=== PATIENT | male | born 1975 | race Hispanic/Latino ===

== ENCOUNTER 2022-04-04 22:06 | Emergency (ER) | payer OTHER ==
[~2022-04-04] VITALS: Ht 177.8 cm; Wt 126.1 kg
[2022-04-04 22:09] VITALS: BP 164/93
[2022-04-05] MEDS ORDERED: DICYCLOMINE HCL 10 MG/5 ML ML PO ONE
[2022-04-05] MEDS ORDERED: LIDOCAINE HCL 2% VISCOUS 15 ML UDCUP PO ONE
[2022-04-05] MEDS ORDERED: MAG/ALUM/SIMETH 30 ML UDCUP PO ONE
[2022-04-05] MEDS ORDERED: AZIT250T9 PO (01:19)
[2022-04-05] MEDS ORDERED: METH4TAB3 PO (01:19)
== END 2022-04-05 01:38 | disposition home or self-care (01) ==
LOC: EDH 22:06
DX: J06.9 Acute upper respiratory infection, unspecified (principal); Z20.822 Contact with and (suspected) exposure to COVID-19; E11.9 Type 2 diabetes mellitus without complications; I10 Essential (primary) hypertension
CPT/HCPCS: 71045; 87635; 87804 ×2; 99284; C9803

== ENCOUNTER 2024-11-23 14:48 | Inpatient (IN) | payer OTHER ==
[~2024-11-23] VITALS: Ht 175.3 cm; Wt 108.6 kg
[~2024-11-23 14:48] MED LIST: AZIT250T9 PO; METH4TAB3 PO
[2024-11-23 15:21] LABS: BASOPHILS # (AUTO) 0.07 K/uL (0.00-0.20); BASOPHILS % (AUTO) 0.5 % (0.0-5.0); EOSINOPHILS # (AUTO) 0.35 K/uL (0.00-0.70); EOSINOPHILS % (AUTO) 2.6 % (0.0-8.0); IMMATURE GRANULOCYTE ABSOLUTE 0.06 K/uL (0-1); LYMPHOCYTES # (AUTO) 2.4 K/uL (1.0-4.8); LYMPHOCYTES % (AUTO) 18.3 % (21.0-51.0); MEAN CORPUSCULAR HEMOGLOBIN 25.7 pg (27.0-33.0); MEAN CORPUSCULAR HGB CONC 32.7 g/dL (32.0-36.0); MEAN CORPUSCULAR VOLUME 78.4 fL (79-99); MONOCYTES % (AUTO) 7.6 % (3.0-13.0); NEUTROPHILS # (AUTO) 9.3 K/uL (1.8-7.7); NEUTROPHILS % (AUTO) 70.5 % (40.0-77.0); PLATELET COUNT (AUTO) 282 K/uL (130-400); RED BLOOD CELL COUNT(AUTO) 4.21 MIL/uL (4.50-6.20); RED CELL DISTRIBUTION WIDTH 13.6 % (11.0-15.5); WHITE BLOOD COUNT (AUTO) 13.2 K/uL (4.8-10.8)
[2024-11-23 15:26] LABS: CREATININE 3.3 mg/dL (0.5-1.3); POTASSIUM 4.6 mmol/L (3.5-5.1)
[2024-11-23 15:37] LABS: B-TYPE NATRIURETIC PEPTIDE 920 pg/mL (0-100)
--- NOTE | 2024-11-23 16:57 | HMCIMG ---
INDICATION: CHEST PAIN TECHNIQUE: CHEST 1VW COMPARISON: 04/05/2022 FINDINGS/IMPRESSION: Mild bilateral airspace consolidation suggesting vascular congestion/edema versus pneumonia. Cardiac silhouette is within normal limits. Mild degenerative changes of the spine. The visualized upper abdomen appears unremarkable.
[2024-11-23 17:18] LABS: APPEARANCE,URINE CLEAR (CLEAR); BILIRUBIN,URINE NEGATIVE (NEGATIVE); COLOR,URINE LIGHT-YELLOW (YELLOW); GLUCOSE, URINE (UA) >=1000 mg/dL (NEGATIVE); KETONES,URINE NEGATIVE (NEGATIVE); LEUKOCYTE ESTERASE ,URINE NEGATIVE Leu/uL (NEGATIVE); NITRATE,URINE NEGATIVE (NEGATIVE); OCCULT BLOOD,URINE MODERATE (NEGATIVE); PROTEIN,URINE 300 mg/dL (NEGATIVE); UROBILINOGEN,URINE 0.2 mg/dL (0.2-1.0)
[2024-11-23 17:19] LABS: ADD UA MICROSCOPIC YES
[2024-11-23 17:23] LABS: BACTERIA,URINE RARE /HPF (None Seen); SQUAMOUS EPITHELIAL CELL,UR RARE /HPF (0-2)
[2024-11-23] MEDS ORDERED: NITROGLYCERIN 0.4 MG SL TAB SL PRN (17:30)
--- NOTE | 2024-11-23 17:34 | ERN ---
ED Note History of Present Illness Stated Complaint: SOB,CHEST PAINS Chief Complaint: Chest Pain Time Seen by MD: 14:58 Time Seen by Midlevel: 15:00 Dictation: 49-year-old male history of hypertension, diabetes, cholesterol coming in complaining of cough congestion for one week and shortness a breath. Patient states about week and a half ago he was up in [place] admitted in the ICU for fluid in the lungs/pneumonia, was told that he needed to have open heart surgery because his arteries were clogged and was discharged to follow up with his PCP. Patient states they went to the PCP yesterday did not give him an appointment until four weeks from now. Allergies: Coded Allergies: No Known Allergies (Unverified Allergy, Unknown, 04/04/22) Home Meds Active Scripts Methylprednisolone (Medrol) 4 Mg Tab.ds.pk, 4 MG PO BID for 5 Days, #10 BOTTLE Prov:TOÑO EAST MD 04/05/22 Azithromycin (Azithromycin) 250 Mg Tablet, 250 MG PO BID for 4 Days, #8 TAB Prov:TOÑO EAST MD 04/05/22 Past Medical History Past Medical History: Diabetes-Type II, High Cholesterol, Heart Disease, Hypertension Surgical History: None Review of System Dictation Constitutional: Negative for fever,chills, and weight loss Eyes: Negative for injury, pain,redness, and discharge ENT: Negative for injury,pain or swelling Cardiovascular: Positive for chest pain, no palpitations, and no edema Respiratory: Positive for shortness of breath, cough, and no wheezing, Abdomen/GI: Negative for abdominal pain, nausea, vomiting, diarrhea, and constipation Back: Negative for injury and pain : Negative for injury, bleeding and discharge MS/Extremity: Negative for injury and deformity Skin: Negative for rash, and discoloration Neuro: Negative for headache, weakness, numbness, tingling, and seizure Psych: Negative for suicide ideation, homicidal ideation, and hallucinations Review of Systems: was completed Initial Vital Sign VS Vital Signs Date Time Temp Pulse Resp B/P (MAP) Pulse Ox O2 Delivery O2 Flow Rate FiO2 11/23/24 14:57 97.9 96 18 122/92 98 Room Air 0 11/23/24 18:40 21 Physical Exam Dictation General: awake, alert, NAD Head/Face: Normocephalic, atraumatic Eyes: PERRL, EOMI, vision at baseline ENT: oral cavity clear, TMs clear, no signs of infection Neck: Trachea midline, supple, no nuchal rigidity Cardiovascular: RRR, normal S1/S2, No MRGs, no JVD Respiratory: Diminished lower lung naylor, no respiratory distress, No rales or wheezes Abdomen: Soft, non-tender, non-distended, normal bowel sounds, no guarding or rebound. Skin: Warm, dry, normal turgor, no rash MS/Extremity: Pulses equal, no cyanosis, neurovascular intact, FROM plus one pitting edema to bilateral lower extremities Neuro: COAx4, GCS 15, strength 5/5, CN 2-12 intact, normal cerebellar exam, normal gait, Psych: Normal behavior, mood, and affect normal Results (Laboratory/Radiology) Laboratory/Radiology Laboratory Tests Test 11/23/24 15:03 11/23/24 15:37 11/23/24 16:58 11/23/24 18:30 White Blood Count 13.2 K/uL (4.8-10.8) H Red Blood Count 4.21 MIL/uL (4.50-6.20) L Hemoglobin 10.8 g/dL (14.0-18.0) L Hematocrit 33.0 % (42-54) L Mean Corpuscular Volume 78.4 fL (79-99) L Mean Corpuscular Hemoglobin 25.7 pg (27.0-33.0) L Mean Corpuscular Hemoglobin Concent 32.7 g/dL (32.0-36.0) Red Cell Distribution Width 13.6 % (11.0-15.5) Platelet Count 282 K/uL (130-400) Mean Platelet Volume 11.9 fL (7.5-10.5) H Immature Granulocyte % (Auto) 0.5 % (0-1) Neutrophils (%) (Auto) 70.5 % (40.0-77.0) Lymphocytes (%) (Auto) 18.3 % (21.0-51.0) L Monocytes (%) (Auto) 7.6 % (3.0-13.0) Eosinophils (%) (Auto) 2.6 % (0.0-8.0) Basophils (%) (Auto) 0.5 % (0.0-5.0) Neutrophils # (Auto) 9.3 K/uL (1.8-7.7) H Lymphocytes # (Auto) 2.4 K/uL (1.0-4.8) Monocytes # (Auto) 1.0 K/uL (0.1-1.0) Eosinophils # (Auto) 0.35 K/uL (0.00-0.70) Basophils # (Auto) 0.07 K/uL (0.00-0.20) Absolute Immature Granulocyte (auto 0.06 K/uL (0-1) Nucleated Red Blood Cells 0.0 % (0.0-0.19) Sodium Level 131 mmol/L (136-145) L Potassium Level 4.6 mmol/L (3.5-5.1) Chloride Level 97 mmol/L (101-111) L Carbon Dioxide Level 29 mmol/L (21-32) Blood Urea Nitrogen 53 mg/dL (7-18) H Creatinine 3.3 mg/dL (0.5-1.3) H Glomerular Filtration Rate Calc 22 mL/min (>90) Random Glucose 370 mg/dL (70-105) H Total Calcium 8.8 mg/dL (8.5-10.1) Total Creatine Kinase 164 U/L (21-232) Troponin I High Sensitivity 79 ng/L (4-75) *H B-Type Natriuretic Peptide 920 pg/mL (0-100) H Troponin I < 0.05 ng/mL (0.00-0.05) Urine Color LIGHT-YELLOW (YELLOW) Urine Appearance CLEAR (CLEAR) Urine pH 6.0 (5.0-8.0) Urine Specific [place] 1.012 (1.001-1.031) Urine Protein 300 mg/dL (NEGATIVE) H Urine Glucose (UA) >=1000 mg/dL (NEGATIVE) H Urine Ketones NEGATIVE mg/dL (NEGATIVE) Urine Occult Blood MODERATE (NEGATIVE) H Urine Nitrate NEGATIVE (NEGATIVE) Urine Bilirubin NEGATIVE mg/dL (NEGATIVE) Urine Urobilinogen 0.2 mg/dL (0.2-1.0) Urine Leukocyte Esterase NEGATIVE [place]/uL Urine RBC 6-10 /HPF (0-1) H Urine WBC 2-5 /HPF (0-1) H Urine Squamous Epithelial Cells RARE /HPF (0-2) Urine Bacteria RARE /HPF (None Seen) Whole Blood Glucose 322 MG/DL (70-110) H Labs Reviewed?: Yes EKG Comment: EKGs shows sinus rhythm, probable left atrial enlargement, nonspecific T abnormalities, lateral leads, at a rate of 93. No STEMI interpreted by ER MD X-RAY Comment: [facility] [address] [place] [address] IMAGING REPORT Signed PATIENT: CHRISTINE MCPHERSON JR MR#: [id number] : 1975 SEX: M AGE: 49 LOCATION: [facility] ORDER 150 STATUS: REG ER REPORT#: [id number] SERVICE 150 REASON: CHEST PAIN ORDERING PHYSICIAN: RENZO WALKER MD PROCEDURE: CXR1VW - CHEST 1VW INDICATION: CHEST PAIN TECHNIQUE: CHEST 1VW COMPARISON: 04/05/2022 FINDINGS/IMPRESSION: Mild bilateral airspace consolidation suggesting vascular congestion/edema versus pneumonia. Cardiac silhouette is within normal limits. Mild degenerative changes of the spine. The visualized upper abdomen appears unremarkable. DICTATED BY: DONG CHINO MD DATE: 11/23/241653 ELECTRONICALLY SIGNED BY: DONG CHINO MD DATE: 11/23/241656 ED Course ED Course Orders Procedure Category Date Status Time Vital Signs Per CPOE 11/23/24 Transmitted Routine 15:03 B-Type Natriuretic LAB 11/23/24 Complete Peptide 15:03 Chest 1vw RAD 11/23/24 Resulted 15:03 12 Lead Ekg Tracing- EKG 11/23/24 Logged Technical 15:03 Oxygen By Nc/Pulse Ox CPOE 11/23/24 Transmitted 15:03 Maintain Iv CPOE 11/23/24 Transmitted 15:03 Iv Insertion CPOE 11/23/24 Transmitted 15:03 Cardiac Monitoring CPOE 11/23/24 Transmitted 15:03 Pulse Oximetry With CPOE 11/23/24 Transmitted Vs And Prn 15:03 Cbc With Differential LAB 11/23/24 Complete 15:03 Activity: Br W/Brp CPOE 11/23/24 Transmitted With Assist 15:03 Creatine Kinase, Total LAB 11/23/24 Complete 15:03 Urinalysis Profile LAB 11/23/24 Complete 15:03 Troponin Poc Order LAB 11/23/24 Complete Only 15:03 Bedside Troponin-I LAB.ER 11/23/24 In Process (Poc) 15:03 Basic Metabolic Panel LAB 11/23/24 Complete 15:03 Troponin I High LAB 11/23/24 Complete Sensitivity 15:27 Aspirin 81mg Chew Tab PHA 11/23/24 Complete (Aspirin 81mg Chew 17:30 Nitroglycerin 0.4mg PHA 11/23/24 In Process Sl Tab (Nitrostat) 17:30 Furosemide 40mg Vial PHA 11/23/24 Complete (Lasix 40mg Vial) 17:30 Ceftriaxone 1g Vial PHA 11/23/24 Complete (Rocephine 1g Inj) 17:32 Insulin Regular, PHA 11/23/24 Complete Human 3ml (Humulin R 17:32 Admit Orders ADM 11/23/24 Transmitted 18:50 Cbc Without LAB 11/24/24 Verified Differential 04:00 Comprehensive LAB 11/24/24 Verified Metabolic Panel 04:00 Magnesium LAB 11/24/24 Verified 04:00 Hemoglobin A1c LAB 11/24/24 Verified 04:00 Lipid Panel LAB 11/24/24 Verified 04:00 Current Medications Medications (Trade) Dose Ordered Sig/Bibi Route PRN Reason Start Time Stop Time Status Last Admin Dose Admin Aspirin (Aspirin 81mg Chew Tab) 324 mg ONCE STAT PO 11/23/24 17:30 11/23/24 17:58 DC 11/23/24 18:34 Ceftriaxone Sodium (ROCEphine 1G INJ) 1 gm ONCE STAT IVPB 11/23/24 17:32 11/23/24 17:58 DC 11/23/24 18:34 Furosemide (LASix 40MG VIAL) 40 mg ONCE STAT IV 11/23/24 17:30 11/23/24 17:58 DC 11/23/24 18:34 Insulin Human Regular (humuLIN R 100 UNIT/ML 3ML) 8 unit ONCE STAT SQ 11/23/24 17:32 11/23/24 17:59 DC 11/23/24 18:36 Nitroglycerin (Nitrostat) 0.4 mg AD PRN SL CHEST PAIN 11/23/24 17:30 12/23/24 17:29 Vital Signs Date Time Temp Pulse Resp B/P (MAP) Pulse Ox O2 Delivery O2 Flow Rate FiO2 11/23/24 18:40 98.8 88 20 120/77 99 Room Air* 0 21 11/23/24 14:57 97.9 96 18 122/92 98 Room Air 0 HEART Score Response (Comments) Value History: Moderate suspicion (+1) 1 EKG: Normal 0 Risk Factors: 1-2 risk factors (+1) 1 Initial Troponin: 1-3x Normal Limit (+1) 1 HEART Score Risk: Low Risk for MACE (1-3) Total 3 Medical Decision Making MDM MDM: 49-year-old male history of hypertension, diabetes, cholesterol coming in complaining of cough congestion for one week and shortness a breath. Patient states about week and a half ago he was up in [place] admitted in the ICU for fluid in the lungs/pneumonia, was told that he needed to have open heart surgery because his arteries were clogged and was discharged to follow up with his PCP. Patient states they went to the PCP yesterday did not give him an appointment until four weeks from now.CBC shows leukocytosis of 13, microcytic anemia, no thrombocytopenia. Chemistry read mild hyponatremia at 1:31 a.m., elevated BUN and creatinine, patient states they told him kidney function was also abnormal in [place], hyperglycemia of 370, troponin mildly elevated at 79, and BNP is 920. Chest x-ray shows mild bilateral airspace consolidation suggestive vascular congestion, edema versus pneumonia. Aspirin, nitro, Rocephin, and Lasix initiated in the emergency room. Pending call back from walking Dr. Barajas for admission for pneumonia, fluid overload, hyponatremia and hyperglycemia. Spoke to tucker Bowie to admit Differential diagnosis: ACS, pneumonia, fluid overload Rationale: Tests considered and ordered secondary to shared decision making include: labs, ECG and radiology Previous outside records reviewed: Old ER visits. Risk of complication and/or morbidity or mortality of patient management: None Medications-Per medication reconciliation Need for hospitalization: Patient does meet criteria for hospitalization. Need for emergency major/minor surgery: No There are no social concerns with this patient. Prescription drug management Prescriptions will include symptomatic care Patient's prior external medical records from other ER visits were reviewed by me as indicated. Prior testing and results from previous visits were reviewed. Prior tests were taken into account with medical decision making and resource utilization, independent historian/historians were used to obtain complete medical history. I independently interpreted the test that were performed, results were reviewed by me and considered findings on radiology if ordered. Medical management and examination interpretation discussions were had by me with other qualified healthcare professionals as indicated for the patient's care. DX & DISP Disposition: Inpatient Decision to Admit Date: Nov 23, 2024 Decision to Admit Time: 19:11 Departure Impression: Primary Impression: Pneumonia Additional Impressions: Fluid overload, CKD (chronic kidney disease), Hyponatremia, Hyperglycemia Condition: Stable Referrals: GOKUL SOLITARIO MD (PCP) I have reviewed the case, and I agree with, Diagnosis and Plan VIRI PINEDA NP Nov 23, 2024 17:34
[2024-11-23] MEDS: cefTRIAXone 1G VIAL IVPB STA (18:34)
[2024-11-23] MEDS: ASPIRIN 81MG CHEW TAB PO STA (18:34)
[2024-11-23] MEDS: furoSEMIDE 40MG VIAL IV STA (18:34)
[2024-11-23] MEDS: INSULIN humuLIN R 100 UNIT/ML 3ML SQ STA (18:36)
[2024-11-23] MEDS ORDERED: acetaMINOPHEN 325 MG TAB PO PRN (19:30)
[2024-11-23] MEDS ORDERED: ondanSETRON 4MG INJ IVP PRN (19:30)
[2024-11-23] MEDS: INSULIN humuLIN R 100 UNIT/ML 3ML SQ SCH (19:38)
[2024-11-23] MEDS: HEParin 5,000 UNIT VIAL SQ SCH (19:40)
--- NOTE | 2024-11-23 21:17 | NUR ---
PATIENT TO BRING HOME MEDICATIONS FOR RECONCILE TOMORROW.
--- NOTE | 2024-11-23 21:41 | EKG ---
[facility] Test Date: 2024-11-23 Test Time: 14:56:42 Pat Name: CHRISTINE MCPHERSON Department: [facility] Patient ID: [id number] Room: 220 Gender: M Patient Educator: [id number] : 1975 Requested By: RENZO WALKER Order Number: [id number] Reading MD: Virginia Esposito Measurements Intervals [place] Rate: 93 P: 101 AL: 154 QRS: 23 QRSD: 100 T: -80 QT: 361 QTc: 450 Interpretive Statements Sinus rhythm Probable left atrial enlargement Nonspecific T abnormalities, lateral leads No previous ECG available for comparison Electronically Signed On 11-25-2024 16:03:09 ASSISTANT MAINTENANCE MANAGER by Virginia Esposito Please click the below link to view image of tracing.
[2024-11-24 07:20] LABS: HEMATOCRIT 33.2 % (42-54); MEAN CORPUSCULAR HEMOGLOBIN 25.1 pg (27.0-33.0); MEAN CORPUSCULAR HGB CONC 31.9 g/dL (32.0-36.0); MEAN CORPUSCULAR VOLUME 78.5 fL (79-99); RED BLOOD CELL COUNT(AUTO) 4.23 MIL/uL (4.50-6.20); RED CELL DISTRIBUTION WIDTH 13.7 % (11.0-15.5); WHITE BLOOD COUNT (AUTO) 11.3 K/uL (4.8-10.8)
[2024-11-24 07:48] LABS: HEMOGLOBIN A1C 7.6 % (4.0-6.0)
[2024-11-24 07:59] LABS: ALBUMIN 2.6 g/dL (3.5-5.0); BILIRUBIN,TOTAL 0.2 mg/dL (0.2-1.0); CREATININE 2.8 mg/dL (0.5-1.3); POTASSIUM 4.6 mmol/L (3.5-5.1); TOTAL PROTEIN, SERUM 5.9 g/dL (6.0-8.3)
[2024-11-24] MEDS: furoSEMIDE 40MG VIAL IV SCH (08:23)
[2024-11-24] MEDS ORDERED: TIRZ5PEN SQ (12:43)
[2024-11-24] MEDS ORDERED: ASPI-1197 PO (12:45)
[2024-11-24] MEDS ORDERED: ATOR40TA71 PO (12:46)
[2024-11-24] MEDS ORDERED: CARV25TA PO (12:48)
[2024-11-24] MEDS ORDERED: EMPA25TA PO (12:48)
[2024-11-24] MEDS ORDERED: AMLO-258 PO (12:48)
[2024-11-24] MEDS ORDERED: FURO20TA4 PO (12:48)
[2024-11-24] MEDS ORDERED: GLYB5TAB8 PO (12:50)
--- NOTE | 2024-11-24 14:21 | NUR ---
DR BARRY CONSULT COMPLETED. TELEPHONE ORDERS GIVEN.
--- NOTE | 2024-11-24 15:27 | NUR ---
INITIAL/DCP HOME Pt remains admitted in ED. Information gathered via phone from EC spouse Ml Cueva [phone]. PCP Dr Farris. Preferred pharmacy: [facility]. DME: none Pt admitted w CHF. He lives at home w his and adult children. Pt is independent w ambulation and ADLs. He is able to drive where needed. Discharge goal is to return home. Addendum: 11/24/24 at 1530 by BOBBI TAYLOR Amended: Links added.
--- NOTE | 2024-11-24 17:19 | CONS ---
[facility] CARDIOLOGY CONSULTATION REPORT Date Patient Seen: 11/24/2024 Requesting Physician: Dr. Barajas Attending Supervisor [employer]: Dr. Jose M Esposito Reason for Consultation: Chest pain History of Present Illness: This is a 49 y/o male with a past medical history of HTN, HLP, DM2, CKD stage III, multivessel CAD identified on [facility]/coronary angiogram done 10/2024 in [facility], and obesity who presents with chest pain of 1 month in duration. The symptoms began spontaneously and over the ensuing timeframe have been constant, and occur multiple times, on a daily basis. The symptoms develop with physical activity and the pain is described as dull in quality, 8/10 in intensity, and are nonradiating. The symptoms last less than 30 seconds, are not exacerbated by anything, and resolve without treatment. He denies any associated symptoms including headache, dizziness, syncope, palpitations, shortness of breath, PND, orthopnea, abdominal pain, nausea, vomiting, weight gain, lower extremity swelling, diaphoresis, fever, or chills. The patient's progression of symptoms prompted him to seek a higher level of care. Of note, is that the patient was recently hospitalized in [place] with pneumonia and underwent a [facility]/coronary angiogram which identified multiple vessel CAD, so CABG was recommended. The patient opted to come back down to the [place] for surgical intervention. Cardiology was consulted for treatment recommendations. Past Medical History: Listed above Past Surgical History: Listed above Family History: Noncontributory Habits: [Never] smoker. [Denies] alcohol consumption. [Denies] illicit drug use Review of Systems: CONST: [No fever, fatigue, or weight changes.] EYES: [No recent vision problems.] ENT: [No congestion, ear pain, or sore throat.] C/V: [As per the HPI.] RESP: [No cough, congestion, wheezing or shortness of breath.] GI: [No abdominal pain, nausea, vomiting, constipation, or diarrhea.] : [No incontinence or dysuria.] SKIN: [No rash.] NEURO: [No headache, focal numbness or weakness, dizziness, or seizures.] PSYCH: [No depression, anxiety, or suicidal ideation.] Physical Examination: GENERAL: [No acute distress.] HEAD: [Normal with no signs of head trauma.] EYES: [PERRLA, EOMI, conjunctiva and sclera normal.] ENT: [Hearing grossly intact, normal oropharynx.] NECK: [Supple without JVD. There is no tenderness, lymphadenopathy, or masses. No thyromegaly. Normal carotid upstrokes without bruits.] LUNGS: [SCM. Bilateral air entry. Diminished breath sounds noted to the bilateral lower lung naylor.] HEART: [Regular rate. Normal S1 and S2. No obvious murmurs, gallop, or rubs.] VASC: [Peripheral pulses +2 bilaterally.] ABD: [Bowel sounds normal, soft, nontender, no masses, no organomegaly. No audible bruits.] EXT: [No clubbing, cyanosis or edema.] SKIN: [No rashes or lesions noted.] NEURO: [Awake, alert, and oriented x3. No focal sensory or strength deficits noted.] Vital Signs (last 8hr) Date Time Temp Pulse Resp B/P (MAP) Pulse Ox O2 Delivery O2 Flow Rate FiO2 11/24/24 16:41 98.1 80 18 130/72 99 Room Air* 0 21 11/24/24 12:56 97.9 84 20 132/75 99 Room Air* 0 21 11/24/24 09:37 98.2 92 18 138/66 96 Room Air* 0 21 Laboratory: Hematology Labs: Test 11/24/24 07:02 11/23/24 15:03 Range/Units White Blood Count 11.3 H 4.8-10.8 K/uL Red Blood Count 4.23 L 4.50-6.20 MIL/uL Hemoglobin 10.6 L 14.0-18.0 g/dL Hematocrit 33.2 L 42-54 % Mean Corpuscular Volume 78.5 L 79-99 fL Mean Corpuscular Hemoglobin 25.1 L 27.0-33.0 pg Mean Corpuscular Hemoglobin Concent 31.9 L 32.0-36.0 g/dL Red Cell Distribution Width 13.7 11.0-15.5 % Platelet Count 268 130-400 K/uL Mean Platelet Volume 12.0 H 7.5-10.5 fL Nucleated Red Blood Cells 0.0 0.0-0.19 % Immature Granulocyte % (Auto) 0.5 0-1 % Neutrophils (%) (Auto) 70.5 40.0-77.0 % Lymphocytes (%) (Auto) 18.3 L 21.0-51.0 % Monocytes (%) (Auto) 7.6 3.0-13.0 % Eosinophils (%) (Auto) 2.6 0.0-8.0 % Basophils (%) (Auto) 0.5 0.0-5.0 % Neutrophils # (Auto) 9.3 H 1.8-7.7 K/uL Lymphocytes # (Auto) 2.4 1.0-4.8 K/uL Monocytes # (Auto) 1.0 0.1-1.0 K/uL Eosinophils # (Auto) 0.35 0.00-0.70 K/uL Basophils # (Auto) 0.07 0.00-0.20 K/uL Absolute Immature Granulocyte (auto 0.06 0-1 K/uL Chemistry Labs: Test 11/24/24 12:02 11/24/24 08:19 11/24/24 07:02 11/23/24 15:37 Range/Units Whole Blood Glucose 251 H 70-110 MG/DL Bedside Glucose Comment Notified Nurse Sodium Level 139 136-145 mmol/L Potassium Level 4.6 3.5-5.1 mmol/L Chloride Level 103 101-111 mmol/L Carbon Dioxide Level 30 21-32 mmol/L Blood Urea Nitrogen 56 H 7-18 mg/dL Creatinine 2.8 H 0.5-1.3 mg/dL Glomerular Filtration Rate Calc 27 >90 mL/min Random Glucose 241 H 70-105 mg/dL Hemoglobin A1c 7.6 H 4.0-6.0 % Estimated Average Glucose (eAG) 171 H 70-126 mg/dL Total Calcium 8.7 8.5-10.1 mg/dL Magnesium Level 2.00 1.80-2.40 mg/dL Total Bilirubin 0.2 0.2-1.0 mg/dL Aspartate Amino Transf (AST/SGOT) 13 10-37 U/L Alanine Aminotransferase (ALT/SGPT) 42 12-78 U/L Alkaline Phosphatase 92 50-136 U/L Troponin I High Sensitivity 71 4-75 ng/L Total Protein 5.9 L 6.0-8.3 g/dL Albumin 2.6 L 3.5-5.0 g/dL Triglycerides Level 199 30-200 mg/dL Cholesterol Level 171 <200 mg/dL LDL Cholesterol 109 H 0-99 mg/dL HDL Cholesterol 37 29-71 mg/dL Troponin I < 0.05 0.00-0.05 ng/mL Test 11/23/24 15:03 Range/Units Total Creatine Kinase 164 21-232 U/L B-Type Natriuretic Peptide 920 H 0-100 pg/mL Assessment: -Chest pain -Acute on chronic congestive heart failure -Acute on chronic renal insufficiency with baseline CKD stage III -Multivessel CAD identified on [facility]/coronary angiogram done 10/2024 in [place], recommended CABG -HTN -HLP -DM2 -Obesity Plan: 1. Chest pain -Cardiac enzymes-HS troponin I: 79>71 -The patient was recently hospitalized in [place] (discharged 11/20/2024) in which he underwent an [facility]/coronary angiogram which identified multivessel CAD. It was recommended that he undergo CABG, but the patient opted to come back to [place] for surgical revascularization. -We will request records from [facility] to obtain the patient's coronary diagram. -In addition, we will obtain a 2D echocardiogram and carotid Doppler for preoperative evaluation. -In the meantime, we will start the patient on isosorbide mononitrate ER 30 mg daily and restart aspirin 81 mg daily, carvedilol 6.25 mg BID, and atorvastatin 40 mg QHS. 2. Acute on chronic congestive heart failure -BNP: 920 -Continue furosemide 40 mg IV BID in order to target a 2L fluid loss per day or BNP level less than half of what it was upon admission -Continue carvedilol 6.25 mg BID. -He is not a candidate for ACEI/ARB/ARNI therapy or aldosterone antagonist therapy due to his renal dysfunction. -A 2D echocardiogram has been ordered to assess the patient's systolic/diastolic function. -Please record strict I/O's, daily weights, and restrict fluids to less than 2.0L/day Thank you for this interesting consult and allowing us to participate in the care of your patient. This case was discussed with my Supervising Physician, Dr. Jose M Esposito, and the above mentioned plan was formulated and agreed upon. -Consult Note written by Mitzi Reid, MSN, HORTICULTURALIST, AGACNP-BC MITZI REID NP Nov 24, 2024 17:19 JOSE M ESPOSITO DO Nov 25, 2024 15:39
--- NOTE | 2024-11-24 20:32 | NUR ---
ULTRASOUND AT BEDSIDE.
--- NOTE | 2024-11-24 20:40 | NUR ---
NURSE BUSY FOR REPORT AT THIS TIME.
--- NOTE | 2024-11-24 22:10 | CONS ---
NEPHROLOGY CONSULTATION REASON FOR CONSULTATION: Renal failure. The patient has brought in with chest pain. HISTORY OF PRESENT ILLNESS: Underlying diabetes, hypertension, hyperlipidemia and the patient came with chest pain, still has cough and congestion, found to have elevated BUN and creatinine. The patient has leukocytosis also. The patient has anemia. No other associated finding. No other aggravating or relieving factors. PAST MEDICAL HISTORY: Significant for diabetes, hypertension, hyperlipidemia, heart disease, multiple others. PAST SURGICAL HISTORY: No surgeries reported. SOCIAL HISTORY: No smoking, alcohol or drug abuse reported to me. FAMILY HISTORY: Unremarkable. ALLERGIES: No allergies. REVIEW OF SYSTEMS: CONSTITUTIONAL: Has been weak. No fever, chills or rigors. HEENT: With no headache, oral ulcers, sore throat or difficulty swallowing. No new vision complaint. RESPIRATORY: Has cough and expectoration, shortness of breath. CARDIOVASCULAR: The patient has chest pain. No orthopnea or PND. GASTROINTESTINAL: Negative for nausea, vomiting, diarrhea. GENITOURINARY: Negative for dysuria or hematuria. DERMATOLOGICAL: No rashes, pruritus or skin lesion. ENDOCRINE: No polyuria, polydipsia or polyphagia. PSYCHIATRIC: Negative for anxiety, depression or hallucinations. NEUROLOGIC: No seizure or syncope. All the other systems unchanged. PHYSICAL EXAMINATION: GENERAL: Pale, no other distress. VITAL SIGNS: Temperature 97.9, pulse 96, respiratory rate 18, blood pressure is 122/92, oxygen saturation 98%. HEENT: Head is atraumatic, normocephalic. Pupils are round and reactive. Sclerae are anicteric. Conjunctivae not pale. Oral mucosa is not dry. NECK: Without masses or bruits. Thyroid is palpable. Neck has no bruits. CHEST: Shows diminished at both bases, prolonged expiration, percussion note being resonant in all areas. CARDIAC: Regular rhythm, no rub, no S3, S4. No parasternal heave. ABDOMEN: With no guarding or tenderness. Bowel sounds are normoactive. No free fluid. No rebound, rigidity or tenderness. EXTREMITIES: With no edema. No cyanosis or clubbing. BACK: No tenderness or back deformities. LYMPHATIC: With no lymph node swelling in neck or axillary area. NEUROLOGIC: Awake, alert, nonfocal. No cranial nerve palsies. No motor or sensory deficit. LABORATORY DATA: Labs have been reviewed and old records reviewed. Imaging studies are personally reviewed. Labs have shown low hemoglobin of 10.6, hematocrit is 33, white cell count elevated to 11,000. BUN of 58, creatinine 2.8. Old records reviewed. Low albumin of 2.6 only. Urine has shown some proteinuria and imaging studies are personally reviewed. Chest x-ray has shown increased marking. Renal ultrasound pending. Old records have been reviewed. PROBLEMS: * Include renal failure, could be chronic or acute on chronic. * Has proteinuria, may have underlying diabetic nephropathy. * The patient came with cough, congestion, possible pneumonia. EKG is showing nonspecific ST-T abnormality. * The patient has anemia. * Underlying diabetic nephropathy. * Hypertension. * The patient has underlying pneumonia, possible. The patient is critically ill. PLAN: * The patient should get urine protein to creatinine. * Urinalysis done with proteinuria detected. * Lab, x-rays were personally reviewed and interpreted. * Renal ultrasound. * One Nephro-Ashish daily. * Iron studies and ferritin. * Gentle diuresis with close monitoring of weight and electrolytes. * IV Dilaudid can be used for pain 0.5 q. 6. * The patient may need workup for pneumonia and treatment as needed. * DVT and GI prophylaxis. * Nonsteroidal drug and contrast should be avoided. * Adjustment of doses of medicine. * Nephrotoxic antibiotic should be avoided. * I have discussed with other team physicians. * Previous and external records reviewed. * We will continue to follow closely. Condition is critical, guarded. Follow up labs, CBC, CMP should be done and we will be monitoring the overall status. Thank you for this patient, condition is critical. TID: [id number] RECEIPT: [id number]
[2024-11-25] VITALS (11 sets, daily range): BP systolic 136–166; BP diastolic 78–94; PULSE 71–100; RESP 16–18; TEMP 97.9–99; O2SAT 96–97
[2024-11-25 00:53] LABS: APPEARANCE,URINE CLEAR (CLEAR); BILIRUBIN,URINE NEGATIVE (NEGATIVE); COLOR,URINE COLORLESS (YELLOW); GLUCOSE, URINE (UA) 70 mg/dL (NEGATIVE); KETONES,URINE NEGATIVE (NEGATIVE); LEUKOCYTE ESTERASE ,URINE NEGATIVE Leu/uL (NEGATIVE); NITRATE,URINE NEGATIVE (NEGATIVE); OCCULT BLOOD,URINE MODERATE (NEGATIVE); PH,URINE 6.5 (5.0-8.0); PROTEIN,URINE 300 mg/dL (NEGATIVE); UROBILINOGEN,URINE 0.2 mg/dL (0.2-1.0)
[2024-11-25 00:54] LABS: ADD UA MICROSCOPIC YES
[2024-11-25 00:58] LABS: SQUAMOUS EPITHELIAL CELL,UR RARE /HPF (0-2)
[2024-11-25 01:27] LABS: AMPHET/METH SCREEN,URINE NEGATIVE (NEGATIVE); BARBITURATE SCREEN, URINE NEGATIVE (NEGATIVE); BENZODIAZEPINES SCREEN,URINE NEGATIVE (NEGATIVE); CANNABINOID SCREEN,URINE NEGATIVE (NEGATIVE); COCAINE SCREEN,URINE NEGATIVE (NEGATIVE); OPIATE SCREEN,URINE NEGATIVE (NEGATIVE); PHENCYCLIDINE SCREEN,URINE NEGATIVE (NEGATIVE)
[2024-11-25 01:28] LABS: CREATININE,URINE RANDOM 99.93 mg/dL (30-135); PROTEIN,URINE RANDOM 196.4 mg/dL (0-11.9)
[2024-11-25 03:25] LABS: BASOPHILS # (AUTO) 0.05 K/uL (0.00-0.20); BASOPHILS % (AUTO) 0.4 % (0.0-5.0); EOSINOPHILS % (AUTO) 2.9 % (0.0-8.0); HEMATOCRIT 34.5 % (42-54); IMMATURE GRANULOCYTE ABSOLUTE 0.07 K/uL (0-1); LYMPHOCYTES # (AUTO) 2.5 K/uL (1.0-4.8); LYMPHOCYTES % (AUTO) 17.9 % (21.0-51.0); MEAN CORPUSCULAR HEMOGLOBIN 25.5 pg (27.0-33.0); MEAN CORPUSCULAR HGB CONC 32.5 g/dL (32.0-36.0); MEAN CORPUSCULAR VOLUME 78.6 fL (79-99); MONOCYTES % (AUTO) 7.2 % (3.0-13.0); NEUTROPHILS # (AUTO) 9.9 K/uL (1.8-7.7); NEUTROPHILS % (AUTO) 71.1 % (40.0-77.0); PLATELET COUNT (AUTO) 293 K/uL (130-400); RED BLOOD CELL COUNT(AUTO) 4.39 MIL/uL (4.50-6.20); RED CELL DISTRIBUTION WIDTH 13.6 % (11.0-15.5)
--- NOTE | 2024-11-25 03:31 | HP ---
DATE OF SERVICE: 11/23/2024 HISTORY AND PHYSICAL PRESENTING COMPLAINT: Shortness of breath, cough and leg swelling. HISTORY OF PRESENT ILLNESS: A 49-year-old male with diabetes mellitus, morbid obesity, hypertension, chronic renal disease, presented to the hospital with history of cough, shortness of breath. The patient also complained of bilateral leg swelling. Cough is dry and nonproductive. No pleuritic pain or hemoptysis. The patient claims he was recently admitted to the hospital in [place] with chest pain and shortness of breath. The patient underwent cardiac catheterization, which revealed critical multivessel coronary artery disease. The patient was advised to go back home and be seen for CABG. The patient in the ER was found with troponin of 79. BNP was elevated at 920. BUN was 53 with creatinine of 3.3. The patient was seen by Cardiology and Nephrology before. Denies dysuria or urinary frequency. Chest x-ray shows pulmonary congestion. PAST MEDICAL HISTORY: * Diabetes mellitus. * Hypertension. * Coronary artery disease. * Dyslipidemia. * Pneumonia. * Morbid obesity. * Coronary artery disease. PAST SURGICAL HISTORY: Recent cardiac catheterization. ALLERGIES: No known drug allergies. MEDICATIONS: Reviewed. SOCIAL HISTORY: . No alcohol, tobacco or illicit drug use. FAMILY HISTORY: Positive for diabetes mellitus. REVIEW OF SYSTEMS: CONSTITUTIONAL: No fever or chills. No weight loss or night sweats. EYES: No eye pain, no photophobia or diplopia. HENT: No sore throat, no rhinorrhea or earache. NECK: No neck pain or neck swelling. RESPIRATORY: Positive for cough. No hemoptysis or pleuritic pain. CARDIOVASCULAR: Positive for shortness of breath, PND, but no orthopnea. No chest pain. GASTROINTESTINAL: Denied nausea, vomiting or abdominal pain. GENITOURINARY: No dysuria, urgency or urinary frequency. CENTRAL NERVOUS SYSTEM: No headache, dyspnea, or slurred speech. PSYCHIATRY: No depression. No suicidal ideation. PHYSICAL EXAMINATION: GENERAL: Young male, awake, not in distress. VITAL SIGNS: Temperature 97.9, pulse 93, respiratory rate 18, BP 122/92. EYES: No icterus. Pupils equal and reactive. HENT: No oral thrush seen. Moist oral mucosa. NECK: Supple, no JVD or thyromegaly. LUNGS: Good air entry. Crackles bilaterally. CARDIOVASCULAR: S1, S2 regular. No murmur heard. ABDOMEN: Obese, soft, nontender. Bowel sound is present. CENTRAL NERVOUS SYSTEM: Awake, alert, oriented x 3. No focal deficits. SKIN: No rashes, no itchiness. LYMPHATIC: No peripheral lymphadenopathy. BACK: No deformity, no pressure ulcer. EXTREMITIES: Pitting edema of lower extremities. LABORATORY DATA: BNP 920. Troponin 79. Sodium 131, potassium 4.6, BUN 53, creatinine 3.3. WBC 13.3, hemoglobin 10.8, platelet 92. RADIOLOGY: Chest x-ray showed vascular congestion. ASSESSMENT: A 49-year-old male presenting with shortness of breath and cough for 1 week duration. Current problem include: * Heart failure. * Hypoxic respiratory failure. * Diabetes mellitus. * [id number] renal failure. * Recently diagnosed coronary artery disease. * Obesity. * Diabetes mellitus. * Hypertension. PLAN: * Admit the patient to medical floor with telemetry. * Troponin will be trended. * The patient will be started on Lasix. * Cardiology evaluation. * Nephrology evaluation. * Obtain 2D echocardiogram. * Monitor electrolytes. * Lispro sliding scale. * Tylenol as needed for pain. * Avoid nephrotoxic medications. TID: [id number] RECEIPT: [id number] [facility]
[2024-11-25 03:40] LABS: CREATININE 2.9 mg/dL (0.5-1.3); POTASSIUM 4.2 mmol/L (3.5-5.1)
[2024-11-25 03:55] LABS: ALBUMIN 2.6 g/dL (3.5-5.0); BILIRUBIN,TOTAL 0.3 mg/dL (0.2-1.0); MAGNESIUM 1.9 mg/dL (1.80-2.40); PHOSPHORUS 4.7 mg/dL (2.5-4.9); THYROID STIMULATING HORMONE 6.04 uIU/mL (0.36-3.74); TOTAL PROTEIN, SERUM 6.8 g/dL (6.0-8.3); URIC ACID 8.1 mg/dL (2.6-7.2)
[2024-11-25] MEDS: ISOSORBIDE MONO 30MG SR TAB PO SCH (08:37)
[2024-11-25] MEDS: Vitamin B Complex/Vit C/Folic Acid PO SCH (08:37)
[2024-11-25] MEDS: ASPIRIN 81MG CHEW TAB PO SCH (08:37)
--- NOTE | 2024-11-25 10:53 | HMCIMG ---
US RENAL SONOGRAM REASON: RENAL FAILURE COMPARISON: None TECHNIQUE: Renal and bladder sonogram was performed. FINDINGS: Right kidney is 10.5 x 5.2 x 5.3 cm, left 10.4 x 5.3 x 4.3 cm. There is no mass, stone or hydronephrosis. Cortical thickness appears preserved. Urinary bladder was not well distended and not well visualized. IMPRESSION: 1. Normal-appearing kidneys. 2. Urinary bladder not well visualized.
--- NOTE | 2024-11-25 11:30 | HMCIMG ---
US CAROTID DUPLEX REASON: CAD, needing CABG TECHNIQUE: Exam was performed using spectral analysis and color flow imaging. FINDINGS: Color flow Doppler ultrasound shows normal-appearing bifurcations. There is no anatomic evidence of significant focal narrowing. Flow velocities and velocity ratios appear normal throughout. There is antegrade flow in both vertebral arteries. Exam is somewhat limited by body habitus. RIGHT CAROTID: CCA: 110 cm/sec ICA: 151 cm/sec Ratio: ICA/CCA: 1.4 ECA: 134 cm/sec Vertebral artery: 73 cm/sec LEFT CAROTID: CCA: 200 cm/sec ICA: 73 cm/sec Ratio: ICA/CCA: 0.4 ECA: 105 cm/sec Vertebral artery: 85 cm/sec IMPRESSION: 1. No evidence of significant focal stenosis in either internal carotid artery. 2. There are some elevated flow velocities in the left common carotid artery but no corresponding anatomic evidence of stenosis.
[2024-11-25] MEDS ORDERED: carVEDIlol 6.25 MG TABLET PO SCH (12:00)
[2024-11-25] MEDS: carVEDIlol 6.25 MG TABLET PO SCH (12:14)
[2024-11-25] MEDS: guaiFENesin SUGAR-FREE 100 MG/5 ML UDCUP PO PRN (12:16)
--- NOTE | 2024-11-25 13:08 | PN ---
NEPHROLOGY PROGRESS NOTE Date/Time Patient Seen: Nov 25, 2024 Reason for Consultation: 13:07 SUBJECTIVE: This 49-year-old male with diabetes mellitus, morbid obesity, hypertension, chronic renal disease, presented to the hospital with history of cough, shortness of breath. The patient also complained of bilateral leg swelling. Cough is dry and nonproductive. No pleuritic pain or hemoptysis. The patient claims he was recently admitted to the hospital in [place] with chest pain and shortness of breath. The patient underwent cardiac catheterization, which revealed critical multivessel coronary artery disease. He was noted to have elevated BUN/creatinine We has been consulted for renal failure. Renal function remains elevated Electrolytes are stable Renal ultrasound was noted He continues IV diuretics He was seen medical floor acute distress Family at bedside REVIEW OF SYSTEMS: GENERAL: Negative for any nausea, vomiting, fevers, chills, or weight loss. NEUROLOGIC: Negative for any blurry vision, blind spots, double vision, facial asymmetry, dysphagia, dysarthria, hemiparesis, hemisensory deficits, vertigo, ataxia. HEENT: Negative for any head trauma, neck trauma, neck stiffness, photophobia, phonophobia, sinusitis, rhinitis. CARDIAC: Negative for any chest pain, dyspnea on exertion, paroxysmal nocturnal dyspnea, peripheral edema. PULMONARY: Negative for any shortness of breath, wheezing, COPD, or TB exposure. GASTROINTESTINAL: Negative for any abdominal pain, nausea, vomiting, bright red blood per rectum, melena. GENITOURINARY: Negative for any dysuria, hematuria, incontinence. INTEGUMENTARY: Negative for any rashes, cuts, insect bites. RHEUMATOLOGIC: Negative for any joint pains, photosensitive rashes, history of vasculitis or kidney problems. HEMATOLOGIC: Negative for any abnormal bruising, frequent infections or bleeding. Vital Signs (last 8hr) Date Time Temp Pulse Resp B/P (MAP) Pulse Ox O2 Delivery O2 Flow Rate FiO2 11/25/24 12:23 98.6 90 18 137/80 94 Room Air 11/25/24 12:14 139/86 11/25/24 08:34 98.4 92 18 139/80 99 Room Air 11/25/24 07:15 97 Nasal Cannula* 2 28 PHYSICAL EXAM: GENERAL: Alert and oriented x 3. No acute distress. Well-nourished. EYES: EOMI. Anicteric. HENT: Moist mucous membranes. No scleral icterus. No cervical lymphadenopathy. LUNGS: Clear to auscultation bilaterally. No accessory muscle use. CARDIOVASCULAR: Regular rate and rhythm. No murmur. No JVD. ABDOMEN: Soft, non-tender and non-distended. No palpable masses. EXTREMITIES: No edema. Non-tender.?SKIN: No rashes or lesions. Warm. NEUROLOGIC: No focal neurological deficits. CN II-XII grossly intact, but not individually tested. PSYCHIATRIC: Cooperative. Appropriate mood and affect. Current Medications Medications (Trade) Dose Ordered Sig/Bibi Route PRN Reason Start Time Stop Time Status Last Admin Dose Admin Acetaminophen (TYLenol 325MG TAB) 650 mg Q4H PRN PO TEMPERATURE GREATER THAN 101.5 11/23/24 19:30 12/23/24 19:29 Aspirin (Aspirin 81mg Chew Tab) 81 mg DAILY PO 11/25/24 09:00 12/25/24 08:59 11/25/24 08:37 81 MG Aspirin (Aspirin 81mg Chew Tab) 324 mg ONCE STAT PO 11/23/24 17:30 11/23/24 17:58 DC 11/23/24 18:34 324 MG Atorvastatin Calcium (LIPItor 40MG) 40 mg HS PO 11/25/24 21:00 12/25/24 20:59 Carvedilol (Coreg 6.25MG) 6.25 mg BID PO 11/25/24 09:30 12/25/24 09:29 11/25/24 12:14 6.25 MG Carvedilol (Coreg 6.25MG) 6.25 mg BIDLUNCHDINNER PO 11/25/24 12:00 11/25/24 09:10 DC Ceftriaxone Sodium (ROCEphine 1G INJ) 1 gm ONCE STAT IVPB 11/23/24 17:32 11/23/24 17:58 DC 11/23/24 18:34 1 GM Furosemide (LASix 40MG VIAL) 40 mg DAILY IV 11/24/24 09:00 12/24/24 08:59 11/25/24 08:37 40 MG Furosemide (LASix 40MG VIAL) 40 mg ONCE STAT IV 11/23/24 17:30 11/23/24 17:58 DC 11/23/24 18:34 40 MG Guaifenesin (RobiTUSSin SUGAR-FREE 100 MG/ 5 ML UDCUP) 200 mg Q4H PRN PO COUGH 11/25/24 12:30 12/25/24 12:29 11/25/24 12:16 200 MG Heparin Sodium (Porcine) (HEParin 5,000 UNIT VIAL) 5,000 unit Q12H SQ 11/23/24 19:30 12/23/24 19:29 11/25/24 08:37 5,000 UNIT Hydralazine HCl ([id number] TAB) 25 mg BID PO 11/25/24 21:00 12/25/24 20:59 Insulin Human Regular (humuLIN R 100 UNIT/ML 3ML) 8 unit ONCE STAT SQ 11/23/24 17:32 11/23/24 17:59 DC 11/23/24 18:36 8 UNIT Insulin Human Regular (humuLIN R 100 UNIT/ML 3ML) INSULIN SLIDING SCAL... ACHS SQ 11/23/24 21:00 12/23/24 20:59 11/25/24 12:04 14 UNIT Isosorbide Mononitrate (Imdur 30mg Sr) 30 mg DAILY PO 11/25/24 09:00 12/25/24 08:59 11/25/24 08:37 30 MG Nitroglycerin (Nitrostat) 0.4 mg AD PRN SL CHEST PAIN 11/23/24 17:30 12/23/24 17:29 Ondansetron HCl (zoFRAN 4MG INJ) 4 mg Q6H PRN IVP NAUSEA/VOMITING 11/23/24 19:30 12/23/24 19:29 Vitamin B Complex/ Vit C/Folic Acid (Nephrovite Tablet) 1 cap DAILY PO 11/25/24 09:00 12/25/24 08:59 11/25/24 08:37 1 CAP LABORATORY: [ ] Hematology Labs: Test 11/25/24 03:18 Range/Units White Blood Count 14.0 H 4.8-10.8 K/uL Red Blood Count 4.39 L 4.50-6.20 MIL/uL Hemoglobin 11.2 L 14.0-18.0 g/dL Hematocrit 34.5 L 42-54 % Mean Corpuscular Volume 78.6 L 79-99 fL Mean Corpuscular Hemoglobin 25.5 L 27.0-33.0 pg Mean Corpuscular Hemoglobin Concent 32.5 32.0-36.0 g/dL Red Cell Distribution Width 13.6 11.0-15.5 % Platelet Count 293 130-400 K/uL Mean Platelet Volume 11.2 H 7.5-10.5 fL Immature Granulocyte % (Auto) 0.5 0-1 % Neutrophils (%) (Auto) 71.1 40.0-77.0 % Lymphocytes (%) (Auto) 17.9 L 21.0-51.0 % Monocytes (%) (Auto) 7.2 3.0-13.0 % Eosinophils (%) (Auto) 2.9 0.0-8.0 % Basophils (%) (Auto) 0.4 0.0-5.0 % Neutrophils # (Auto) 9.9 H 1.8-7.7 K/uL Lymphocytes # (Auto) 2.5 1.0-4.8 K/uL Monocytes # (Auto) 1.0 0.1-1.0 K/uL Eosinophils # (Auto) 0.40 0.00-0.70 K/uL Basophils # (Auto) 0.05 0.00-0.20 K/uL Absolute Immature Granulocyte (auto 0.07 0-1 K/uL Nucleated Red Blood Cells 0.0 0.0-0.19 % Chemistry Labs: Test 11/25/24 11:24 11/25/24 03:18 11/24/24 08:19 11/24/24 07:02 Range/Units Whole Blood Glucose 303 #H 70-110 MG/DL Sodium Level 139 136-145 mmol/L Potassium Level 4.2 3.5-5.1 mmol/L Chloride Level 102 101-111 mmol/L Carbon Dioxide Level 31 21-32 mmol/L Blood Urea Nitrogen 55 H 7-18 mg/dL Creatinine 2.9 H 0.5-1.3 mg/dL Glomerular Filtration Rate Calc 26 >90 mL/min Random Glucose 152 H 70-105 mg/dL Uric Acid 8.1 H 2.6-7.2 mg/dL Total Calcium 9.0 8.5-10.1 mg/dL Phosphorus Level 4.7 2.5-4.9 mg/dL Magnesium Level 1.90 1.80-2.40 mg/dL Iron Level 41 L 65-175 mcg/dL Total Iron Binding Capacity 215 L 250-450 mcg/dL Percent Iron Saturation 19.0 L 30-44 % Ferritin 338 30-400 ng/mL Total Bilirubin 0.3 # 0.2-1.0 mg/dL Aspartate Amino Transf (AST/SGOT) 14 10-37 U/L Alanine Aminotransferase (ALT/SGPT) 36 12-78 U/L Alkaline Phosphatase 88 50-136 U/L B-Type Natriuretic Peptide 720 H 0-100 pg/mL Total Protein 6.8 6.0-8.3 g/dL Albumin 2.6 L 3.5-5.0 g/dL Thyroid Stimulating Hormone (TSH) 6.04 H 0.36-3.74 uIU/mL Bedside Glucose Comment Notified Nurse Hemoglobin A1c 7.6 H 4.0-6.0 % Estimated Average Glucose (eAG) 171 H 70-126 mg/dL Troponin I High Sensitivity 71 4-75 ng/L Triglycerides Level 199 30-200 mg/dL Cholesterol Level 171 <200 mg/dL LDL Cholesterol 109 H 0-99 mg/dL HDL Cholesterol 37 29-71 mg/dL Test 11/23/24 15:37 11/23/24 15:03 Range/Units Troponin I < 0.05 0.00-0.05 ng/mL Total Creatine Kinase 164 21-232 U/L DIAGNOSTICS / RADIOLOGY: REASON: CAD, needing CABG ORDERING PHYSICIAN: MITZI JENKINS NP PROCEDURE: CAROTID - US CAROTID DUPLEX US CAROTID DUPLEX REASON: CAD, needing CABG TECHNIQUE: Exam was performed using spectral analysis and color flow imaging. FINDINGS: Color flow Doppler ultrasound shows normal-appearing bifurcations. There is no anatomic evidence of significant focal narrowing. Flow velocities and velocity ratios appear normal throughout. There is antegrade flow in both vertebral arteries. Exam is somewhat limited by body habitus. RIGHT CAROTID: CCA: 110 cm/sec ICA: 151 cm/sec Ratio: ICA/CCA: 1.4 ECA: 134 cm/sec Vertebral artery: 73 cm/sec LEFT CAROTID: CCA: 200 cm/sec ICA: 73 cm/sec Ratio: ICA/CCA: 0.4 ECA: 105 cm/sec Vertebral artery: 85 cm/sec IMPRESSION: 1. No evidence of significant focal stenosis in either internal carotid artery. 2. There are some elevated flow velocities in the left common carotid artery but no corresponding anatomic evidence of stenosis. DICTATED BY: LEA GUTIERREZ MD DATE: 11/25/24 1126 REASON: RENAL FAILURE ORDERING PHYSICIAN: CAILIN BARRY MD PROCEDURE: RENAL - US RENAL SONOGRAM US RENAL SONOGRAM REASON: RENAL FAILURE COMPARISON: None TECHNIQUE: Renal and bladder sonogram was performed. FINDINGS: Right kidney is 10.5 x 5.2 x 5.3 cm, left 10.4 x 5.3 x 4.3 cm. There is no mass, stone or hydronephrosis. Cortical thickness appears preserved. Urinary bladder was not well distended and not well visualized. IMPRESSION: 1. Normal-appearing kidneys. 2. Urinary bladder not well visualized. DICTATED BY: LEA GUTIERREZ MD DATE: 11/25/24 1050 REASON: CHEST PAIN ORDERING PHYSICIAN: RENZO WALKER MD PROCEDURE: CXR1VW - CHEST 1VW INDICATION: CHEST PAIN TECHNIQUE: CHEST 1VW COMPARISON: 04/05/2022 FINDINGS/IMPRESSION: Mild bilateral airspace consolidation suggesting vascular congestion/edema versus pneumonia. Cardiac silhouette is within normal limits. Mild degenerative changes of the spine. The visualized upper abdomen appears unremarkable. DICTATED BY: DONG CHINO MD DATE: 11/23/24 1656 ASSESSMENT: Acute on chronic renal failure. Heart failure Hypoxic respiratory failure Diabetes mellitus Recently diagnosed coronary artery disease. Obesity Diabetes mellitus Hypertension PLAN: Labs, diagnostic, radiologic exams reviewed and interpreted by myself and supervising physician. We have reviewed external records in detail Obtain a dietary consult for renal diabetic diet. Continue with IV diuretics Fluid restriction is recommended Fluid lenin close monitoring of renal function and electrolytes Order CBC, CMP, and electrolytes in am Renal diabetic diet Monitor blood pressure adjust medication doses as needed Avoid hypotensive episodes May use Dilaudid 0.5 mg IV every 6 hours as needed for severe pain Monitor blood sugars Strict intake, output, and daily weight should be monitored Please renally adjust medications Avoid nephrotoxic and nonsteroidal drugs Avoid contrast if possible Will continue to monitor renal function, anemia, electrolytes Treatment plan discussed with patient Questions were answered We have discussed with the other team physicians in detail about the care plan We will continue to monitor the patient closely ATTESTATION BY PHYSICIAN I have seen and examined the patient. I reviewed the documentation, medical d ecision making, and treatment plan as noted by the mid-level provider above. I agree with the findings and plan of care. CAILIN BARRY MD, [facility] Nov 25, 2024 13:07
--- NOTE | 2024-11-25 14:00 | PN ---
[facility] CARDIOLOGY PROGRESS NOTE Date Patient Seen: Nov 25, 2024 Time of Visit: 13:55 Problem List: [-Chest pain -Acute on chronic congestive heart failure -Acute on chronic renal insufficiency with baseline CKD stage III -Multivessel CAD identified on [facility]/coronary angiogram done 10/2024 in [place], recommended CABG -HTN -HLP -DM2 -Obesity ] Interval History: [ No acute events overnight. Currently the patient denies any further chest pain, palpitations, dyspnea or any other anginal equivalents. Preliminary review of his 2D echocardiogram revealed EF 30-35%. We are pending his medical records in review of his coronary angiogram films] Physical Examination: GENERAL: [No acute distress.] HEAD: [Normal with no signs of head trauma.] EYES: [PERRLA, EOMI, conjunctiva and sclera normal.] ENT: [Hearing grossly intact, normal oropharynx.] NECK: [Supple without JVD. There is no tenderness, lymphadenopathy, or masses. No thyromegaly. Normal carotid upstrokes without bruits.] LUNGS: [SCM. Bilateral air entry. Diminished breath sounds noted to the bilateral lower lung naylor.] HEART: [Regular rate. Normal S1 and S2. No obvious murmurs, gallop, or rubs.] VASC: [Peripheral pulses +2 bilaterally.] ABD: [Bowel sounds normal, soft, nontender, no masses, no organomegaly. No audible bruits.] EXT: [No clubbing, cyanosis or edema.] SKIN: [No rashes or lesions noted.] NEURO: [Awake, alert, and oriented x3. No focal sensory or strength deficits noted.] Laboratory: [ ] Hematology Labs: Test 11/25/24 03:18 Range/Units White Blood Count 14.0 H 4.8-10.8 K/uL Red Blood Count 4.39 L 4.50-6.20 MIL/uL Hemoglobin 11.2 L 14.0-18.0 g/dL Hematocrit 34.5 L 42-54 % Mean Corpuscular Volume 78.6 L 79-99 fL Mean Corpuscular Hemoglobin 25.5 L 27.0-33.0 pg Mean Corpuscular Hemoglobin Concent 32.5 32.0-36.0 g/dL Red Cell Distribution Width 13.6 11.0-15.5 % Platelet Count 293 130-400 K/uL Mean Platelet Volume 11.2 H 7.5-10.5 fL Immature Granulocyte % (Auto) 0.5 0-1 % Neutrophils (%) (Auto) 71.1 40.0-77.0 % Lymphocytes (%) (Auto) 17.9 L 21.0-51.0 % Monocytes (%) (Auto) 7.2 3.0-13.0 % Eosinophils (%) (Auto) 2.9 0.0-8.0 % Basophils (%) (Auto) 0.4 0.0-5.0 % Neutrophils # (Auto) 9.9 H 1.8-7.7 K/uL Lymphocytes # (Auto) 2.5 1.0-4.8 K/uL Monocytes # (Auto) 1.0 0.1-1.0 K/uL Eosinophils # (Auto) 0.40 0.00-0.70 K/uL Basophils # (Auto) 0.05 0.00-0.20 K/uL Absolute Immature Granulocyte (auto 0.07 0-1 K/uL Nucleated Red Blood Cells 0.0 0.0-0.19 % Chemistry Labs: Test 11/25/24 11:24 11/25/24 03:18 11/24/24 08:19 11/24/24 07:02 Range/Units Whole Blood Glucose 303 #H 70-110 MG/DL Sodium Level 139 136-145 mmol/L Potassium Level 4.2 3.5-5.1 mmol/L Chloride Level 102 101-111 mmol/L Carbon Dioxide Level 31 21-32 mmol/L Blood Urea Nitrogen 55 H 7-18 mg/dL Creatinine 2.9 H 0.5-1.3 mg/dL Glomerular Filtration Rate Calc 26 >90 mL/min Random Glucose 152 H 70-105 mg/dL Uric Acid 8.1 H 2.6-7.2 mg/dL Total Calcium 9.0 8.5-10.1 mg/dL Phosphorus Level 4.7 2.5-4.9 mg/dL Magnesium Level 1.90 1.80-2.40 mg/dL Iron Level 41 L 65-175 mcg/dL Total Iron Binding Capacity 215 L 250-450 mcg/dL Percent Iron Saturation 19.0 L 30-44 % Ferritin 338 30-400 ng/mL Total Bilirubin 0.3 # 0.2-1.0 mg/dL Aspartate Amino Transf (AST/SGOT) 14 10-37 U/L Alanine Aminotransferase (ALT/SGPT) 36 12-78 U/L Alkaline Phosphatase 88 50-136 U/L B-Type Natriuretic Peptide 720 H 0-100 pg/mL Total Protein 6.8 6.0-8.3 g/dL Albumin 2.6 L 3.5-5.0 g/dL Thyroid Stimulating Hormone (TSH) 6.04 H 0.36-3.74 uIU/mL Bedside Glucose Comment Notified Nurse Hemoglobin A1c 7.6 H 4.0-6.0 % Estimated Average Glucose (eAG) 171 H 70-126 mg/dL Troponin I High Sensitivity 71 4-75 ng/L Triglycerides Level 199 30-200 mg/dL Cholesterol Level 171 <200 mg/dL LDL Cholesterol 109 H 0-99 mg/dL HDL Cholesterol 37 29-71 mg/dL Test 11/23/24 15:37 11/23/24 15:03 Range/Units Troponin I < 0.05 0.00-0.05 ng/mL Total Creatine Kinase 164 21-232 U/L Diagnostics / Radiology: [Copy/Paste Echos/Imaging Report here] Impression and Plan: -Chest pain -Acute on chronic congestive heart failure -Acute on chronic renal insufficiency with baseline CKD stage III -Multivessel CAD identified on [facility]/coronary angiogram done 10/2024 in [place], recommended CABG -HTN -HLP -DM2 -Obesity Plan: 1. Chest pain -Cardiac enzymes-HS troponin I: 79>71 -The patient was recently hospitalized in [place] (discharged 11/20/2024) in which he underwent an C/coronary angiogram which identified multivessel CAD. It was recommended that he undergo CABG, but the patient opted to come back to [place] for surgical revascularization. -We will request records from [facility] to obtain the patient's coronary diagram, once we obtain the records and review of the films we will consider consulting CV surgery for CABG evaluation. -In the meantime, we will start the patient on isosorbide mononitrate ER 30 mg daily and restart aspirin 81 mg daily, carvedilol 6.25 mg BID, and atorvastatin 40 mg QHS. 2. Acute on chronic congestive heart failure -BNP: 920 -Preliminary review of his echocardiogram showed a EF 30-35% -Continue furosemide 40 mg IV BID in order to target a 2L fluid loss per day or BNP level less than half of what it was upon admission -GDMT : Continue carvedilol 6.25 mg BID. -start hydralazine 25 mg every 12 hours in addition to Imdur 30mg Qd, -He is not a candidate for ACEI/ARB/ARNI therapy or aldosterone antagonist therapy due to his renal dysfunction. -Please record strict I/O's, daily weights, and restrict fluids to less than 2.0L/day Formal recs pending coronary angiogram records and optimization of GDMT Mata Amaral MD ATTESTATION BY PHYSICIAN I have seen and examined the patient, reviewed the above documentation, participated in medical decision making, made necessary modifications, and agree with the treatment plan as documented by my mid-level provider above. MD NIKO Robertson JAMES R MD Nov 25, 2024 14:00
[2024-11-25] MEDS ORDERED: PHARMACY COMMUNICATION MISC SCH (16:00)
--- NOTE | 2024-11-25 16:32 | PN ---
INFECTIOUS DISEASE PROGRESS NOTE Date of Service: Nov 25, 2024 SUBJECTIVE: This is a 49-year-old male patient who was seen and examined at bedside in room 220. Patient is awake, alert and oriented x3. patient observe slightly dyspneic. Continues on oxygen via nasal cannula. WBC remains slightly elevated at 14.0 but no fever, temperature is 98.4. Patient had a carotid Doppler done which showed no evidence of stenosis. Family members visiting at bedside. Questions were answered. Continues on diuretics. Cardiology and Nephrology has evaluated patient and following. Per report patient was recently diagnosed with coronary artery disease and pending medical records from facility. We will continue to follow patient's care. PHYSICAL EXAM EYES: Anicteric. Pupils equal and reactive. HENT: No oral thrush seen, moist Oral mucosa. NECK: Supple, no JVD or thyromegaly. RESPIRATORY: Good air entry. No rales, no rhonchi. Lung sounds diminished. Oxygen as needed via nasal cannula. CARDIOVASCULAR: S1, S2 regular. No murmur heard. ABDOMEN: Non tender, bowel sounds present. Obese but soft. CENTRAL NERVOUS SYSTEM: Awake, alert, oriented x 3. SKIN: No rashes, no swelling. LYMPHATICS: No peripheral lymphadenopathy. MUSCULOSKELETAL: No joint swelling, erythema or tenderness. EXTREMITIES: No cyanosis or clubbing. BACK: No deformity, no pressure ulcer. GENITOURINARY: No dysuria or hematuria. Vital Sign (Last 12 Hours) 11/25/24 11/25/24 11/25/24 11/25/24 07:15 08:34 12:14 12:23 Temp 98.4 98.6 Pulse 92 90 Resp 18 18 B/P (MAP) 139/80 139/86 137/80 Pulse Ox 97 99 94 O2 Delivery Nasal Cannula* Room Air Room Air O2 Flow Rate 2 FiO2 28 11/25/24 16:14 Temp 97.9 Pulse 92 Resp 18 B/P (MAP) 136/79 Pulse Ox 99 O2 Delivery Room Air Intake & Output (last 24hrs) 11/24/24 11/24/24 11/25/24 15:00 23:00 07:00 Intake Total 360 ml Output Total 950 ml 400 ml 300 ml Balance -590 ml -400 ml -300 ml LABS: Laboratory: Test 11/25/24 15:39 11/25/24 03:18 11/25/24 00:35 11/24/24 08:19 Range/Units Whole Blood Glucose 223 H 70-110 MG/DL White Blood Count 14.0 H 4.8-10.8 K/uL Red Blood Count 4.39 L 4.50-6.20 MIL/uL Hemoglobin 11.2 L 14.0-18.0 g/dL Hematocrit 34.5 L 42-54 % Mean Corpuscular Volume 78.6 L 79-99 fL Mean Corpuscular Hemoglobin 25.5 L 27.0-33.0 pg Mean Corpuscular Hemoglobin Concent 32.5 32.0-36.0 g/dL Red Cell Distribution Width 13.6 11.0-15.5 % Platelet Count 293 130-400 K/uL Mean Platelet Volume 11.2 H 7.5-10.5 fL Immature Granulocyte % (Auto) 0.5 0-1 % Neutrophils (%) (Auto) 71.1 40.0-77.0 % Lymphocytes (%) (Auto) 17.9 L 21.0-51.0 % Monocytes (%) (Auto) 7.2 3.0-13.0 % Eosinophils (%) (Auto) 2.9 0.0-8.0 % Basophils (%) (Auto) 0.4 0.0-5.0 % Neutrophils # (Auto) 9.9 H 1.8-7.7 K/uL Lymphocytes # (Auto) 2.5 1.0-4.8 K/uL Monocytes # (Auto) 1.0 0.1-1.0 K/uL Eosinophils # (Auto) 0.40 0.00-0.70 K/uL Basophils # (Auto) 0.05 0.00-0.20 K/uL Absolute Immature Granulocyte (auto 0.07 0-1 K/uL Nucleated Red Blood Cells 0.0 0.0-0.19 % Sodium Level 139 136-145 mmol/L Potassium Level 4.2 3.5-5.1 mmol/L Chloride Level 102 101-111 mmol/L Carbon Dioxide Level 31 21-32 mmol/L Blood Urea Nitrogen 55 H 7-18 mg/dL Creatinine 2.9 H 0.5-1.3 mg/dL Glomerular Filtration Rate Calc 26 >90 mL/min Random Glucose 152 H 70-105 mg/dL Uric Acid 8.1 H 2.6-7.2 mg/dL Total Calcium 9.0 8.5-10.1 mg/dL Phosphorus Level 4.7 2.5-4.9 mg/dL Magnesium Level 1.90 1.80-2.40 mg/dL Iron Level 41 L 65-175 mcg/dL Total Iron Binding Capacity 215 L 250-450 mcg/dL Percent Iron Saturation 19.0 L 30-44 % Ferritin 338 30-400 ng/mL Total Bilirubin 0.3 # 0.2-1.0 mg/dL Aspartate Amino Transf (AST/SGOT) 14 10-37 U/L Alanine Aminotransferase (ALT/SGPT) 36 12-78 U/L Alkaline Phosphatase 88 50-136 U/L B-Type Natriuretic Peptide 720 H 0-100 pg/mL Total Protein 6.8 6.0-8.3 g/dL Albumin 2.6 L 3.5-5.0 g/dL Thyroid Stimulating Hormone (TSH) 6.04 H 0.36-3.74 uIU/mL Urine Color COLORLESS YELLOW Urine Appearance CLEAR CLEAR Urine pH 6.5 5.0-8.0 Urine Specific Charlo 1.013 1.001-1.031 Urine Protein 300 H NEGATIVE mg/dL Urine Glucose (UA) 70 H NEGATIVE mg/dL Urine Ketones NEGATIVE NEGATIVE mg/dL Urine Occult Blood MODERATE H NEGATIVE Urine Nitrate NEGATIVE NEGATIVE Urine Bilirubin NEGATIVE NEGATIVE mg/dL Urine Urobilinogen 0.2 0.2-1.0 mg/dL Urine Leukocyte Esterase NEGATIVE NEGATIVE Tracy/uL Urine RBC 2-5 H 0-1 /HPF Urine WBC 2-5 H 0-1 /HPF Urine Squamous Epithelial Cells RARE 0-2 /HPF Urine Bacteria None None Seen /HPF Urine Osmolality 434 50-1200 mOsm/kg Urine Random Creatinine 99.93 30-135 mg/dL Urine Random Total Protein 196.4 H 0-11.9 mg/dL Urine Random Sodium 56 40-220 mmol/l Urine Random Potassium 18 L 25-125 mmol/L Urine Random Chloride 37 L 110-250 mmol/L Urine Opiates Screen NEGATIVE NEGATIVE Urine Barbiturates Screen NEGATIVE NEGATIVE Urine Phencyclidine Screen NEGATIVE NEGATIVE Urine Amphetamines Screen NEGATIVE NEGATIVE Urine Benzodiazepines Screen NEGATIVE NEGATIVE Urine Cocaine Screen NEGATIVE NEGATIVE Urine Marijuana (THC) Screen NEGATIVE NEGATIVE Bedside Glucose Comment Notified Nurse Test 11/24/24 07:02 Range/Units Hemoglobin A1c 7.6 H 4.0-6.0 % Estimated Average Glucose (eAG) 171 H 70-126 mg/dL Troponin I High Sensitivity 71 4-75 ng/L Triglycerides Level 199 30-200 mg/dL Cholesterol Level 171 <200 mg/dL LDL Cholesterol 109 H 0-99 mg/dL HDL Cholesterol 37 29-71 mg/dL DIAGNOSTICS / RADIOLOGY: ATIENT: CHRISTINE MCPHERSON JR MR#: [id number] : 1975 SEX: M AGE: 49 LOCATION: [facility] ORDER 1504 STATUS: REG ER REPORT#: [id number] SERVICE 1503 REASON: CHEST PAIN ORDERING PHYSICIAN: RENZO WALKER MD PROCEDURE: CXR1VW - CHEST 1VW INDICATION: CHEST PAIN TECHNIQUE: CHEST 1VW COMPARISON: 04/05/2022 FINDINGS/IMPRESSION: Mild bilateral airspace consolidation suggesting vascular congestion/edema versus pneumonia. Cardiac silhouette is within normal limits. Mild degenerative changes of the spine. The visualized upper abdomen appears unremarkable. ASSESSMENT: Hypoxic respiratory failure. Congestive heart failure. Acute on chronic renal failure. Leukocytosis. Coronary artery disease. Diabetes mellitus. Obesity. PLAN: Nephrology has been consulted and following patient. Cardiology has been consulted. Continue diuretics. Continue oxygen support as needed. Glucometer checks a.c./hs and cover with insulin per sliding scale protocol. Avoid nephrotoxic medications. We will monitor electrolytes. Patient is pending a 2D echo. This case was reviewed and discussed with my supervising physician and the above assessment and plan was formulated and agreed upon. ATTESTATION BY PHYSICIAN I have seen and examined the patient. I reviewed the documentation, medical decision making, and treatment plan as noted by the mid-level provider above. I agree with the findings and plan of care. MARIE JOSHI MD, [facility] Nov 25, 2024 16:32
--- NOTE | 2024-11-25 19:47 | PN ---
FOLLOWUP NOTE DATE OF SERVICE: 11/24/2024 SUBJECTIVE: The patient is seen and examined at bedside today. Shortness of breath is better. Still has some cough. No hemoptysis or pleuritic pain. No headache. No neck pain, no neck swelling. No slurred speech or limb weakness. Family was updated at the bedside. PHYSICAL EXAMINATION: VITAL SIGNS: Temperature 98.2. EYES: No icterus. Pupils equal and reactive. HENT: No oral thrush seen. Moist oral mucosa. NECK: Supple, no JVD or thyromegaly. LUNGS: Good air entry. No rales, no rhonchi. CARDIOVASCULAR: S1, S2. No murmur heard. ABDOMEN: Full, soft. Bowel sound is present. CENTRAL NERVOUS SYSTEM: Awake, alert, oriented x 3. No focal deficits. SKIN: No rashes, no itchiness. LYMPHATIC: No peripheral lymphadenopathy. BACK: No deformity, no pressure ulcer. EXTREMITIES: Pitting edema of lower extremities, no cellulitis. LABORATORY DATA: Sodium 139, potassium is 4.3, BUN is 56, creatinine 2.8. ASSESSMENT: A 49-year-old male presenting with shortness of breath and cough Current problems: * Congestive heart failure. * Viral influenza infection. * Hypoxic respiratory failure. * Diabetes mellitus. * Chronic renal disease. * Anemia. * Recently diagnosed multivessel coronary artery disease. PLAN: * Continue diuretics. * Continue antihypertensive. * Continue oxygen. * Continue antidiabetic. * Continue nutritional support. * Monitor electrolytes. The patient will be followed closely. TID: [id number] RECEIPT: [id number] [facility]
[2024-11-25] MEDS: atorVAStatin 40 MG TABLET PO SCH (20:26)
[2024-11-25] MEDS: hydrALAZine 25MG TABLET PO SCH (20:26)
[2024-11-25] MEDS: HEParin 5,000 UNIT VIAL SQ SCH (20:59)
--- NOTE | 2024-11-25 21:15 | HMCSR ---
APPROVED REPORT EXAM: Two-dimensional and M-mode echocardiogram with Doppler and color Doppler. INDICATION ICD: Coronary artery disease 2D Dimensions RVDd4.6 cmLVEF(%)36.3 (>50%)LVED Vol(simp.)159.0 mL IVSd1.3 (0.7-1.1cm)FS(%)18 %LVES Vol(simp.)72.2 mL LVDd5.7 (3.8-5.6cm)LA (2D)4.8 (1.6-4.0cm)LVEF(%, simp.)55 % PWd1.3 (0.7-1.1cm)Ao Root(2D)3.2 (2.0-3.7cm)LA ESV INDEX (4CH)25.10 mL/m2 IVSs1.7 cmLVOT diam2.1 (1.8-2.4cm)LA ESV INDEX (2CH)27.80 mL/m2 LVDs4.7 (2.5-4.0cm)LA ESV INDEX (BP)27.10 mL/m2 PWs1.3 cm Deformation Strain Apical 414.0 % Apical 213.0 % Apical 314.0 % Global Duxupu32.0 % M-Mode Dimensions EPSS1.6 cm LA (MM)4.8 (1.6-4.0cm) Ao Root(MM)3.7 (2.0-3.7cm) Aortic Valve AoV VTI0.3 mAo Mean GR5.0 mmHgLVOT VTI0.14 m KOLTON (VMAX)2.0 cm2AVA (VTI) 2.0 cm2 Mitral Valve MV E Adrv429.9 cm/sDECEL Qlfs894 ms MR Max PG84 mmHgP 1/2 T61 ms MVA (PHT)3.6 cm2 TDI E/E' Xocugl22.9E/E' Izcvqyd84.7 Medial E' Peak V5.10 cm/sLateral E' Peak V9.60 cm/s Pulmonary Valve PV VTI0.19 mPV Mean GR3 mmHg Tricuspid Valve TR Vmax3.4 m/sRAP (EST) 8 asReCMNP20.5 mmHg TR Peak GR45.5 mmHg Left Ventricle Left ventricular cavity is normal for BSA, 2.5 cm/m2. Mild concentric left ventricular hypertrophy. L VEF is 50-55%. E-a fusion. Right Ventricle The right ventricle is moderately dilated. The right ventricular systolic function is normal. Atria The left atrium size is normal. The right atrium is mildly dilated. Aortic Valve The aortic valve is trileaflet normal in structure and function. No aortic regurgitation is present. There is no aortic valvular stenosis. Mitral Valve Mitral valve leaflets open well. There is trace of mitral valve regurgitation noted. There is no mitr al valve stenosis. Tricuspid Valve The tricuspid valve leaflets appear normal. There is trace tricuspid valve regurgitation noted. Pulmonic Valve The pulmonary valve is normal in structure and function. There is no pulmonic valvular regurgitation. Great Vessels The aortic root is normal in size. IVC is not well visualized. Pericardium No pericardial effusion. Other Information Quality : Adequate Conclusion Left ventricular cavity is normal for BSA, 2.5 cm/m2. Mild concentric left ventricular hypertrophy. LVEF is 50-55%. The right ventricle is moderately dilated. The right ventricular systolic function is normal. The left atrium size is normal. The right atrium is mildly dilated. No valvular pathology.
[2024-11-26] VITALS (8 sets, daily range): BP systolic 132–146; BP diastolic 71–90; PULSE 87–93; RESP 17–19; TEMP 98–98.8; O2SAT 96–99
[2024-11-26 04:28] LABS: HEMATOCRIT 32.7 % (42-54); MEAN CORPUSCULAR HEMOGLOBIN 25.7 pg (27.0-33.0); MEAN CORPUSCULAR HGB CONC 31.8 g/dL (32.0-36.0); MEAN CORPUSCULAR VOLUME 80.7 fL (79-99); RED BLOOD CELL COUNT(AUTO) 4.05 MIL/uL (4.50-6.20); RED CELL DISTRIBUTION WIDTH 13.7 % (11.0-15.5); WHITE BLOOD COUNT (AUTO) 14.4 K/uL (4.8-10.8)
[2024-11-26 04:43] LABS: CREATININE 2.5 mg/dL (0.5-1.3); MAGNESIUM 1.6 mg/dL (1.80-2.40); POTASSIUM 4.5 mmol/L (3.5-5.1)
--- NOTE | 2024-11-26 07:03 | NUR ---
reported mg level of 1.[address] alberto. ordered magnesium 4gm iv x1.
--- NOTE | 2024-11-26 07:59 | PN ---
-Chest pain -Acute on chronic congestive heart failure -Acute on chronic renal insufficiency with baseline CKD stage III, now Stage IV EGFR 29 -Multivessel CAD identified on [facility]/coronary angiogram done 10/2024 in [place], recommended CABG -HTN -HLP -DM2 -Obesity Patient continues to experience occasional retrosternal chest pressure and he has a cough that is producing scant amounts of yellow phlegm; this cough is increasing, not improving. Physical exam shows an obese gentleman with no JVD with no rales, coughing throughout the interview. Expiratory rhonchi and wheezes are noted. S1 and S2 are normal and rhythm is regular, no murmur and no edema. Catheterization was done at [facility] in [facility] and angiograms have been requested yesterday. Impression and plan: Patient has angina and has some form of bronchitis, which may interfere with plans for intubation and general anesthesia. We will consult Pulmonary Service to help prepare him for the necessary operation while we await angiograms from the previous hospital. Vitals/Labs Vital Signs Date Time Temp Pulse Resp B/P (MAP) Pulse Ox O2 Delivery O2 Flow Rate FiO2 11/26/24 04:30 98.2 92 18 143/90 98 Nasal Cannula 2.0 11/25/24 19:40 28 Laboratory Tests 11/26/24 04:21 Medications Current Medications Aspirin 324 mg ONCE STAT PO Last administered on 11/23/24at 18:34; Start 11/23/24 at 17:30; Stop 11/23/24 at 17:58; Status DC Nitroglycerin 0.4 mg AD PRN SL; Start 11/23/24 at 17:30; Stop 12/23/24 at 17:29 Furosemide 40 mg ONCE STAT IV Last administered on 11/23/24at 18:34; Start 11/23/24 at 17:30; Stop 11/23/24 at 17:58; Status DC Ceftriaxone Sodium 1 gm ONCE STAT IVPB Last administered on 11/23/24at 18:34; Start 11/23/24 at 17:32; Stop 11/23/24 at 17:58; Status DC Insulin Human Regular 8 unit ONCE STAT SQ Last administered on 11/23/24at 18:36; Start 11/23/24 at 17:32; Stop 11/23/24 at 17:59; Status DC Furosemide 40 mg DAILY IV Last administered on 11/25/24at 08:37; Start 11/24/24 at 09:00; Stop 12/24/24 at 08:59 Heparin Sodium (Porcine) 5,000 unit Q12H SQ Last administered on 11/25/24at 08:37; Start 11/23/24 at 19:30; Stop 11/25/24 at 15:39; Status DC Acetaminophen 650 mg Q4H PRN PO; Start 11/23/24 at 19:30; Stop 12/23/24 at 19:29 Ondansetron HCl 4 mg Q6H PRN IVP; Start 11/23/24 at 19:30; Stop 12/23/24 at 19:29 Insulin Human Regular INSULIN SLIDING SCAL... ACHS SQ Last administered on 11/25/24at 21:02; Start 11/23/24 at 21:00; Stop 12/23/24 at 20:59 Vitamin B Complex/ Vit C/Folic Acid 1 cap DAILY PO Last administered on 11/25/24at 08:37; Start 11/25/24 at 09:00; Stop 12/25/24 at 08:59 Aspirin 81 mg DAILY PO Last administered on 11/25/24at 08:37; Start 11/25/24 at 09:00; Stop 12/25/24 at 08:59 Atorvastatin Calcium 40 mg HS PO Last administered on 11/25/24at 20:26; Start 11/25/24 at 21:00; Stop 12/25/24 at 20:59 Isosorbide Mononitrate 30 mg DAILY PO Last administered on 11/25/24at 08:37; Start 11/25/24 at 09:00; Stop 12/25/24 at 08:59 Carvedilol 6.25 mg BIDLUNCHDINNER PO; Start 11/25/24 at 12:00; Stop 11/25/24 at 09:10; Status DC Carvedilol 6.25 mg BID PO Last administered on 11/25/24at 20:26; Start 11/25/24 at 09:30; Stop 12/25/24 at 09:29 Hydralazine HCl 25 mg BID PO Last administered on 11/25/24at 20:26; Start 11/25/24 at 21:00; Stop 12/25/24 at 20:59 Guaifenesin 200 mg Q4H PRN PO Last administered on 11/26/24at 01:11; Start 11/25/24 at 12:30; Stop 12/25/24 at 12:29 Pharmacy Profile Note 1 each ONCE MISC; Start 11/25/24 at 16:00; Stop 11/25/24 at 15:39; Status DC Heparin Sodium (Porcine) 5,000 unit BID SQ Last administered on 11/25/24at 20:59; Start 11/25/24 at 21:00; Stop 12/23/24 at 19:29 Magnesium Sulfate 50 ml @ 0 mls/hr PROTOCOL PRN IV; Start 11/26/24 at 07:30; Stop 12/26/24 at 07:29 WALI TORO MD Nov 26, 2024 07:59
[2024-11-26] MEDS: ISOSORBIDE MONO 30MG SR TAB PO SCH (08:37)
[2024-11-26] MEDS: MAGNESIUM 2GM PREMIX 50ML 50 ML IV PRN (08:41)
--- NOTE | 2024-11-26 08:45 | NUR ---
Spoke with medical record from [facility], stated she is working on faxing the records as we speak.
--- NOTE | 2024-11-26 13:29 | PN ---
NEPHROLOGY PROGRESS NOTE Date/Time Patient Seen: Nov 26, 2024 Reason for Consultation: 13:27 SUBJECTIVE: This 49-year-old male with diabetes mellitus, morbid obesity, hypertension, chronic renal disease, presented to the hospital with history of cough, shortness of breath. The patient also complained of bilateral leg swelling. Cough is dry and nonproductive. No pleuritic pain or hemoptysis. The patient claims he was recently admitted to the hospital in [place] with chest pain and shortness of breath. The patient underwent cardiac catheterization, which revealed critical multivessel coronary artery disease. He was noted to have elevated BUN/creatinine We has been consulted for renal failure. Renal function remains elevated Electrolytes are stable Renal ultrasound was noted He continues on Lasix 40 mg IV daily He is complaining of cough He was seen in the medical floor, in no acute distress No family at the bedside. REVIEW OF SYSTEMS: GENERAL: Negative for any nausea, vomiting, fevers, chills, or weight loss. NEUROLOGIC: Negative for any blurry vision, blind spots, double vision, facial asymmetry, dysphagia, dysarthria, hemiparesis, hemisensory deficits, vertigo, ataxia. HEENT: Negative for any head trauma, neck trauma, neck stiffness, photophobia, phonophobia, sinusitis, rhinitis. CARDIAC: Negative for any chest pain, dyspnea on exertion, paroxysmal nocturnal dyspnea, peripheral edema. PULMONARY: Negative for any shortness of breath, wheezing, COPD, or TB exposure. GASTROINTESTINAL: Negative for any abdominal pain, nausea, vomiting, bright red blood per rectum, melena. GENITOURINARY: Negative for any dysuria, hematuria, incontinence. INTEGUMENTARY: Negative for any rashes, cuts, insect bites. RHEUMATOLOGIC: Negative for any joint pains, photosensitive rashes, history of vasculitis or kidney problems. HEMATOLOGIC: Negative for any abnormal bruising, frequent infections or bleeding. Vital Signs (last 8hr) Date Time Temp Pulse Resp B/P (MAP) Pulse Ox O2 Delivery O2 Flow Rate FiO2 11/25/24 12:23 98.6 90 18 137/80 94 Room Air 11/25/24 12:14 139/86 11/25/24 08:34 98.4 92 18 139/80 99 Room Air 11/25/24 07:15 97 Nasal Cannula* 2 28 PHYSICAL EXAM: GENERAL: Alert and oriented x 3. No acute distress. Well-nourished. EYES: EOMI. Anicteric. HENT: Moist mucous membranes. No scleral icterus. No cervical lymphadenopathy. LUNGS: Clear to auscultation bilaterally. No accessory muscle use. CARDIOVASCULAR: Regular rate and rhythm. No murmur. No JVD. ABDOMEN: Soft, non-tender and non-distended. No palpable masses. EXTREMITIES: No edema. Non-tender.?SKIN: No rashes or lesions. Warm. NEUROLOGIC: No focal neurological deficits. CN II-XII grossly intact, but not individually tested. PSYCHIATRIC: Cooperative. Appropriate mood and affect. Current Medications Medications (Trade) Dose Ordered Sig/Bibi Route PRN Reason Start Time Stop Time Status Last Admin Dose Admin Acetaminophen (TYLenol 325MG TAB) 650 mg Q4H PRN PO TEMPERATURE GREATER THAN 101.5 11/23/24 19:30 12/23/24 19:29 Aspirin (Aspirin 81mg Chew Tab) 81 mg DAILY PO 11/25/24 09:00 12/25/24 08:59 11/25/24 08:37 81 MG Aspirin (Aspirin 81mg Chew Tab) 324 mg ONCE STAT PO 11/23/24 17:30 11/23/24 17:58 DC 11/23/24 18:34 324 MG Atorvastatin Calcium (LIPItor 40MG) 40 mg HS PO 11/25/24 21:00 12/25/24 20:59 Carvedilol (Coreg 6.25MG) 6.25 mg BID PO 11/25/24 09:30 12/25/24 09:29 11/25/24 12:14 6.25 MG Carvedilol (Coreg 6.25MG) 6.25 mg BIDLUNCHDINNER PO 11/25/24 12:00 11/25/24 09:10 DC Ceftriaxone Sodium (ROCEphine 1G INJ) 1 gm ONCE STAT IVPB 11/23/24 17:32 11/23/24 17:58 DC 11/23/24 18:34 1 GM Furosemide (LASix 40MG VIAL) 40 mg DAILY IV 11/24/24 09:00 12/24/24 08:59 11/25/24 08:37 40 MG Furosemide (LASix 40MG VIAL) 40 mg ONCE STAT IV 11/23/24 17:30 11/23/24 17:58 DC 11/23/24 18:34 40 MG Guaifenesin (RobiTUSSin SUGAR-FREE 100 MG/ 5 ML UDCUP) 200 mg Q4H PRN PO COUGH 11/25/24 12:30 12/25/24 12:29 11/25/24 12:16 200 MG Heparin Sodium (Porcine) (HEParin 5,000 UNIT VIAL) 5,000 unit Q12H SQ 11/23/24 19:30 12/23/24 19:29 11/25/24 08:37 5,000 UNIT Hydralazine HCl ([id number] TAB) 25 mg BID PO 11/25/24 21:00 12/25/24 20:59 Insulin Human Regular (humuLIN R 100 UNIT/ML 3ML) 8 unit ONCE STAT SQ 11/23/24 17:32 11/23/24 17:59 DC 11/23/24 18:36 8 UNIT Insulin Human Regular (humuLIN R 100 UNIT/ML 3ML) INSULIN SLIDING SCAL... ACHS SQ 11/23/24 21:00 12/23/24 20:59 11/25/24 12:04 14 UNIT Isosorbide Mononitrate (Imdur 30mg Sr) 30 mg DAILY PO 11/25/24 09:00 12/25/24 08:59 11/25/24 08:37 30 MG Nitroglycerin (Nitrostat) 0.4 mg AD PRN SL CHEST PAIN 11/23/24 17:30 12/23/24 17:29 Ondansetron HCl (zoFRAN 4MG INJ) 4 mg Q6H PRN IVP NAUSEA/VOMITING 11/23/24 19:30 12/23/24 19:29 Vitamin B Complex/ Vit C/Folic Acid (Nephrovite Tablet) 1 cap DAILY PO 11/25/24 09:00 12/25/24 08:59 11/25/24 08:37 1 [facility] LABORATORY: [ ] Hematology Labs: Test 11/26/24 04:21 11/25/24 03:18 Range/Units White Blood Count 14.4 H 4.8-10.8 K/uL Red Blood Count 4.05 L 4.50-6.20 MIL/uL Hemoglobin 10.4 L 14.0-18.0 g/dL Hematocrit 32.7 L 42-54 % Mean Corpuscular Volume 80.7 79-99 fL Mean Corpuscular Hemoglobin 25.7 L 27.0-33.0 pg Mean Corpuscular Hemoglobin Concent 31.8 L 32.0-36.0 g/dL Red Cell Distribution Width 13.7 11.0-15.5 % Platelet Count 268 130-400 K/uL Mean Platelet Volume 10.9 H 7.5-10.5 fL Nucleated Red Blood Cells 0.0 0.0-0.19 % Immature Granulocyte % (Auto) 0.5 0-1 % Neutrophils (%) (Auto) 71.1 40.0-77.0 % Lymphocytes (%) (Auto) 17.9 L 21.0-51.0 % Monocytes (%) (Auto) 7.2 3.0-13.0 % Eosinophils (%) (Auto) 2.9 0.0-8.0 % Basophils (%) (Auto) 0.4 0.0-5.0 % Neutrophils # (Auto) 9.9 H 1.8-7.7 K/uL Lymphocytes # (Auto) 2.5 1.0-4.8 K/uL Monocytes # (Auto) 1.0 0.1-1.0 K/uL Eosinophils # (Auto) 0.40 0.00-0.70 K/uL Basophils # (Auto) 0.05 0.00-0.20 K/uL Absolute Immature Granulocyte (auto 0.07 0-1 K/uL Chemistry Labs: Test 11/26/24 11:18 11/26/24 04:21 11/25/24 03:18 Range/Units Whole Blood Glucose 271 #H 70-110 MG/DL Sodium Level 139 136-145 mmol/L Potassium Level 4.5 3.5-5.1 mmol/L Chloride Level 104 101-111 mmol/L Carbon Dioxide Level 29 21-32 mmol/L Blood Urea Nitrogen 53 H 7-18 mg/dL Creatinine 2.5 H 0.5-1.3 mg/dL Glomerular Filtration Rate Calc 31 >90 mL/min Random Glucose 174 H 70-105 mg/dL Total Calcium 9.0 8.5-10.1 mg/dL Magnesium Level 1.60 L 1.80-2.40 mg/dL B-Type Natriuretic Peptide 730 H 0-100 pg/mL Procalcitonin < 0.05 L 0.05-0.5 ng/mL Uric Acid 8.1 H 2.6-7.2 mg/dL Phosphorus Level 4.7 2.5-4.9 mg/dL Iron Level 41 L 65-175 mcg/dL Total Iron Binding Capacity 215 L 250-450 mcg/dL Percent Iron Saturation 19.0 L 30-44 % Ferritin 338 30-400 ng/mL Total Bilirubin 0.3 # 0.2-1.0 mg/dL Aspartate Amino Transf (AST/SGOT) 14 10-37 U/L Alanine Aminotransferase (ALT/SGPT) 36 12-78 U/L Alkaline Phosphatase 88 50-136 U/L Total Protein 6.8 6.0-8.3 g/dL Albumin 2.6 L 3.5-5.0 g/dL Thyroid Stimulating Hormone (TSH) 6.04 H 0.36-3.74 uIU/mL DIAGNOSTICS / RADIOLOGY: REASON: CAD ORDERING PHYSICIAN: MITZI JENKINS NP PROCEDURE: ECHO [facility] - ECHO 2-D COMPLETE APPROVED REPORT EXAM: Two-dimensional and M-mode echocardiogram with Doppler and color Doppler. INDICATION ICD: Coronary artery disease 2D Dimensions RVDd 4.6 cm LVEF(%) 36.3 (>50%) LVED Vol(simp.) 159.0 mL IVSd 1.3 (0.7-1.1cm) FS(%) 18 % LVES Vol(simp.) 72.2 mL LVDd 5.7 (3.8-5.6cm) LA (2D) 4.8 (1.6-4.0cm) LVEF(%, simp.) 55 % PWd 1.3 (0.7-1.1cm) Ao Root(2D) 3.2 (2.0-3.7cm) LA ESV INDEX (4CH) 25.10 mL/m2 IVSs 1.7 cm LVOT diam 2.1 (1.8-2.4cm) LA ESV INDEX (2CH) 27.80 mL/m2 LVDs 4.7 (2.5-4.0cm) LA ESV INDEX (BP) 27.10 mL/m2 PWs 1.3 cm Deformation Strain Apical 4 14.0 % Apical 2 13.0 % Apical 3 14.0 % Global Strain 14.0 % M-Mode Dimensions EPSS 1.6 cm LA (MM) 4.8 (1.6-4.0cm) Ao Root(MM) 3.7 (2.0-3.7cm) Aortic Valve AoV VTI 0.3 m Ao Mean GR 5.0 mmHg LVOT VTI 0.14 m KOLTON (VMAX) 2.0 cm2 KOLTON (VTI) 2.0 cm2 Mitral Valve MV E Vmax 131.9 cm/s DECEL Time 148 ms MR Max PG 84 mmHg P 1/2 T 61 ms MVA (PHT) 3.6 cm2 TDI E/E' Medial 25.9 E/E' Lateral 13.7 Medial E' Peak V 5.10 cm/s Lateral E' Peak V 9.60 cm/s Pulmonary Valve PV VTI 0.19 m PV Mean GR 3 mmHg Tricuspid Valve TR Vmax 3.4 m/s RAP (EST) 8 mmHg RVSP 53.5 mmHg TR Peak GR 45.5 mmHg Left Ventricle Left ventricular cavity is normal for BSA, 2.5 cm/m2. Mild concentric left ventricular hypertrophy. LVEF is 50-55%. E-a fusion. Right Ventricle The right ventricle is moderately dilated. The right ventricular systolic function is normal. Atria The left atrium size is normal. The right atrium is mildly dilated. Aortic Valve The aortic valve is trileaflet normal in structure and function. No aortic regurgitation is present. There is no aortic valvular stenosis. Mitral Valve Mitral valve leaflets open well. There is trace of mitral valve regurgitation no cassidy. There is no mitral valve stenosis. Tricuspid Valve The tricuspid valve leaflets appear normal. There is trace tricuspid valve regurgitation noted. Pulmonic Valve The pulmonary valve is normal in structure and function. There is no pulmonic valvular regurgitation. Great Vessels The aortic root is normal in size. IVC is not well visualized. Pericardium No pericardial effusion. Other Information Quality : Adequate Conclusion Left ventricular cavity is normal for BSA, 2.5 cm/m2. Mild concentric left ventricular hypertrophy. LVEF is 50-55%. The right ventricle is moderately dilated. The right ventricular systolic function is normal. The left atrium size is normal. The right atrium is mildly dilated. No valvular pathology. DICTATED BY: GABRIELLE POPE MD DATE: 11/25/24 1026 REASON: CAD, needing CABG ORDERING PHYSICIAN: MITZI JENKINS NP PROCEDURE: CAROTID - US CAROTID DUPLEX US CAROTID DUPLEX REASON: CAD, needing CABG TECHNIQUE: Exam was performed using spectral analysis and color flow imaging. FINDINGS: Color flow Doppler ultrasound shows normal-appearing bifurcations. There is no anatomic evidence of significant focal narrowing. Flow velocities and velocity ratios appear normal throughout. There is antegrade flow in both vertebral arteries. Exam is somewhat limited by body habitus. RIGHT CAROTID: CCA: 110 cm/sec ICA: 151 cm/sec Ratio: ICA/CCA: 1.4 ECA: 134 cm/sec Vertebral artery: 73 cm/sec LEFT CAROTID: CCA: 200 cm/sec ICA: 73 cm/sec Ratio: ICA/CCA: 0.4 ECA: 105 cm/sec Vertebral artery: 85 cm/sec IMPRESSION: 1. No evidence of significant focal stenosis in either internal carotid artery. 2. There are some elevated flow velocities in the left common carotid artery but no corresponding anatomic evidence of stenosis. DICTATED BY: LEA GUTIERREZ MD DATE: 11/25/24 1126 REASON: RENAL FAILURE ORDERING PHYSICIAN: CAILIN BARRY MD PROCEDURE: RENAL - US RENAL SONOGRAM US RENAL SONOGRAM REASON: RENAL FAILURE COMPARISON: None TECHNIQUE: Renal and bladder sonogram was performed. FINDINGS: Right kidney is 10.5 x 5.2 x 5.3 cm, left 10.4 x 5.3 x 4.3 cm. There is no mass, stone or hydronephrosis. Cortical thickness appears preserved. Urinary bladder was not well distended and not well visualized. IMPRESSION: 1. Normal-appearing kidneys. 2. Urinary bladder not well visualized. DICTATED BY: LEA GUTIERREZ MD DATE: 11/25/24 1050 REASON: CHEST PAIN ORDERING PHYSICIAN: RENZO WALKER MD PROCEDURE: CXR1VW - CHEST 1VW INDICATION: CHEST PAIN TECHNIQUE: CHEST 1VW COMPARISON: 04/05/2022 FINDINGS/IMPRESSION: Mild bilateral airspace consolidation suggesting vascular congestion/edema versus pneumonia. Cardiac silhouette is within normal limits. Mild degenerative changes of the spine. The visualized upper abdomen appears unremarkable. DICTATED BY: DONG CHINO MD DATE: 11/23/24 165 ASSESSMENT: Acute on chronic renal failure. Heart failure Hypoxic respiratory failure Diabetes mellitus Recently diagnosed coronary artery disease. Obesity Diabetes mellitus Hypertension PLAN: Labs, diagnostic, radiologic exams reviewed and interpreted by myself and supervising physician. We have reviewed external records in detail Obtain a dietary consult for renal diabetic diet. Recommend adjusting Lasix dose to symptoms control Fluid restriction is recommended Fluid lenin close monitoring of renal function and electrolytes Order CBC, CMP, and electrolytes in am Renal diabetic diet Monitor blood pressure adjust medication doses as needed Avoid hypotensive episodes May use Dilaudid 0.5 mg IV every 6 hours as needed for severe pain Monitor blood sugars Strict intake, output, and daily weight should be monitored Please renally adjust medications Avoid nephrotoxic and nonsteroidal drugs Avoid contrast if possible Will continue to monitor renal function, anemia, electrolytes Treatment plan discussed with patient Questions were answered We have discussed with the other team physicians in detail about the care plan We will continue to monitor the patient closely ATTESTATION BY PHYSICIAN I have seen and examined the patient. I reviewed the documentation, medical decision making, and treatment plan as noted by the mid-level provider above. I agree with the findings and plan of care. CAILIN BARRY MD, [facility] Nov 26, 2024 13:29
[2024-11-26 14:08] LABS: BASOPHILS # (AUTO) 0.06 K/uL (0.00-0.20); BASOPHILS % (AUTO) 0.5 % (0.0-5.0); EOSINOPHILS # (AUTO) 0.27 K/uL (0.00-0.70); EOSINOPHILS % (AUTO) 2.2 % (0.0-8.0); HEMATOCRIT 34.1 % (42-54); IMMATURE GRANULOCYTE ABSOLUTE 0.06 K/uL (0-1); LYMPHOCYTES # (AUTO) 2.2 K/uL (1.0-4.8); LYMPHOCYTES % (AUTO) 17.6 % (21.0-51.0); MEAN CORPUSCULAR HEMOGLOBIN 25.7 pg (27.0-33.0); MEAN CORPUSCULAR HGB CONC 31.4 g/dL (32.0-36.0); MEAN CORPUSCULAR VOLUME 81.8 fL (79-99); MONOCYTES # (AUTO) 0.8 K/uL (0.1-1.0); MONOCYTES % (AUTO) 6.7 % (3.0-13.0); NEUTROPHILS % (AUTO) 72.5 % (40.0-77.0); PLATELET COUNT (AUTO) 288 K/uL (130-400); RED BLOOD CELL COUNT(AUTO) 4.17 MIL/uL (4.50-6.20); RED CELL DISTRIBUTION WIDTH 13.8 % (11.0-15.5); WHITE BLOOD COUNT (AUTO) 12.3 K/uL (4.8-10.8)
[2024-11-26 14:22] LABS: CREATININE 2.9 mg/dL (0.5-1.3); MAGNESIUM 1.9 mg/dL (1.80-2.40); POTASSIUM 4.9 mmol/L (3.5-5.1)
--- NOTE | 2024-11-26 15:17 | CONS ---
[facility] CONSULTATION NOTE Date Patient Seen: Nov 26, 2024 Time of Visit: 1142 Supervising Physician: Dr. Ireland Reason for Consultation: Bronchitis/preop Inpatient Consults: YAMILET PROBLEM LIST: -Chest pain -Acute on chronic heart failure preserved ejection fraction exacerbation EF 50- 55% per echocardiogram 11/25/2024 -Acute on chronic renal insufficiency with baseline CKD stage III, now Stage IV EGFR 29 -Multivessel CAD identified on [facility]/coronary angiogram done 10/2024 in [place], recommended CABG -HTN -HLP -DM2 -Obesity HPI: A 49-year-old male with diabetes mellitus, morbid obesity, hypertension, chronic renal disease, presented to the hospital with history of cough, shortness of breath. The patient also complained of bilateral leg swelling. Co ugh is dry and nonproductive. No pleuritic pain or hemoptysis. The patient claims he was recently admitted to the hospital in [place] with chest pain and shortness of breath. The patient underwent cardiac catheterization, which revealed critical multivessel coronary artery disease. The patient was advised to go back home and be seen for CABG. The patient in the ER was found with troponin of 79. BNP was elevated at 920. BUN was 53 with creatinine of 3.3. The patient was seen by Cardiology and Nephrology before. Denies dysuria or urinary frequency. Chest x-ray shows pulmonary congestion Patient was seen and examined by bedside with family by bedside. Patient currently on2 L nasal cannula appears to be tolerating well. Patient states does not use home oxygen. Patient denies any chest pain or shortness of breadth at this time. Patient also denies any nausea vomiting or abdominal pain. Pulmonology were consulted for bronchitis/preop. At time of visit patient states coughing has subsided with cough medications that was given. Thank you for allowing us to participate in care of this patient we will continue to monitor while patient is in the hospital recommendations listed below PAST MEDICAL HX: see above PAST SURGICAL HX: noncontributory SOCIAL HISTORY: No tobacco, ETOH, or illicit drug use Coded Allergies: No Known Allergies (Unverified Allergy, Unknown, 04/04/22) REVIEW OF SYSTEMS: 12 point ROS reviewed with patient. Pertinent positives mentioned above. Otherwise negative. PHYSICAL EXAM: GENERAL: alert, weak, awake oriented x 3 HEENT: EOMI, Sclera non icteric, moist mucosa NECK: Supple, no JVD, trachea midline LUNGS: Clear breath sounds bilaterally. No wheezes HEART: Regular rate and rhythm. Normal S1 and S2, without murmurs ABD: Abdomen soft, nontender. Bowel sounds present EXT: No clubbing cyanosis or edema NEURO: Alert and oriented to person, follows commands Vital Signs (last 8hr) Date Time Temp Pulse Resp B/P (MAP) Pulse Ox O2 Delivery O2 Flow Rate FiO2 11/26/24 12:11 98.1 87 18 133/81 97 Room Air 11/26/24 08:38 143/89 11/26/24 08:30 98.1 92 18 143/89 99 Room Air 11/26/24 07:53 99 Nasal Cannula* 2 28 LABS: Hematology Labs: Test 11/26/24 13:11 Range/Units White Blood Count 12.3 H 4.8-10.8 K/uL Red Blood Count 4.17 L 4.50-6.20 MIL/uL Hemoglobin 10.7 L 14.0-18.0 g/dL Hematocrit 34.1 L 42-54 % Mean Corpuscular Volume 81.8 79-99 fL Mean Corpuscular Hemoglobin 25.7 L 27.0-33.0 pg Mean Corpuscular Hemoglobin Concent 31.4 L 32.0-36.0 g/dL Red Cell Distribution Width 13.8 11.0-15.5 % Platelet Count 288 130-400 K/uL Mean Platelet Volume 11.7 H 7.5-10.5 fL Immature Granulocyte % (Auto) 0.5 0-1 % Neutrophils (%) (Auto) 72.5 40.0-77.0 % Lymphocytes (%) (Auto) 17.6 L 21.0-51.0 % Monocytes (%) (Auto) 6.7 3.0-13.0 % Eosinophils (%) (Auto) 2.2 0.0-8.0 % Basophils (%) (Auto) 0.5 0.0-5.0 % Neutrophils # (Auto) 9.0 H 1.8-7.7 K/uL Lymphocytes # (Auto) 2.2 1.0-4.8 K/uL Monocytes # (Auto) 0.8 0.1-1.0 K/uL Eosinophils # (Auto) 0.27 0.00-0.70 K/uL Basophils # (Auto) 0.06 0.00-0.20 K/uL Absolute Immature Granulocyte (auto 0.06 0-1 K/uL Nucleated Red Blood Cells 0.0 0.0-0.19 % Chemistry Labs: Test 11/26/24 13:11 11/26/24 11:18 11/26/24 04:21 11/25/24 03:18 Range/Units Sodium Level 135 L 136-145 mmol/L Potassium Level 4.9 3.5-5.1 mmol/L Chloride Level 100 L 101-111 mmol/L Carbon Dioxide Level 31 21-32 mmol/L Blood Urea Nitrogen 52 H 7-18 mg/dL Creatinine 2.9 H 0.5-1.3 mg/dL Glomerular Filtration Rate Calc 26 >90 mL/min Random Glucose 169 H 70-105 mg/dL Total Calcium 9.3 8.5-10.1 mg/dL Phosphorus Level 5.0 H 2.5-4.9 mg/dL Magnesium Level 1.90 1.80-2.40 mg/dL Whole Blood Glucose 271 #H 70-110 MG/DL B-Type Natriuretic Peptide 730 H 0-100 pg/mL Procalcitonin < 0.05 L 0.05-0.5 ng/mL Uric Acid 8.1 H 2.6-7.2 mg/dL Iron Level 41 L 65-175 mcg/dL Total Iron Binding Capacity 215 L 250-450 mcg/dL Percent Iron Saturation 19.0 L 30-44 % Ferritin 338 30-400 ng/mL Total Bilirubin 0.3 # 0.2-1.0 mg/dL Aspartate Amino Transf (AST/SGOT) 14 10-37 U/L Alanine Aminotransferase (ALT/SGPT) 36 12-78 U/L Alkaline Phosphatase 88 50-136 U/L Total Protein 6.8 6.0-8.3 g/dL Albumin 2.6 L 3.5-5.0 g/dL Thyroid Stimulating Hormone (TSH) 6.04 H 0.36-3.74 uIU/mL DIAGNOSTICS / RADIOLOGY RESULTS: na PLAN Profile was negative, therefore no recommendations for antibiotics Obtain COVID and flu swab Continue to actively titrate FiO2 as tolerated We will require 6 minute walk prior to discharge for home oxygen evaluation Continue with diuresing Continue to follow recommendations from Cardiology Continue to monitor respiratory status and maintain adequate oxygenation Keep O2 sats greater or equal to 90% Rest of the care per primary team NEURO: Minimize central acting medications as possible. Maintain fall precautions, adequate lighting during the day PULMONARY: Supplemental 02 as needed. Maintain aspiration precautions at all times CARDIOVASCULAR: Follow hemodynamics. Vital signs per facility protocol GI & NUTRITION: Continue with nutritional support. Continue stool softeners and laxatives as needed. KIDNEYS & ELECTROLYTES: Strict monitoring of intake, output and overall fluid balance. Avoid nephrotoxic medications to the extent possible. Medications to be dosed according to renal function. Monitor electrolytes and replace as needed ENDOCRINE: Maintain blood glucose between 100-180 at all times. Hypoglycemia protocol in place INFECTIOUS DISEASE: Trend temperature, WBC and procalcitonin level Follow cultures, deescalate antibiotics as soon as possible. Panculture if new onset fever ONCOLOGY/HEMATOLOGY/COAGULATION: Monitor for s/s of bleeding Monitor hemoglobin, coagulation studies as needed SKIN: Pressure ulcer prevention per facility protocol Specialty mattress ORTHO/REHAB: Continue PT/OT Prophylaxis: Continue GI and DVT prophylaxis Code Status: Full Resuscitation Disposition: TBD Other: Case discussed with supervising physician plan of care agreed upon AVA GRIFFITH Nov 26, 2024 15:17
--- NOTE | 2024-11-26 15:19 | NUR ---
Spoke with Radiology Department of [facility], an Imaging CD will be shipped via [employer] in AM.
--- NOTE | 2024-11-26 17:53 | PN ---
INFECTIOUS DISEASE PROGRESS NOTE Date of Service: Nov 26, 2024 SUBJECTIVE: This is a 49-year-old male patient who was seen and examined at bedside in room 220. Patient is awake, alert and oriented x3. patient is afebrile, temperature 98.1. Continues on oxygen via nasal cannula at 2 L per minutes. WBC trended down to 12.3. Nursing to obtain CD/disc images from the facility where he was recently hospitalized for cardiovascular surgeon to review. Family members visiting at bedside. Continues on diuretics. We will continue to follow patient's care. PHYSICAL EXAM EYES: Anicteric. Pupils equal and reactive. HENT: No oral thrush seen, moist Oral mucosa. NECK: Supple, no JVD or thyromegaly. RESPIRATORY: Good air entry. No rales, no rhonchi. Lung sounds diminished. Cough. Oxygen as needed via nasal cannula. CARDIOVASCULAR: S1, S2 regular. No murmur heard. ABDOMEN: Non tender, bowel sounds present. Obese but soft. CENTRAL NERVOUS SYSTEM: Awake, alert, oriented x 3. SKIN: No rashes, no swelling. LYMPHATICS: No peripheral lymphadenopathy. MUSCULOSKELETAL: No joint swelling, erythema or tenderness. EXTREMITIES: No cyanosis or clubbing. BACK: No deformity, no pressure ulcer. GENITOURINARY: No dysuria or hematuria. Vital Sign (Last 12 Hours) 11/26/24 11/26/24 11/26/24 11/26/24 07:53 08:30 08:38 12:11 Temp 98.1 98.1 Pulse 92 87 Resp 18 18 B/P (MAP) 143/89 143/89 133/81 Pulse Ox 99 99 97 O2 Delivery Nasal Cannula* Room Air Room Air O2 Flow Rate 2 FiO2 28 11/26/24 16:06 Temp 98.1 Pulse 87 Resp 18 B/P (MAP) 132/81 Pulse Ox 94 O2 Delivery Nasal Cannula O2 Flow Rate 2.0 Intake & Output (last 24hrs) 11/25/24 11/25/24 11/26/24 15:00 23:00 07:00 Intake Total 240 ml 240 ml Output Total 1500 ml 600 ml Balance -1260 ml 240 ml -600 ml LABS: Laboratory: Test 11/26/24 15:31 11/26/24 13:11 11/26/24 04:21 11/25/24 03:18 Range/Units Whole Blood Glucose 121 #H 70-110 MG/DL White Blood Count 12.3 H 4.8-10.8 K/uL Red Blood Count 4.17 L 4.50-6.20 MIL/uL Hemoglobin 10.7 L 14.0-18.0 g/dL Hematocrit 34.1 L 42-54 % Mean Corpuscular Volume 81.8 79-99 fL Mean Corpuscular Hemoglobin 25.7 L 27.0-33.0 pg Mean Corpuscular Hemoglobin Concent 31.4 L 32.0-36.0 g/dL Red Cell Distribution Width 13.8 11.0-15.5 % Platelet Count 288 130-400 K/uL Mean Platelet Volume 11.7 H 7.5-10.5 fL Immature Granulocyte % (Auto) 0.5 0-1 % Neutrophils (%) (Auto) 72.5 40.0-77.0 % Lymphocytes (%) (Auto) 17.6 L 21.0-51.0 % Monocytes (%) (Auto) 6.7 3.0-13.0 % Eosinophils (%) (Auto) 2.2 0.0-8.0 % Basophils (%) (Auto) 0.5 0.0-5.0 % Neutrophils # (Auto) 9.0 H 1.8-7.7 K/uL Lymphocytes # (Auto) 2.2 1.0-4.8 K/uL Monocytes # (Auto) 0.8 0.1-1.0 K/uL Eosinophils # (Auto) 0.27 0.00-0.70 K/uL Basophils # (Auto) 0.06 0.00-0.20 K/uL Absolute Immature Granulocyte (auto 0.06 0-1 K/uL Nucleated Red Blood Cells 0.0 0.0-0.19 % Sodium Level 135 L 136-145 mmol/L Potassium Level 4.9 3.5-5.1 mmol/L Chloride Level 100 L 101-111 mmol/L Carbon Dioxide Level 31 21-32 mmol/L Blood Urea Nitrogen 52 H 7-18 mg/dL Creatinine 2.9 H 0.5-1.3 mg/dL Glomerular Filtration Rate Calc 26 >90 mL/min Random Glucose 169 H 70-105 mg/dL Total Calcium 9.3 8.5-10.1 mg/dL Phosphorus Level 5.0 H 2.5-4.9 mg/dL Magnesium Level 1.90 1.80-2.40 mg/dL B-Type Natriuretic Peptide 730 H 0-100 pg/mL Procalcitonin < 0.05 L 0.05-0.5 ng/mL Uric Acid 8.1 H 2.6-7.2 mg/dL Iron Level 41 L 65-175 mcg/dL Total Iron Binding Capacity 215 L 250-450 mcg/dL Percent Iron Saturation 19.0 L 30-44 % Ferritin 338 30-400 ng/mL Total Bilirubin 0.3 # 0.2-1.0 mg/dL Aspartate Amino Transf (AST/SGOT) 14 10-37 U/L Alanine Aminotransferase (ALT/SGPT) 36 12-78 U/L Alkaline Phosphatase 88 50-136 U/L Total Protein 6.8 6.0-8.3 g/dL Albumin 2.6 L 3.5-5.0 g/dL Thyroid Stimulating Hormone (TSH) 6.04 H 0.36-3.74 uIU/mL Test 11/25/24 00:35 Range/Units Urine Color COLORLESS YELLOW Urine Appearance CLEAR CLEAR Urine pH 6.5 5.0-8.0 Urine Specific Beeler 1.013 1.001-1.031 Urine Protein 300 H NEGATIVE mg/dL Urine Glucose (UA) 70 H NEGATIVE mg/dL Urine Ketones NEGATIVE NEGATIVE mg/dL Urine Occult Blood MODERATE H NEGATIVE Urine Nitrate NEGATIVE NEGATIVE Urine Bilirubin NEGATIVE NEGATIVE mg/dL Urine Urobilinogen 0.2 0.2-1.0 mg/dL Urine Leukocyte Esterase NEGATIVE NEGATIVE Tracy/uL Urine RBC 2-5 H 0-1 /HPF Urine WBC 2-5 H 0-1 /HPF Urine Squamous Epithelial Cells RARE 0-2 /HPF Urine Bacteria None None Seen /HPF Urine Osmolality 434 50-1200 mOsm/kg Urine Random Creatinine 99.93 30-135 mg/dL Urine Random Total Protein 196.4 H 0-11.9 mg/dL Urine Random Sodium 56 40-220 mmol/l Urine Random Potassium 18 L 25-125 mmol/L Urine Random Chloride 37 L 110-250 mmol/L Urine Opiates Screen NEGATIVE NEGATIVE Urine Barbiturates Screen NEGATIVE NEGATIVE Urine Phencyclidine Screen NEGATIVE NEGATIVE Urine Amphetamines Screen NEGATIVE NEGATIVE Urine Benzodiazepines Screen NEGATIVE NEGATIVE Urine Cocaine Screen NEGATIVE NEGATIVE Urine Marijuana (THC) Screen NEGATIVE NEGATIVE ASSESSMENT: Hypoxic respiratory failure. Congestive heart failure. Acute on chronic renal failure. Leukocytosis. Coronary artery disease. Diabetes mellitus. Obesity. PLAN: Nephrology has been consulted and following patient. Cardiothoracic surgeon has evaluated patient on following. Continue diuretics. Continue oxygen support as needed. Glucometer checks a.c./hs and cover with insulin per sliding scale protocol. Avoid nephrotoxic medications. Nursing to obtain CD/Disc from recent hospitalization. This case was reviewed and discussed with my supervising physician and the above assessment and plan was formulated and agreed upon. ATTESTATION BY PHYSICIAN I have seen and examined the patient. I reviewed the documentation, medical decision making, and treatment plan as noted by the mid-level provider above. I agree with the findings and plan of care. MARIE JOSHI MD, MIRTA L [facility] Nov 26, 2024 17:53
[2024-11-26] MEDS: SODIUM CHLORIDE 3% FOR INHALATION 4 ML/AMP VIAL.NEB IH ONE (18:51)
[2024-11-26 20:06] LABS: COVID19 (SARS ANTIGEN RAPID) PRESUMPTIVE NEGATIVE (NEGATIVE)
[2024-11-26 20:07] LABS: INFLUENZA TYPE A Negative For Type A (NEGATIVE)
[2024-11-26 20:24] LABS: INFLUENZA TYPE B Positive For Type B (NEGATIVE)
[2024-11-27] VITALS (8 sets, daily range): BP systolic 109–135; BP diastolic 68–81; PULSE 82–97; RESP 17–20; TEMP 98–98.7; O2SAT 96–97
[2024-11-27 04:03] LABS: BASOPHILS # (AUTO) 0.05 K/uL (0.00-0.20); BASOPHILS % (AUTO) 0.4 % (0.0-5.0); EOSINOPHILS # (AUTO) 0.33 K/uL (0.00-0.70); EOSINOPHILS % (AUTO) 2.7 % (0.0-8.0); HEMATOCRIT 30.8 % (42-54); IMMATURE GRANULOCYTE ABSOLUTE 0.07 K/uL (0-1); LYMPHOCYTES # (AUTO) 2.5 K/uL (1.0-4.8); LYMPHOCYTES % (AUTO) 20.1 % (21.0-51.0); MEAN CORPUSCULAR HEMOGLOBIN 25.4 pg (27.0-33.0); MEAN CORPUSCULAR HGB CONC 32.1 g/dL (32.0-36.0); MEAN CORPUSCULAR VOLUME 79.2 fL (79-99); MONOCYTES # (AUTO) 0.9 K/uL (0.1-1.0); MONOCYTES % (AUTO) 7.3 % (3.0-13.0); NEUTROPHILS # (AUTO) 8.6 K/uL (1.8-7.7); NEUTROPHILS % (AUTO) 68.9 % (40.0-77.0); PLATELET COUNT (AUTO) 307 K/uL (130-400); RED BLOOD CELL COUNT(AUTO) 3.89 MIL/uL (4.50-6.20); RED CELL DISTRIBUTION WIDTH 13.7 % (11.0-15.5); WHITE BLOOD COUNT (AUTO) 12.4 K/uL (4.8-10.8)
[2024-11-27 04:12] LABS: CREATININE 2.5 mg/dL (0.5-1.3); MAGNESIUM 2.2 mg/dL (1.80-2.40); POTASSIUM 4.5 mmol/L (3.5-5.1)
--- NOTE | 2024-11-27 08:13 | PN ---
-Chest pain -Acute on chronic congestive heart failure -Acute on chronic renal insufficiency with baseline CKD stage III, now Stage IV EGFR 29 -Multivessel CAD identified on [facility]/coronary angiogram done 10/2024 in [place], recommended CABG -HTN -HLP -DM2 -Obesity Dramatic improvement in pulmonary status, denies shortness of breath or cough and feels well. Angiograms requested from previous hospital, Dr. Armijo has seen the patient and we may have plan for an operation if possible. Physical exam shows no JVD, no edema, no rales, no rhonchi, nonlabored respiration, no cough. S1 and S2 are normal, no murmur. Rhythm is regular. Impression: Significant renal insufficiency persists but heart failure has cleared and cough is resolved. Cardiac and pulmonary status appear to be appropriate for thoracotomy and coronary bypass, but I will get a repeat chest x-ray and BNP today. Vitals/Labs Vital Signs Date Time Temp Pulse Resp B/P (MAP) Pulse Ox O2 Delivery O2 Flow Rate FiO2 11/27/24 07:00 98.8 92 20 126/68 97 Nasal Cannula 2.0 11/26/24 20:00 21 Laboratory Tests 11/26/24 13:11 11/27/24 03:24 Medications Current Medications Aspirin 324 mg ONCE STAT PO Last administered on 11/23/24at 18:34; Start 11/23/24 at 17:30; Stop 11/23/24 at 17:58; Status DC Nitroglycerin 0.4 mg AD PRN SL; Start 11/23/24 at 17:30; Stop 12/23/24 at 17:29 Furosemide 40 mg ONCE STAT IV Last administered on 11/23/24at 18:34; Start 11/23/24 at 17:30; Stop 11/23/24 at 17:58; Status DC Ceftriaxone Sodium 1 gm ONCE STAT IVPB Last administered on 11/23/24at 18:34; Start 11/23/24 at 17:32; Stop 11/23/24 at 17:58; Status DC Insulin Human Regular 8 unit ONCE STAT SQ Last administered on 11/23/24at 18:36; Start 11/23/24 at 17:32; Stop 11/23/24 at 17:59; Status DC Furosemide 40 mg DAILY IV Last administered on 11/26/24at 08:37; Start 11/24/24 at 09:00; Stop 12/24/24 at 08:59 Heparin Sodium (Porcine) 5,000 unit Q12H SQ Last administered on 11/25/24at 08:37; Start 11/23/24 at 19:30; Stop 11/25/24 at 15:39; Status DC Acetaminophen 650 mg Q4H PRN PO; Start 11/23/24 at 19:30; Stop 12/23/24 at 19:29 Ondansetron HCl 4 mg Q6H PRN IVP; Start 11/23/24 at 19:30; Stop 12/23/24 at 19:29 Insulin Human Regular INSULIN SLIDING SCAL... ACHS SQ Last administered on 11/26/24at 20:15; Start 11/23/24 at 21:00; Stop 12/23/24 at 20:59 Vitamin B Complex/ Vit C/Folic Acid 1 cap DAILY PO Last administered on 11/26/24at 08:38; Start 11/25/24 at 09:00; Stop 12/25/24 at 08:59 Aspirin 81 mg DAILY PO Last administered on 11/26/24at 08:38; Start 11/25/24 at 09:00; Stop 12/25/24 at 08:59 Atorvastatin Calcium 40 mg HS PO Last administered on 11/26/24at 20:16; Start 11/25/24 at 21:00; Stop 12/25/24 at 20:59 Isosorbide Mononitrate 30 mg DAILY PO Last administered on 11/25/24at 08:37; Start 11/25/24 at 09:00; Stop 11/26/24 at 08:03; Status DC Carvedilol 6.25 mg BIDLUNCHDINNER PO; Start 11/25/24 at 12:00; Stop 11/25/24 at 09:10; Status DC Carvedilol 6.25 mg BID PO Last administered on 11/26/24at 20:17; Start 11/25/24 at 09:30; Stop 12/25/24 at 09:29 Hydralazine HCl 25 mg BID PO Last administered on 11/25/24at 20:26; Start 11/25/24 at 21:00; Stop 11/26/24 at 08:03; Status DC Guaifenesin 200 mg Q4H PRN PO Last administered on 11/27/24at 06:33; Start 11/25/24 at 12:30; Stop 12/25/24 at 12:29 Pharmacy Profile Note 1 each ONCE MISC; Start 11/25/24 at 16:00; Stop 11/25/24 at 15:39; Status DC Heparin Sodium (Porcine) 5,000 unit BID SQ Last administered on 11/26/24at 20:15; Start 11/25/24 at 21:00; Stop 12/23/24 at 19:29 Magnesium Sulfate 50 ml @ 0 mls/hr PROTOCOL PRN IV Last administered on 11/26/24at 14:36; Start 11/26/24 at 07:30; Stop 12/26/24 at 07:29 Isosorbide Mononitrate 30 mg BID PO Last administered on 11/26/24at 20:16; Start 11/26/24 at 09:00; Stop 12/25/24 at 08:59 Sodium Chloride 4 ml STK-MED ONCE IH; Start 11/26/24 at 18:51; Stop 11/26/24 at 18:51; Status DC Oseltamivir Phosphate 75 mg DAILY PO; Start 11/27/24 at 09:00; Stop 12/02/24 at 08:59 WALI TORO MD Nov 27, 2024 08:13
[2024-11-27] MEDS: OSELTAMIVIR PHOSPHATE 75 MG CAP PO SCH (09:53)
--- NOTE | 2024-11-27 11:10 | HMCIMG ---
CHEST 1VW REASON: chf COMPARISON: 11/23/2024 FINDINGS: There are diffuse bilateral infiltrates which appear increased somewhat since prior exam. Heart size is normal. There is no vascular congestion or pleural effusion. The Steinmann and bony thorax appear unremarkable. IMPRESSION: 1. Increasing perihilar infiltrates.
--- NOTE | 2024-11-27 14:53 | PN ---
[facility] PROGRESS NOTE Date Patient Seen: Nov 27, 2024 Time of Visit: 1128 Supervising Physician: Dr. Ireland Inpatient Consults: YAMILET PROBLEM LIST: -influenza B positive -Chest pain -Acute on chronic heart failure preserved ejection fraction exacerbation EF 50- 55% per echocardiogram 11/25/2024 -Acute on chronic renal insufficiency with baseline CKD stage III, now Stage IV EGFR 29 -Multivessel CAD identified on [facility]/coronary angiogram done 10/2024 in [place], recommended CABG -HTN -HLP -DM2 -Obesity INTERVAL HISTORY: 11/27 patient was seen and examined at bedside with no family present. Patient remains on2 L nasal cannula appears to be tolerating well. Patient reports cough has subsided. Patient denies chest pain reports minimal shortness of breadth. Patient denies nausea vomiting or abdominal pain. Patient was positive for flu B, has been started on Tamiflu. We will continue while recommendations from cardiology and CV surgery, plan is for possible CABG . REVIEW OF SYSTEMS: 12 point ROS reviewed with patient. Pertinent positives mentioned above. Otherwise negative. PHYSICAL EXAM: GENERAL: alert, weak, awake oriented x 3 HEENT: EOMI, Sclera non icteric, moist mucosa NECK: Supple, no JVD, trachea midline LUNGS: Clear breath sounds bilaterally. No wheezes HEART: Regular rate and rhythm. Normal S1 and S2, without murmurs ABD: Abdomen soft, nontender. Bowel sounds present EXT: No clubbing cyanosis or edema NEURO: Alert and oriented to person, follows commands Vital Signs (last 8hr) Date Time Temp Pulse Resp B/P (MAP) Pulse Ox O2 Delivery O2 Flow Rate FiO2 11/27/24 11:00 98.4 91 20 134/75 96 Nasal Cannula 2.0 11/27/24 09:53 126/68 11/27/24 07:45 97 Room Air* 0 21 11/27/24 07:00 98.8 92 20 126/68 97 Nasal Cannula 2.0 LABS: Hematology Labs: Test 11/27/24 03:24 Range/Units White Blood Count 12.4 H 4.8-10.8 K/uL Red Blood Count 3.89 L 4.50-6.20 MIL/uL Hemoglobin 9.9 L 14.0-18.0 g/dL Hematocrit 30.8 L 42-54 % Mean Corpuscular Volume 79.2 79-99 fL Mean Corpuscular Hemoglobin 25.4 L 27.0-33.0 pg Mean Corpuscular Hemoglobin Concent 32.1 32.0-36.0 g/dL Red Cell Distribution Width 13.7 11.0-15.5 % Platelet Count 307 130-400 K/uL Mean Platelet Volume 11.9 H 7.5-10.5 fL Immature Granulocyte % (Auto) 0.6 0-1 % Neutrophils (%) (Auto) 68.9 40.0-77.0 % Lymphocytes (%) (Auto) 20.1 L 21.0-51.0 % Monocytes (%) (Auto) 7.3 3.0-13.0 % Eosinophils (%) (Auto) 2.7 0.0-8.0 % Basophils (%) (Auto) 0.4 0.0-5.0 % Neutrophils # (Auto) 8.6 H 1.8-7.7 K/uL Lymphocytes # (Auto) 2.5 1.0-4.8 K/uL Monocytes # (Auto) 0.9 0.1-1.0 K/uL Eosinophils # (Auto) 0.33 0.00-0.70 K/uL Basophils # (Auto) 0.05 0.00-0.20 K/uL Absolute Immature Granulocyte (auto 0.07 0-1 K/uL Nucleated Red Blood Cells 0.0 0.0-0.19 % Chemistry Labs: Test 11/27/24 10:38 11/27/24 03:24 11/26/24 13:11 11/26/24 04:21 Range/Units Whole Blood Glucose 205 H 70-110 MG/DL Bedside Glucose Comment Notified Nurse Sodium Level 136 136-145 mmol/L Potassium Level 4.5 3.5-5.1 mmol/L Chloride Level 100 L 101-111 mmol/L Carbon Dioxide Level 29 21-32 mmol/L Blood Urea Nitrogen 52 H 7-18 mg/dL Creatinine 2.5 H 0.5-1.3 mg/dL Glomerular Filtration Rate Calc 31 >90 mL/min Random Glucose 146 H 70-105 mg/dL Total Calcium 9.0 8.5-10.1 mg/dL Magnesium Level 2.20 1.80-2.40 mg/dL B-Type Natriuretic Peptide 753 H 0-100 pg/mL Phosphorus Level 5.0 H 2.5-4.9 mg/dL Procalcitonin < 0.05 L 0.05-0.5 ng/mL DIAGNOSTICS / RADIOLOGY RESULTS: na PLAN Protocol was negative, therefore no recommendations for antibiotics Flu B positive continue Tamiflu to complete a total of five days, should be renally adjusted Continue to actively titrate FiO2 as tolerated We will require 6 minute walk prior to discharge for home oxygen evaluation Continue with diuresing Continue to follow recommendations from Cardiology Continue to monitor respiratory status and maintain adequate oxygenation Keep O2 sats greater or equal to 90% Continue follow recommendations from CV surgery Rest of the care per primary team NEURO: Minimize central acting medications as possible. Maintain fall precautions, adequate lighting during the day PULMONARY: Supplemental 02 as needed. Maintain aspiration precautions at all times CARDIOVASCULAR: Follow hemodynamics. Vital signs per facility protocol GI & NUTRITION: Continue with nutritional support. Continue stool softeners and laxatives as needed. KIDNEYS & ELECTROLYTES: Strict monitoring of intake, output and overall fluid balance. Avoid nephrotoxic medications to the extent possible. Medications to be dosed according to renal function. Monitor electrolytes and replace as needed ENDOCRINE: Maintain blood glucose between 100-180 at all times. Hypoglycemia protocol in place INFECTIOUS DISEASE: Trend temperature, WBC and procalcitonin level Follow cultures, deescalate antibiotics as soon as possible. Panculture if new onset fever ONCOLOGY/HEMATOLOGY/COAGULATION: Monitor for s/s of bleeding Monitor hemoglobin, coagulation studies as needed SKIN: Pressure ulcer prevention per facility protocol Specialty mattress ORTHO/REHAB: Continue PT/OT Prophylaxis: Continue GI and DVT prophylaxis Code Status: Full Resuscitation Disposition: TBD Other: Case discussed with supervising physician plan of care agreed upon AVA GRIFFITH Nov 27, 2024 14:53
--- NOTE | 2024-11-27 17:06 | PN ---
INFECTIOUS DISEASE PROGRESS NOTE Date of Service: Nov 27, 2024 SUBJECTIVE: This is a 49-year-old male patient who was seen and examined at bedside in room 220. Patient is awake, alert and oriented x3. Patient is sitting up on the bedside chair. Stated his breathing is better. Continues on oxygen via nasal cannula at 2 L per minutes. No fever, temperature is 98.4. Per report the CD/disc images were requested and being deliver tomorrow. Cardiothoracic surgeon has evaluated patient and following. Patient tested positive for influenza type B yesterday. Patient has been started on Tamiflu. A chest x-ray done today showed increasing perihilar infiltrates. Continues on Lasix IV. We will continue to follow patient's care. PHYSICAL EXAM EYES: Anicteric. Pupils equal and reactive. HENT: No oral thrush seen, moist Oral mucosa. NECK: Supple, no JVD or thyromegaly. RESPIRATORY: Good air entry. No rales, no rhonchi. Lung sounds diminished. Oxygen as needed via nasal cannula. CARDIOVASCULAR: S1, S2 regular. No murmur heard. ABDOMEN: Non tender, bowel sounds present. Obese but soft. CENTRAL NERVOUS SYSTEM: Awake, alert, oriented x 3. SKIN: No rashes, no swelling. LYMPHATICS: No peripheral lymphadenopathy. MUSCULOSKELETAL: No joint swelling, erythema or tenderness. EXTREMITIES: No cyanosis or clubbing. BACK: No deformity, no pressure ulcer. GENITOURINARY: No dysuria or hematuria. Vital Sign (Last 12 Hours) 11/27/24 11/27/24 11/27/24 11/27/24 07:00 07:45 09:53 11:00 Temp 98.8 98.4 Pulse 92 91 Resp 20 20 B/P (MAP) 126/68 126/68 134/75 Pulse Ox 97 97 96 O2 Delivery Nasal Cannula Room Air* Nasal Cannula O2 Flow Rate 2.0 0 2.0 FiO2 21 11/27/24 16:00 Temp 98.2 Pulse 82 Resp 20 B/P (MAP) 122/79 Pulse Ox 98 O2 Delivery Room Air Intake & Output (last 24hrs) 11/26/24 11/26/24 11/27/24 15:00 23:00 07:00 Intake Total 530.0 ml 365 ml Output Total 1380 ml 400 ml 1025 ml Balance -850.0 ml -35 ml -1025 ml LABS: Laboratory: Test 11/27/24 16:08 11/27/24 03:24 11/26/24 19:28 11/26/24 13:11 Range/Units Whole Blood Glucose 122 H 70-110 MG/DL Bedside Glucose Comment Notified Nurse White Blood Count 12.4 H 4.8-10.8 K/uL Red Blood Count 3.89 L 4.50-6.20 MIL/uL Hemoglobin 9.9 L 14.0-18.0 g/dL Hematocrit 30.8 L 42-54 % Mean Corpuscular Volume 79.2 79-99 fL Mean Corpuscular Hemoglobin 25.4 L 27.0-33.0 pg Mean Corpuscular Hemoglobin Concent 32.1 32.0-36.0 g/dL Red Cell Distribution Width 13.7 11.0-15.5 % Platelet Count 307 130-400 K/uL Mean Platelet Volume 11.9 H 7.5-10.5 fL Immature Granulocyte % (Auto) 0.6 0-1 % Neutrophils (%) (Auto) 68.9 40.0-77.0 % Lymphocytes (%) (Auto) 20.1 L 21.0-51.0 % Monocytes (%) (Auto) 7.3 3.0-13.0 % Eosinophils (%) (Auto) 2.7 0.0-8.0 % Basophils (%) (Auto) 0.4 0.0-5.0 % Neutrophils # (Auto) 8.6 H 1.8-7.7 K/uL Lymphocytes # (Auto) 2.5 1.0-4.8 K/uL Monocytes # (Auto) 0.9 0.1-1.0 K/uL Eosinophils # (Auto) 0.33 0.00-0.70 K/uL Basophils # (Auto) 0.05 0.00-0.20 K/uL Absolute Immature Granulocyte (auto 0.07 0-1 K/uL Nucleated Red Blood Cells 0.0 0.0-0.19 % Sodium Level 136 136-145 mmol/L Potassium Level 4.5 3.5-5.1 mmol/L Chloride Level 100 L 101-111 mmol/L Carbon Dioxide Level 29 21-32 mmol/L Blood Urea Nitrogen 52 H 7-18 mg/dL Creatinine 2.5 H 0.5-1.3 mg/dL Glomerular Filtration Rate Calc 31 >90 mL/min Random Glucose 146 H 70-105 mg/dL Total Calcium 9.0 8.5-10.1 mg/dL Magnesium Level 2.20 1.80-2.40 mg/dL B-Type Natriuretic Peptide 753 H 0-100 pg/mL Influenza Type A Antigen Negative For Type A NEGATIVE Influenza Type B Antigen Positive For Type B *A NEGATIVE SARS-CoV-2 Antigen (Rapid) PRESUMPTIVE NEGATIVE NEGATIVE Phosphorus Level 5.0 H 2.5-4.9 mg/dL Test 11/26/24 04:21 Range/Units Procalcitonin < 0.05 L 0.05-0.5 ng/mL ASSESSMENT: Hypoxic respiratory failure. Congestive heart failure. Acute on chronic renal failure. Leukocytosis. Viral influenza infection type B. Coronary artery disease. Diabetes mellitus. Obesity. PLAN: Patient has been started on Tamiflu. Nephrology has been consulted and following patient. Cardiothoracic surgeon has evaluated patient on following. Continue diuretics. Continue oxygen support as needed. Glucometer checks a.c./hs and cover with insulin per sliding scale protocol. Avoid nephrotoxic medications. Per report the CD/Disc images from recent hospitalization being delivered tomorrow. This case was reviewed and discussed with my supervising physician and the above assessment and plan was formulated and agreed upon. ATTESTATION BY PHYSICIAN I have seen and examined the patient. I reviewed the documentation, medical decision making, and treatment plan as noted by the mid-level provider above. I agree with the findings and plan of care. MARIE JOSHI MD, MIRTA L FNP Nov 27, 2024 17:06
--- NOTE | 2024-11-27 22:07 | PN ---
NEPHROLOGY NOTE SUBJECTIVE: Renal failure and anemia. The patient has obesity. The patient has coronary artery disease, could be considered for CABG; diabetic nephropathy, and hypertension. The patient has shortness of breath. The patient has some cough and has proteinuria and multiple other comorbidities are present. No other associated symptoms. No other aggravating or relieving factor. The patient remains quite sick. REVIEW OF SYSTEMS: CONSTITUTIONAL: No fever, chills, or rigors. HEENT: With no headache, oral ulcers, sore throat, or difficulty swallowing. RESPIRATORY: No cough, expectoration, hemoptysis, or pleuritic pain. CARDIOVASCULAR: No orthopnea or PND. GASTROINTESTINAL: Negative for nausea, vomiting, or diarrhea. GENITOURINARY: Negative for dysuria or hematuria. DERMATOLOGICAL: No rashes, pruritus, or skin lesion. ENDOCRINE: No polyuria, polydipsia, or polyphagia. PHYSICAL EXAMINATION: GENERAL: Pale, no other distress. VITAL SIGNS: Blood pressure is 122/79, pulse 82, respiratory rate 20, afebrile. HEENT: Head is atraumatic. Pupils are round and reactive. Sclerae are anicteric. Conjunctivae not pale. Oral mucosa is not dry. NECK: Without masses or bruits. Thyroid is palpable. Neck has no bruits. CHEST: Shows diminished breath sounds in both equal lung bases, prolonged expiration, percussion note being resonant in all areas. CARDIAC: Regular rhythm. No rub. No S3 or S4. No parasternal heave. ABDOMEN: No guarding or tenderness. Bowel sounds are normoactive. No free fluid. LABORATORY DATA: Have been reviewed. Hemoglobin low up to 9.9. Creatinine elevated. Urine has shown proteinuria. Creatinine is 2.5. Old records reviewed. IMAGING STUDIES: Personally reviewed. Ultrasound reviewed. Echocardiogram reviewed. Carotid ultrasound reviewed. Ejection fraction elevated at 50-55 percent. PROBLEMS: Advanced renal failure, acute on chronic, diabetic nephropathy, hypertension, anemia, and coronary artery disease. PLAN: For CABG, multiple other comorbidities. We will continue monitoring of renal function, and the patient has been treated for underlying flu with Tamiflu. CABG is being considered in future. Epogen is being given. Atorvastatin, continue. Nephro-Ashish one a day. Diuretics as needed and followup on overall status. Intake, output, weight, and overall status will be monitored. Overall condition remained critical and guarded. Seen several times. Discussed with other team physicians, and we have reviewed the external records, previous records, or old records. Followup labs have been ordered. TID: [id number] RECEIPT: [id number]
--- NOTE | 2024-11-27 23:56 | PN ---
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 He was treated and discharged. The patient gets readmitted to [facility] for surgery. I had the opportunity to discuss with the patient and family indications for surgery as well as the potential complications of the operation including, but not limited to postoperative bleeding, infection, stroke and/or . They understand that there is an associated morbidity and mortality of the procedure as it relates to the patient's own comorbidities and wishes to proceed with surgery. Plan for surgery soon. TID: [id number] RECEIPT: [id number]
[2024-11-28] VITALS (8 sets, daily range): BP systolic 111–138; BP diastolic 68–88; PULSE 73–88; RESP 16–20; TEMP 97.8–98.6; O2SAT 96–98
[2024-11-28 04:58] LABS: BASOPHILS # (AUTO) 0.05 K/uL (0.00-0.20); BASOPHILS % (AUTO) 0.4 % (0.0-5.0); EOSINOPHILS # (AUTO) 0.42 K/uL (0.00-0.70); EOSINOPHILS % (AUTO) 3.4 % (0.0-8.0); HEMATOCRIT 31.1 % (42-54); IMMATURE GRANULOCYTE ABSOLUTE 0.08 K/uL (0-1); LYMPHOCYTES # (AUTO) 2.5 K/uL (1.0-4.8); MEAN CORPUSCULAR HEMOGLOBIN 25.3 pg (27.0-33.0); MEAN CORPUSCULAR HGB CONC 31.5 g/dL (32.0-36.0); MEAN CORPUSCULAR VOLUME 80.2 fL (79-99); MONOCYTES % (AUTO) 7.8 % (3.0-13.0); NEUTROPHILS # (AUTO) 8.4 K/uL (1.8-7.7); NEUTROPHILS % (AUTO) 67.8 % (40.0-77.0); PLATELET COUNT (AUTO) 318 K/uL (130-400); RED BLOOD CELL COUNT(AUTO) 3.88 MIL/uL (4.50-6.20); RED CELL DISTRIBUTION WIDTH 13.7 % (11.0-15.5); WHITE BLOOD COUNT (AUTO) 12.5 K/uL (4.8-10.8)
[2024-11-28 05:21] LABS: CREATININE 2.6 mg/dL (0.5-1.3); MAGNESIUM 1.9 mg/dL (1.80-2.40); POTASSIUM 4.9 mmol/L (3.5-5.1)
--- NOTE | 2024-11-28 09:53 | PN ---
-Chest pain -Acute on chronic congestive heart failure -Acute on chronic renal insufficiency with baseline CKD stage III, now Stage IV EGFR 29 -Nephrotic syndrome, proteinuria -Multivessel CAD identified on [facility]/coronary angiogram done 10/2024 in [place], recommended CABG -HTN -HLP -DM2 -Obesity Patient offers no symptomatic complaints today except that he is bringing up phlegm. He does not have the incessant cough that he had a few days ago but does occasionally cough up phlegm. Apparently antibiotics have been added. Physical exam shows an overweight patient with no JVD, diminished breath sounds in the right base, I do not appreciate rales or rhonchi or wheezes on exam today. S1 and S2 are normal, no edema. Chest x-ray and BNP are disappointing. Patient still has significant pulmonary edema and BNP in the mid 700 range. I do not know how reliable the BNP we will be with this renal dysfunction, but clearly the patient has persistent pulmonary edema. Impression and plan: I discussed the case with Dr. Alexander who advises significant proteinuria is present and the patient likely has nephrotic syndrome. He advises high dose diuresis regardless of creatinine, stating that renal dysfunction has progressed to the point where this is what is necessary to maintain volume status. New regimen will be furosemide 80 mg IV b.i.d., given early in the morning and in the afternoon rather than at q.12 hour intervals, to allow the patient to sleep at night. Surgery has been delayed. Vitals/Labs Vital Signs Date Time Temp Pulse Resp B/P (MAP) Pulse Ox O2 Delivery O2 Flow Rate FiO2 11/28/24 09:16 96 Room Air* 0 21 11/28/24 08:27 129/80 11/28/24 07:00 97.9 88 20 Laboratory Tests 11/28/24 04:34 Medications Current Medications Aspirin 324 mg ONCE STAT PO Last administered on 11/23/24at 18:34; Start 11/23/24 at 17:30; Stop 11/23/24 at 17:58; Status DC Nitroglycerin 0.4 mg AD PRN SL; Start 11/23/24 at 17:30; Stop 12/23/24 at 17:29 Furosemide 40 mg ONCE STAT IV Last administered on 11/23/24at 18:34; Start 11/23/24 at 17:30; Stop 11/23/24 at 17:58; Status DC Ceftriaxone Sodium 1 gm ONCE STAT IVPB Last administered on 11/23/24at 18:34; Start 11/23/24 at 17:32; Stop 11/23/24 at 17:58; Status DC Insulin Human Regular 8 unit ONCE STAT SQ Last administered on 11/23/24at 18:36; Start 11/23/24 at 17:32; Stop 11/23/24 at 17:59; Status DC Furosemide 40 mg DAILY IV Last administered on 11/28/24at 08:29; Start 11/24/24 at 09:00; Stop 12/24/24 at 08:59 Heparin Sodium (Porcine) 5,000 unit Q12H SQ Last administered on 11/25/24at 08:37; Start 11/23/24 at 19:30; Stop 11/25/24 at 15:39; Status DC Acetaminophen 650 mg Q4H PRN PO; Start 11/23/24 at 19:30; Stop 12/23/24 at 19:29 Ondansetron HCl 4 mg Q6H PRN IVP; Start 11/23/24 at 19:30; Stop 12/23/24 at 19:29 Insulin Human Regular INSULIN SLIDING SCAL... ACHS SQ Last administered on 11/27/24at 20:39; Start 11/23/24 at 21:00; Stop 12/23/24 at 20:59 Vitamin B Complex/ Vit C/Folic Acid 1 cap DAILY PO Last administered on 11/28/24at 08:27; Start 11/25/24 at 09:00; Stop 12/25/24 at 08:59 Aspirin 81 mg DAILY PO Last administered on 11/28/24at 08:27; Start 11/25/24 at 09:00; Stop 12/25/24 at 08:59 Atorvastatin Calcium 40 mg HS PO Last administered on 11/27/24at 20:32; Start 11/25/24 at 21:00; Stop 12/25/24 at 20:59 Isosorbide Mononitrate 30 mg DAILY PO Last administered on 11/25/24at 08:37; Start 11/25/24 at 09:00; Stop 11/26/24 at 08:03; Status DC Carvedilol 6.25 mg BIDLUNCHDINNER PO; Start 11/25/24 at 12:00; Stop 11/25/24 at 09:10; Status DC Carvedilol 6.25 mg BID PO Last administered on 11/28/24at 08:27; Start 11/25/24 at 09:30; Stop 12/25/24 at 09:29 Hydralazine HCl 25 mg BID PO Last administered on 11/25/24at 20:26; Start 11/25/24 at 21:00; Stop 11/26/24 at 08:03; Status DC Guaifenesin 200 mg Q4H PRN PO Last administered on 11/28/24at 05:49; Start 11/25/24 at 12:30; Stop 12/25/24 at 12:29 Pharmacy Profile Note 1 each ONCE MIS; Start 11/25/24 at 16:00; Stop 11/25/24 at 15:39; Status DC Heparin Sodium (Porcine) 5,000 unit BID SQ Last administered on 11/28/24at 08:28; Start 11/25/24 at 21:00; Stop 12/23/24 at 19:29 Magnesium Sulfate 50 ml @ 0 mls/hr PROTOCOL PRN IV Last administered on 11/28/24at 05:49; Start 11/26/24 at 07:30; Stop 12/26/24 at 07:29 Isosorbide Mononitrate 30 mg BID PO Last administered on 11/28/24at 08:28; Start 11/26/24 at 09:00; Stop 12/25/24 at 08:59 Sodium Chloride 4 ml STK-MED ONCE IH; Start 11/26/24 at 18:51; Stop 11/26/24 at 18:51; Status DC Oseltamivir Phosphate 75 mg DAILY PO Last administered on 11/28/24at 08:27; Start 11/27/24 at 09:00; Stop 12/02/24 at 08:59 WALI TORO MD Nov 28, 2024 09:53
[2024-11-28] MEDS: furoSEMIDE 40MG VIAL IV ONE ×3 (09:57→15:06)
[2024-11-28] MEDS: furoSEMIDE 40MG VIAL IV SCH (09:57)
--- NOTE | 2024-11-28 13:03 | PN ---
NEPHROLOGY PROGRESS NOTE Date/Time Patient Seen: Nov 28, 2024 Reason for Consultation: 13:02 SUBJECTIVE: This 49-year-old male with diabetes mellitus, morbid obesity, hypertension, chronic renal disease, presented to the hospital with history of cough, shortness of breath. The patient also complained of bilateral leg swelling. Cough is dry and nonproductive. No pleuritic pain or hemoptysis. The patient claims he was recently admitted to the hospital in [place] with chest pain and shortness of breath. The patient underwent cardiac catheterization, which revealed critical multivessel coronary artery disease. He was noted to have elevated BUN/creatinine We has been consulted for renal failure. Renal function remains elevated Electrolytes are stable Renal ultrasound was noted He was seen in the medical floor, in no acute distress No family at the bedside. REVIEW OF SYSTEMS: GENERAL: Negative for any nausea, vomiting, fevers, chills, or weight loss. NEUROLOGIC: Negative for any blurry vision, blind spots, double vision, facial asymmetry, dysphagia, dysarthria, hemiparesis, hemisensory deficits, vertigo, ataxia. HEENT: Negative for any head trauma, neck trauma, neck stiffness, photophobia, phonophobia, sinusitis, rhinitis. CARDIAC: Negative for any chest pain, dyspnea on exertion, paroxysmal nocturnal dyspnea, peripheral edema. PULMONARY: Negative for any shortness of breath, wheezing, COPD, or TB exposure. GASTROINTESTINAL: Negative for any abdominal pain, nausea, vomiting, bright red blood per rectum, melena. GENITOURINARY: Negative for any dysuria, hematuria, incontinence. INTEGUMENTARY: Negative for any rashes, cuts, insect bites. RHEUMATOLOGIC: Negative for any joint pains, photosensitive rashes, history of vasculitis or kidney problems. HEMATOLOGIC: Negative for any abnormal bruising, frequent infections or bleeding. Vital Signs (last 8hr) Date Time Temp Pulse Resp B/P (MAP) Pulse Ox O2 Delivery O2 Flow Rate FiO2 11/25/24 12:23 98.6 90 18 137/80 94 Room Air 11/25/24 12:14 139/86 11/25/24 08:34 98.4 92 18 139/80 99 Room Air 11/25/24 07:15 97 Nasal Cannula* 2 28 PHYSICAL EXAM: GENERAL: Alert and oriented x 3. No acute distress. Well-nourished. EYES: EOMI. Anicteric. HENT: Moist mucous membranes. No scleral icterus. No cervical lymphadenopathy. LUNGS: Clear to auscultation bilaterally. No accessory muscle use. CARDIOVASCULAR: Regular rate and rhythm. No murmur. No JVD. ABDOMEN: Soft, non-tender and non-distended. No palpable masses. EXTREMITIES: No edema. Non-tender.?SKIN: No rashes or lesions. Warm. NEUROLOGIC: No focal neurological deficits. CN II-XII grossly intact, but not individually tested. PSYCHIATRIC: Cooperative. Appropriate mood and affect. Current Medications Medications (Trade) Dose Ordered Sig/Bibi Route PRN Reason Start Time Stop Time Status Last Admin Dose Admin Acetaminophen (TYLenol 325MG TAB) 650 mg Q4H PRN PO TEMPERATURE GREATER THAN 101.5 11/23/24 19:30 12/23/24 19:29 Aspirin (Aspirin 81mg Chew Tab) 81 mg DAILY PO 11/25/24 09:00 12/25/24 08:59 11/25/24 08:37 81 MG Aspirin (Aspirin 81mg Chew Tab) 324 mg ONCE STAT PO 11/23/24 17:30 11/23/24 17:58 DC 11/23/24 18:34 324 MG Atorvastatin Calcium (LIPItor 40MG) 40 mg HS PO 11/25/24 21:00 12/25/24 20:59 Carvedilol (Coreg 6.25MG) 6.25 mg BID PO 11/25/24 09:30 12/25/24 09:29 11/25/24 12:14 6.25 MG Carvedilol (Coreg 6.25MG) 6.25 mg BIDLUNCHDINNER PO 11/25/24 12:00 11/25/24 09:10 DC Ceftriaxone Sodium (ROCEphine 1G INJ) 1 gm ONCE STAT IVPB 11/23/24 17:32 11/23/24 17:58 DC 11/23/24 18:34 1 GM Furosemide (LASix 40MG VIAL) 40 mg DAILY IV 11/24/24 09:00 12/24/24 08:59 11/25/24 08:37 40 MG Furosemide (LASix 40MG VIAL) 40 mg ONCE STAT IV 11/23/24 17:30 11/23/24 17:58 DC 11/23/24 18:34 40 MG Guaifenesin (RobiTUSSin SUGAR-FREE 100 MG/ 5 ML UDCUP) 200 mg Q4H PRN PO COUGH 11/25/24 12:30 12/25/24 12:29 11/25/24 12:16 200 MG Heparin Sodium (Porcine) (HEParin 5,000 UNIT VIAL) 5,000 unit Q12H SQ 11/23/24 19:30 12/23/24 19:29 11/25/24 08:37 5,000 UNIT Hydralazine HCl ([id number] TAB) 25 mg BID PO 11/25/24 21:00 12/25/24 20:59 Insulin Human Regular (humuLIN R 100 UNIT/ML 3ML) 8 unit ONCE STAT SQ 11/23/24 17:32 11/23/24 17:59 DC 11/23/24 18:36 8 UNIT Insulin Human Regular (humuLIN R 100 UNIT/ML 3ML) INSULIN SLIDING SCAL... ACHS SQ 11/23/24 21:00 12/23/24 20:59 11/25/24 12:04 14 UNIT Isosorbide Mononitrate (Imdur 30mg Sr) 30 mg DAILY PO 11/25/24 09:00 12/25/24 08:59 11/25/24 08:37 30 MG Nitroglycerin (Nitrostat) 0.4 mg AD PRN SL CHEST PAIN 11/23/24 17:30 12/23/24 17:29 Ondansetron HCl (zoFRAN 4MG INJ) 4 mg Q6H PRN IVP NAUSEA/VOMITING 11/23/24 19:30 12/23/24 19:29 Vitamin B Complex/ Vit C/Folic Acid (Nephrovite Tablet) 1 cap DAILY PO 11/25/24 09:00 12/25/24 08:59 11/25/24 08:37 1 [facility] LABORATORY: [ ] Hematology Labs: Test 11/28/24 04:34 Range/Units White Blood Count 12.5 H 4.8-10.8 K/uL Red Blood Count 3.88 L 4.50-6.20 MIL/uL Hemoglobin 9.8 L 14.0-18.0 g/dL Hematocrit 31.1 L 42-54 % Mean Corpuscular Volume 80.2 79-99 fL Mean Corpuscular Hemoglobin 25.3 L 27.0-33.0 pg Mean Corpuscular Hemoglobin Concent 31.5 L 32.0-36.0 g/dL Red Cell Distribution Width 13.7 11.0-15.5 % Platelet Count 318 130-400 K/uL Mean Platelet Volume 11.7 H 7.5-10.5 fL Immature Granulocyte % (Auto) 0.6 0-1 % Neutrophils (%) (Auto) 67.8 40.0-77.0 % Lymphocytes (%) (Auto) 20.0 L 21.0-51.0 % Monocytes (%) (Auto) 7.8 3.0-13.0 % Eosinophils (%) (Auto) 3.4 0.0-8.0 % Basophils (%) (Auto) 0.4 0.0-5.0 % Neutrophils # (Auto) 8.4 H 1.8-7.7 K/uL Lymphocytes # (Auto) 2.5 1.0-4.8 K/uL Monocytes # (Auto) 1.0 0.1-1.0 K/uL Eosinophils # (Auto) 0.42 0.00-0.70 K/uL Basophils # (Auto) 0.05 0.00-0.20 K/uL Absolute Immature Granulocyte (auto 0.08 0-1 K/uL Nucleated Red Blood Cells 0.0 0.0-0.19 % Chemistry Labs: Test 11/28/24 10:50 11/28/24 04:34 11/27/24 03:24 11/26/24 13:11 Range/Units Whole Blood Glucose 236 #H 70-110 MG/DL Bedside Glucose Comment Notified Nurse Sodium Level 139 136-145 mmol/L Potassium Level 4.9 3.5-5.1 mmol/L Chloride Level 103 101-111 mmol/L Carbon Dioxide Level 28 21-32 mmol/L Blood Urea Nitrogen 48 H 7-18 mg/dL Creatinine 2.6 H 0.5-1.3 mg/dL Glomerular Filtration Rate Calc 29 >90 mL/min Random Glucose 159 H 70-105 mg/dL Total Calcium 8.7 8.5-10.1 mg/dL Magnesium Level 1.90 1.80-2.40 mg/dL B-Type Natriuretic Peptide 753 H 0-100 pg/mL Phosphorus Level 5.0 H 2.5-4.9 mg/dL DIAGNOSTICS / RADIOLOGY: REASON: chf ORDERING PHYSICIAN: WALI TORO MD PROCEDURE: CXR1VW - CHEST 1VW CHEST 1VW REASON: chf COMPARISON: 11/23/2024 FINDINGS: There are diffuse bilateral infiltrates which appear increased somewhat since prior exam. Heart size is normal. There is no vascular congestion or pleural effusion. The Steinmann and bony thorax appear unremarkable. IMPRESSION: 1. Increasing perihilar infiltrates. DICTATED BY: LEA GUTIERREZ MD DATE: 11/27/24 1106 REASON: CAD ORDERING PHYSICIAN: MITZI JENKINS NP PROCEDURE: ECHO [facility] - ECHO 2-D COMPLETE APPROVED REPORT EXAM: Two-dimensional and M-mode echocardiogram with Doppler and color Doppler. INDICATION ICD: Coronary artery disease 2D Dimensions RVDd 4.6 cm LVEF(%) 36.3 (>50%) LVED Vol(simp.) 159.0 mL IVSd 1.3 (0.7-1.1cm) FS(%) 18 % LVES Vol(simp.) 72.2 mL LVDd 5.7 (3.8-5.6cm) LA (2D) 4.8 (1.6-4.0cm) LVEF(%, simp.) 55 % PWd 1.3 (0.7-1.1cm) Ao Root(2D) 3.2 (2.0-3.7cm) LA ESV INDEX (4CH) 25.10 mL/m2 IVSs 1.7 cm LVOT diam 2.1 (1.8-2.4cm) LA ESV INDEX (2CH) 27.80 mL/m2 LVDs 4.7 (2.5-4.0cm) LA ESV INDEX (BP) 27.10 mL/m2 PWs 1.3 cm Deformation Strain Apical 4 14.0 % Apical 2 13.0 % Apical 3 14.0 % Global Strain 14.0 % M-Mode Dimensions EPSS 1.6 cm LA (MM) 4.8 (1.6-4.0cm) Ao Root(MM) 3.7 (2.0-3.7cm) Aortic Valve AoV VTI 0.3 m Ao Mean GR 5.0 mmHg LVOT VTI 0.14 m KOLTON (VMAX) 2.0 cm2 KOLTON (VTI) 2.0 cm2 Mitral Valve MV E Vmax 131.9 cm/s DECEL Time 148 ms MR Max PG 84 mmHg P 1/2 T 61 ms MVA (PHT) 3.6 cm2 TDI E/E' Medial 25.9 E/E' Lateral 13.7 Medial E' Peak V 5.10 cm/s Lateral E' Peak V 9.60 cm/s Pulmonary Valve PV VTI 0.19 m PV Mean GR 3 mmHg Tricuspid Valve TR Vmax 3.4 m/s RAP (EST) 8 mmHg RVSP 53.5 mmHg TR Peak GR 45.5 mmHg Left Ventricle Left ventricular cavity is normal for BSA, 2.5 cm/m2. Mild concentric left ve ntricular hypertrophy. LVEF is 50-55%. E-a fusion. Right Ventricle The right ventricle is moderately dilated. The right ventricular systolic function is normal. Atria The left atrium size is normal. The right atrium is mildly dilated. Aortic Valve The aortic valve is trileaflet normal in structure and function. No aortic regurgitation is present. There is no aortic valvular stenosis. Mitral Valve Mitral valve leaflets open well. There is trace of mitral valve regurgitation noted. There is no mitral valve stenosis. Tricuspid Valve The tricuspid valve leaflets appear normal. There is trace tricuspid valve regurgitation noted. Pulmonic Valve The pulmonary valve is normal in structure and function. There is no pulmonic valvular regurgitation. Great Vessels The aortic root is normal in size. IVC is not well visualized. Pericardium No pericardial effusion. Other Information Quality : Adequate Conclusion Left ventricular cavity is normal for BSA, 2.5 cm/m2. Mild concentric left ventricular hypertrophy. LVEF is 50-55%. The right ventricle is moderately dilated. The right ventricular systolic function is normal. The left atrium size is normal. The right atrium is mildly dilated. No valvular pathology. DICTATED BY: GABRIELLE POPE MD DATE: 11/25/24 1026 REASON: CAD, needing CABG ORDERING PHYSICIAN: MITZI JENKINS NP PROCEDURE: CAROTID - US CAROTID DUPLEX US CAROTID DUPLEX REASON: CAD, needing CABG TECHNIQUE: Exam was performed using spectral analysis and color flow imaging. FINDINGS: Color flow Doppler ultrasound shows normal-appearing bifurcations. There is no anatomic evidence of significant focal narrowing. Flow velocities and velocity ratios appear normal throughout. There is antegrade flow in both vertebral arteries. Exam is somewhat limited by body habitus. RIGHT CAROTID: CCA: 110 cm/sec ICA: 151 cm/sec Ratio: ICA/CCA: 1.4 ECA: 134 cm/sec Vertebral artery: 73 cm/sec LEFT CAROTID: CCA: 200 cm/sec ICA: 73 cm/sec Ratio: ICA/CCA: 0.4 ECA: 105 cm/sec Vertebral artery: 85 cm/sec IMPRESSION: 1. No evidence of significant focal stenosis in either internal carotid artery. 2. There are some elevated flow velocities in the left common carotid artery but no corresponding anatomic evidence of stenosis. DICTATED BY: LEA GUTIERREZ MD DATE: 11/25/24 1126 REASON: RENAL FAILURE ORDERING PHYSICIAN: CAILIN BARRY MD PROCEDURE: RENAL - US RENAL SONOGRAM US RENAL SONOGRAM REASON: RENAL FAILURE COMPARISON: None TECHNIQUE: Renal and bladder sonogram was performed. FINDINGS: Right kidney is 10.5 x 5.2 x 5.3 cm, left 10.4 x 5.3 x 4.3 cm. There is no mass, stone or hydronephrosis. Cortical thickness appears preserved. Urinary bladder was not well distended and not well visualized. IMPRESSION: 1. Normal-appearing kidneys. 2. Urinary bladder not well visualized. DICTATED BY: LEA GUTIERREZ MD DATE: 11/25/24 1050 REASON: CHEST PAIN ORDERING PHYSICIAN: RENZO WALKER MD PROCEDURE: CXR1VW - CHEST 1VW INDICATION: CHEST PAIN TECHNIQUE: CHEST 1VW COMPARISON: 04/05/2022 FINDINGS/IMPRESSION: Mild bilateral airspace consolidation suggesting vascular congestion/edema versus pneumonia. Cardiac silhouette is within normal limits. Mild degenerative changes of the spine. The visualized upper abdomen appears unremarkable. DICTATED BY: DONG CHINO MD DATE: 11/23/24 1656 ASSESSMENT: Acute on chronic renal failure., Proteinuria, concern for nephrotic syndrome Heart failure Hypoxic respiratory failure Diabetes mellitus Recently diagnosed coronary artery disease. Obesity Diabetes mellitus Hypertension PLAN: Labs, diagnostic, radiologic exams reviewed and interpreted by myself and supervising physician. We have reviewed external records in detail Increase Lasix to 80 mg IV b.i.d. Recommend adjusting Lasix dose to symptoms control Fluid restriction is recommended Order CBC, CMP, and electrolytes in am Renal diabetic diet Monitor blood pressure adjust medication doses as needed Avoid hypotensive episodes May use Dilaudid 0.5 mg IV every 6 hours as needed for severe pain Monitor blood sugars Strict intake, output, and daily weight should be monitored Please renally adjust medications Avoid nephrotoxic and nonsteroidal drugs Avoid contrast if possible Will continue to monitor renal function, anemia, electrolytes Treatment plan discussed with patient Questions were answered We have discussed with the other team physicians in detail about the care plan We will continue to monitor the patient closely ATTESTATION BY PHYSICIAN I have seen and examined the patient. I reviewed the documentation, medical decision making, and treatment plan as noted by the mid-level provider above. I agree with the findings and plan of care. CAILIN BARRY MD, [facility] Nov 28, 2024 13:03
--- NOTE | 2024-11-28 14:44 | NUR ---
SPOKE WITH SANTIAGO FROM [facility] [phone] IN [place] AND SHE STATED SHE HAD NO RECORD OF CD BEING SENT VIA FED EX OVERNIGHT. I RE-FAXED AUTHORIZATION FORM FOR RELEASE OF RECORDS AND SHE SAID SHE WOULD TALK TO HER NETWORK COORDINATOR ABOUT OVER NIGHTING THE CD OF DRIER TAKE OFF TENDER REPORT AND CALL ME BACK.
--- NOTE | 2024-11-28 19:32 | PN ---
INFECTIOUS DISEASE PROGRESS NOTE Date of Service: Nov 28, 2024 SUBJECTIVE: This is a 49-year-old male patient who was seen and examined at bedside in room 220. Patient is awake, alert and oriented x3. Continues on Tamiflu 75 mg p.o. daily for viral influenza infection type B. Lasix has been increased, we will monitor renal function. Continues on oxygen via nasal cannula at 2 L per minutes. Pending the CD/disc images from recent hospitalization for cardiovascular surgeon to review. We will continue to follow patient's care. PHYSICAL EXAM EYES: Anicteric. Pupils equal and reactive. HENT: No oral thrush seen, moist Oral mucosa. NECK: Supple, no JVD or thyromegaly. RESPIRATORY: Good air entry. No rales, no rhonchi. Lung sounds diminished. Cough. Oxygen as needed via nasal cannula. CARDIOVASCULAR: S1, S2 regular. No murmur heard. ABDOMEN: Non tender, bowel sounds present. Obese but soft. CENTRAL NERVOUS SYSTEM: Awake, alert, oriented x 3. SKIN: No rashes, no swelling. LYMPHATICS: No peripheral lymphadenopathy. MUSCULOSKELETAL: No joint swelling, erythema or tenderness. EXTREMITIES: No cyanosis or clubbing. BACK: No deformity, no pressure ulcer. GENITOURINARY: No dysuria or hematuria. Vital Sign (Last 12 Hours) 11/28/24 11/28/24 11/28/24 11/28/24 08:27 09:16 11:00 16:00 Temp 98.1 97.9 Pulse 82 82 Resp 20 20 B/P (MAP) 129/80 119/75 111/68 Pulse Ox 96 98 97 O2 Delivery Room Air* Nasal Cannula Nasal Cannula O2 Flow Rate 0 2.0 2.0 FiO2 21 11/28/24 19:00 Temp 98.2 Pulse 84 Resp 16 B/P (MAP) 138/88 Pulse Ox 98 O2 Delivery Room Air Intake & Output (last 24hrs) 11/27/24 11/27/24 11/28/24 15:00 23:00 07:00 Intake Total 240 ml 240 ml 290.0 ml Output Total 1000 ml 400 ml 1400 ml Balance -760 ml -160 ml -1110.0 ml LABS: Laboratory: Test 11/28/24 16:00 11/28/24 04:34 11/27/24 03:24 11/26/24 19:28 Range/Units Whole Blood Glucose 198 H 70-110 MG/DL Bedside Glucose Comment Notified Nurse White Blood Count 12.5 H 4.8-10.8 K/uL Red Blood Count 3.88 L 4.50-6.20 MIL/uL Hemoglobin 9.8 L 14.0-18.0 g/dL Hematocrit 31.1 L 42-54 % Mean Corpuscular Volume 80.2 79-99 fL Mean Corpuscular Hemoglobin 25.3 L 27.0-33.0 pg Mean Corpuscular Hemoglobin Concent 31.5 L 32.0-36.0 g/dL Red Cell Distribution Width 13.7 11.0-15.5 % Platelet Count 318 130-400 K/uL Mean Platelet Volume 11.7 H 7.5-10.5 fL Immature Granulocyte % (Auto) 0.6 0-1 % Neutrophils (%) (Auto) 67.8 40.0-77.0 % Lymphocytes (%) (Auto) 20.0 L 21.0-51.0 % Monocytes (%) (Auto) 7.8 3.0-13.0 % Eosinophils (%) (Auto) 3.4 0.0-8.0 % Basophils (%) (Auto) 0.4 0.0-5.0 % Neutrophils # (Auto) 8.4 H 1.8-7.7 K/uL Lymphocytes # (Auto) 2.5 1.0-4.8 K/uL Monocytes # (Auto) 1.0 0.1-1.0 K/uL Eosinophils # (Auto) 0.42 0.00-0.70 K/uL Basophils # (Auto) 0.05 0.00-0.20 K/uL Absolute Immature Granulocyte (auto 0.08 0-1 K/uL Nucleated Red Blood Cells 0.0 0.0-0.19 % Sodium Level 139 136-145 mmol/L Potassium Level 4.9 3.5-5.1 mmol/L Chloride Level 103 101-111 mmol/L Carbon Dioxide Level 28 21-32 mmol/L Blood Urea Nitrogen 48 H 7-18 mg/dL Creatinine 2.6 H 0.5-1.3 mg/dL Glomerular Filtration Rate Calc 29 >90 mL/min Random Glucose 159 H 70-105 mg/dL Total Calcium 8.7 8.5-10.1 mg/dL Magnesium Level 1.90 1.80-2.40 mg/dL B-Type Natriuretic Peptide 753 H 0-100 pg/mL Influenza Type A Antigen Negative For Type A NEGATIVE Influenza Type B Antigen Positive For Type B *A NEGATIVE SARS-CoV-2 Antigen (Rapid) PRESUMPTIVE NEGATIVE NEGATIVE ASSESSMENT: Hypoxic respiratory failure. Congestive heart failure. Viral influenza infection type B. Acute on chronic renal failure. Leukocytosis. Coronary artery disease. Diabetes mellitus. Obesity. PLAN: Continue Tamiflu. Nephrology has been consulted and following patient. Cardiothoracic surgeon has evaluated patient on following. Continue diuretics. Continue oxygen support as needed. Glucometer checks a.c./hs and cover with insulin per sliding scale protocol. Avoid nephrotoxic medications. Pending CD/Disc images from recent hospitalization for cardiovascular surgeon to review.. This case was reviewed and discussed with my supervising physician and the above assessment and plan was formulated and agreed upon. ATTESTATION BY PHYSICIAN I have seen and examined the patient. I reviewed the documentation, medical decision making, and treatment plan as noted by the mid-level provider above. I agree with the findings and plan of care. MARIE JOSHI MD, [facility] Nov 28, 2024 19:32
--- NOTE | 2024-11-28 20:46 | PN ---
[facility] PROGRESS NOTE Date Patient Seen: Nov 28, 2024 Time of Visit: 11:41 Supervising Physician: SANDI ANDRADE MD Inpatient Consults: YAMILET PROBLEM LIST: -Influenza B positive -Acute on chronic heart failure preserved ejection fraction exacerbation EF 50- 55% per echocardiogram 11/25/2024 -Acute on chronic renal insufficiency with baseline CKD stage III, now Stage IV EGFR 29 -Multivessel CAD identified on [facility]/coronary angiogram done 10/2024 in [place], recommended CABG -HYPERTENSION -HYPERLIPIDEMIA -DIABETES MELLITUS TYPE 2 -OBESITY INTERVAL HISTORY: 11/27 patient was seen and examined at bedside with no family present. Patient remains on2 L nasal cannula appears to be tolerating well. Patient reports cough has subsided. Patient denies chest pain reports minimal shortness of breadth. Patient denies nausea vomiting or abdominal pain. Patient was positive for flu B, has been started on Tamiflu. We will continue while recommendations from cardiology and CV surgery, plan is for possible CABG . 11/28 Patient is seen and examined at the bedside, he is awake, alert, well oriented, not in distress on O2 via NC, still with some cough patient is p ositive for Influenza on Tamiflu and continues to be on diuresis with lasix as well, denies chest pain or SOB at this time, pending for CABG REVIEW OF SYSTEMS: 12 point ROS reviewed with patient. Pertinent positives mentioned above. Otherwise negative. PHYSICAL EXAM: GENERAL: alert, weak, awake oriented x 3 HEENT: EOMI, Sclera non icteric, moist mucosa NECK: Supple, no JVD, trachea midline LUNGS: Clear breath sounds bilaterally. No wheezes HEART: Regular rate and rhythm. Normal S1 and S2, without murmurs ABD: Abdomen soft, nontender. Bowel sounds present EXT: No clubbing cyanosis or edema NEURO: Alert and oriented to person, follows commands Vital Signs (last 8hr) Date Time Temp Pulse Resp B/P (MAP) Pulse Ox O2 Delivery O2 Flow Rate FiO2 11/28/24 19:00 98.2 84 16 138/88 98 Room Air 11/28/24 16:00 97.9 82 20 111/68 97 Nasal Cannula 2.0 LABS: Hematology Labs: Test 11/28/24 04:34 Range/Units White Blood Count 12.5 H 4.8-10.8 K/uL Red Blood Count 3.88 L 4.50-6.20 MIL/uL Hemoglobin 9.8 L 14.0-18.0 g/dL Hematocrit 31.1 L 42-54 % Mean Corpuscular Volume 80.2 79-99 fL Mean Corpuscular Hemoglobin 25.3 L 27.0-33.0 pg Mean Corpuscular Hemoglobin Concent 31.5 L 32.0-36.0 g/dL Red Cell Distribution Width 13.7 11.0-15.5 % Platelet Count 318 130-400 K/uL Mean Platelet Volume 11.7 H 7.5-10.5 fL Immature Granulocyte % (Auto) 0.6 0-1 % Neutrophils (%) (Auto) 67.8 40.0-77.0 % Lymphocytes (%) (Auto) 20.0 L 21.0-51.0 % Monocytes (%) (Auto) 7.8 3.0-13.0 % Eosinophils (%) (Auto) 3.4 0.0-8.0 % Basophils (%) (Auto) 0.4 0.0-5.0 % Neutrophils # (Auto) 8.4 H 1.8-7.7 K/uL Lymphocytes # (Auto) 2.5 1.0-4.8 K/uL Monocytes # (Auto) 1.0 0.1-1.0 K/uL Eosinophils # (Auto) 0.42 0.00-0.70 K/uL Basophils # (Auto) 0.05 0.00-0.20 K/uL Absolute Immature Granulocyte (auto 0.08 0-1 K/uL Nucleated Red Blood Cells 0.0 0.0-0.19 % Chemistry Labs: Test 11/28/24 20:34 11/28/24 16:00 11/28/24 04:34 11/27/24 03:24 Range/Units Whole Blood Glucose 168 H 70-110 MG/DL Bedside Glucose Comment Notified Nurse Sodium Level 139 136-145 mmol/L Potassium Level 4.9 3.5-5.1 mmol/L Chloride Level 103 101-111 mmol/L Carbon Dioxide Level 28 21-32 mmol/L Blood Urea Nitrogen 48 H 7-18 mg/dL Creatinine 2.6 H 0.5-1.3 mg/dL Glomerular Filtration Rate Calc 29 >90 mL/min Random Glucose 159 H 70-105 mg/dL Total Calcium 8.7 8.5-10.1 mg/dL Magnesium Level 1.90 1.80-2.40 mg/dL B-Type Natriuretic Peptide 753 H 0-100 pg/mL DIAGNOSTICS / RADIOLOGY RESULTS: [ ] PLAN Pending CABG follow up CV surgeon recommendations Flu B positive continue Tamiflu to complete a total of five days, should be renally adjusted Continue with diuresing Continue to follow recommendations from Cardiology Continue to monitor respiratory status and maintain adequate oxygenation Keep O2 sats greater or equal to 90% We will require 6 minute walk prior to discharge for home oxygen evaluation NEURO: Minimize central acting medications as possible. Maintain fall precautions, adequate lighting during the day PULMONARY: Supplemental 02 as needed. Maintain aspiration precautions at all times CARDIOVASCULAR: Follow hemodynamics. Vital signs per facility protocol GI & NUTRITION: Continue with nutritional support. Continue stool softeners and laxatives as needed. KIDNEYS & ELECTROLYTES: Strict monitoring of intake, output and overall fluid balance. Avoid nephrotoxic medications to the extent possible. Medications to be dosed according to renal function. Monitor electrolytes and replace as needed ENDOCRINE: Maintain blood glucose between 100-180 at all times. Hypoglycemia protocol in place INFECTIOUS DISEASE: Trend temperature, WBC and procalcitonin level Follow cultures, deescalate antibiotics as soon as possible. Panculture if new onset fever ONCOLOGY/HEMATOLOGY/COAGULATION: Monitor for s/s of bleeding Monitor hemoglobin, coagulation studies as needed SKIN: Pressure ulcer prevention per facility protocol Specialty mattress ORTHO/REHAB: Continue PT/OT Prophylaxis: Continue GI and DVT prophylaxis Code Status: Full Resuscitation Disposition: TBD Care spent time with patient exceeds more than 35 minutes ATTESTATION BY PHYSICIAN Documentation assistance provided by a scribe, information recorded by the scribe was done at my direction and has been reviewed and validated by me." RAYMOND JUNIOR MD I personally scribed for RAYMOND JUNIOR MD ([email or web address]) on 11/28/24 at 20:46. Electronically submitted by Ratna Plasencia ([email or web address]). RAYMOND JUNIOR MD Nov 28, 2024 20:46
--- NOTE | 2024-11-28 21:46 | PN ---
SUBJECTIVE: This gentleman has been preop for surgery and risks and benefits of the procedure have been explained to the patient and family. He does have peripheral vascular disease and will require an amputation. We will plan for CABG prior to any other vascular or orthopedic intervention. TID: [id number] RECEIPT: [id number]
[2024-11-29] VITALS (7 sets, daily range): BP systolic 119–136; BP diastolic 66–82; PULSE 78–86; RESP 16–18; TEMP 97.4–98.8; O2SAT 98
[2024-11-29 04:18] LABS: BASOPHILS # (AUTO) 0.06 K/uL (0.00-0.20); BASOPHILS % (AUTO) 0.5 % (0.0-5.0); EOSINOPHILS # (AUTO) 0.41 K/uL (0.00-0.70); EOSINOPHILS % (AUTO) 3.5 % (0.0-8.0); HEMATOCRIT 29.6 % (42-54); IMMATURE GRANULOCYTE ABSOLUTE 0.06 K/uL (0-1); LYMPHOCYTES # (AUTO) 2.7 K/uL (1.0-4.8); LYMPHOCYTES % (AUTO) 22.9 % (21.0-51.0); MEAN CORPUSCULAR HEMOGLOBIN 25.7 pg (27.0-33.0); MEAN CORPUSCULAR HGB CONC 32.4 g/dL (32.0-36.0); MEAN CORPUSCULAR VOLUME 79.1 fL (79-99); MONOCYTES # (AUTO) 1.1 K/uL (0.1-1.0); MONOCYTES % (AUTO) 9.2 % (3.0-13.0); NEUTROPHILS # (AUTO) 7.5 K/uL (1.8-7.7); NEUTROPHILS % (AUTO) 63.4 % (40.0-77.0); PLATELET COUNT (AUTO) 288 K/uL (130-400); RED BLOOD CELL COUNT(AUTO) 3.74 MIL/uL (4.50-6.20); RED CELL DISTRIBUTION WIDTH 13.9 % (11.0-15.5); WHITE BLOOD COUNT (AUTO) 11.8 K/uL (4.8-10.8)
[2024-11-29 04:33] LABS: ALBUMIN 2.5 g/dL (3.5-5.0); BILIRUBIN,TOTAL 0.3 mg/dL (0.2-1.0); CREATININE 2.9 mg/dL (0.5-1.3); MAGNESIUM 2.1 mg/dL (1.80-2.40); PHOSPHORUS 5.5 mg/dL (2.5-4.9); POTASSIUM 4.4 mmol/L (3.5-5.1); TOTAL PROTEIN, SERUM 6.5 g/dL (6.0-8.3)
[2024-11-29] MEDS: furoSEMIDE 40MG VIAL IV SCH (05:46)
--- NOTE | 2024-11-29 08:45 | NUR ---
SPOKE WITH MESHA FROM RADIOLOGY AND SHE STATED IMAGES FOR [facility] FROM [place] HAD ARRIVED AND THEY WERE DOWNLOADING THEM.
--- NOTE | 2024-11-29 14:01 | PN ---
[facility] PROGRESS NOTE Date Patient Seen: Nov 29, 2024 Time of Visit: 1118 Supervising Physician: Dr. Liriano Inpatient Consults: BIS PROBLEM LIST: -Influenza B positive -Acute on chronic heart failure preserved ejection fraction exacerbation EF 50- 55% per echocardiogram 11/25/2024 -Acute on chronic renal insufficiency with baseline CKD stage III, now Stage IV EGFR 29 -Multivessel CAD identified on [facility]/coronary angiogram done 10/2024 in [place], recommended CABG -HYPERTENSION -HYPERLIPIDEMIA -DIABETES MELLITUS TYPE 2 -OBESITY INTERVAL HISTORY: 11/27 patient was seen and examined at bedside with no family present. Patient remains on2 L nasal cannula appears to be tolerating well. Patient reports cough has subsided. Patient denies chest pain reports minimal shortness of breadth. Patient denies nausea vomiting or abdominal pain. Patient was positive for flu B, has been started on Tamiflu. We will continue while recommendations from cardiology and CV surgery, plan is for possible CABG . 11/28 Patient is seen and examined at the bedside, he is awake, alert, well oriented, not in distress on O2 via NC, still with some cough patient is positive for Influenza on Tamiflu and continues to be on diuresis with lasix as well, denies chest pain or SOB at this time, pending for CABG 11/29 patient was seen and examined by bedside no family present. Patient is awake alert able to answer simple questions appropriately. At time of visit patient denies any chest pain or shortness of breadth. Reports cough has subsided. Patient denies nausea vomiting or abdominal pain. Patient currently pending CABG. We will continue to follow recommendations from CV surgery. As per primary nurse no acute events to be reported. Patient with severe multivessel disease high risk for decompensation REVIEW OF SYSTEMS: 12 point ROS reviewed with patient. Pertinent positives mentioned above. Ot herwise negative. PHYSICAL EXAM: GENERAL: alert, weak, awake oriented x 3 HEENT: EOMI, Sclera non icteric, moist mucosa NECK: Supple, no JVD, trachea midline LUNGS: Clear breath sounds bilaterally. No wheezes HEART: Regular rate and rhythm. Normal S1 and S2, without murmurs ABD: Abdomen soft, nontender. Bowel sounds present EXT: No clubbing cyanosis or edema NEURO: Alert and oriented to person, follows commands Vital Signs (last 8hr) Date Time Temp Pulse Resp B/P (MAP) Pulse Ox O2 Delivery O2 Flow Rate FiO2 11/29/24 12:26 98.2 78 18 119/66 98 Nasal Cannula 2.0 11/29/24 09:08 125/63 11/29/24 08:08 98.8 83 18 125/69 98 Nasal Cannula 2.0 LABS: Hematology Labs: Test 11/29/24 03:44 Range/Units White Blood Count 11.8 H 4.8-10.8 K/uL Red Blood Count 3.74 L 4.50-6.20 MIL/uL Hemoglobin 9.6 L 14.0-18.0 g/dL Hematocrit 29.6 L 42-54 % Mean Corpuscular Volume 79.1 79-99 fL Mean Corpuscular Hemoglobin 25.7 L 27.0-33.0 pg Mean Corpuscular Hemoglobin Concent 32.4 32.0-36.0 g/dL Red Cell Distribution Width 13.9 11.0-15.5 % Platelet Count 288 130-400 K/uL Mean Platelet Volume 11.2 H 7.5-10.5 fL Immature Granulocyte % (Auto) 0.5 0-1 % Neutrophils (%) (Auto) 63.4 40.0-77.0 % Lymphocytes (%) (Auto) 22.9 21.0-51.0 % Monocytes (%) (Auto) 9.2 3.0-13.0 % Eosinophils (%) (Auto) 3.5 0.0-8.0 % Basophils (%) (Auto) 0.5 0.0-5.0 % Neutrophils # (Auto) 7.5 1.8-7.7 K/uL Lymphocytes # (Auto) 2.7 1.0-4.8 K/uL Monocytes # (Auto) 1.1 H 0.1-1.0 K/uL Eosinophils # (Auto) 0.41 0.00-0.70 K/uL Basophils # (Auto) 0.06 0.00-0.20 K/uL Absolute Immature Granulocyte (auto 0.06 0-1 K/uL Nucleated Red Blood Cells 0.0 0.0-0.19 % Chemistry Labs: Test 11/29/24 12:18 11/29/24 03:44 11/28/24 16:00 Range/Units Whole Blood Glucose 186 H 70-110 MG/DL Sodium Level 137 136-145 mmol/L Potassium Level 4.4 3.5-5.1 mmol/L Chloride Level 101 101-111 mmol/L Carbon Dioxide Level 31 21-32 mmol/L Blood Urea Nitrogen 56 H 7-18 mg/dL Creatinine 2.9 H 0.5-1.3 mg/dL Glomerular Filtration Rate Calc 26 >90 mL/min Random Glucose 142 H 70-105 mg/dL Total Calcium 8.5 8.5-10.1 mg/dL Phosphorus Level 5.5 H 2.5-4.9 mg/dL Magnesium Level 2.10 1.80-2.40 mg/dL Total Bilirubin 0.3 0.2-1.0 mg/dL Aspartate Amino Transf (AST/SGOT) 16 10-37 U/L Alanine Aminotransferase (ALT/SGPT) 26 12-78 U/L Alkaline Phosphatase 76 50-136 U/L Total Protein 6.5 6.0-8.3 g/dL Albumin 2.5 L 3.5-5.0 g/dL Bedside Glucose Comment Notified Nurse DIAGNOSTICS / RADIOLOGY RESULTS: na PLAN Pending CABG follow up CV surgeon recommendations Flu B positive continue Tamiflu to complete a total of five days, should be renally adjusted Continue with diuresing Continue to follow recommendations from Cardiology Continue to monitor respiratory status and maintain adequate oxygenation Keep O2 sats greater or equal to 90% We will require 6 minute walk prior to discharge for home oxygen evaluation NEURO: Minimize central acting medications as possible. Maintain fall precautions, adequate lighting during the day PULMONARY: Supplemental 02 as needed. Maintain aspiration precautions at all times CARDIOVASCULAR: Follow hemodynamics. Vital signs per facility protocol GI & NUTRITION: Continue with nutritional support. Continue stool softeners and laxatives as needed. KIDNEYS & ELECTROLYTES: Strict monitoring of intake, output and overall fluid balance. Avoid nephrotoxic medications to the extent possible. Medications to be dosed according to renal function. Monitor electrolytes and replace as needed ENDOCRINE: Maintain blood glucose between 100-180 at all times. Hypoglycemia protocol in place INFECTIOUS DISEASE: Trend temperature, WBC and procalcitonin level Follow cultures, deescalate antibiotics as soon as possible. Panculture if new onset fever ONCOLOGY/HEMATOLOGY/COAGULATION: Monitor for s/s of bleeding Monitor hemoglobin, coagulation studies as needed SKIN: Pressure ulcer prevention per facility protocol Specialty mattress ORTHO/REHAB: Continue PT/OT Prophylaxis: Continue GI and DVT prophylaxis Code Status: Full Resuscitation Disposition: TBD Care spent time with patient exceeds more than 35 minutes Case discussed with supervising physician plan of care agreed upon AVA GRIFFITH Nov 29, 2024 14:01
--- NOTE | 2024-11-29 14:30 | PN ---
-Chest pain -Acute on chronic congestive heart failure -Acute on chronic renal insufficiency with baseline CKD stage III, now Stage IV EGFR 29 -Nephrotic syndrome, proteinuria -Multivessel CAD identified on [facility]/coronary angiogram done 10/2024 in [place], recommended CABG -HTN -HLP -DM2 -Obesity Patient is cheerful and helpful, offers no symptomatic complaints since hospitalization. Increased diuretics administered according to recommendations of Dr. Goyal. Patient has proteinuria/probable nephrotic syndrome and has been difficult to treat in terms of pulmonary edema. X-ray yesterday was worsening, not improving. Patient has multivessel coronary disease and recent acute coronary syndrome, is awaiting coronary bypass. Physical exam shows an overweight patient with no rales, no rhonchi, nonlabored respiration, no JVD, normal S1 and S2, no murmur. Impression and plan: Refractory renal failure with coronary disease, awaiting coronary bypass. Vitals/Labs Vital Signs Date Time Temp Pulse Resp B/P (MAP) Pulse Ox O2 Delivery O2 Flow Rate FiO2 11/29/24 12:26 98.2 78 18 119/66 98 Nasal Cannula 2.0 11/28/24 19:30 21 Laboratory Tests 11/29/24 03:44 Medications Current Medications Aspirin 324 mg ONCE STAT PO Last administered on 11/23/24at 18:34; Start 11/23/24 at 17:30; Stop 11/23/24 at 17:58; Status DC Nitroglycerin 0.4 mg AD PRN SL; Start 11/23/24 at 17:30; Stop 12/23/24 at 17:29 Furosemide 40 mg ONCE STAT IV Last administered on 11/23/24at 18:34; Start 11/23/24 at 17:30; Stop 11/23/24 at 17:58; Status DC Ceftriaxone Sodium 1 gm ONCE STAT IVPB Last administered on 11/23/24at 18:34; Start 11/23/24 at 17:32; Stop 11/23/24 at 17:58; Status DC Insulin Human Regular 8 unit ONCE STAT SQ Last administered on 11/23/24at 18:36; Start 11/23/24 at 17:32; Stop 11/23/24 at 17:59; Status DC Furosemide 40 mg DAILY IV Last administered on 11/28/24at 08:29; Start 11/24/24 at 09:00; Stop 11/28/24 at 09:47; Status DC Heparin Sodium (Porcine) 5,000 unit Q12H SQ Last administered on 11/25/24at 08:37; Start 11/23/24 at 19:30; Stop 11/25/24 at 15:39; Status DC Acetaminophen 650 mg Q4H PRN PO; Start 11/23/24 at 19:30; Stop 12/23/24 at 19:29 Ondansetron HCl 4 mg Q6H PRN IVP; Start 11/23/24 at 19:30; Stop 12/23/24 at 19:29 Insulin Human Regular INSULIN SLIDING SCAL... ACHS SQ Last administered on 11/29/24at 12:50; Start 11/23/24 at 21:00; Stop 12/23/24 at 20:59 Vitamin B Complex/ Vit C/Folic Acid 1 cap DAILY PO Last administered on 11/29/24at 09:08; Start 11/25/24 at 09:00; Stop 12/25/24 at 08:59 Aspirin 81 mg DAILY PO Last administered on 11/29/24at 09:09; Start 11/25/24 at 09:00; Stop 12/25/24 at 08:59 Atorvastatin Calcium 40 mg HS PO Last administered on 11/28/24at 22:04; Start 11/25/24 at 21:00; Stop 12/25/24 at 20:59 Isosorbide Mononitrate 30 mg DAILY PO Last administered on 11/25/24at 08:37; Start 11/25/24 at 09:00; Stop 11/26/24 at 08:03; Status DC Carvedilol 6.25 mg BIDLUNCHDINNER PO; Start 11/25/24 at 12:00; Stop 11/25/24 at 09:10; Status DC Carvedilol 6.25 mg BID PO Last administered on 11/29/24at 09:08; Start 11/25/24 at 09:30; Stop 12/25/24 at 09:29 Hydralazine HCl 25 mg BID PO Last administered on 11/25/24at 20:26; Start 11/25/24 at 21:00; Stop 11/26/24 at 08:03; Status DC Guaifenesin 200 mg Q4H PRN PO Last administered on 11/28/24at 21:21; Start 11/25/24 at 12:30; Stop 12/25/24 at 12:29 Pharmacy Profile Note 1 each ONCE MISC; Start 11/25/24 at 16:00; Stop 11/25/24 at 15:39; Status DC Heparin Sodium (Porcine) 5,000 unit BID SQ Last administered on 11/29/24at 09:10; Start 11/25/24 at 21:00; Stop 12/23/24 at 19:29 Magnesium Sulfate 50 ml @ 0 mls/hr PROTOCOL PRN IV Last administered on 11/28/24at 05:49; Start 11/26/24 at 07:30; Stop 12/26/24 at 07:29 Isosorbide Mononitrate 30 mg BID PO Last administered on 11/29/24at 09:09; Start 11/26/24 at 09:00; Stop 12/25/24 at 08:59 Sodium Chloride 4 ml STK-MED ONCE IH; Start 11/26/24 at 18:51; Stop 11/26/24 at 18:51; Status DC Oseltamivir Phosphate 75 mg DAILY PO Last administered on 11/29/24at 09:08; Start 11/27/24 at 09:00; Stop 12/02/24 at 08:59 Furosemide 80 mg ONCE ONCE IV; Start 11/28/24 at 10:00; Stop 11/28/24 at 09:57; Status DC Furosemide 80 mg [id number] IV; Start 11/28/24 at 12:30; Stop 11/28/24 at 09:57; Status DC Furosemide 40 mg ONCE ONCE IV Last administered on 11/28/24at 10:15; Start 11/28/24 at 10:00; Stop 11/28/24 at 10:04; Status DC Furosemide 80 mg DAILY@0600,1500 IV Last administered on 11/29/24at 05:46; Start 11/29/24 at 06:00; Stop 12/29/24 at 05:59 Furosemide 80 mg DAILY15 ONCE IV Last administered on 11/28/24at 15:06; Start 11/28/24 at 15:00; Stop 11/28/24 at 15:01; Status DC WALI TORO MD Nov 29, 2024 14:30
--- NOTE | 2024-11-29 22:14 | PN ---
INFECTIOUS DISEASE FOLLOWUP NOTE DATE OF SERVICE: 11/29/2024 SUBJECTIVE: The patient is seen. No fever, no chills. No vomiting. No bleeding tendency. No rashes or itchiness. No depression or suicidal ideation. No neck pain or neck swelling. PHYSICAL EXAMINATION: VITAL SIGNS: Temperature today 97.3. EYES: No icterus. Pupils equal and reactive. HENT: No oral thrush seen. Moist oral mucosa. NECK: Supple, no JVD or thyromegaly. LUNGS: Good air entry. No rales, no rhonchi. CARDIOVASCULAR: S1, S2 regular. No murmur heard. ABDOMEN: Full, soft. Bowel sound is present. Obese. No organomegaly. CENTRAL NERVOUS SYSTEM: Awake, alert, oriented x 3. No focal deficits. SKIN: No rashes, no itchiness. LYMPHATIC: No peripheral lymphadenopathy. BACK: No deformity, no pressure ulcer. ASSESSMENT: A 49-year-old man admitted with shortness of breath and cough. Current problems include: * Acute pulmonary edema. * Heart failure. * Multivessel coronary artery disease. * Renal failure. * ____. * Obesity. * Debility. PLAN: * Continue antiplatelet. * Continue antidiabetic. * Continue pain management. * Continue nutritional support. * Monitor electrolytes. * Continue antiemetic. * Continue DVT prophylaxis. TID: [id number] RECEIPT: [id number]
--- NOTE | 2024-11-29 23:35 | PN ---
NEPHROLOGY NOTE SUBJECTIVE: The patient has renal failure, anemia, influenza, coronary artery disease, being considered for CABG, heart failure with fluid overload. The patient has been on diuretics. The patient has significant proteinuria, obesity. The patient is weak. The patient has other comorbidities present. No other associated finding. No other aggravating or relieving factors. The patient remains weak ____ unchanged, reviewed. No other associated finding. No other aggravating or relieving factors. The patient has generalized weakness and other comorbidities. The patient has no fever, chills or rigors. No other associated symptoms. No other aggravating or relieving factors. REVIEW OF SYSTEMS: CONSTITUTIONAL: No fever, chills or rigors. HEENT: With no headache, oral ulcers, sore throat or difficulty swallowing. RESPIRATORY: With no cough, expectoration, hemoptysis, or pleuritic pain. CARDIOVASCULAR: Has shortness of breath. No orthopnea. GASTROINTESTINAL: Negative for nausea, vomiting or diarrhea reported. GENITOURINARY: Negative for dysuria or hematuria. DERMATOLOGICAL: No rashes, pruritus or skin lesion. ENDOCRINE: No polyuria, polydipsia. PHYSICAL EXAMINATION: GENERAL: Pale, sick looking, lying in bed. VITAL SIGNS: Blood pressure is 127/78, pulse 86, respiratory rate is 16. HEENT: Head is atraumatic, normocephalic. Pupils are round and reactive. Sclerae are anicteric. Conjunctivae not pale. Oral mucosa is not dry. NECK: Without masses, bruits. Thyroid is palpable. Neck has no bruits. CHEST: Shows diminished in both bases, prolonged expiration, percussion note being resonant in all areas. CARDIAC: Regular rhythm. No rub. No S3, S4. No parasternal heave. ABDOMEN: With no guarding ____ normoactive. No free fluid. EXTREMITIES: No edema. No cyanosis, clubbing. BACK: No tenderness or back deformities. LABORATORY DATA: We have reviewed available labs in detail. Labs have shown the patient's hemoglobin is 9.6, hematocrit is 29, BUN of 56, creatinine is 2.9. IMAGING STUDIES: Personally reviewed. Old records have been reviewed. Medications reviewed. X-rays were reviewed. Old records have been reviewed. PROBLEMS: Renal failure, anemia, diabetes, nephropathy, hypertension, rising creatinine, coronary artery disease, influenza and multiple other comorbidities. The patient has underlying diabetes and hypertension. PLAN: * Will need diuretics to maintain euvolemic state for now. * I have discussed with the handbag designer. CABG is being considered. * Labs, x-rays were personally reviewed and interpreted. * Monitor anemia as needed, Epogen therapy. Intake, output, weight. The patient has pulmonary edema by x-ray. The patient has multivessel coronary artery disease, CABG is being waited. The patient has influenza. Intake, output, weight, overall status will be monitored. Nonsteroidal drugs will be avoided. Dose of medicine to be adjusted. The patient was evaluated and seen for dialysis and seen multiple times. I have discussed with other team physicians in detail. The patient will have a followup on renal function and overall status. The patient has been told that after CABG he may end up needing dialysis if renal function gets worse. The patient has been treated for influenza also. Nonsteroidal drug and nephrotoxics to be avoided. Dose of medicine to be adjusted and continued followup. IV Dilaudid 0.5 q. 6 for pain. We have discussed with other team physicians including handbag designer. We have reviewed the old external records, previous records, old records in detail. Close followup and followup labs, CBC, CMP has been ordered. Condition remains critical and guarded. TID: [id number] RECEIPT: [id number]
[2024-11-30] VITALS (9 sets, daily range): BP systolic 124–136; BP diastolic 68–95; PULSE 78–96; RESP 18; TEMP 98–98.7; O2SAT 98
--- NOTE | 2024-11-30 08:40 | PN ---
[facility] CARDIOLOGY PROGRESS NOTE Date Patient Seen: Nov 30, 2024 Time of Visit: 08:31 Interval History: [ No acute events overnight. Currently the patient denies any further chest pain, palpitations, dyspnea or any other anginal equivalents. ] Physical Examination: GENERAL: [No acute distress.] HEAD: [Normal with no signs of head trauma.] EYES: [PERRLA, EOMI, conjunctiva and sclera normal.] ENT: [Hearing grossly intact, normal oropharynx.] NECK: [Supple without JVD. There is no tenderness, lymphadenopathy, or masses. No thyromegaly. Normal carotid upstrokes without bruits.] LUNGS: [SCM. Bilateral air entry. Diminished breath sounds noted to the bilateral lower lung naylor.] HEART: [Regular rate. Normal S1 and S2. No obvious murmurs, gallop, or rubs.] VASC: [Peripheral pulses +2 bilaterally.] ABD: [Bowel sounds normal, soft, nontender, no masses, no organomegaly. No audible bruits.] EXT: [No clubbing, cyanosis or edema.] SKIN: [No rashes or lesions noted.] NEURO: [Awake, alert, and oriented x3. No focal sensory or strength deficits noted.] Laboratory: [ ] Hematology Labs: Test 11/29/24 03:44 Range/Units White Blood Count 11.8 H 4.8-10.8 K/uL Red Blood Count 3.74 L 4.50-6.20 MIL/uL Hemoglobin 9.6 L 14.0-18.0 g/dL Hematocrit 29.6 L 42-54 % Mean Corpuscular Volume 79.1 79-99 fL Mean Corpuscular Hemoglobin 25.7 L 27.0-33.0 pg Mean Corpuscular Hemoglobin Concent 32.4 32.0-36.0 g/dL Red Cell Distribution Width 13.9 11.0-15.5 % Platelet Count 288 130-400 K/uL Mean Platelet Volume 11.2 H 7.5-10.5 fL Immature Granulocyte % (Auto) 0.5 0-1 % Neutrophils (%) (Auto) 63.4 40.0-77.0 % Lymphocytes (%) (Auto) 22.9 21.0-51.0 % Monocytes (%) (Auto) 9.2 3.0-13.0 % Eosinophils (%) (Auto) 3.5 0.0-8.0 % Basophils (%) (Auto) 0.5 0.0-5.0 % Neutrophils # (Auto) 7.5 1.8-7.7 K/uL Lymphocytes # (Auto) 2.7 1.0-4.8 K/uL Monocytes # (Auto) 1.1 H 0.1-1.0 K/uL Eosinophils # (Auto) 0.41 0.00-0.70 K/uL Basophils # (Auto) 0.06 0.00-0.20 K/uL Absolute Immature Granulocyte (auto 0.06 0-1 K/uL Nucleated Red Blood Cells 0.0 0.0-0.19 % Chemistry Labs: Test 11/30/24 05:21 11/29/24 03:44 11/28/24 16:00 Range/Units Whole Blood Glucose 127 H 70-110 MG/DL Sodium Level 137 136-145 mmol/L Potassium Level 4.4 3.5-5.1 mmol/L Chloride Level 101 101-111 mmol/L Carbon Dioxide Level 31 21-32 mmol/L Blood Urea Nitrogen 56 H 7-18 mg/dL Creatinine 2.9 H 0.5-1.3 mg/dL Glomerular Filtration Rate Calc 26 >90 mL/min Random Glucose 142 H 70-105 mg/dL Total Calcium 8.5 8.5-10.1 mg/dL Phosphorus Level 5.5 H 2.5-4.9 mg/dL Magnesium Level 2.10 1.80-2.40 mg/dL Total Bilirubin 0.3 0.2-1.0 mg/dL Aspartate Amino Transf (AST/SGOT) 16 10-37 U/L Alanine Aminotransferase (ALT/SGPT) 26 12-78 U/L Alkaline Phosphatase 76 50-136 U/L Total Protein 6.5 6.0-8.3 g/dL Albumin 2.5 L 3.5-5.0 g/dL Bedside Glucose Comment Notified Nurse Diagnostics / Radiology: [Copy/Paste Echos/Imaging Report here] Impression and Plan: -Chest pain -HFrEF 35-40% due to ICM -Acute on chronic renal insufficiency with baseline CKD stage III -Multivessel CAD identified on [facility]/coronary angiogram done 10/2024 in [place], recommended CABG -HTN -HLP -DM2 -Obesity Plan: 1. Chest pain -Cardiac enzymes-HS troponin I: 79>71 -The patient was recently hospitalized in [place] (discharged 11/20/2024) in which he underwent an C/coronary angiogram which identified multivessel CAD. It was recommended that he undergo CABG, but the patient opted to come back to [place] for surgical revascularization. -We requested records from [facility] to obtain the patient's coronary diagram, patient is awaiting CV surgery for CABG. -In the meantime, we will start the patient on isosorbide mononitrate ER 30 mg bid and restart aspirin 81 mg daily, carvedilol 6.25 mg BID, and atorvastatin 40 mg QHS. 2. Acute on chronic congestive heart failure, LVEF 35-40% -BNP: 920 -Continue furosemide 80 mg IV BID in order to target a 2L fluid loss per day or BNP level less than half of what it was upon admission -GDMT : Continue carvedilol 6.25 mg BID. - Imdur 30mg bid -He is not a candidate for ACEI/ARB/ARNI therapy or aldosterone antagonist therapy due to his renal dysfunction. -Please record strict I/O's, daily weights, and restrict fluids to less than 2.0L/day GABRIELLE POPE MD Nov 30, 2024 08:40
--- NOTE | 2024-11-30 13:41 | PN ---
[facility] PROGRESS NOTE Date Patient Seen: Nov 30, 2024 Time of Visit: 1115 Supervising Physician: Dr. Ireland Inpatient Consults: YAMIELT PROBLEM LIST: -Influenza B positive -Acute on chronic heart failure preserved ejection fraction exacerbation EF 50- 55% per echocardiogram 11/25/2024 -Acute on chronic renal insufficiency with baseline CKD stage III, now Stage IV EGFR 29 -Multivessel CAD identified on [facility]/coronary angiogram done 10/2024 in [place], recommended CABG -HYPERTENSION -HYPERLIPIDEMIA -DIABETES MELLITUS TYPE 2 -OBESITY INTERVAL HISTORY: 11/27 patient was seen and examined at bedside with no family present. Patient remains on2 L nasal cannula appears to be tolerating well. Patient reports cough has subsided. Patient denies chest pain reports minimal shortness of breadth. Patient denies nausea vomiting or abdominal pain. Patient was positive for flu B, has been started on Tamiflu. We will continue while recommendations from cardiology and CV surgery, plan is for possible CABG . 11/28 Patient is seen and examined at the bedside, he is awake, alert, well oriented, not in distress on O2 via NC, still with some cough patient is positi ve for Influenza on Tamiflu and continues to be on diuresis with lasix as well, denies chest pain or SOB at this time, pending for CABG 11/29 patient was seen and examined by bedside no family present. Patient is awake alert able to answer simple questions appropriately. At time of visit patient denies any chest pain or shortness of breadth. Reports cough has subsided. Patient denies nausea vomiting or abdominal pain. Patient currently pending CABG. We will continue to follow recommendations from CV surgery. As per primary nurse no acute events to be reported. Patient with severe multivessel disease high risk for decompensation 11/30 patient was seen and examined at bedside with family present. At time of visit patient denies any chest pain or shortness of breadth. Patient tolerating p.o. diet. Patient has remained hemodynamically stable. Patient has been having bowel movements. Patient denies any nausea vomiting or abdominal pain. Patient is still currently pending CABG. We will continue to follow recommendations per CV surgery. We will continue to monitor patient closely REVIEW OF SYSTEMS: 12 point ROS reviewed with patient. Pertinent positives mentioned above. Otherwise negative. PHYSICAL EXAM: GENERAL: alert, weak, awake oriented x 3 HEENT: EOMI, Sclera non icteric, moist mucosa NECK: Supple, no JVD, trachea midline LUNGS: Clear breath sounds bilaterally. No wheezes HEART: Regular rate and rhythm. Normal S1 and S2, without murmurs ABD: Abdomen soft, nontender. Bowel sounds present EXT: No clubbing cyanosis or edema NEURO: Alert and oriented to person, follows commands Vital Signs (last 8hr) Date Time Temp Pulse Resp B/P (MAP) Pulse Ox O2 Delivery O2 Flow Rate FiO2 11/30/24 13:09 98 Room Air* 0 21 11/30/24 11:12 98.1 79 18 134/79 97 Room Air 11/30/24 09:17 124/83 11/30/24 07:13 98.8 78 18 124/73 96 Room Air LABS: Hematology Labs: Test 11/29/24 03:44 Range/Units White Blood Count 11.8 H 4.8-10.8 K/uL Red Blood Count 3.74 L 4.50-6.20 MIL/uL Hemoglobin 9.6 L 14.0-18.0 g/dL Hematocrit 29.6 L 42-54 % Mean Corpuscular Volume 79.1 79-99 fL Mean Corpuscular Hemoglobin 25.7 L 27.0-33.0 pg Mean Corpuscular Hemoglobin Concent 32.4 32.0-36.0 g/dL Red Cell Distribution Width 13.9 11.0-15.5 % Platelet Count 288 130-400 K/uL Mean Platelet Volume 11.2 H 7.5-10.5 fL Immature Granulocyte % (Auto) 0.5 0-1 % Neutrophils (%) (Auto) 63.4 40.0-77.0 % Lymphocytes (%) (Auto) 22.9 21.0-51.0 % Monocytes (%) (Auto) 9.2 3.0-13.0 % Eosinophils (%) (Auto) 3.5 0.0-8.0 % Basophils (%) (Auto) 0.5 0.0-5.0 % Neutrophils # (Auto) 7.5 1.8-7.7 K/uL Lymphocytes # (Auto) 2.7 1.0-4.8 K/uL Monocytes # (Auto) 1.1 H 0.1-1.0 K/uL Eosinophils # (Auto) 0.41 0.00-0.70 K/uL Basophils # (Auto) 0.06 0.00-0.20 K/uL Absolute Immature Granulocyte (auto 0.06 0-1 K/uL Nucleated Red Blood Cells 0.0 0.0-0.19 % Chemistry Labs: Test 11/30/24 11:20 11/29/24 03:44 11/28/24 16:00 Range/Units Whole Blood Glucose 230 #H 70-110 MG/DL Sodium Level 137 136-145 mmol/L Potassium Level 4.4 3.5-5.1 mmol/L Chloride Level 101 101-111 mmol/L Carbon Dioxide Level 31 21-32 mmol/L Blood Urea Nitrogen 56 H 7-18 mg/dL Creatinine 2.9 H 0.5-1.3 mg/dL Glomerular Filtration Rate Calc 26 >90 mL/min Random Glucose 142 H 70-105 mg/dL Total Calcium 8.5 8.5-10.1 mg/dL Phosphorus Level 5.5 H 2.5-4.9 mg/dL Magnesium Level 2.10 1.80-2.40 mg/dL Total Bilirubin 0.3 0.2-1.0 mg/dL Aspartate Amino Transf (AST/SGOT) 16 10-37 U/L Alanine Aminotransferase (ALT/SGPT) 26 12-78 U/L Alkaline Phosphatase 76 50-136 U/L Total Protein 6.5 6.0-8.3 g/dL Albumin 2.5 L 3.5-5.0 g/dL Bedside Glucose Comment Notified Nurse DIAGNOSTICS / RADIOLOGY RESULTS: na PLAN Pending CABG follow up CV surgeon recommendations Flu B positive continue Tamiflu to complete a total of five days, should be carlos ally adjusted Continue with diuresing Continue to follow recommendations from Cardiology Continue to monitor respiratory status and maintain adequate oxygenation Keep O2 sats greater or equal to 90% We will require 6 minute walk prior to discharge for home oxygen evaluation NEURO: Minimize central acting medications as possible. Maintain fall precautions, adequate lighting during the day PULMONARY: Supplemental 02 as needed. Maintain aspiration precautions at all times CARDIOVASCULAR: Follow hemodynamics. Vital signs per facility protocol GI & NUTRITION: Continue with nutritional support. Continue stool softeners and laxatives as needed. KIDNEYS & ELECTROLYTES: Strict monitoring of intake, output and overall fluid balance. Avoid nephrotoxic medications to the extent possible. Medications to be dosed according to renal function. Monitor electrolytes and replace as needed ENDOCRINE: Maintain blood glucose between 100-180 at all times. Hypoglycemia protocol in place INFECTIOUS DISEASE: Trend temperature, WBC and procalcitonin level Follow cultures, deescalate antibiotics as soon as possible. Panculture if new onset fever ONCOLOGY/HEMATOLOGY/COAGULATION: Monitor for s/s of bleeding Monitor hemoglobin, coagulation studies as needed SKIN: Pressure ulcer prevention per facility protocol Specialty mattress ORTHO/REHAB: Continue PT/OT Prophylaxis: Continue GI and DVT prophylaxis Code Status: Full Resuscitation Disposition: TBD Case discussed with supervising physician plan of care agreed upon AVA GRIFFITHP Nov 30, 2024 13:41
--- NOTE | 2024-11-30 20:34 | PN ---
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 Cardiac catheterization demonstrated 3-vessel coronary artery disease. The patient was discharged and follow up at home. He was admitted to [facility]. He has presented their cardiac catheterization. I have reviewed the cardiac catheterization and discussed with the leaf sticker, both agree, surgery is indicated and we have recommended. I have discussed with the patient indications for surgery as well as the potential complications of the operation including but not limited to postoperative bleeding, infection, stroke and/or . He understands this as well as associated morbidity and mortality of the operation as it relates to his own comorbidities, which is mainly diffuse disease, diabetes. He understands and elects to proceed with surgery. TID: [id number] RECEIPT: [id number]
--- NOTE | 2024-11-30 20:53 | PN ---
SUBJECTIVE: A 49-year-old male with history of diabetes mellitus and hypertension. The patient with history of known chronic renal insufficiency. The patient initially presented with increasing shortness of breath and edema. The patient did undergo coronary catheterization that revealed significant vascular disease. The patient is being seen by Cardiology. The patient was noted to have an elevated BUN and creatinine, and he is being seen for all of the above. REVIEW OF SYSTEMS: GENERAL: He is feeling weak and tired. HEENT: No change in vision. No change in hearing. CARDIOVASCULAR: No current chest pains or palpitations. PULMONARY: Shortness of breath is improved. GASTROINTESTINAL: He is tolerating diet. MUSCULOSKELETAL: Complains of weakness. PHYSICAL EXAMINATION: VITAL SIGNS: Blood pressure 130/79, pulse 70s. GENERAL: Chronically ill male, older than appearing. HEENT: Head is atraumatic. Pupils equal, roving to light. Oropharynx is without exudate. Nares clear. NECK: There is no JVP. There is no thyromegaly, no mass. CARDIOVASCULAR: Regular. There is no S3, S4 gallop. LUNGS: Coarse with equal thoracic movement. ABDOMEN: Soft, nondistended, nontender. EXTREMITIES: Reveal no clubbing, no cyanosis. NEUROLOGIC: He is awake. He is alert. LABORATORY DATA: Sodium 137, potassium 4.4, BUN 56, creatinine is 2.9. Hemoglobin 9.6, hematocrit 29. IMPRESSION: * Advanced renal dysfunction. * Diabetes mellitus. * Hypertension. * Vascular disease. PLAN: The patient does have evidence of chronic renal insufficiency. There is no acute need for any form of renal replacement therapy. The patient's cardiac workup is ongoing. We will continue to follow closely. All labs can be repeated in the morning. TID: [id number] RECEIPT: [id number]
[2024-12-01] VITALS (8 sets, daily range): BP systolic 128–137; BP diastolic 62–80; PULSE 82–85; RESP 18–21; TEMP 97.9–98.7; O2SAT 98
[2024-12-01 04:22] LABS: HEMATOCRIT 32.4 % (42-54); MEAN CORPUSCULAR HEMOGLOBIN 25.6 pg (27.0-33.0); MEAN CORPUSCULAR HGB CONC 32.4 g/dL (32.0-36.0); RED BLOOD CELL COUNT(AUTO) 4.1 MIL/uL (4.50-6.20); RED CELL DISTRIBUTION WIDTH 13.8 % (11.0-15.5); WHITE BLOOD COUNT (AUTO) 11.4 K/uL (4.8-10.8)
[2024-12-01 04:38] LABS: CREATININE 2.9 mg/dL (0.5-1.3); MAGNESIUM 1.8 mg/dL (1.80-2.40); POTASSIUM 3.8 mmol/L (3.5-5.1)
--- NOTE | 2024-12-01 08:01 | PN ---
[facility] CARDIOLOGY PROGRESS NOTE Date Patient Seen: Dec 01, 2024 Time of Visit: 08:01 Interval History: [ No acute events overnight. Currently the patient denies any further chest pain, palpitations, dyspnea or any other anginal equivalents. ] Physical Examination: GENERAL: [No acute distress.] HEAD: [Normal with no signs of head trauma.] EYES: [PERRLA, EOMI, conjunctiva and sclera normal.] ENT: [Hearing grossly intact, normal oropharynx.] NECK: [Supple without JVD. There is no tenderness, lymphadenopathy, or masses. No thyromegaly. Normal carotid upstrokes without bruits.] LUNGS: [SCM. Bilateral air entry. Diminished breath sounds noted to the bilateral lower lung naylor.] HEART: [Regular rate. Normal S1 and S2. No obvious murmurs, gallop, or rubs.] VASC: [Peripheral pulses +2 bilaterally.] ABD: [Bowel sounds normal, soft, nontender, no masses, no organomegaly. No audible bruits.] EXT: [No clubbing, cyanosis or edema.] SKIN: [No rashes or lesions noted.] NEURO: [Awake, alert, and oriented x3. No focal sensory or strength deficits noted.] Laboratory: [ ] Hematology Labs: Test 12/01/24 03:37 Range/Units White Blood Count 11.4 H 4.8-10.8 K/uL Red Blood Count 4.10 L 4.50-6.20 MIL/uL Hemoglobin 10.5 L 14.0-18.0 g/dL Hematocrit 32.4 L 42-54 % Mean Corpuscular Volume 79.0 79-99 fL Mean Corpuscular Hemoglobin 25.6 L 27.0-33.0 pg Mean Corpuscular Hemoglobin Concent 32.4 32.0-36.0 g/dL Red Cell Distribution Width 13.8 11.0-15.5 % Platelet Count 302 130-400 K/uL Mean Platelet Volume 11.4 H 7.5-10.5 fL Nucleated Red Blood Cells 0.0 0.0-0.19 % Chemistry Labs: Test 12/01/24 05:32 12/01/24 03:37 Range/Units Whole Blood Glucose 144 #H 70-110 MG/DL Sodium Level 137 136-145 mmol/L Potassium Level 3.8 3.5-5.1 mmol/L Chloride Level 99 L 101-111 mmol/L Carbon Dioxide Level 29 21-32 mmol/L Blood Urea Nitrogen 59 H 7-18 mg/dL Creatinine 2.9 H 0.5-1.3 mg/dL Glomerular Filtration Rate Calc 26 >90 mL/min Random Glucose 128 H 70-105 mg/dL Total Calcium 9.1 8.5-10.1 mg/dL Magnesium Level 1.80 1.80-2.40 mg/dL B-Type Natriuretic Peptide 572 H 0-100 pg/mL Diagnostics / Radiology: [Copy/Paste Echos/Imaging Report here] Impression and Plan: -Chest pain -HFrEF 35-40% due to ICM -Acute on chronic renal insufficiency with baseline CKD stage III -Multivessel CAD identified on [facility]/coronary angiogram done 10/2024 in [place], recommended CABG -HTN -HLP -DM2 -Obesity Plan: 1. Chest pain -Cardiac enzymes-HS troponin I: 79>71 -The patient was recently hospitalized in [place] (discharged 11/20/2024) in which he underwent an [facility]/coronary angiogram which identified multivessel CAD. It was recommended that he undergo CABG, but the patient opted to come back to [place] for surgical revascularization. -We requested records from [facility] to obtain the patient's coronary diagram, patient is awaiting CV surgery for CABG. -In the meantime, we will start the patient on isosorbide mononitrate ER 30 mg bid and restart aspirin 81 mg daily, carvedilol 6.25 mg BID, and atorvastatin 40 mg QHS. 2. Acute on chronic congestive heart failure, LVEF 35-40% -BNP: 920 -Continue furosemide 80 mg IV BID in order to target a 2L fluid loss per day or BNP level less than half of what it was upon admission -GDMT : Continue carvedilol 6.25 mg BID. - Imdur 30mg bid -He is not a candidate for ACEI/ARB/ARNI therapy or aldosterone antagonist therapy due to his renal dysfunction. -Please record strict I/O's, daily weights, and restrict fluids to less than 2.0L/day GABRIELLE POPE MD Dec 01, 2024 08:01
--- NOTE | 2024-12-01 09:09 | HMCIMG ---
Exam Type: CHEST 1VW Clinical Information: chf Comparison: None Findings: The lungs are clear of infiltrates. The heart is normal in size. The bony and soft tissue structures of the chest are unremarkable. Impression: Clear lungs.
--- NOTE | 2024-12-01 12:27 | PN ---
INFECTIOUS DISEASE PROGRESS NOTE Date of Service: Dec 01, 2024 SUBJECTIVE: This is a 49-year-old male patient who was seen and examined at bedside in room 220. Patient is awake, alert and oriented x3. Patient is now off the oxygen and saturating between 97 to 99%. Minimal crackles present on the left upper lobe. Continues with the occasional nonproductive cough. The sputum culture results came back positive for Serena albicans. We will start patient on fluconazole 100 mg p.o. daily. Continues on Tamiflu for viral influenza infection type B. CD/disc images from recent hospitalization have been obtained and pending cardiovascular surgeon recommendations. We will continue to follow patient's care. PHYSICAL EXAM EYES: Anicteric. Pupils equal and reactive. HENT: No oral thrush seen, moist Oral mucosa. NECK: Supple, no JVD or thyromegaly. RESPIRATORY: Good air entry. No rales, no rhonchi. Lung sounds diminished. C ough. Oxygen as needed via nasal cannula. CARDIOVASCULAR: S1, S2 regular. No murmur heard. ABDOMEN: Non tender, bowel sounds present. Obese but soft. CENTRAL NERVOUS SYSTEM: Awake, alert, oriented x 3. SKIN: No rashes, no swelling. LYMPHATICS: No peripheral lymphadenopathy. MUSCULOSKELETAL: No joint swelling, erythema or tenderness. EXTREMITIES: No cyanosis or clubbing. BACK: No deformity, no pressure ulcer. GENITOURINARY: No dysuria or hematuria. Vital Sign (Last 12 Hours) 12/01/24 12/01/24 12/01/24 12/01/24 04:30 07:30 10:26 10:58 Temp 98.4 97.9 98.4 Pulse 82 84 83 Resp 18 18 18 B/P (MAP) 128/73 131/62 131/62 136/80 Pulse Ox 99 98 97 O2 Delivery Room Air Room Air Room Air Intake & Output (last 24hrs) 11/30/24 11/30/24 12/01/24 15:00 23:00 07:00 Output Total 2175 ml 700 ml Balance -2175 ml -700 ml LABS: Laboratory: Test 12/01/24 11:01 12/01/24 03:37 Range/Units Whole Blood Glucose 223 #H 70-110 MG/DL White Blood Count 11.4 H 4.8-10.8 K/uL Red Blood Count 4.10 L 4.50-6.20 MIL/uL Hemoglobin 10.5 L 14.0-18.0 g/dL Hematocrit 32.4 L 42-54 % Mean Corpuscular Volume 79.0 79-99 fL Mean Corpuscular Hemoglobin 25.6 L 27.0-33.0 pg Mean Corpuscular Hemoglobin Concent 32.4 32.0-36.0 g/dL Red Cell Distribution Width 13.8 11.0-15.5 % Platelet Count 302 130-400 K/uL Mean Platelet Volume 11.4 H 7.5-10.5 fL Nucleated Red Blood Cells 0.0 0.0-0.19 % Sodium Level 137 136-145 mmol/L Potassium Level 3.8 3.5-5.1 mmol/L Chloride Level 99 L 101-111 mmol/L Carbon Dioxide Level 29 21-32 mmol/L Blood Urea Nitrogen 59 H 7-18 mg/dL Creatinine 2.9 H 0.5-1.3 mg/dL Glomerular Filtration Rate Calc 26 >90 mL/min Random Glucose 128 H 70-105 mg/dL Total Calcium 9.1 8.5-10.1 mg/dL Magnesium Level 1.80 1.80-2.40 mg/dL B-Type Natriuretic Peptide 572 H 0-100 pg/mL ASSESSMENT: Hypoxic respiratory failure, requiring oxygen support. Congestive heart failure. Viral influenza infection type B. Acute on chronic renal failure. Leukocytosis. Coronary artery disease. Diabetes mellitus. Obesity. PLAN: Start fluconazole 100 mg p.o. daily. Continue Tamiflu. Nephrology has been consulted and following patient. Cardiothoracic surgeon has evaluated patient on following. Continue diuretics. Continue oxygen support as needed. Glucometer checks a.c./hs and cover with insulin per sliding scale protocol. Avoid nephrotoxic medications. CD/Disc images from recent hospitalization have been obtained and pending cardiovascular surgeon recommendations. This case was reviewed and discussed with my supervising physician and the above assessment and plan was formulated and agreed upon. ATTESTATION BY PHYSICIAN I have seen and examined the patient. I reviewed the documentation, medical decision making, and treatment plan as noted by the mid-level provider above. I agree with the findings and plan of care. MARIE JOSHI MD, MIRTA [employer] Dec 01, 2024 12:27
[2024-12-01] MEDS: fluCONazole 100 MG TAB PO SCH (12:29)
--- NOTE | 2024-12-01 14:23 | PN ---
[facility] PROGRESS NOTE Date Patient Seen: Dec 01, 2024 Time of Visit: 1130 Supervising Physician: Dr. SANCHEZ Inpatient Consults: YAMILET PROBLEM LIST: -Influenza B positive -Acute on chronic heart failure preserved ejection fraction exacerbation EF 50- 55% per echocardiogram 11/25/2024 -Acute on chronic renal insufficiency with baseline CKD stage III, now Stage IV EGFR 29 -Multivessel CAD identified on [facility]/coronary angiogram done 10/2024 in [place], recommended CABG -HYPERTENSION -HYPERLIPIDEMIA -DIABETES MELLITUS TYPE 2 -OBESITY INTERVAL HISTORY: 11/27 patient was seen and examined at bedside with no family present. Patient remains on2 L nasal cannula appears to be tolerating well. Patient reports cough has subsided. Patient denies chest pain reports minimal shortness of breadth. Patient denies nausea vomiting or abdominal pain. Patient was positive for flu B, has been started on Tamiflu. We will continue while recommendations from cardiology and CV surgery, plan is for possible CABG . 11/28 Patient is seen and examined at the bedside, he is awake, alert, well oriented, not in distress on O2 via NC, still with some cough patient is positi ve for Influenza on Tamiflu and continues to be on diuresis with lasix as well, denies chest pain or SOB at this time, pending for CABG 11/29 patient was seen and examined by bedside no family present. Patient is awake alert able to answer simple questions appropriately. At time of visit patient denies any chest pain or shortness of breadth. Reports cough has subsided. Patient denies nausea vomiting or abdominal pain. Patient currently pending CABG. We will continue to follow recommendations from CV surgery. As per primary nurse no acute events to be reported. Patient with severe multivessel disease high risk for decompensation 11/30 patient was seen and examined at bedside with family present. At time of visit patient denies any chest pain or shortness of breadth. Patient tolerating p.o. diet. Patient has remained hemodynamically stable. Patient has been having bowel movements. Patient denies any nausea vomiting or abdominal pain. Patient is still currently pending CABG. We will continue to follow recommendations per CV surgery. We will continue to monitor patient closely 12/01 patient was seen and examined at bedside no family present. Patient remains on room air tolerating well. Patient remains hemodynamically stable. Patient is tolerating p.o. diet. Having bowel movements. Patient is still currently pending CABG, as per primary nurse is scheduled for sometime next week. We will continue to follow recommendations from CV surgery. As per primary nurse no acute events to be reported at this time REVIEW OF SYSTEMS: 12 point ROS reviewed with patient. Pertinent positives mentioned above. Otherwise negative. PHYSICAL EXAM: GENERAL: alert, weak, awake oriented x 3 HEENT: EOMI, Sclera non icteric, moist mucosa NECK: Supple, no JVD, trachea midline LUNGS: Clear breath sounds bilaterally. No wheezes HEART: Regular rate and rhythm. Normal S1 and S2, without murmurs ABD: Abdomen soft, nontender. Bowel sounds present EXT: No clubbing cyanosis or edema NEURO: Alert and oriented to person, follows commands Vital Signs (last 8hr) Date Time Temp Pulse Resp B/P (MAP) Pulse Ox O2 Delivery O2 Flow Rate FiO2 12/01/24 10:58 98.4 83 18 136/80 97 Room Air 12/01/24 10:26 131/62 12/01/24 07:30 97.9 84 18 131/62 98 Room Air LABS: Hematology Labs: Test 12/01/24 03:37 Range/Units White Blood Count 11.4 H 4.8-10.8 K/uL Red Blood Count 4.10 L 4.50-6.20 MIL/uL Hemoglobin 10.5 L 14.0-18.0 g/dL Hematocrit 32.4 L 42-54 % Mean Corpuscular Volume 79.0 79-99 fL Mean Corpuscular Hemoglobin 25.6 L 27.0-33.0 pg Mean Corpuscular Hemoglobin Concent 32.4 32.0-36.0 g/dL Red Cell Distribution Width 13.8 11.0-15.5 % Platelet Count 302 130-400 K/uL Mean Platelet Volume 11.4 H 7.5-10.5 fL Nucleated Red Blood Cells 0.0 0.0-0.19 % Chemistry Labs: Test 12/01/24 11:01 12/01/24 03:37 Range/Units Whole Blood Glucose 223 #H 70-110 MG/DL Sodium Level 137 136-145 mmol/L Potassium Level 3.8 3.5-5.1 mmol/L Chloride Level 99 L 101-111 mmol/L Carbon Dioxide Level 29 21-32 mmol/L Blood Urea Nitrogen 59 H 7-18 mg/dL Creatinine 2.9 H 0.5-1.3 mg/dL Glomerular Filtration Rate Calc 26 >90 mL/min Random Glucose 128 H 70-105 mg/dL Total Calcium 9.1 8.5-10.1 mg/dL Magnesium Level 1.80 1.80-2.40 mg/dL B-Type Natriuretic Peptide 572 H 0-100 pg/mL DIAGNOSTICS / RADIOLOGY RESULTS: na PLAN Pending CABG follow up CV surgeon recommendations Flu B positive continue Tamiflu to complete a total of five days, should be renally adjusted Continue with diuresing Continue to follow recommendations from Cardiology Continue to monitor respiratory status and maintain adequate oxygenation Keep O2 sats greater or equal to 90% We will require 6 minute walk prior to discharge for home oxygen evaluation NEURO: Minimize central acting medications as possible. Maintain fall precautions, adequate lighting during the day PULMONARY: Supplemental 02 as needed. Maintain aspiration precautions at all times CARDIOVASCULAR: Follow hemodynamics. Vital signs per facility protocol GI & NUTRITION: Continue with nutritional support. Continue stool softeners and laxatives as needed. KIDNEYS & ELECTROLYTES: Strict monitoring of intake, output and overall fluid balance. Avoid nephrotoxic medications to the extent possible. Medications to be dosed according to renal function. Monitor electrolytes and replace as needed ENDOCRINE: Maintain blood glucose between 100-180 at all times. Hypoglycemia protocol in place INFECTIOUS DISEASE: Trend temperature, WBC and procalcitonin level Follow cultures, deescalate antibiotics as soon as possible. Panculture if new onset fever ONCOLOGY/HEMATOLOGY/COAGULATION: Monitor for s/s of bleeding Monitor hemoglobin, coagulation studies as needed SKIN: Pressure ulcer prevention per facility protocol Specialty mattress ORTHO/REHAB: Continue PT/OT Prophylaxis: Continue GI and DVT prophylaxis Code Status: Full Resuscitation Disposition: TBD Case discussed with supervising physician plan of care agreed upon AVA GRIFFITH Dec 01, 2024 14:23
--- NOTE | 2024-12-01 17:10 | PN ---
FOLLOWUP PROGRESS NOTE SUBJECTIVE: A 49-year-old male who has had a prolonged hospital course. The patient with a history of diabetes mellitus and hypertension, has a history of known chronic renal insufficiency. The patient initially presented with increasing shortness of breath and anasarca. He did undergo coronary catheterization that revealed significant coronary artery disease. The patient is being seen by Cardiology. He continues with the diuretics. The patient is being seen as a followup visit for all of the above. REVIEW OF SYSTEMS: GENERAL: He is feeling improved. HEENT: No change in vision. No change in hearing. CARDIOVASCULAR: There is no current chest pain or palpitations. PULMONARY: As described above. GASTROINTESTINAL: The patient is tolerating a diet. MUSCULOSKELETAL: Complains of weakness. PHYSICAL EXAMINATION: VITAL SIGNS: Blood pressure 131/62, pulse 80s. GENERAL: Chronically ill male, older than appearing. HEENT: Head is atraumatic. Pupils are equal, roving to light. Oropharynx is without exudate. Nares are clear. NECK: No JVP. There is no thyromegaly, no mass. CARDIOVASCULAR: Regular. There is no S3, S4 gallop. LUNGS: Coarse with equal thoracic movement. ABDOMEN: Soft, nondistended, nontender. EXTREMITIES: Reveal no clubbing, no cyanosis. NEUROLOGIC: He is awake. He is alert. LABORATORY DATA: Hemoglobin 10, hematocrit 32, white cell count is 11,000. Sodium 137, BUN 59, creatinine is 2.9. IMPRESSION: * Acute on chronic renal failure. * Known coronary artery disease. * Diabetes mellitus. * Hypertension. * Volume overload. PLAN: The patient's creatinine has remained fairly stable. The patient continues with the diuretics. The patient is also being seen by Cardiovascular Surgery. He remains on Tamiflu for his influenza and we will continue to follow closely. The patient with multiple questions, all of which were all answered. TID: [id number] RECEIPT: [id number]
[2024-12-02] VITALS (8 sets, daily range): BP systolic 107–149; BP diastolic 62–97; PULSE 78–88; RESP 16–20; TEMP 98–98.7; O2SAT 98
[2024-12-02 04:59] LABS: BASOPHILS # (AUTO) 0.05 K/uL (0.00-0.20); BASOPHILS % (AUTO) 0.4 % (0.0-5.0); EOSINOPHILS # (AUTO) 0.47 K/uL (0.00-0.70); HEMATOCRIT 34.1 % (42-54); IMMATURE GRANULOCYTE ABSOLUTE 0.07 K/uL (0-1); LYMPHOCYTES # (AUTO) 3.1 K/uL (1.0-4.8); LYMPHOCYTES % (AUTO) 26.5 % (21.0-51.0); MEAN CORPUSCULAR HEMOGLOBIN 25.3 pg (27.0-33.0); MEAN CORPUSCULAR VOLUME 79.1 fL (79-99); MONOCYTES % (AUTO) 8.2 % (3.0-13.0); NEUTROPHILS # (AUTO) 7.1 K/uL (1.8-7.7); NEUTROPHILS % (AUTO) 60.3 % (40.0-77.0); PLATELET COUNT (AUTO) 330 K/uL (130-400); RED BLOOD CELL COUNT(AUTO) 4.31 MIL/uL (4.50-6.20); RED CELL DISTRIBUTION WIDTH 14.1 % (11.0-15.5); WHITE BLOOD COUNT (AUTO) 11.7 K/uL (4.8-10.8)
[2024-12-02 05:11] LABS: ALBUMIN 2.9 g/dL (3.5-5.0); BILIRUBIN,TOTAL 0.2 mg/dL (0.2-1.0); CREATININE 3.3 mg/dL (0.5-1.3); POTASSIUM 4.1 mmol/L (3.5-5.1); TOTAL PROTEIN, SERUM 7.1 g/dL (6.0-8.3)
[2024-12-02 05:29] LABS: B-TYPE NATRIURETIC PEPTIDE 537 pg/mL (0-100)
--- NOTE | 2024-12-02 12:47 | PN ---
[facility] PROGRESS NOTE Date Patient Seen: Dec 02, 2024 Time of Visit: 1114 Supervising Physician: Dr. Ireland Inpatient Consults: YAMILET PROBLEM LIST: -Influenza B positive -Acute on chronic heart failure preserved ejection fraction exacerbation EF 50- 55% per echocardiogram 11/25/2024 -Acute on chronic renal insufficiency with baseline CKD stage III, now Stage IV EGFR 29 -Multivessel CAD identified on [facility]/coronary angiogram done 10/2024 in [place], recommended CABG -HYPERTENSION -HYPERLIPIDEMIA -DIABETES MELLITUS TYPE 2 -OBESITY INTERVAL HISTORY: 11/27 patient was seen and examined at bedside with no family present. Patient remains on2 L nasal cannula appears to be tolerating well. Patient reports cough has subsided. Patient denies chest pain reports minimal shortness of breadth. Patient denies nausea vomiting or abdominal pain. Patient was positive for flu B, has been started on Tamiflu. We will continue while recommendations from cardiology and CV surgery, plan is for possible CABG . 11/28 Patient is seen and examined at the bedside, he is awake, alert, well oriented, not in distress on O2 via NC, still with some cough patient is positi ve for Influenza on Tamiflu and continues to be on diuresis with lasix as well, denies chest pain or SOB at this time, pending for CABG 11/29 patient was seen and examined by bedside no family present. Patient is awake alert able to answer simple questions appropriately. At time of visit patient denies any chest pain or shortness of breadth. Reports cough has subsided. Patient denies nausea vomiting or abdominal pain. Patient currently pending CABG. We will continue to follow recommendations from CV surgery. As per primary nurse no acute events to be reported. Patient with severe multivessel disease high risk for decompensation 11/30 patient was seen and examined at bedside with family present. At time of visit patient denies any chest pain or shortness of breadth. Patient tolerating p.o. diet. Patient has remained hemodynamically stable. Patient has been having bowel movements. Patient denies any nausea vomiting or abdominal pain. Patient is still currently pending CABG. We will continue to follow recommendations per CV surgery. We will continue to monitor patient closely 12/01 patient was seen and examined at bedside no family present. Patient remains on room air tolerating well. Patient remains hemodynamically stable. Patient is tolerating p.o. diet. Having bowel movements. Patient is still currently pending CABG, as per primary nurse is scheduled for sometime next week. We will continue to follow recommendations from CV surgery. As per primary nurse no acute events to be reported at this time 2/3 patient was seen and examined at bedside no family present. At time of visit patient denies any chest pain or shortness of breadth. Is tolerating p.o. diet. Has remained hemodynamically stable. As per primary nurse no acute events to be reported. Patient is still currently pending CABG we will continue to follow recommendations for CV surgery. REVIEW OF SYSTEMS: 12 point ROS reviewed with patient. Pertinent positives mentioned above. Otherwise negative. PHYSICAL EXAM: GENERAL: alert, weak, awake oriented x 3 HEENT: EOMI, Sclera non icteric, moist mucosa NECK: Supple, no JVD, trachea midline LUNGS: Clear breath sounds bilaterally. No wheezes HEART: Regular rate and rhythm. Normal S1 and S2, without murmurs ABD: Abdomen soft, nontender. Bowel sounds present EXT: No clubbing cyanosis or edema NEURO: Alert and oriented to person, follows commands Vital Signs (last 8hr) Date Time Temp Pulse Resp B/P (MAP) Pulse Ox O2 Delivery O2 Flow Rate FiO2 12/02/24 11:00 98.1 78 20 138/89 97 Room Air 12/02/24 08:00 98 Room Air* 0 21 12/02/24 07:49 138/89 12/02/24 07:00 98.1 82 16 121/79 99 Room Air LABS: Hematology Labs: Test 12/02/24 03:50 Range/Units White Blood Count 11.7 H 4.8-10.8 K/uL Red Blood Count 4.31 L 4.50-6.20 MIL/uL Hemoglobin 10.9 L 14.0-18.0 g/dL Hematocrit 34.1 L 42-54 % Mean Corpuscular Volume 79.1 79-99 fL Mean Corpuscular Hemoglobin 25.3 L 27.0-33.0 pg Mean Corpuscular Hemoglobin Concent 32.0 32.0-36.0 g/dL Red Cell Distribution Width 14.1 11.0-15.5 % Platelet Count 330 130-400 K/uL Mean Platelet Volume 11.5 H 7.5-10.5 fL Immature Granulocyte % (Auto) 0.6 0-1 % Neutrophils (%) (Auto) 60.3 40.0-77.0 % Lymphocytes (%) (Auto) 26.5 21.0-51.0 % Monocytes (%) (Auto) 8.2 3.0-13.0 % Eosinophils (%) (Auto) 4.0 0.0-8.0 % Basophils (%) (Auto) 0.4 0.0-5.0 % Neutrophils # (Auto) 7.1 1.8-7.7 K/uL Lymphocytes # (Auto) 3.1 1.0-4.8 K/uL Monocytes # (Auto) 1.0 0.1-1.0 K/uL Eosinophils # (Auto) 0.47 0.00-0.70 K/uL Basophils # (Auto) 0.05 0.00-0.20 K/uL Absolute Immature Granulocyte (auto 0.07 0-1 K/uL Nucleated Red Blood Cells 0.0 0.0-0.19 % Chemistry Labs: Test 12/02/24 10:57 12/02/24 03:50 Range/Units Whole Blood Glucose 175 H 70-110 MG/DL Bedside Glucose Comment Notified Nurse Sodium Level 138 136-145 mmol/L Potassium Level 4.1 3.5-5.1 mmol/L Chloride Level 100 L 101-111 mmol/L Carbon Dioxide Level 29 21-32 mmol/L Blood Urea Nitrogen 61 H 7-18 mg/dL Creatinine 3.3 H 0.5-1.3 mg/dL Glomerular Filtration Rate Calc 22 >90 mL/min Random Glucose 142 H 70-105 mg/dL Total Calcium 9.2 8.5-10.1 mg/dL Magnesium Level 2.00 1.80-2.40 mg/dL Total Bilirubin 0.2 0.2-1.0 mg/dL Aspartate Amino Transf (AST/SGOT) 18 10-37 U/L Alanine Aminotransferase (ALT/SGPT) 35 12-78 U/L Alkaline Phosphatase 84 50-136 U/L B-Type Natriuretic Peptide 537 H 0-100 pg/mL Total Protein 7.1 6.0-8.3 g/dL Albumin 2.9 L 3.5-5.0 g/dL DIAGNOSTICS / RADIOLOGY RESULTS: na PLAN Pending CABG follow up CV surgeon recommendations Flu B positive continue Tamiflu to complete a total of five days, should be renally adjusted Continue with diuresing Continue to follow recommendations from Cardiology Continue to monitor respiratory status and maintain adequate oxygenation Keep O2 sats greater or equal to 90% We will require 6 minute walk prior to discharge for home oxygen evaluation NEURO: Minimize central acting medications as possible. Maintain fall precautions, adequate lighting during the day PULMONARY: Supplemental 02 as needed. Maintain aspiration precautions at all times CARDIOVASCULAR: Follow hemodynamics. Vital signs per facility protocol GI & NUTRITION: Continue with nutritional support. Continue stool softeners and laxatives as needed. KIDNEYS & ELECTROLYTES: Strict monitoring of intake, output and overall fluid balance. Avoid nephrotoxic medications to the extent possible. Medications to be dosed according to renal function. Monitor electrolytes and replace as needed ENDOCRINE: Maintain blood glucose between 100-180 at all times. Hypoglycemia protocol in place INFECTIOUS DISEASE: Trend temperature, WBC and procalcitonin level Follow cultures, deescalate antibiotics as soon as possible. Panculture if new onset fever ONCOLOGY/HEMATOLOGY/COAGULATION: Monitor for s/s of bleeding Monitor hemoglobin, coagulation studies as needed SKIN: Pressure ulcer prevention per facility protocol Specialty mattress ORTHO/REHAB: Continue PT/OT Prophylaxis: Continue GI and DVT prophylaxis Code Status: Full Resuscitation Disposition: TBD Case discussed with supervising physician plan of care agreed upon AVA GRIFFITH Dec 02, 2024 12:47
--- NOTE | 2024-12-02 16:30 | PN ---
[facility] CARDIOLOGY PROGRESS NOTE Date Patient Seen: Dec 02, 2024 Time of Visit: 16:23 Interval History: Patient seen and examined Denies complaints No dyspnea, pnd orthopnea or edema. Physical Examination: GENERAL: [No acute distress.] HEAD: [Normal with no signs of head trauma.] NECK: [Normal carotid upstrokes without bruits.] LUNGS: [on room air. clear to auscultation throughout. no crackles HEART: [Regular rate and rhythm. Normal S1 and S2. No obvious murmurs, gallop, or rubs.] VASC: [Peripheral pulses +2 bilaterally.] EXT: [No cyanosis or edema.] SKIN: [No rashes or lesions noted.] NEURO: [Awake, alert, and oriented x3. No focal sensory or strength deficits noted.] Laboratory: [ ] Hematology Labs: Test 12/02/24 03:50 Range/Units White Blood Count 11.7 H 4.8-10.8 K/uL Red Blood Count 4.31 L 4.50-6.20 MIL/uL Hemoglobin 10.9 L 14.0-18.0 g/dL Hematocrit 34.1 L 42-54 % Mean Corpuscular Volume 79.1 79-99 fL Mean Corpuscular Hemoglobin 25.3 L 27.0-33.0 pg Mean Corpuscular Hemoglobin Concent 32.0 32.0-36.0 g/dL Red Cell Distribution Width 14.1 11.0-15.5 % Platelet Count 330 130-400 K/uL Mean Platelet Volume 11.5 H 7.5-10.5 fL Immature Granulocyte % (Auto) 0.6 0-1 % Neutrophils (%) (Auto) 60.3 40.0-77.0 % Lymphocytes (%) (Auto) 26.5 21.0-51.0 % Monocytes (%) (Auto) 8.2 3.0-13.0 % Eosinophils (%) (Auto) 4.0 0.0-8.0 % Basophils (%) (Auto) 0.4 0.0-5.0 % Neutrophils # (Auto) 7.1 1.8-7.7 K/uL Lymphocytes # (Auto) 3.1 1.0-4.8 K/uL Monocytes # (Auto) 1.0 0.1-1.0 K/uL Eosinophils # (Auto) 0.47 0.00-0.70 K/uL Basophils # (Auto) 0.05 0.00-0.20 K/uL Absolute Immature Granulocyte (auto 0.07 0-1 K/uL Nucleated Red Blood Cells 0.0 0.0-0.19 % Chemistry Labs: Test 12/02/24 15:49 12/02/24 03:50 Range/Units Whole Blood Glucose 268 #H 70-110 MG/DL Bedside Glucose Comment Notified Nurse Sodium Level 138 136-145 mmol/L Potassium Level 4.1 3.5-5.1 mmol/L Chloride Level 100 L 101-111 mmol/L Carbon Dioxide Level 29 21-32 mmol/L Blood Urea Nitrogen 61 H 7-18 mg/dL Creatinine 3.3 H 0.5-1.3 mg/dL Glomerular Filtration Rate Calc 22 >90 mL/min Random Glucose 142 H 70-105 mg/dL Total Calcium 9.2 8.5-10.1 mg/dL Magnesium Level 2.00 1.80-2.40 mg/dL Total Bilirubin 0.2 0.2-1.0 mg/dL Aspartate Amino Transf (AST/SGOT) 18 10-37 U/L Alanine Aminotransferase (ALT/SGPT) 35 12-78 U/L Alkaline Phosphatase 84 50-136 U/L B-Type Natriuretic Peptide 537 H 0-100 pg/mL Total Protein 7.1 6.0-8.3 g/dL Albumin 2.9 L 3.5-5.0 g/dL Impression and Plan: -Chest pain -HFrEF 35-40% due to ICM -Acute on chronic renal insufficiency with baseline CKD stage III -Multivessel CAD identified on [facility]/coronary angiogram done 10/2024 in [place], recommended CABG -HTN -HLP -DM2 Plan: Pending CTS for CABG Continue beta lynne Continue ASA, statin He is not a candidate for ACEI/ARB/ARNI therapy or aldosterone antagonist therapy due to his renal dysfunction. He appears euvolemic. Will discontinue the IV diuretics. JOSE M MILLS DO Dec 02, 2024 16:30
--- NOTE | 2024-12-02 17:35 | PN ---
INFECTIOUS DISEASE PROGRESS NOTE Date of Service: Dec 02, 2024 SUBJECTIVE: This is a 49-year-old male patient who was seen and examined at bedside in room 220. Patient is awake, alert and oriented x3. Continues with coughing episodes. A Chest x-ray done yesterday however showed clear lungs. Continue on diuretics. Will continue on fluconazole for Serena albicans in sputum culture results. Completed Tamiflu therapy for viral influenza infection type B. The CD/disc images from recent hospitalization have been obtained and reviewed by cardiovascular surgeon. Denying dyspnea. We will continue to follow patient's care. PHYSICAL EXAM EYES: Anicteric. Pupils equal and reactive. HENT: No oral thrush seen, moist Oral mucosa. NECK: Supple, no JVD or thyromegaly. RESPIRATORY: Good air entry. No rales, no rhonchi. Lung sounds diminished. Coughing. Oxygen as needed via nasal cannula. CARDIOVASCULAR: S1, S2 regular. No murmur heard. ABDOMEN: Non tender, bowel sounds present. Obese but soft. CENTRAL NERVOUS SYSTEM: Awake, alert, oriented x 3. SKIN: No rashes, no swelling. LYMPHATICS: No peripheral lymphadenopathy. MUSCULOSKELETAL: No joint swelling, erythema or tenderness. EXTREMITIES: No cyanosis or clubbing. BACK: No deformity, no pressure ulcer. GENITOURINARY: No dysuria or hematuria. Vital Sign (Last 12 Hours) 12/02/24 12/02/24 12/02/24 12/02/24 07:00 07:49 08:00 11:00 Temp 98.1 98.1 Pulse 82 78 Resp 16 20 B/P (MAP) 121/79 138/89 138/89 Pulse Ox 99 98 97 O2 Delivery Room Air Room Air* Room Air O2 Flow Rate 0 FiO2 21 12/02/24 16:00 Temp 98.1 Pulse 85 Resp 20 B/P (MAP) 136/90 Pulse Ox 97 O2 Delivery Room Air Intake & Output (last 24hrs) 12/01/24 12/01/24 12/02/24 15:00 23:00 07:00 Intake Total 720 ml Output Total 325 ml 625 ml 1600 ml Balance -325 ml 95 ml -1600 ml LABS: Laboratory: Test 12/02/24 15:49 12/02/24 03:50 Range/Units Whole Blood Glucose 268 #H 70-110 MG/DL Bedside Glucose Comment Notified Nurse White Blood Count 11.7 H 4.8-10.8 K/uL Red Blood Count 4.31 L 4.50-6.20 MIL/uL Hemoglobin 10.9 L 14.0-18.0 g/dL Hematocrit 34.1 L 42-54 % Mean Corpuscular Volume 79.1 79-99 fL Mean Corpuscular Hemoglobin 25.3 L 27.0-33.0 pg Mean Corpuscular Hemoglobin Concent 32.0 32.0-36.0 g/dL Red Cell Distribution Width 14.1 11.0-15.5 % Platelet Count 330 130-400 K/uL Mean Platelet Volume 11.5 H 7.5-10.5 fL Immature Granulocyte % (Auto) 0.6 0-1 % Neutrophils (%) (Auto) 60.3 40.0-77.0 % Lymphocytes (%) (Auto) 26.5 21.0-51.0 % Monocytes (%) (Auto) 8.2 3.0-13.0 % Eosinophils (%) (Auto) 4.0 0.0-8.0 % Basophils (%) (Auto) 0.4 0.0-5.0 % Neutrophils # (Auto) 7.1 1.8-7.7 K/uL Lymphocytes # (Auto) 3.1 1.0-4.8 K/uL Monocytes # (Auto) 1.0 0.1-1.0 K/uL Eosinophils # (Auto) 0.47 0.00-0.70 K/uL Basophils # (Auto) 0.05 0.00-0.20 K/uL Absolute Immature Granulocyte (auto 0.07 0-1 K/uL Nucleated Red Blood Cells 0.0 0.0-0.19 % Sodium Level 138 136-145 mmol/L Potassium Level 4.1 3.5-5.1 mmol/L Chloride Level 100 L 101-111 mmol/L Carbon Dioxide Level 29 21-32 mmol/L Blood Urea Nitrogen 61 H 7-18 mg/dL Creatinine 3.3 H 0.5-1.3 mg/dL Glomerular Filtration Rate Calc 22 >90 mL/min Random Glucose 142 H 70-105 mg/dL Total Calcium 9.2 8.5-10.1 mg/dL Magnesium Level 2.00 1.80-2.40 mg/dL Total Bilirubin 0.2 0.2-1.0 mg/dL Aspartate Amino Transf (AST/SGOT) 18 10-37 U/L Alanine Aminotransferase (ALT/SGPT) 35 12-78 U/L Alkaline Phosphatase 84 50-136 U/L B-Type Natriuretic Peptide 537 H 0-100 pg/mL Total Protein 7.1 6.0-8.3 g/dL Albumin 2.9 L 3.5-5.0 g/dL ASSESSMENT: Hypoxic respiratory failure, requiring oxygen support. Congestive heart failure. Viral influenza infection type B. Acute on chronic renal failure. Leukocytosis. Coronary artery disease. Diabetes mellitus. Obesity. PLAN: Continue fluconazole po. Completed Tamiflu therapy. Nephrology has been consulted and following patient. Continue diuretics. Continue oxygen support as needed. Glucometer checks a.c./hs and cover with insulin per sliding scale protocol. Avoid nephrotoxic medications. CD/Disc images from recent hospitalization have been obtained and reviewed by cardiovascular surgeon for possible CABG. This case was reviewed and discussed with my supervising physician and the above assessment and plan was formulated and agreed upon. ATTESTATION BY PHYSICIAN I have seen and examined the patient. I reviewed the documentation, medical decision making, and treatment plan as noted by the mid-level provider above. I agree with the findings and plan of care. MARIE JOSHI MD, MIRTA L FNP Dec 02, 2024 17:35
--- NOTE | 2024-12-02 21:38 | PN ---
SUBJECTIVE: The patient is a 49-year-old male admitted ____ to [facility] after having a heart catheterization in [place]. The patient's symptoms were not of chest pain, but shortness of breath. I reviewed his angiogram and the patient has a very diffuse coronary artery disease ____ not bypassable. Would consider percutaneous intervention or medical therapy. TID: [id number] RECEIPT: [id number]
--- NOTE | 2024-12-02 22:54 | PN ---
SUBJECTIVE: This patient has multiple problems including renal failure, anemia. The patient has underlying multiple other comorbidities. The patient has underlying hypertension. The patient has influenza positive, heart failure, coronary artery disease, being considered for CABG. The patient has hypertension, hyperlipidemia, diabetic nephropathy and proteinuria with fluid overload, remains on intermittent dialysis. No other associated finding. No other aggravating or relieving factors. PHYSICAL EXAMINATION: VITAL SIGNS: Temperature 98.1, pulse 78, respiratory rate 20, afebrile. Blood pressure is 138/89. HEENT: Head is atraumatic, normocephalic. HEENT: Head is atraumatic. Pupils are round and reactive. Sclerae are anicteric. Conjunctivae not pale. Oral mucosa is not dry. NECK: Supple. No masses or bruits. Thyroid is palpable. Neck has no bruits. CHEST: Shows equal thoracic percussion note being resonant in all areas. CARDIAC: Regular rhythm, no rub, no S3, S4. No parasternal heave. ABDOMEN: No guarding or tenderness. Bowel sounds are normoactive. No free fluid. LABORATORY DATA: Have been reviewed. Hemoglobin 10.9, hematocrit is stable. White cell count normal. Creatinine has been elevated to 3.3, BUN of 61. PROBLEMS: Renal failure, anemia, diabetes, nephropathy, fluid overload, influenza. PLAN: Diuretics to continue, but adjust according to his symptoms, weight, and overall condition, being considered for CABG. Intake, output, weight and overall status will be monitored. Pending CABG. Continue with close monitoring of electrolytes and renal function. Follow up labs ordered. Condition remained guarded. The patient was seen several times today. TID: [id number] RECEIPT: [id number]
[2024-12-03] VITALS (7 sets, daily range): BP systolic 128–145; BP diastolic 62–78; PULSE 82–86; RESP 18–21; TEMP 97.8–98.7; O2SAT 98–99
[2024-12-03 03:53] LABS: BASOPHILS # (AUTO) 0.07 K/uL (0.00-0.20); BASOPHILS % (AUTO) 0.6 % (0.0-5.0); EOSINOPHILS # (AUTO) 0.48 K/uL (0.00-0.70); EOSINOPHILS % (AUTO) 3.9 % (0.0-8.0); HEMATOCRIT 36.2 % (42-54); IMMATURE GRANULOCYTE ABSOLUTE 0.07 K/uL (0-1); LYMPHOCYTES # (AUTO) 3.3 K/uL (1.0-4.8); LYMPHOCYTES % (AUTO) 26.6 % (21.0-51.0); MEAN CORPUSCULAR HEMOGLOBIN 24.9 pg (27.0-33.0); MEAN CORPUSCULAR HGB CONC 31.5 g/dL (32.0-36.0); MEAN CORPUSCULAR VOLUME 79.2 fL (79-99); MONOCYTES # (AUTO) 1.1 K/uL (0.1-1.0); MONOCYTES % (AUTO) 8.7 % (3.0-13.0); NEUTROPHILS # (AUTO) 7.3 K/uL (1.8-7.7); NEUTROPHILS % (AUTO) 59.6 % (40.0-77.0); PLATELET COUNT (AUTO) 337 K/uL (130-400); RED BLOOD CELL COUNT(AUTO) 4.57 MIL/uL (4.50-6.20); RED CELL DISTRIBUTION WIDTH 14.2 % (11.0-15.5); WHITE BLOOD COUNT (AUTO) 12.2 K/uL (4.8-10.8)
[2024-12-03 04:20] LABS: ALBUMIN 3.1 g/dL (3.5-5.0); BILIRUBIN,TOTAL 0.3 mg/dL (0.2-1.0); CREATININE 3.4 mg/dL (0.5-1.3); MAGNESIUM 1.9 mg/dL (1.80-2.40); TOTAL PROTEIN, SERUM 7.4 g/dL (6.0-8.3)
[2024-12-03] MEDS: furoSEMIDE 40 MG TABLET PO SCH (08:22)
[2024-12-03] MEDS: carVEDIlol 12.5 MG TABLET PO SCH (09:00)
--- NOTE | 2024-12-03 09:28 | PN ---
[facility] CARDIOLOGY PROGRESS NOTE Cardiology progress note dictated for Jose M Esposito MD Date Patient Seen: Dec 03, 2024 Interval History: Patient seen and examined Denies complaints No dyspnea, pnd orthopnea or edema. Physical Examination: GENERAL: No acute distress. HEAD: Normal with no signs of head trauma. EYES: PERRLA, EOMI, conjunctiva and sclera normal. NECK: Supple without JVD. There is no tenderness, lymphadenopathy, or masses. No thyromegaly. Normal carotid upstrokes without bruits. LUNGS: Clear breath sounds bilaterally. No wheezes, or rhonchi. HEART: Normal rate and rhythm. Normal S1 and S2 without murmurs, gallop or rub. VASC: Peripheral pulses +2 bilaterally. EXT: No clubbing, cyanosis or edema. NEURO: Awake, alert, and oriented x3. No focal neurological deficits noted. Laboratory: Hematology Labs: Test 12/03/24 03:24 Range/Units White Blood Count 12.2 H 4.8-10.8 K/uL Red Blood Count 4.57 4.50-6.20 MIL/uL Hemoglobin 11.4 L 14.0-18.0 g/dL Hematocrit 36.2 L 42-54 % Mean Corpuscular Volume 79.2 79-99 fL Mean Corpuscular Hemoglobin 24.9 L 27.0-33.0 pg Mean Corpuscular Hemoglobin Concent 31.5 L 32.0-36.0 g/dL Red Cell Distribution Width 14.2 11.0-15.5 % Platelet Count 337 130-400 K/uL Mean Platelet Volume 11.5 H 7.5-10.5 fL Immature Granulocyte % (Auto) 0.6 0-1 % Neutrophils (%) (Auto) 59.6 40.0-77.0 % Lymphocytes (%) (Auto) 26.6 21.0-51.0 % Monocytes (%) (Auto) 8.7 3.0-13.0 % Eosinophils (%) (Auto) 3.9 0.0-8.0 % Basophils (%) (Auto) 0.6 0.0-5.0 % Neutrophils # (Auto) 7.3 1.8-7.7 K/uL Lymphocytes # (Auto) 3.3 1.0-4.8 K/uL Monocytes # (Auto) 1.1 H 0.1-1.0 K/uL Eosinophils # (Auto) 0.48 0.00-0.70 K/uL Basophils # (Auto) 0.07 0.00-0.20 K/uL Absolute Immature Granulocyte (auto 0.07 0-1 K/uL Nucleated Red Blood Cells 0.0 0.0-0.19 % Red Blood Cell Morphology See comments Chemistry Labs: Test 12/03/24 05:31 12/03/24 03:24 12/02/24 19:02 12/02/24 03:50 Range/Units Whole Blood Glucose 165 H 70-110 MG/DL Sodium Level 139 136-145 mmol/L Potassium Level 4.0 3.5-5.1 mmol/L Chloride Level 99 L 101-111 mmol/L Carbon Dioxide Level 33 H 21-32 mmol/L Blood Urea Nitrogen 68 H 7-18 mg/dL Creatinine 3.4 H 0.5-1.3 mg/dL Glomerular Filtration Rate Calc 21 >90 mL/min Random Glucose 140 H 70-105 mg/dL Total Calcium 9.4 8.5-10.1 mg/dL Magnesium Level 1.90 1.80-2.40 mg/dL Total Bilirubin 0.3 # 0.2-1.0 mg/dL Aspartate Amino Transf (AST/SGOT) 16 10-37 U/L Alanine Aminotransferase (ALT/SGPT) 35 12-78 U/L Alkaline Phosphatase 85 50-136 U/L Total Protein 7.4 6.0-8.3 g/dL Albumin 3.1 L 3.5-5.0 g/dL Bedside Glucose Comment Notified Nurse B-Type Natriuretic Peptide 537 H 0-100 pg/mL Diagnostics / Radiology: 2D ECHO ON 11/24/2024 Conclusion Left ventricular cavity is normal for BSA, 2.5 cm/m2. Mild concentric left ventricular hypertrophy. LVEF is 50-55%. The right ventricle is moderately dilated. The right ventricular systolic function is normal. The left atrium size is normal. The right atrium is mildly dilated. No valvular pathology. Impression and Plan: -Chest pain -HFrEF 35-40% due to ICM with most recent Echo on 11/24/2024 EF of 50-55% -Acute on chronic renal insufficiency with baseline CKD stage III -Multivessel CAD identified on [facility]/coronary angiogram done 10/2024 in [place], recommended CABG -HTN -HLP -DM2 Plan: Patient was turned down by surgery due to diffuse coronary disease, not amenable to CABG Will increase Coreg to 12.5mg BID and Imdur to 90mg daily for better blood pressure control and to managed his symptoms. He has been chest pain free. Continue ASA, statin, and oral Lasix He is not a candidate for ACEI/ARB/ARNI therapy or aldosterone antagonist therapy due to his renal dysfunction. MICHEAL MAY Dec 03, 2024 09:28 JOSE M ESPOSITO DO Dec 04, 2024 10:02
[2024-12-03] MEDS: ISOSORBIDE MONO 30MG SR TAB PO SCH (11:11)
--- NOTE | 2024-12-03 14:46 | PN ---
NEPHROLOGY PROGRESS NOTE Date/Time Patient Seen: Dec 03, 2024 Reason for Consultation: 14:43 SUBJECTIVE: This 49-year-old male with diabetes mellitus, morbid obesity, hypertension, chronic renal disease, presented to the hospital with history of cough, shortness of breath. The patient also complained of bilateral leg swelling. Cough is dry and nonproductive. No pleuritic pain or hemoptysis. The patient claims he was recently admitted to the hospital in [place] with chest pain and shortness of breath. The patient underwent cardiac catheterization, which revealed critical multivessel coronary artery disease. The patient was deemed not bypassable by CV surgeon He was noted to have elevated BUN/creatinine We has been consulted for renal failure. Renal function remains elevated Electrolytes are stable Renal ultrasound was noted He was seen in the medical floor, in no acute distress No family at the bedside. REVIEW OF SYSTEMS: GENERAL: Negative for any nausea, vomiting, fevers, chills, or weight loss. NEUROLOGIC: Negative for any blurry vision, blind spots, double vision, facial asymmetry, dysphagia, dysarthria, hemiparesis, hemisensory deficits, vertigo, ataxia. HEENT: Negative for any head trauma, neck trauma, neck stiffness, photophobia, phonophobia, sinusitis, rhinitis. CARDIAC: Negative for any chest pain, dyspnea on exertion, paroxysmal nocturnal dyspnea, peripheral edema. PULMONARY: Negative for any shortness of breath, wheezing, COPD, or TB exposure. GASTROINTESTINAL: Negative for any abdominal pain, nausea, vomiting, bright red blood per rectum, melena. GENITOURINARY: Negative for any dysuria, hematuria, incontinence. INTEGUMENTARY: Negative for any rashes, cuts, insect bites. RHEUMATOLOGIC: Negative for any joint pains, photosensitive rashes, history of vasculitis or kidney problems. HEMATOLOGIC: Negative for any abnormal bruising, frequent infections or bleeding. Vital Signs (last 8hr) Date Time Temp Pulse Resp B/P (MAP) Pulse Ox O2 Delivery O2 Flow Rate FiO2 11/25/24 12:23 98.6 90 18 137/80 94 Room Air 11/25/24 12:14 139/86 11/25/24 08:34 98.4 92 18 139/80 99 Room Air 11/25/24 07:15 97 Nasal Cannula* 2 28 PHYSICAL EXAM: GENERAL: Alert and oriented x 3. No acute distress. Well-nourished. EYES: EOMI. Anicteric. HENT: Moist mucous membranes. No scleral icterus. No cervical lymphadenopathy. LUNGS: Clear to auscultation bilaterally. No accessory muscle use. CARDIOVASCULAR: Regular rate and rhythm. No murmur. No JVD. ABDOMEN: Soft, non-tender and non-distended. No palpable masses. EXTREMITIES: No edema. Non-tender.?SKIN: No rashes or lesions. Warm. NEUROLOGIC: No focal neurological deficits. CN II-XII grossly intact, but not individually tested. PSYCHIATRIC: Cooperative. Appropriate mood and affect. Current Medications Medications (Trade) Dose Ordered Sig/Bibi Route PRN Reason Start Time Stop Time Status Last Admin Dose Admin Acetaminophen (TYLenol 325MG TAB) 650 mg Q4H PRN PO TEMPERATURE GREATER THAN 101.5 11/23/24 19:30 12/23/24 19:29 Aspirin (Aspirin 81mg Chew Tab) 81 mg DAILY PO 11/25/24 09:00 12/25/24 08:59 11/25/24 08:37 81 MG Aspirin (Aspirin 81mg Chew Tab) 324 mg ONCE STAT PO 11/23/24 17:30 11/23/24 17:58 DC 11/23/24 18:34 324 MG Atorvastatin Calcium (LIPItor 40MG) 40 mg HS PO 11/25/24 21:00 12/25/24 20:59 Carvedilol (Coreg 6.25MG) 6.25 mg BID PO 11/25/24 09:30 12/25/24 09:29 11/25/24 12:14 6.25 MG Carvedilol (Coreg 6.25MG) 6.25 mg BIDLUNCHDINNER PO 11/25/24 12:00 11/25/24 09:10 DC Ceftriaxone Sodium (ROCEphine 1G INJ) 1 gm ONCE STAT IVPB 11/23/24 17:32 11/23/24 17:58 DC 11/23/24 18:34 1 GM Furosemide (LASix 40MG VIAL) 40 mg DAILY IV 11/24/24 09:00 12/24/24 08:59 11/25/24 08:37 40 MG Furosemide (LASix 40MG VIAL) 40 mg ONCE STAT IV 11/23/24 17:30 11/23/24 17:58 DC 11/23/24 18:34 40 MG Guaifenesin (RobiTUSSin SUGAR-FREE 100 MG/ 5 ML UDCUP) 200 mg Q4H PRN PO COUGH 11/25/24 12:30 12/25/24 12:29 11/25/24 12:16 200 MG Heparin Sodium (Porcine) (HEParin 5,000 UNIT VIAL) 5,000 unit Q12H SQ 11/23/24 19:30 12/23/24 19:29 11/25/24 08:37 5,000 UNIT Hydralazine HCl ([id number] TAB) 25 mg BID PO 11/25/24 21:00 12/25/24 20:59 Insulin Human Regular (humuLIN R 100 UNIT/ML 3ML) 8 unit ONCE STAT SQ 11/23/24 17:32 11/23/24 17:59 DC 11/23/24 18:36 8 UNIT Insulin Human Regular (humuLIN R 100 UNIT/ML 3ML) INSULIN SLIDING SCAL... ACHS SQ 11/23/24 21:00 12/23/24 20:59 11/25/24 12:04 14 UNIT Isosorbide Mononitrate (Imdur 30mg Sr) 30 mg DAILY PO 11/25/24 09:00 12/25/24 08:59 11/25/24 08:37 30 MG Nitroglycerin (Nitrostat) 0.4 mg AD PRN SL CHEST PAIN 11/23/24 17:30 12/23/24 17:29 Ondansetron HCl (zoFRAN 4MG INJ) 4 mg Q6H PRN IVP NAUSEA/VOMITING 11/23/24 19:30 12/23/24 19:29 Vitamin B Complex/ Vit C/Folic Acid (Nephrovite Tablet) 1 cap DAILY PO 11/25/24 09:00 12/25/24 08:59 11/25/24 08:37 1 CAP LABORATORY: [ ] Hematology Labs: Test 12/03/24 03:24 Range/Units White Blood Count 12.2 H 4.8-10.8 K/uL Red Blood Count 4.57 4.50-6.20 MIL/uL Hemoglobin 11.4 L 14.0-18.0 g/dL Hematocrit 36.2 L 42-54 % Mean Corpuscular Volume 79.2 79-99 fL Mean Corpuscular Hemoglobin 24.9 L 27.0-33.0 pg Mean Corpuscular Hemoglobin Concent 31.5 L 32.0-36.0 g/dL Red Cell Distribution Width 14.2 11.0-15.5 % Platelet Count 337 130-400 K/uL Mean Platelet Volume 11.5 H 7.5-10.5 fL Immature Granulocyte % (Auto) 0.6 0-1 % Neutrophils (%) (Auto) 59.6 40.0-77.0 % Lymphocytes (%) (Auto) 26.6 21.0-51.0 % Monocytes (%) (Auto) 8.7 3.0-13.0 % Eosinophils (%) (Auto) 3.9 0.0-8.0 % Basophils (%) (Auto) 0.6 0.0-5.0 % Neutrophils # (Auto) 7.3 1.8-7.7 K/uL Lymphocytes # (Auto) 3.3 1.0-4.8 K/uL Monocytes # (Auto) 1.1 H 0.1-1.0 K/uL Eosinophils # (Auto) 0.48 0.00-0.70 K/uL Basophils # (Auto) 0.07 0.00-0.20 K/uL Absolute Immature Granulocyte (auto 0.07 0-1 K/uL Nucleated Red Blood Cells 0.0 0.0-0.19 % Red Blood Cell Morphology See comments Chemistry Labs: Test 12/03/24 10:53 12/03/24 03:24 12/02/24 19:02 12/02/24 03:50 Range/Units Whole Blood Glucose 221 H 70-110 MG/DL Sodium Level 139 136-145 mmol/L Potassium Level 4.0 3.5-5.1 mmol/L Chloride Level 99 L 101-111 mmol/L Carbon Dioxide Level 33 H 21-32 mmol/L Blood Urea Nitrogen 68 H 7-18 mg/dL Creatinine 3.4 H 0.5-1.3 mg/dL Glomerular Filtration Rate Calc 21 >90 mL/min Random Glucose 140 H 70-105 mg/dL Total Calcium 9.4 8.5-10.1 mg/dL Magnesium Level 1.90 1.80-2.40 mg/dL Total Bilirubin 0.3 # 0.2-1.0 mg/dL Aspartate Amino Transf (AST/SGOT) 16 10-37 U/L Alanine Aminotransferase (ALT/SGPT) 35 12-78 U/L Alkaline Phosphatase 85 50-136 U/L Total Protein 7.4 6.0-8.3 g/dL Albumin 3.1 L 3.5-5.0 g/dL Bedside Glucose Comment Notified Nurse B-Type Natriuretic Peptide 537 H 0-100 pg/mL DIAGNOSTICS / RADIOLOGY: REASON: chf ORDERING PHYSICIAN: GABRIELLE POPE MD PROCEDURE: CXR1VW - CHEST 1VW Exam Type: CHEST 1VW Clinical Information: chf Comparison: None Findings: The lungs are clear of infiltrates. The heart is normal in size. The bony and soft tissue structures of the chest are unremarkable. Impression: Clear lungs. DICTATED BY: JASS MIMS MD DATE: 12/01/24 0906 REASON: chf ORDERING PHYSICIAN: WALI TORO MD PROCEDURE: CXR1VW - CHEST 1VW CHEST 1VW REASON: chf COMPARISON: 11/23/2024 FINDINGS: There are diffuse bilateral infiltrates which appear increased somewhat since prior exam. Heart size is normal. There is no vascular congestion or pleural effusion. The Steinmann and bony thorax appear unremarkable. IMPRESSION: 1. Increasing perihilar infiltrates. DICTATED BY: LEA GUTIERREZ MD DATE: 11/27/24 1106 REASON: CAD ORDERING PHYSICIAN: MITZI JENKINS NP PROCEDURE: ECHO CMP - ECHO 2-D COMPLETE APPROVED REPORT EXAM: Two-dimensional and M-mode echocardiogram with Doppler and color Doppler. INDICATION ICD: Coronary artery disease 2D Dimensions RVDd 4.6 cm LVEF(%) 36.3 (>50%) LVED Vol(simp.) 159.0 mL IVSd 1.3 (0.7-1.1cm) FS(%) 18 % LVES Vol(simp.) 72.2 mL LVDd 5.7 (3.8-5.6cm) LA (2D) 4.8 (1.6-4.0cm) LVEF(%, simp.) 55 % PWd 1.3 (0.7-1.1cm) Ao Root(2D) 3.2 (2.0-3.7cm) LA ESV INDEX (4CH) 25.10 mL/m2 IVSs 1.7 cm LVOT diam 2.1 (1.8-2.4cm) LA ESV INDEX (2CH) 27.80 mL/m2 LVDs 4.7 (2.5-4.0cm) LA ESV INDEX (BP) 27.10 mL/m2 PWs 1.3 cm Deformation Strain Apical 4 14.0 % Apical 2 13.0 % Apical 3 14.0 % Global Strain 14.0 % M-Mode Dimensions EPSS 1.6 cm LA (MM) 4.8 (1.6-4.0cm) Ao Root(MM) 3.7 (2.0-3.7cm) Aortic Valve AoV VTI 0.3 m Ao Mean GR 5.0 mmHg LVOT VTI 0.14 m KOLTON (VMAX) 2.0 cm2 KOLTON (VTI) 2.0 cm2 Mitral Valve MV E Vmax 131.9 cm/s DECEL Time 148 ms MR Max PG 84 mmHg P 1/2 T 61 ms MVA (PHT) 3.6 cm2 TDI E/E' Medial 25.9 E/E' Lateral 13.7 Medial E' Peak V 5.10 cm/s Lateral E' Peak V 9.60 cm/s Pulmonary Valve PV VTI 0.19 m PV Mean GR 3 mmHg Tricuspid Valve TR Vmax 3.4 m/s RAP (EST) 8 mmHg RVSP 53.5 mmHg TR Peak GR 45.5 mmHg Left Ventricle Left ventricular cavity is normal for BSA, 2.5 cm/m2. Mild concentric left ventricular hypertrophy. LVEF is 50-55%. E-a fusion. Right Ventricle The right ventricle is moderately dilated. The right ventricular systolic function is normal. Atria The left atrium size is normal. The right atrium is mildly dilated. Aortic Valve The aortic valve is trileaflet normal in structure and function. No aortic regurgitation is present. There is no aortic valvular stenosis. Mitral Valve Mitral valve leaflets open well. There is trace of mitral valve regurgitation noted. There is no mitral valve stenosis. Tricuspid Valve The tricuspid valve leaflets appear normal. There is trace tricuspid valve regurgitation noted. Pulmonic Valve The pulmonary valve is normal in structure and function. There is no pulmonic valvular regurgitation. Great Vessels The aortic root is normal in size. IVC is not well visualized. Pericardium No pericardial effusion. Other Information Quality : Adequate Conclusion Left ventricular cavity is normal for BSA, 2.5 cm/m2. Mild concentric left ventricular hypertrophy. LVEF is 50-55%. The right ventricle is moderately dilated. The right ventricular systolic function is normal. The left atrium size is normal. The right atrium is mildly dilated. No valvular pathology. DICTATED BY: GABRIELLE OPPE MD DATE: 11/25/24 1026 REASON: CAD, needing CABG ORDERING PHYSICIAN: MITZI JENKINS NP PROCEDURE: CAROTID - US CAROTID DUPLEX US CAROTID DUPLEX REASON: CAD, needing CABG TECHNIQUE: Exam was performed using spectral analysis and color flow imaging. FINDINGS: Color flow Doppler ultrasound shows normal-appearing bifurcations. There is no anatomic evidence of significant focal narrowing. Flow velocities and velocity ratios appear normal throughout. There is antegrade flow in both vertebral arteries. Exam is somewhat limited by body habitus. RIGHT CAROTID: CCA: 110 cm/sec ICA: 151 cm/sec Ratio: ICA/CCA: 1.4 ECA: 134 cm/sec Vertebral artery: 73 cm/sec LEFT CAROTID: CCA: 200 cm/sec ICA: 73 cm/sec Ratio: ICA/CCA: 0.4 ECA: 105 cm/sec Vertebral artery: 85 cm/sec IMPRESSION: 1. No evidence of significant focal stenosis in either internal carotid artery. 2. There are some elevated flow velocities in the left common carotid artery but no corresponding anatomic evidence of stenosis. DICTATED BY: LEA GUTIERREZ MD DATE: 11/25/24 1126 REASON: RENAL FAILURE ORDERING PHYSICIAN: CAILIN BARRY MD PROCEDURE: RENAL - US RENAL SONOGRAM US RENAL SONOGRAM REASON: RENAL FAILURE COMPARISON: None TECHNIQUE: Renal and bladder sonogram was performed. FINDINGS: Right kidney is 10.5 x 5.2 x 5.3 cm, left 10.4 x 5.3 x 4.3 cm. There is no mass, stone or hydronephrosis. Cortical thickness appears preserved. Urinary bladder was not well distended and not well visualized. IMPRESSION: 1. Normal-appearing kidneys. 2. Urinary bladder not well visualized. DICTATED BY: LEA GUTIERREZ MD DATE: 11/25/24 1050 REASON: CHEST PAIN ORDERING PHYSICIAN: RENZO WALKER MD PROCEDURE: CXR1VW - CHEST 1VW INDICATION: CHEST PAIN TECHNIQUE: CHEST 1VW COMPARISON: 04/05/2022 FINDINGS/IMPRESSION: Mild bilateral airspace consolidation suggesting vascular congestion/edema versus pneumonia. Cardiac silhouette is within normal limits. Mild degenerative changes of the spine. The visualized upper abdomen appears unremarkable. DICTATED BY: DONG CHINO MD DATE: 11/23/24 4540 ASSESSMENT: Acute on chronic renal failure Proteinuria, concern for nephrotic syndrome Multivessel coronary artery disease HFrEF 35-40% due to ICM with most recent Echo on 11/24/2024 EF of 50-55% Hypoxic respiratory failure Diabetes mellitus type II Obesity Hypertension PLAN: Labs, diagnostic, radiologic exams reviewed and interpreted by myself and supervising physician. We have reviewed external records in detail Diuretics to continue, but adjust according to his symptoms, weight, and overall condition. Fluid restriction is recommended Order CBC, CMP, and electrolytes in am Renal diabetic diet Monitor blood pressure adjust medication doses as needed Avoid hypotensive episodes May use Dilaudid 0.5 mg IV every 6 hours as needed for severe pain Monitor blood sugars Strict intake, output, and daily weight should be monitored Please renally adjust medications Avoid nephrotoxic and nonsteroidal drugs Avoid contrast if possible Will continue to monitor renal function, anemia, electrolytes Treatment plan discussed with patient Questions were answered We have discussed with the other team physicians in detail about the care plan We will continue to monitor the patient closely ATTESTATION BY PHYSICIAN I have seen and examined the patient. I reviewed the documentation, medical decision making, and treatment plan as noted by the mid-level provider above. I agree with the findings and plan of care. CAILIN BARRY MD, [facility] Dec 03, 2024 14:46
--- NOTE | 2024-12-03 16:13 | PN ---
[facility] PROGRESS NOTE Date Patient Seen: Dec 03, 2024 Time of Visit: 16:13 Supervising Physician: Dr. Upton Inpatient Consults: YAMILET PROBLEM LIST: -Influenza B positive -Acute on chronic heart failure preserved ejection fraction exacerbation EF 50- 55% per echocardiogram 11/25/2024 -Acute on chronic renal insufficiency with baseline CKD stage III, now Stage IV EGFR 29 -Multivessel CAD identified on [facility]/coronary angiogram done 10/2024 in [place], recommended CABG -HYPERTENSION -HYPERLIPIDEMIA -DIABETES MELLITUS TYPE 2 -OBESITY INTERVAL HISTORY: 11/27 patient was seen and examined at bedside with no family present. Patient remains on2 L nasal cannula appears to be tolerating well. Patient reports cough has subsided. Patient denies chest pain reports minimal shortness of breadth. Patient denies nausea vomiting or abdominal pain. Patient was positive for flu B, has been started on Tamiflu. We will continue while recommendations from cardiology and CV surgery, plan is for possible CABG . 11/28 Patient is seen and examined at the bedside, he is awake, alert, well oriented, not in distress on O2 via NC, still with some cough patient is posit leann for Influenza on Tamiflu and continues to be on diuresis with lasix as well, denies chest pain or SOB at this time, pending for CABG 11/29 patient was seen and examined by bedside no family present. Patient is awake alert able to answer simple questions appropriately. At time of visit patient denies any chest pain or shortness of breadth. Reports cough has subsided. Patient denies nausea vomiting or abdominal pain. Patient currently pending CABG. We will continue to follow recommendations from CV surgery. As per primary nurse no acute events to be reported. Patient with severe multivessel disease high risk for decompensation 11/30 patient was seen and examined at bedside with family present. At time of visit patient denies any chest pain or shortness of breadth. Patient tolerating p.o. diet. Patient has remained hemodynamically stable. Patient has been having bowel movements. Patient denies any nausea vomiting or abdominal pain. Patient is still currently pending CABG. We will continue to follow recommendations per CV surgery. We will continue to monitor patient closely 12/01 patient was seen and examined at bedside no family present. Patient remains on room air tolerating well. Patient remains hemodynamically stable. Patient is tolerating p.o. diet. Having bowel movements. Patient is still currently pending CABG, as per primary nurse is scheduled for sometime next week. We will continue to follow recommendations from CV surgery. As per primary nurse no acute events to be reported at this time 2/3 patient was seen and examined at bedside no family present. At time of visit patient denies any chest pain or shortness of breadth. Is tolerating p.o. diet. Has remained hemodynamically stable. As per primary nurse no acute events to be reported. Patient is still currently pending CABG we will continue to follow recommendations for CV surgery. 12/03/2024: At the time of my evaluation, the patient was lying in bed. The staff nurse reports no overnight events. The patient is breathing on room air. On the monitor, he is hemodynamically stable and currently denies any chest pain. The patient is feeding orally and there was no nausea, vomiting or diarrhea. Patient has a net balance of 2095. Laboratory data showed slightly elevated WBC count at 12.2. Remaining parameters were not of concern. On chemistry there was no major electrolyte derangement. Renal parameters did show elevated BUN and creatinine. No other complaint. REVIEW OF SYSTEMS: 12 point ROS reviewed with patient. Pertinent positives mentioned above. Otherwise negative. PHYSICAL EXAM: GENERAL: alert, weak, awake oriented x 3 HEENT: EOMI, Sclera non icteric, moist mucosa NECK: Supple, no JVD, trachea midline LUNGS: Clear breath sounds bilaterally. No wheezes HEART: Regular rate and rhythm. Normal S1 and S2, without murmurs ABD: Abdomen soft, nontender. Bowel sounds present EXT: No clubbing cyanosis or edema NEURO: Alert and oriented to person, follows commands Vital Signs (last 8hr) Date Time Temp Pulse Resp B/P (MAP) Pulse Ox O2 Delivery O2 Flow Rate FiO2 12/03/24 11:22 98.6 85 20 134/78 96 Room Air 12/03/24 09:00 132/73 12/03/24 08:22 133/82 LABS: Hematology Labs: Test 12/03/24 03:24 Range/Units White Blood Count 12.2 H 4.8-10.8 K/uL Red Blood Count 4.57 4.50-6.20 MIL/uL Hemoglobin 11.4 L 14.0-18.0 g/dL Hematocrit 36.2 L 42-54 % Mean Corpuscular Volume 79.2 79-99 fL Mean Corpuscular Hemoglobin 24.9 L 27.0-33.0 pg Mean Corpuscular Hemoglobin Concent 31.5 L 32.0-36.0 g/dL Red Cell Distribution Width 14.2 11.0-15.5 % Platelet Count 337 130-400 K/uL Mean Platelet Volume 11.5 H 7.5-10.5 fL Immature Granulocyte % (Auto) 0.6 0-1 % Neutrophils (%) (Auto) 59.6 40.0-77.0 % Lymphocytes (%) (Auto) 26.6 21.0-51.0 % Monocytes (%) (Auto) 8.7 3.0-13.0 % Eosinophils (%) (Auto) 3.9 0.0-8.0 % Basophils (%) (Auto) 0.6 0.0-5.0 % Neutrophils # (Auto) 7.3 1.8-7.7 K/uL Lymphocytes # (Auto) 3.3 1.0-4.8 K/uL Monocytes # (Auto) 1.1 H 0.1-1.0 K/uL Eosinophils # (Auto) 0.48 0.00-0.70 K/uL Basophils # (Auto) 0.07 0.00-0.20 K/uL Absolute Immature Granulocyte (auto 0.07 0-1 K/uL Nucleated Red Blood Cells 0.0 0.0-0.19 % Red Blood Cell Morphology See comments Chemistry Labs: Test 12/03/24 10:53 12/03/24 03:24 12/02/24 19:02 12/02/24 03:50 Range/Units Whole Blood Glucose 221 H 70-110 MG/DL Sodium Level 139 136-145 mmol/L Potassium Level 4.0 3.5-5.1 mmol/L Chloride Level 99 L 101-111 mmol/L Carbon Dioxide Level 33 H 21-32 mmol/L Blood Urea Nitrogen 68 H 7-18 mg/dL Creatinine 3.4 H 0.5-1.3 mg/dL Glomerular Filtration Rate Calc 21 >90 mL/min Random Glucose 140 H 70-105 mg/dL Total Calcium 9.4 8.5-10.1 mg/dL Magnesium Level 1.90 1.80-2.40 mg/dL Total Bilirubin 0.3 # 0.2-1.0 mg/dL Aspartate Amino Transf (AST/SGOT) 16 10-37 U/L Alanine Aminotransferase (ALT/SGPT) 35 12-78 U/L Alkaline Phosphatase 85 50-136 U/L Total Protein 7.4 6.0-8.3 g/dL Albumin 3.1 L 3.5-5.0 g/dL Bedside Glucose Comment Notified Nurse B-Type Natriuretic Peptide 537 H 0-100 pg/mL DIAGNOSTICS / RADIOLOGY RESULTS: [ ] PLAN Pending CABG follow up CV surgeon recommendations Flu B positive continue Tamiflu to complete a total of five days, should be renally adjusted Continue with diuresing Continue to follow recommendations from Cardiology Continue to monitor respiratory status and maintain adequate oxygenation Keep O2 sats greater or equal to 90% We will require 6 minute walk prior to discharge for home oxygen evaluation 12/03/2024: For now, we are going to continue current management for the patient. The patient will continue on room air, but we will supplement oxygen as necessary. We will continue to monitor for any chest pain or other arrhythmias.. The Cardiothoracic surgeon the patient has very diffuse CAD and not bypassable. Per the produce specialist's, the plan is possibly to transfer the patient to a higher level of care possibly [place]. We will monitor the patient's nutrition and we will supplement as necessary. We will repeat surveillance labs in the morning. We will continue to provide general supportive care, GI and DVT prophylaxis. Further orders per attending MD and hospital course. NEURO: Minimize central acting medications as possible. Maintain fall precautions, adequate lighting during the day PULMONARY: Supplemental 02 as needed. Maintain aspiration precautions at all times CARDIOVASCULAR: Follow hemodynamics. Vital signs per facility protocol GI & NUTRITION: Continue with nutritional support. Continue stool softeners and laxatives as needed. KIDNEYS & ELECTROLYTES: Strict monitoring of intake, output and overall fluid balance. Avoid nephrotoxic medications to the extent possible. Medications to be dosed according to renal function. Monitor electrolytes and replace as needed ENDOCRINE: Maintain blood glucose between 100-180 at all times. Hypoglycemia protocol in place INFECTIOUS DISEASE: Trend temperature, WBC and procalcitonin level Follow cultures, deescalate antibiotics as soon as possible. Panculture if new onset fever ONCOLOGY/HEMATOLOGY/COAGULATION: Monitor for s/s of bleeding Monitor hemoglobin, coagulation studies as needed SKIN: Pressure ulcer prevention per facility protocol Specialty mattress ORTHO/REHAB: Continue PT/OT Prophylaxis: Continue GI and DVT prophylaxis Code Status: Full Resuscitation Disposition: TBD Case discussed with supervising physician plan of care agreed upon JULIANNE FOSTER NP Dec 03, 2024 16:13
--- NOTE | 2024-12-03 20:14 | PN ---
INFECTIOUS DISEASE PROGRESS NOTE Date of Service: Dec 03, 2024 SUBJECTIVE: This is a 49-year-old male patient who was seen and examined at bedside in room 220. Patient is awake, alert and oriented x3. WBC still slightly elevated at 12.2 but remains afebrile, temperature is 98.6. Continues on renal failure, BUN of 68 and creatinine of 3.4. Diuretic has been decreased. Will continue on fluconazole. The CD/disc images from recent hospitalization have been reviewed by cardiovascular surgeon and no invasive intervention offered at this time. Per report, current plan is to transfer patient to a higher level of care. We will continue to follow patient's care. PHYSICAL EXAM EYES: Anicteric. Pupils equal and reactive. HENT: No oral thrush seen, moist Oral mucosa. NECK: Supple, no JVD or thyromegaly. RESPIRATORY: Good air entry. No rales, no rhonchi. Lung sounds diminished. Coughing. Oxygen as needed via nasal cannula. CARDIOVASCULAR: S1, S2 regular. No murmur heard. ABDOMEN: Non tender, bowel sounds present. Obese but soft. CENTRAL NERVOUS SYSTEM: Awake, alert, oriented x 3. SKIN: No rashes, no swelling. LYMPHATICS: No peripheral lymphadenopathy. MUSCULOSKELETAL: No joint swelling, erythema or tenderness. EXTREMITIES: No cyanosis or clubbing. BACK: No deformity, no pressure ulcer. GENITOURINARY: No dysuria or hematuria. Vital Sign (Last 12 Hours) 12/03/24 12/03/24 12/03/24 12/03/24 08:22 09:00 11:22 16:30 Temp 98.6 98.8 Pulse 85 85 Resp 20 18 B/P (MAP) 133/82 132/73 134/78 132/63 Pulse Ox 96 98 O2 Delivery Room Air Room Air Intake & Output (last 24hrs) 12/02/24 12/02/24 12/03/24 15:00 23:00 07:00 Intake Total 240 ml 240 ml Output Total 175 ml 600 ml 1200 ml Balance 65 ml -600 ml -960 ml LABS: Laboratory: Test 12/03/24 19:11 12/03/24 03:24 12/02/24 19:02 12/02/24 03:50 Range/Units Whole Blood Glucose 225 H 70-110 MG/DL White Blood Count 12.2 H 4.8-10.8 K/uL Red Blood Count 4.57 4.50-6.20 MIL/uL Hemoglobin 11.4 L 14.0-18.0 g/dL Hematocrit 36.2 L 42-54 % Mean Corpuscular Volume 79.2 79-99 fL Mean Corpuscular Hemoglobin 24.9 L 27.0-33.0 pg Mean Corpuscular Hemoglobin Concent 31.5 L 32.0-36.0 g/dL Red Cell Distribution Width 14.2 11.0-15.5 % Platelet Count 337 130-400 K/uL Mean Platelet Volume 11.5 H 7.5-10.5 fL Immature Granulocyte % (Auto) 0.6 0-1 % Neutrophils (%) (Auto) 59.6 40.0-77.0 % Lymphocytes (%) (Auto) 26.6 21.0-51.0 % Monocytes (%) (Auto) 8.7 3.0-13.0 % Eosinophils (%) (Auto) 3.9 0.0-8.0 % Basophils (%) (Auto) 0.6 0.0-5.0 % Neutrophils # (Auto) 7.3 1.8-7.7 K/uL Lymphocytes # (Auto) 3.3 1.0-4.8 K/uL Monocytes # (Auto) 1.1 H 0.1-1.0 K/uL Eosinophils # (Auto) 0.48 0.00-0.70 K/uL Basophils # (Auto) 0.07 0.00-0.20 K/uL Absolute Immature Granulocyte (auto 0.07 0-1 K/uL Nucleated Red Blood Cells 0.0 0.0-0.19 % Red Blood Cell Morphology See comments Sodium Level 139 136-145 mmol/L Potassium Level 4.0 3.5-5.1 mmol/L Chloride Level 99 L 101-111 mmol/L Carbon Dioxide Level 33 H 21-32 mmol/L Blood Urea Nitrogen 68 H 7-18 mg/dL Creatinine 3.4 H 0.5-1.3 mg/dL Glomerular Filtration Rate Calc 21 >90 mL/min Random Glucose 140 H 70-105 mg/dL Total Calcium 9.4 8.5-10.1 mg/dL Magnesium Level 1.90 1.80-2.40 mg/dL Total Bilirubin 0.3 # 0.2-1.0 mg/dL Aspartate Amino Transf (AST/SGOT) 16 10-37 U/L Alanine Aminotransferase (ALT/SGPT) 35 12-78 U/L Alkaline Phosphatase 85 50-136 U/L Total Protein 7.4 6.0-8.3 g/dL Albumin 3.1 L 3.5-5.0 g/dL Bedside Glucose Comment Notified Nurse B-Type Natriuretic Peptide 537 H 0-100 pg/mL ASSESSMENT: Hypoxic respiratory failure, requiring oxygen support. Congestive heart failure. Viral influenza infection type B. Acute on chronic renal failure. Leukocytosis. Coronary artery disease. Diabetes mellitus. Obesity. PLAN: Continue fluconazole po. Completed Tamiflu therapy. Nephrology has been consulted and following patient. Continue diuretics. Continue oxygen support as needed. Glucometer checks a.c./hs and cover with insulin per sliding scale protocol. Avoid nephrotoxic medications. CD/Disc images from recent hospitalization have been reviewed by cardiovascular surgeon, no invasive intervention was offered a this time. This case was reviewed and discussed with my supervising physician and the above assessment and plan was formulated and agreed upon. ATTESTATION BY PHYSICIAN I have seen and examined the patient. I reviewed the documentation, medical decision making, and treatment plan as noted by the mid-level provider above. I agree with the findings and plan of care. MARIE JOSHI MD, MIRTA L DIRECTOR OF GLOBAL [employer]ALENT Dec 03, 2024 20:14
[2024-12-03] MEDS: FAMOTIDINE 20MG TAB PO SCH (21:36)
[2024-12-04] VITALS (7 sets, daily range): BP systolic 128–144; BP diastolic 65–87; PULSE 69–87; RESP 20–21; TEMP 97.7–98.9; O2SAT 98
[2024-12-04 03:58] LABS: BASOPHILS # (AUTO) 0.05 K/uL (0.00-0.20); BASOPHILS % (AUTO) 0.4 % (0.0-5.0); EOSINOPHILS # (AUTO) 0.46 K/uL (0.00-0.70); EOSINOPHILS % (AUTO) 4.1 % (0.0-8.0); IMMATURE GRANULOCYTE ABSOLUTE 0.05 K/uL (0-1); LYMPHOCYTES % (AUTO) 26.8 % (21.0-51.0); MEAN CORPUSCULAR HGB CONC 32.1 g/dL (32.0-36.0); MONOCYTES % (AUTO) 8.8 % (3.0-13.0); NEUTROPHILS # (AUTO) 6.7 K/uL (1.8-7.7); NEUTROPHILS % (AUTO) 59.5 % (40.0-77.0); PLATELET COUNT (AUTO) 292 K/uL (130-400); RED CELL DISTRIBUTION WIDTH 14.2 % (11.0-15.5); WHITE BLOOD COUNT (AUTO) 11.2 K/uL (4.8-10.8)
[2024-12-04 04:14] LABS: CREATININE 2.9 mg/dL (0.5-1.3); PHOSPHORUS 5.1 mg/dL (2.5-4.9)
--- NOTE | 2024-12-04 10:05 | PN ---
[facility] CARDIOLOGY PROGRESS NOTE Date Patient Seen: Dec 04, 2024 Time of Visit: 10:04 Interval History: Patient seen and examined He was turned down for CABG Patient denies chest pain or shortness of breath. Physical Examination: GENERAL: [No acute distress.] HEAD: [Normal with no signs of head trauma.] NECK: [Normal carotid upstrokes without bruits.] LUNGS: [on room air. clear to auscultation throughout. no crackles HEART: [Regular rate and rhythm. Normal S1 and S2. No obvious murmurs, gallop, or rubs.] VASC: [Peripheral pulses +2 bilaterally.] EXT: [No cyanosis or edema.] SKIN: [No rashes or lesions noted.] NEURO: [Awake, alert, and oriented x3. No focal sensory or strength deficits noted.] Laboratory: [ ] Hematology Labs: Test 12/04/24 03:26 12/03/24 03:24 Range/Units White Blood Count 11.2 H 4.8-10.8 K/uL Red Blood Count 4.20 L 4.50-6.20 MIL/uL Hemoglobin 10.9 L 14.0-18.0 g/dL Hematocrit 34.0 L 42-54 % Mean Corpuscular Volume 81.0 79-99 fL Mean Corpuscular Hemoglobin 26.0 L 27.0-33.0 pg Mean Corpuscular Hemoglobin Concent 32.1 32.0-36.0 g/dL Red Cell Distribution Width 14.2 11.0-15.5 % Platelet Count 292 130-400 K/uL Mean Platelet Volume 11.6 H 7.5-10.5 fL Immature Granulocyte % (Auto) 0.4 0-1 % Neutrophils (%) (Auto) 59.5 40.0-77.0 % Lymphocytes (%) (Auto) 26.8 21.0-51.0 % Monocytes (%) (Auto) 8.8 3.0-13.0 % Eosinophils (%) (Auto) 4.1 0.0-8.0 % Basophils (%) (Auto) 0.4 0.0-5.0 % Neutrophils # (Auto) 6.7 1.8-7.7 K/uL Lymphocytes # (Auto) 3.0 1.0-4.8 K/uL Monocytes # (Auto) 1.0 0.1-1.0 K/uL Eosinophils # (Auto) 0.46 0.00-0.70 K/uL Basophils # (Auto) 0.05 0.00-0.20 K/uL Absolute Immature Granulocyte (auto 0.05 0-1 K/uL Nucleated Red Blood Cells 0.0 0.0-0.19 % Red Blood Cell Morphology See comments Chemistry Labs: Test 12/04/24 05:23 12/04/24 03:26 12/03/24 03:24 Range/Units Whole Blood Glucose 186 H 70-110 MG/DL Bedside Glucose Comment Notified Nurse Sodium Level 138 136-145 mmol/L Potassium Level 4.0 3.5-5.1 mmol/L Chloride Level 99 L 101-111 mmol/L Carbon Dioxide Level 29 21-32 mmol/L Blood Urea Nitrogen 67 H 7-18 mg/dL Creatinine 2.9 H 0.5-1.3 mg/dL Glomerular Filtration Rate Calc 26 >90 mL/min Random Glucose 206 H 70-105 mg/dL Total Calcium 9.3 8.5-10.1 mg/dL Phosphorus Level 5.1 H 2.5-4.9 mg/dL Magnesium Level 2.00 1.80-2.40 mg/dL Total Bilirubin 0.3 # 0.2-1.0 mg/dL Aspartate Amino Transf (AST/SGOT) 16 10-37 U/L Alanine Aminotransferase (ALT/SGPT) 35 12-78 U/L Alkaline Phosphatase 85 50-136 U/L Total Protein 7.4 6.0-8.3 g/dL Albumin 3.1 L 3.5-5.0 g/dL Impression and Plan: -HFrEF 35-40% due to ICM -Acute on chronic renal insufficiency with baseline CKD stage III -Multivessel CAD identified on [facility]/coronary angiogram done 10/2024 in [place]; patient turned down by CTS due to diffuse disease and small coronaries, not amenable for CABG. -HTN, with hypertensive urgency at prior facility. -HLP -DM2 Plan: Patient continue on carvedilol 12.5 mg p.o. b.i.d., isosorbide mononitrate 90 mg daily. He is not a candidate for MRA or [place]/Arb/RNA due to his advanced renal dysfunction. His furosemide was decreased to 40 mg p.o. daily and appears euvolemic. Continue aspirin and high-intensity statin. Patient and family were told inpatient transfer to higher level of care was planned, however I do not see indication for further inpatient admission. Patient is stable from cardiac standpoint on medical therapy. He is requesting second opinion regarding cardiac surgery, specifically someone from [facility]. Will arrange for referral as outpatient. JOSE M MILLS DO Dec 04, 2024 10:05
--- NOTE | 2024-12-04 15:18 | PN ---
NEPHROLOGY PROGRESS NOTE Date/Time Patient Seen: Dec 04, 2024 Reason for Consultation: 15:15 SUBJECTIVE: This 49-year-old male with diabetes mellitus, morbid obesity, hypertension, chronic renal disease, presented to the hospital with history of cough, shortness of breath. The patient also complained of bilateral leg swelling. Cough is dry and nonproductive. No pleuritic pain or hemoptysis. The patient claims he was recently admitted to the hospital in [place] with chest pain and shortness of breath. The patient underwent cardiac catheterization, which revealed critical multivessel coronary artery disease. The patient was deemed not bypassable by CV surgeon Patient has requesting 2nd opinion regarding cardiac surgery from physician in [facility], cardiology we will arrange referral in the outpatient setting He was noted to have elevated BUN/creatinine We has been consulted for renal failure. Renal function remains elevated Electrolytes are stable Renal ultrasound was noted He was seen in the medical floor, in no acute distress No family at the bedside. REVIEW OF SYSTEMS: GENERAL: Negative for any nausea, vomiting, fevers, chills, or weight loss. NEUROLOGIC: Negative for any blurry vision, blind spots, double vision, facial asymmetry, dysphagia, dysarthria, hemiparesis, hemisensory deficits, vertigo, ataxia. HEENT: Negative for any head trauma, neck trauma, neck stiffness, photophobia, phonophobia, sinusitis, rhinitis. CARDIAC: Negative for any chest pain, dyspnea on exertion, paroxysmal nocturnal dyspnea, peripheral edema. PULMONARY: Negative for any shortness of breath, wheezing, COPD, or TB exposure. GASTROINTESTINAL: Negative for any abdominal pain, nausea, vomiting, bright red blood per rectum, melena. GENITOURINARY: Negative for any dysuria, hematuria, incontinence. INTEGUMENTARY: Negative for any rashes, cuts, insect bites. RHEUMATOLOGIC: Negative for any joint pains, photosensitive rashes, history of vasculitis or kidney problems. HEMATOLOGIC: Negative for any abnormal bruising, frequent infections or bleeding. Vital Signs (last 8hr) Date Time Temp Pulse Resp B/P (MAP) Pulse Ox O2 Delivery O2 Flow Rate FiO2 11/25/24 12:23 98.6 90 18 137/80 94 Room Air 11/25/24 12:14 139/86 11/25/24 08:34 98.4 92 18 139/80 99 Room Air 11/25/24 07:15 97 Nasal Cannula* 2 28 PHYSICAL EXAM: GENERAL: Alert and oriented x 3. No acute distress. Well-nourished. EYES: EOMI. Anicteric. HENT: Moist mucous membranes. No scleral icterus. No cervical lymphadenopathy. LUNGS: Clear to auscultation bilaterally. No accessory muscle use. CARDIOVASCULAR: Regular rate and rhythm. No murmur. No JVD. ABDOMEN: Soft, non-tender and non-distended. No palpable masses. EXTREMITIES: No edema. Non-tender.?SKIN: No rashes or lesions. Warm. NEUROLOGIC: No focal neurological deficits. CN II-XII grossly intact, but not individually tested. PSYCHIATRIC: Cooperative. Appropriate mood and affect. Current Medications Medications (Trade) Dose Ordered Sig/Bibi Route PRN Reason Start Time Stop Time Status Last Admin Dose Admin Acetaminophen (TYLenol 325MG TAB) 650 mg Q4H PRN PO TEMPERATURE GREATER THAN 101.5 11/23/24 19:30 12/23/24 19:29 Aspirin (Aspirin 81mg Chew Tab) 81 mg DAILY PO 11/25/24 09:00 12/25/24 08:59 11/25/24 08:37 81 MG Aspirin (Aspirin 81mg Chew Tab) 324 mg ONCE STAT PO 11/23/24 17:30 11/23/24 17:58 DC 11/23/24 18:34 324 MG Atorvastatin Calcium (LIPItor 40MG) 40 mg HS PO 11/25/24 21:00 12/25/24 20:59 Carvedilol (Coreg 6.25MG) 6.25 mg BID PO 11/25/24 09:30 12/25/24 09:29 11/25/24 12:14 6.25 MG Carvedilol (Coreg 6.25MG) 6.25 mg BIDLUNCHDINNER PO 11/25/24 12:00 11/25/24 09:10 DC Ceftriaxone Sodium (ROCEphine 1G INJ) 1 gm ONCE STAT IVPB 11/23/24 17:32 11/23/24 17:58 DC 11/23/24 18:34 1 GM Furosemide (LASix 40MG VIAL) 40 mg DAILY IV 11/24/24 09:00 12/24/24 08:59 11/25/24 08:37 40 MG Furosemide (LASix 40MG VIAL) 40 mg ONCE STAT IV 11/23/24 17:30 11/23/24 17:58 DC 11/23/24 18:34 40 MG Guaifenesin (RobiTUSSin SUGAR-FREE 100 MG/ 5 ML UDCUP) 200 mg Q4H PRN PO COUGH 11/25/24 12:30 12/25/24 12:29 11/25/24 12:16 200 MG Heparin Sodium (Porcine) (HEParin 5,000 UNIT VIAL) 5,000 unit Q12H SQ 11/23/24 19:30 12/23/24 19:29 11/25/24 08:37 5,000 UNIT Hydralazine HCl ([id number] TAB) 25 mg BID PO 11/25/24 21:00 12/25/24 20:59 Insulin Human Regular (humuLIN R 100 UNIT/ML 3ML) 8 unit ONCE STAT SQ 11/23/24 17:32 11/23/24 17:59 DC 11/23/24 18:36 8 UNIT Insulin Human Regular (humuLIN R 100 UNIT/ML 3ML) INSULIN SLIDING SCAL... ACHS SQ 11/23/24 21:00 12/23/24 20:59 11/25/24 12:04 14 UNIT Isosorbide Mononitrate (Imdur 30mg Sr) 30 mg DAILY PO 11/25/24 09:00 12/25/24 08:59 11/25/24 08:37 30 MG Nitroglycerin (Nitrostat) 0.4 mg AD PRN SL CHEST PAIN 11/23/24 17:30 12/23/24 17:29 Ondansetron HCl (zoFRAN 4MG INJ) 4 mg Q6H PRN IVP NAUSEA/VOMITING 11/23/24 19:30 12/23/24 19:29 Vitamin B Complex/ Vit C/Folic Acid (Nephrovite Tablet) 1 cap DAILY PO 11/25/24 09:00 12/25/24 08:59 11/25/24 08:37 1 CAP LABORATORY: [ ] Hematology Labs: Test 12/04/24 03:26 12/03/24 03:24 Range/Units White Blood Count 11.2 H 4.8-10.8 K/uL Red Blood Count 4.20 L 4.50-6.20 MIL/uL Hemoglobin 10.9 L 14.0-18.0 g/dL Hematocrit 34.0 L 42-54 % Mean Corpuscular Volume 81.0 79-99 fL Mean Corpuscular Hemoglobin 26.0 L 27.0-33.0 pg Mean Corpuscular Hemoglobin Concent 32.1 32.0-36.0 g/dL Red Cell Distribution Width 14.2 11.0-15.5 % Platelet Count 292 130-400 K/uL Mean Platelet Volume 11.6 H 7.5-10.5 fL Immature Granulocyte % (Auto) 0.4 0-1 % Neutrophils (%) (Auto) 59.5 40.0-77.0 % Lymphocytes (%) (Auto) 26.8 21.0-51.0 % Monocytes (%) (Auto) 8.8 3.0-13.0 % Eosinophils (%) (Auto) 4.1 0.0-8.0 % Basophils (%) (Auto) 0.4 0.0-5.0 % Neutrophils # (Auto) 6.7 1.8-7.7 K/uL Lymphocytes # (Auto) 3.0 1.0-4.8 K/uL Monocytes # (Auto) 1.0 0.1-1.0 K/uL Eosinophils # (Auto) 0.46 0.00-0.70 K/uL Basophils # (Auto) 0.05 0.00-0.20 K/uL Absolute Immature Granulocyte (auto 0.05 0-1 K/uL Nucleated Red Blood Cells 0.0 0.0-0.19 % Red Blood Cell Morphology See comments Chemistry Labs: Test 12/04/24 05:23 12/04/24 03:26 12/03/24 03:24 Range/Units Whole Blood Glucose 186 H 70-110 MG/DL Bedside Glucose Comment Notified Nurse Sodium Level 138 136-145 mmol/L Potassium Level 4.0 3.5-5.1 mmol/L Chloride Level 99 L 101-111 mmol/L Carbon Dioxide Level 29 21-32 mmol/L Blood Urea Nitrogen 67 H 7-18 mg/dL Creatinine 2.9 H 0.5-1.3 mg/dL Glomerular Filtration Rate Calc 26 >90 mL/min Random Glucose 206 H 70-105 mg/dL Total Calcium 9.3 8.5-10.1 mg/dL Phosphorus Level 5.1 H 2.5-4.9 mg/dL Magnesium Level 2.00 1.80-2.40 mg/dL Total Bilirubin 0.3 # 0.2-1.0 mg/dL Aspartate Amino Transf (AST/SGOT) 16 10-37 U/L Alanine Aminotransferase (ALT/SGPT) 35 12-78 U/L Alkaline Phosphatase 85 50-136 U/L Total Protein 7.4 6.0-8.3 g/dL Albumin 3.1 L 3.5-5.0 g/dL DIAGNOSTICS / RADIOLOGY: REASON: chf ORDERING PHYSICIAN: GABRIELLE POPE MD PROCEDURE: CXR1VW - CHEST 1VW Exam Type: CHEST 1VW Clinical Information: chf Comparison: None Findings: The lungs are clear of infiltrates. The heart is normal in size. The bony and soft tissue structures of the chest are unremarkable. Impression: Clear lungs. DICTATED BY: JASS MIMS MD DATE: 12/01/24 0906 REASON: chf ORDERING PHYSICIAN: WALI TORO MD PROCEDURE: CXR1VW - CHEST 1VW CHEST 1VW REASON: chf COMPARISON: 11/23/2024 FINDINGS: There are diffuse bilateral infiltrates which appear increased somewhat since prior exam. Heart size is normal. There is no vascular congestion or pleural effusion. The Steinmann and bony thorax appear unremarkable. IMPRESSION: 1. Increasing perihilar infiltrates. DICTATED BY: LEA GUTIERREZ MD DATE: 11/27/24 1106 REASON: CAD ORDERING PHYSICIAN: MITZI JENKINS NP PROCEDURE: ECHO [facility] - ECHO 2-D COMPLETE APPROVED REPORT EXAM: Two-dimensional and M-mode echocardiogram with Doppler and color Doppler. INDICATION ICD: Coronary artery disease 2D Dimensions RVDd 4.6 cm LVEF(%) 36.3 (>50%) LVED Vol(simp.) 159.0 mL IVSd 1.3 (0.7-1.1cm) FS(%) 18 % LVES Vol(simp.) 72.2 mL LVDd 5.7 (3.8-5.6cm) LA (2D) 4.8 (1.6-4.0cm) LVEF(%, simp.) 55 % PWd 1.3 (0.7-1.1cm) Ao Root(2D) 3.2 (2.0-3.7cm) LA ESV INDEX (4CH) 25.10 mL/m2 IVSs 1.7 cm LVOT diam 2.1 (1.8-2.4cm) LA ESV INDEX (2CH) 27.80 mL/m2 LVDs 4.7 (2.5-4.0cm) LA ESV INDEX (BP) 27.10 mL/m2 PWs 1.3 cm Deformation Strain Apical 4 14.0 % Apical 2 13.0 % Apical 3 14.0 % Global Strain 14.0 % M-Mode Dimensions EPSS 1.6 cm LA (MM) 4.8 (1.6-4.0cm) Ao Root(MM) 3.7 (2.0-3.7cm) Aortic Valve AoV VTI 0.3 m Ao Mean GR 5.0 mmHg LVOT VTI 0.14 m KOLTON (VMAX) 2.0 cm2 KOLTON (VTI) 2.0 cm2 Mitral Valve MV E Vmax 131.9 cm/s DECEL Time 148 ms MR Max PG 84 mmHg P 1/2 T 61 ms MVA (PHT) 3.6 cm2 TDI E/E' Medial 25.9 E/E' Lateral 13.7 Medial E' Peak V 5.10 cm/s Lateral E' Peak V 9.60 cm/s Pulmonary Valve PV VTI 0.19 m PV Mean GR 3 mmHg Tricuspid Valve TR Vmax 3.4 m/s RAP (EST) 8 mmHg RVSP 53.5 mmHg TR Peak GR 45.5 mmHg Left Ventricle Left ventricular cavity is normal for BSA, 2.5 cm/m2. Mild concentric left ventricular hypertrophy. LVEF is 50-55%. E-a fusion. Right Ventricle The right ventricle is moderately dilated. The right ventricular systolic function is normal. Atria The left atrium size is normal. The right atrium is mildly dilated. Aortic Valve The aortic valve is trileaflet normal in structure and function. No aortic regurgitation is present. There is no aortic valvular stenosis. Mitral Valve Mitral valve leaflets open well. There is trace of mitral valve regurgitation noted. There is no mitral valve stenosis. Tricuspid Valve The tricuspid valve leaflets appear normal. There is trace tricuspid valve regurgitation noted. Pulmonic Valve The pulmonary valve is normal in structure and function. There is no pulmonic valvular regurgitation. Great Vessels The aortic root is normal in size. IVC is not well visualized. Pericardium No pericardial effusion. Other Information Quality : Adequate Conclusion Left ventricular cavity is normal for BSA, 2.5 cm/m2. Mild concentric left ventricular hypertrophy. LVEF is 50-55%. The right ventricle is moderately dilated. The right ventricular systolic function is normal. The left atrium size is normal. The right atrium is mildly dilated. No valvular pathology. DICTATED BY: GABRIELLE POPE MD DATE: 11/25/24 1026 REASON: CAD, needing CABG ORDERING PHYSICIAN: MITZI JENKINS NP PROCEDURE: CAROTID - US CAROTID DUPLEX US CAROTID DUPLEX REASON: CAD, needing CABG TECHNIQUE: Exam was performed using spectral analysis and color flow imaging. FINDINGS: Color flow Doppler ultrasound shows normal-appearing bifurcations. There is no anatomic evidence of significant focal narrowing. Flow velocities and velocity ratios appear normal throughout. There is antegrade flow in both vertebral arteries. Exam is somewhat limited by body habitus. RIGHT CAROTID: CCA: 110 cm/sec ICA: 151 cm/sec Ratio: ICA/CCA: 1.4 ECA: 134 cm/sec Vertebral artery: 73 cm/sec LEFT CAROTID: CCA: 200 cm/sec ICA: 73 cm/sec Ratio: ICA/CCA: 0.4 ECA: 105 cm/sec Vertebral artery: 85 cm/sec IMPRESSION: 1. No evidence of significant focal stenosis in either internal carotid artery. 2. There are some elevated flow velocities in the left common carotid artery but no corresponding anatomic evidence of stenosis. DICTATED BY: LEA GUTIERREZ MD DATE: 11/25/24 1126 REASON: RENAL FAILURE ORDERING PHYSICIAN: CAILIN BARRY MD PROCEDURE: RENAL - US RENAL SONOGRAM US RENAL SONOGRAM REASON: RENAL FAILURE COMPARISON: None TECHNIQUE: Renal and bladder sonogram was performed. FINDINGS: Right kidney is 10.5 x 5.2 x 5.3 cm, left 10.4 x 5.3 x 4.3 cm. There is no mass, stone or hydronephrosis. Cortical thickness appears preserved. Urinary bladder was not well distended and not well visualized. IMPRESSION: 1. Normal-appearing kidneys. 2. Urinary bladder not well visualized. DICTATED BY: LEA GUTIERREZ MD DATE: 11/25/24 1050 REASON: CHEST PAIN ORDERING PHYSICIAN: RENZO WALKER MD PROCEDURE: CXR1VW - CHEST 1VW INDICATION: CHEST PAIN TECHNIQUE: CHEST 1VW COMPARISON: 04/05/2022 FINDINGS/IMPRESSION: Mild bilateral airspace consolidation suggesting vascular congestion/edema versus pneumonia. Cardiac silhouette is within normal limits. Mild degenerative changes of the spine. The visualized upper abdomen appears unremarkable. DICTATED BY: DONG CHINO MD DATE: 11/23/241653 ASSESSMENT: Acute on chronic renal failure Proteinuria, concern for nephrotic syndrome Multivessel coronary artery disease HFrEF 35-40% due to ICM with most recent Echo on 11/24/2024 EF of 50-55% Hypoxic respiratory failure Diabetes mellitus type II Obesity Hypertension PLAN: Labs, diagnostic, radiologic exams reviewed and interpreted by myself and supervising physician. We have reviewed external records in detail From Nephrology standpoint, patient may be discharged Follow up in the renal clinic 1-2 weeks Follow up with Cardiology in the outpatient clinic Diuretics to continue, but adjust according to his symptoms, weight, and overall condition. Fluid restriction is recommended Order CBC, CMP, and electrolytes in am Renal diabetic diet Monitor blood pressure adjust medication doses as needed Avoid hypotensive episodes May use Dilaudid 0.5 mg IV every 6 hours as needed for severe pain Monitor blood sugars Strict intake, output, and daily weight should be monitored Please renally adjust medications Avoid nephrotoxic and nonsteroidal drugs Avoid contrast if possible Will continue to monitor renal function, anemia, electrolytes Treatment plan discussed with patient Questions were answered We have discussed with the other team physicians in detail about the care plan We will continue to monitor the patient closely ATTESTATION BY PHYSICIAN I have seen and examined the patient. I reviewed the documentation, medical decision making, and treatment plan as noted by the mid-level provider above. I agree with the findings and plan of care. CAILIN BARRY MD, [facility] Dec 04, 2024 15:18
--- NOTE | 2024-12-04 16:06 | PN ---
INFECTIOUS DISEASE PROGRESS NOTE Date of Service: Dec 04, 2024 SUBJECTIVE: This is a 49-year-old male patient who was seen and examined at bedside in room 220. Patient is awake, alert and oriented x 3. Patient is ambulating in the room without difficulty. In request of a 2nd opinion we will obtain a consult with Dr. Manning on possible transferring patient to a higher level of care facility. Some improvement on the renal function, BUN is 67 and the creatinine is 2.9. No dyspnea observe and saturating between 96 to 98% on room air. Will continue on fluconazole. We will continue to follow patient's care. PHYSICAL EXAM EYES: Anicteric. Pupils equal and reactive. HENT: No oral thrush seen, moist Oral mucosa. NECK: Supple, no JVD or thyromegaly. RESPIRATORY: Good air entry. No rales, no rhonchi. Lung sounds diminished. Coughing. Oxygen as needed via nasal cannula. CARDIOVASCULAR: S1, S2 regular. No murmur heard. ABDOMEN: Non tender, bowel sounds present. Obese but soft. CENTRAL NERVOUS SYSTEM: Awake, alert, oriented x 3. SKIN: No rashes, no swelling. LYMPHATICS: No peripheral lymphadenopathy. MUSCULOSKELETAL: No joint swelling, erythema or tenderness. EXTREMITIES: No cyanosis or clubbing. BACK: No deformity, no pressure ulcer. GENITOURINARY: No dysuria or hematuria. Vital Sign (Last 12 Hours) 12/04/24 12/04/24 12/04/24 12/04/24 04:00 07:30 09:45 12:08 Temp 98.1 98.6 97.7 Pulse 69 74 75 Resp 21 20 20 B/P (MAP) 144/78 129/76 129/76 129/78 Pulse Ox 97 96 98 O2 Delivery Room Air Room Air Room Air 12/04/24 15:43 Temp 98.4 Pulse 81 Resp 20 B/P (MAP) 133/65 Pulse Ox 98 O2 Delivery Room Air Intake & Output (last 24hrs) 0 12/03/24 12/03/24 12/04/24 15:00 23:00 07:00 Intake Total 960 ml 240 ml Output Total 800 ml 2000 ml Balance 160 ml -1760 ml LABS: Laboratory: Test 12/04/24 05:23 12/04/24 03:26 12/03/24 03:24 Range/Units Whole Blood Glucose 186 H 70-110 MG/DL Bedside Glucose Comment Notified Nurse White Blood Count 11.2 H 4.8-10.8 K/uL Red Blood Count 4.20 L 4.50-6.20 MIL/uL Hemoglobin 10.9 L 14.0-18.0 g/dL Hematocrit 34.0 L 42-54 % Mean Corpuscular Volume 81.0 79-99 fL Mean Corpuscular Hemoglobin 26.0 L 27.0-33.0 pg Mean Corpuscular Hemoglobin Concent 32.1 32.0-36.0 g/dL Red Cell Distribution Width 14.2 11.0-15.5 % Platelet Count 292 130-400 K/uL Mean Platelet Volume 11.6 H 7.5-10.5 fL Immature Granulocyte % (Auto) 0.4 0-1 % Neutrophils (%) (Auto) 59.5 40.0-77.0 % Lymphocytes (%) (Auto) 26.8 21.0-51.0 % Monocytes (%) (Auto) 8.8 3.0-13.0 % Eosinophils (%) (Auto) 4.1 0.0-8.0 % Basophils (%) (Auto) 0.4 0.0-5.0 % Neutrophils # (Auto) 6.7 1.8-7.7 K/uL Lymphocytes # (Auto) 3.0 1.0-4.8 K/uL Monocytes # (Auto) 1.0 0.1-1.0 K/uL Eosinophils # (Auto) 0.46 0.00-0.70 K/uL Basophils # (Auto) 0.05 0.00-0.20 K/uL Absolute Immature Granulocyte (auto 0.05 0-1 K/uL Nucleated Red Blood Cells 0.0 0.0-0.19 % Sodium Level 138 136-145 mmol/L Potassium Level 4.0 3.5-5.1 mmol/L Chloride Level 99 L 101-111 mmol/L Carbon Dioxide Level 29 21-32 mmol/L Blood Urea Nitrogen 67 H 7-18 mg/dL Creatinine 2.9 H 0.5-1.3 mg/dL Glomerular Filtration Rate Calc 26 >90 mL/min Random Glucose 206 H 70-105 mg/dL Total Calcium 9.3 8.5-10.1 mg/dL Phosphorus Level 5.1 H 2.5-4.9 mg/dL Magnesium Level 2.00 1.80-2.40 mg/dL Red Blood Cell Morphology See comments Total Bilirubin 0.3 # 0.2-1.0 mg/dL Aspartate Amino Transf (AST/SGOT) 16 10-37 U/L Alanine Aminotransferase (ALT/SGPT) 35 12-78 U/L Alkaline Phosphatase 85 50-136 U/L Total Protein 7.4 6.0-8.3 g/dL Albumin 3.1 L 3.5-5.0 g/dL ASSESSMENT: Hypoxic respiratory failure, requiring oxygen support. Congestive heart failure. Viral influenza infection type B. Acute on chronic renal failure. Leukocytosis. Coronary artery disease. Diabetes mellitus. Obesity. PLAN: We will obtain a consult with Dr. Manning for a 2nd opinion on possible transferring patient to a higher level of care facility. Continue fluconazole po. Completed Tamiflu therapy. Nephrology has been consulted and following patient. Continue diuretics. Continue oxygen support as needed. Glucometer checks a.c./hs and cover with insulin per sliding scale protocol. Avoid nephrotoxic medications. CD/Disc images from recent hospitalization have been reviewed by cardiovascular surgeon, no invasive intervention was offered a this time. This case was reviewed and discussed with my supervising physician and the above assessment and plan was formulated and agreed upon. ATTESTATION BY PHYSICIAN I have seen and examined the patient. I reviewed the documentation, medical decision making, and treatment plan as noted by the mid-level provider above. I agree with the findings and plan of care. MARIE JOSHI MD, MIRTA L FNP Dec 04, 2024 16:05
--- NOTE | 2024-12-04 17:00 | NUR ---
[facility] FROM [facility] [facility] HERE AND ASSESSED THE FILMS AND SEND THEM TO DR. SANABRIA. SPOKE WITH PATIENT CONCERNING THE 2ND OPINION CONSULT AND WHAT THE PLAN WAS TO CONTACT SOME PHYSICIANS IN [place] AND WOULD LET HIM KNOW WHAT THEY WERE ABLE TO DO FOR HIM. HE DID ADVISE PT THAT THERE MAY NOT BE ANY DIFFERENT IN TREATMENT THAN WHAT HE WAS ALREADY DOING.
--- NOTE | 2024-12-04 19:53 | PN ---
[facility] PROGRESS NOTE Date Patient Seen: Dec 04, 2024 Time of Visit: 19:51 Supervising Physician: Dr. Upton Inpatient Consults: YAMILET PROBLEM LIST: -Influenza B positive -Acute on chronic heart failure preserved ejection fraction exacerbation EF 50- 55% per echocardiogram 11/25/2024 -Acute on chronic renal insufficiency with baseline CKD stage III, now Stage IV EGFR 29 -Multivessel CAD identified on [facility]/coronary angiogram done 10/2024 in [place], recommended CABG -HYPERTENSION -HYPERLIPIDEMIA -DIABETES MELLITUS TYPE 2 -OBESITY INTERVAL HISTORY: 11/27 patient was seen and examined at bedside with no family present. Patient remains on2 L nasal cannula appears to be tolerating well. Patient reports cough has subsided. Patient denies chest pain reports minimal shortness of breadth. Patient denies nausea vomiting or abdominal pain. Patient was positive for flu B, has been started on Tamiflu. We will continue while recommendations from cardiology and CV surgery, plan is for possible CABG . 11/28 Patient is seen and examined at the bedside, he is awake, alert, well oriented, not in distress on O2 via NC, still with some cough patient is posi tive for Influenza on Tamiflu and continues to be on diuresis with lasix as well, denies chest pain or SOB at this time, pending for CABG 11/29 patient was seen and examined by bedside no family present. Patient is awake alert able to answer simple questions appropriately. At time of visit patient denies any chest pain or shortness of breadth. Reports cough has subsided. Patient denies nausea vomiting or abdominal pain. Patient currently pending CABG. We will continue to follow recommendations from CV surgery. As per primary nurse no acute events to be reported. Patient with severe multivessel disease high risk for decompensation 11/30 patient was seen and examined at bedside with family present. At time of visit patient denies any chest pain or shortness of breadth. Patient tolerating p.o. diet. Patient has remained hemodynamically stable. Patient has been having bowel movements. Patient denies any nausea vomiting or abdominal pain. Patient is still currently pending CABG. We will continue to follow recommendations per CV surgery. We will continue to monitor patient closely 12/01 patient was seen and examined at bedside no family present. Patient remains on room air tolerating well. Patient remains hemodynamically stable. Patient is tolerating p.o. diet. Having bowel movements. Patient is still currently pending CABG, as per primary nurse is scheduled for sometime next week. We will continue to follow recommendations from CV surgery. As per primary nurse no acute events to be reported at this time 2/3 patient was seen and examined at bedside no family present. At time of visit patient denies any chest pain or shortness of breadth. Is tolerating p.o. diet. Has remained hemodynamically stable. As per primary nurse no acute events to be reported. Patient is still currently pending CABG we will continue to follow recommendations for CV surgery. 12/03/2024: At the time of my evaluation, the patient was lying in bed. The staff nurse reports no overnight events. The patient is breathing on room air. On the monitor, he is hemodynamically stable and currently denies any chest pain. The patient is feeding orally and there was no nausea, vomiting or diarrhea. Patient has a net balance of 5. Laboratory data showed slightly elevated WBC count at 12.2. Remaining parameters were not of concern. On chemistry there was no major electrolyte derangement. Renal parameters did show elevated BUN and creatinine. No other complaint. 12/04/2024: At the time of my evaluation, the patient was lying in bed. Staff nurse present at the bedside. Family member was present. The patient was breathing on room air. No chest imaging for review today. No complaint of shortness of breath. On the monitor, he was hemodynamically stable. No complaint of chest pain. The patient is feeding orally. He has no complaint of abdominal pain or nausea. On labs, the WBC improved, H&H remain stable. Chemistry panel showed no major derangement. No other complaint. REVIEW OF SYSTEMS: 12 point ROS reviewed with patient. Pertinent positives mentioned above. Otherwise negative. PHYSICAL EXAM: GENERAL: alert, weak, awake oriented x 3 HEENT: EOMI, Sclera non icteric, moist mucosa NECK: Supple, no JVD, trachea midline LUNGS: Clear breath sounds bilaterally. No wheezes HEART: Regular rate and rhythm. Normal S1 and S2, without murmurs ABD: Abdomen soft, nontender. Bowel sounds present EXT: No clubbing cyanosis or edema NEURO: Alert and oriented to person, follows commands Vital Signs (last 8hr) Date Time Temp Pulse Resp B/P (MAP) Pulse Ox O2 Delivery O2 Flow Rate FiO2 12/04/24 15:43 98.4 81 20 133/65 98 Room Air 12/04/24 12:08 97.7 75 20 129/78 98 Room Air LABS: Hematology Labs: Test 12/04/24 03:26 12/03/24 03:24 Range/Units White Blood Count 11.2 H 4.8-10.8 K/uL Red Blood Count 4.20 L 4.50-6.20 MIL/uL Hemoglobin 10.9 L 14.0-18.0 g/dL Hematocrit 34.0 L 42-54 % Mean Corpuscular Volume 81.0 79-99 fL Mean Corpuscular Hemoglobin 26.0 L 27.0-33.0 pg Mean Corpuscular Hemoglobin Concent 32.1 32.0-36.0 g/dL Red Cell Distribution Width 14.2 11.0-15.5 % Platelet Count 292 130-400 K/uL Mean Platelet Volume 11.6 H 7.5-10.5 fL Immature Granulocyte % (Auto) 0.4 0-1 % Neutrophils (%) (Auto) 59.5 40.0-77.0 % Lymphocytes (%) (Auto) 26.8 21.0-51.0 % Monocytes (%) (Auto) 8.8 3.0-13.0 % Eosinophils (%) (Auto) 4.1 0.0-8.0 % Basophils (%) (Auto) 0.4 0.0-5.0 % Neutrophils # (Auto) 6.7 1.8-7.7 K/uL Lymphocytes # (Auto) 3.0 1.0-4.8 K/uL Monocytes # (Auto) 1.0 0.1-1.0 K/uL Eosinophils # (Auto) 0.46 0.00-0.70 K/uL Basophils # (Auto) 0.05 0.00-0.20 K/uL Absolute Immature Granulocyte (auto 0.05 0-1 K/uL Nucleated Red Blood Cells 0.0 0.0-0.19 % Red Blood Cell Morphology See comments Chemistry Labs: Test 12/04/24 19:03 12/04/24 05:23 12/04/24 03:26 12/03/24 03:24 Range/Units Whole Blood Glucose 293 H 70-110 MG/DL Bedside Glucose Comment Notified Nurse Sodium Level 138 136-145 mmol/L Potassium Level 4.0 3.5-5.1 mmol/L Chloride Level 99 L 101-111 mmol/L Carbon Dioxide Level 29 21-32 mmol/L Blood Urea Nitrogen 67 H 7-18 mg/dL Creatinine 2.9 H 0.5-1.3 mg/dL Glomerular Filtration Rate Calc 26 >90 mL/min Random Glucose 206 H 70-105 mg/dL Total Calcium 9.3 8.5-10.1 mg/dL Phosphorus Level 5.1 H 2.5-4.9 mg/dL Magnesium Level 2.00 1.80-2.40 mg/dL Total Bilirubin 0.3 # 0.2-1.0 mg/dL Aspartate Amino Transf (AST/SGOT) 16 10-37 U/L Alanine Aminotransferase (ALT/SGPT) 35 12-78 U/L Alkaline Phosphatase 85 50-136 U/L Total Protein 7.4 6.0-8.3 g/dL Albumin 3.1 L 3.5-5.0 g/dL DIAGNOSTICS / RADIOLOGY RESULTS: [ ] PLAN Pending CABG follow up CV surgeon recommendations Flu B positive continue Tamiflu to complete a total of five days, should be renally adjusted Continue with diuresing Continue to follow recommendations from Cardiology Continue to monitor respiratory status and maintain adequate oxygenation Keep O2 sats greater or equal to 90% We will require 6 minute walk prior to discharge for home oxygen evaluation 12/03/2024: For now, we are going to continue current management for the patient. The patient will continue on room air, but we will supplement oxygen as necessary. We will continue to monitor for any chest pain or other arrhythmias.. The Cardiothoracic surgeon the patient has very diffuse CAD and not bypassable. Per the bung remover's, the plan is possibly to transfer the patient to a higher level of care possibly [place]. We will monitor the patient's nutrition and we will supplement as necessary. We will repeat surveillance labs in the morning. We will continue to provide general supportive care, GI and DVT prophylaxis. Further orders per attending MD and hospital course. 12/04/2024: For now, going to continue current management for the patient. He will continue room air and we will continue to monitor oxygenation needs. We will also continue to monitor the vital signs. He will continue on Imdur, carv edilol and Lasix as guided by the bung remover. P.r.n. nitro on board in case of chest pain. Per the bung remover, the patient is not bypassable and he is now requesting a 2nd opinion in [place]. Per the bung remover's this will be arranged as an outpatient. The patient continues feeding orally and we will monitor bowel activity. We will also monitor his I's and O's. We will continue to monitor the patient's progress and response to management. Further orders per attending and hospital course. NEURO: Minimize central acting medications as possible. Maintain fall precautions, adequate lighting during the day PULMONARY: Supplemental 02 as needed. Maintain aspiration precautions at all times CARDIOVASCULAR: Follow hemodynamics. Vital signs per facility protocol GI & NUTRITION: Continue with nutritional support. Continue stool softeners and laxatives as needed. KIDNEYS & ELECTROLYTES: Strict monitoring of intake, output and overall fluid balance. Avoid nephrotoxic medications to the extent possible. Medications to be dosed according to renal function. Monitor electrolytes and replace as needed ENDOCRINE: Maintain blood glucose between 100-180 at all times. Hypoglycemia protocol in place INFECTIOUS DISEASE: Trend temperature, WBC and procalcitonin level Follow cultures, deescalate antibiotics as soon as possible. Panculture if new onset fever ONCOLOGY/HEMATOLOGY/COAGULATION: Monitor for s/s of bleeding Monitor hemoglobin, coagulation studies as needed SKIN: Pressure ulcer prevention per facility protocol Specialty mattress ORTHO/REHAB: Continue PT/OT Prophylaxis: Continue GI and DVT prophylaxis Code Status: Full Resuscitation Disposition: TBD Case discussed with supervising physician plan of care agreed upon JULIANNE FOSTER NP Dec 04, 2024 19:53
--- NOTE | 2024-12-04 21:36 | CONS ---
DOS: 12/04/2024 reason for consult 2nd opinion History of Present Illness: This is a 49 y/o male with a past medical history of HTN, HLP, DM2, CKD stage III, multivessel CAD identified on [facility]/coronary angiogram done 10/2024 in [place], and obesity who presents with chest pain of 1 month in duration. The symptoms began spontaneously and over the ensuing timeframe have been constant, and occur multiple times, on a daily basis. The symptoms develop with physical activity and the pain is described as dull in quality, 8/10 in intensity, and are nonradiating. . t the patient was recently hospitalized in [place] with pneumonia and underwent a [facility]/coronary angiogram which identified multiple vessel CAD, so CABG was recommended. The patient opted to come back down to the [place] for surgical intervention. Patient during this hospital stay was seen by ct surgery that deemed pt not amendable for CABG due very diffuse coronary artery disease. pt was requesting a second opinion Past Medical History: Listed above Past Surgical History: Listed above Family History: Noncontributory social history illicit drug use Patient History: Diabetes mellitus MOTHER Vitals/Labs PE: EYES: Anicteric. Pupils equal and reactive. HENT: No oral thrush seen, moist Oral mucosa. NECK: Supple, no JVD or thyromegaly. RESPIRATORY: Good air entry. No rales, no rhonchi. CARDIOVASCULAR: S1, S2 regular. No murmur heard. ABDOMEN: Non tender, bowel sounds present. CENTRAL NERVOUS SYSTEM: Awake, alert, oriented x 3. MUSCULOSKELETAL: No joint swelling, erythema or tenderness. EXTREMITIES: No cyanosis or clubbing.. Vital Signs Date Time Temp Pulse Resp B/P (MAP) Pulse Ox O2 Delivery O2 Flow Rate FiO2 12/04/24 20:14 128/68 12/04/24 19:55 99.0 78 20 98 Room Air 12/03/24 20:00 0 21 Laboratory Tests 12/04/24 03:26 Allergies: Coded Allergies: No Known Allergies (Unverified Allergy, Unknown, 04/04/22) Medications Current Medications Aspirin 324 mg ONCE STAT PO Last administered on 11/23/24at 18:34; Start 11/23/24 at 17:30; Stop 11/23/24 at 17:58; Status DC Nitroglycerin 0.4 mg AD PRN SL; Start 11/23/24 at 17:30; Stop 12/23/24 at 17:29 Furosemide 40 mg ONCE STAT IV Last administered on 11/23/24at 18:34; Start 11/23/24 at 17:30; Stop 11/23/24 at 17:58; Status DC Ceftriaxone Sodium 1 gm ONCE STAT IVPB Last administered on 11/23/24at 18:34; Start 11/23/24 at 17:32; Stop 11/23/24 at 17:58; Status DC Insulin Human Regular 8 unit ONCE STAT SQ Last administered on 11/23/24at 18:36; Start 11/23/24 at 17:32; Stop 11/23/24 at 17:59; Status DC Furosemide 40 mg DAILY IV Last administered on 11/28/24at 08:29; Start 11/24/24 at 09:00; Stop 11/28/24 at 09:47; Status DC Heparin Sodium (Porcine) 5,000 unit Q12H SQ Last administered on 11/25/24at 08:37; Start 11/23/24 at 19:30; Stop 11/25/24 at 15:39; Status DC Acetaminophen 650 mg Q4H PRN PO; Start 11/23/24 at 19:30; Stop 12/23/24 at 19:29 Ondansetron HCl 4 mg Q6H PRN IVP; Start 11/23/24 at 19:30; Stop 12/23/24 at 19:29 Insulin Human Regular INSULIN SLIDING SCAL... ACHS SQ Last administered on 12/04/24at 20:20; Start 11/23/24 at 21:00; Stop 12/23/24 at 20:59 Vitamin B Complex/ Vit C/Folic Acid 1 cap DAILY PO Last administered on 12/04/24at 09:46; Start 11/25/24 at 09:00; Stop 12/25/24 at 08:59 Aspirin 81 mg DAILY PO Last administered on 12/04/24at 09:45; Start 11/25/24 at 09:00; Stop 12/25/24 at 08:59 Atorvastatin Calcium 40 mg HS PO Last administered on 12/04/24at 20:14; Start 11/25/24 at 21:00; Stop 12/25/24 at 20:59 Isosorbide Mononitrate 30 mg DAILY PO Last administered on 11/25/24at 08:37; Start 11/25/24 at 09:00; Stop 11/26/24 at 08:03; Status DC Carvedilol 6.25 mg BIDLUNCHDINNER PO; Start 11/25/24 at 12:00; Stop 11/25/24 at 09:10; Status DC Carvedilol 6.25 mg BID PO Last administered on 12/03/24at 08:22; Start 11/25/24 at 09:30; Stop 12/03/24 at 08:48; Status DC Hydralazine HCl 25 mg BID PO Last administered on 11/25/24at 20:26; Start 11/25/24 at 21:00; Stop 11/26/24 at 08:03; Status DC Guaifenesin 200 mg Q4H PRN PO Last administered on 12/04/24at 15:34; Start 11/25/24 at 12:30; Stop 12/25/24 at 12:29 Pharmacy Profile Note 1 each ONCE MISC; Start 11/25/24 at 16:00; Stop 11/25/24 at 15:39; Status DC Heparin Sodium (Porcine) 5,000 unit BID SQ Last administered on 12/04/24at 20:21; Start 11/25/24 at 21:00; Stop 12/23/24 at 19:29 Magnesium Sulfate 50 ml @ 0 mls/hr PROTOCOL PRN IV Last administered on 12/01/24at 05:55; Start 11/26/24 at 07:30; Stop 12/26/24 at 07:29 Isosorbide Mononitrate 30 mg BID PO Last administered on 12/03/24at 08:22; Start 11/26/24 at 09:00; Stop 12/03/24 at 08:48; Status DC Sodium Chloride 4 ml STK-MED ONCE IH; Start 11/26/24 at 18:51; Stop 11/26/24 at 18:51; Status DC Oseltamivir Phosphate 75 mg DAILY PO Last administered on 12/01/24at 10:26; Start 11/27/24 at 09:00; Stop 12/02/24 at 08:59; Status DC Furosemide 80 mg ONCE ONCE IV; Start 11/28/24 at 10:00; Stop 11/28/24 at 09:57; Status DC Furosemide 80 mg [id number] IV; Start 11/28/24 at 12:30; Stop 11/28/24 at 09:57; Status DC Furosemide 40 mg ONCE ONCE IV Last administered on 11/28/24at 10:15; Start 11/28/24 at 10:00; Stop 11/28/24 at 10:04; Status DC Furosemide 80 mg DAILY@0600,1500 IV Last administered on 12/02/24at 16:20; Start 11/29/24 at 06:00; Stop 12/02/24 at 16:25; Status DC Furosemide 80 mg DAILY15 ONCE IV Last administered on 11/28/24at 15:06; Start 11/28/24 at 15:00; Stop 11/28/24 at 15:01; Status DC Fluconazole 100 mg DAILY PO Last administered on 12/04/24at 09:46; Start 12/01/24 at 10:00; Stop 12/31/24 at 09:59 Furosemide 40 mg DAILY PO Last administered on 12/04/24at 09:47; Start 12/03/24 at 09:00; Stop 01/02/25 at 08:59 Carvedilol 12.5 mg BID PO Last administered on 12/04/24at 20:14; Start 12/03/24 at 09:00; Stop 01/02/25 at 08:59 Isosorbide Mononitrate 90 mg DAILY PO Last administered on 12/04/24at 09:46; Start 12/03/24 at 09:00; Stop 12/25/24 at 08:59 Famotidine 20 mg Q48H PO Last administered on 12/03/24at 21:36; Start 12/03/24 at 21:00; Stop 01/02/25 at 20:59 ASSESSMENT: 1. HFrEF 35-40% 2. Acute on chronic renal insufficiency with baseline CKD stage III- improving 3. Multivessel CAD identified on [facility]/coronary angiogram done 10/2024 in [place]; patient turned down by CTS due to diffuse disease and small coronaries, not amenable for CABG. 4. HTN , HLP, DM2 PLAN: WE have reviewed pt angiogram from [place] patient turned down by CTS due to diffuse disease and small coronaries, not amenable for CABG. we will speak with colleagues in [place] further recommendations will be based on the same will f/u tomorrow DARIUS GARAY Dec 04, 2024 21:36
[2024-12-05] VITALS (8 sets, daily range): BP systolic 121–143; BP diastolic 76–89; PULSE 71–86; RESP 18–20; TEMP 98–98.6; O2SAT 99
[2024-12-05 03:47] LABS: HEMATOCRIT 33.3 % (42-54); MEAN CORPUSCULAR HEMOGLOBIN 25.2 pg (27.0-33.0); MEAN CORPUSCULAR HGB CONC 31.8 g/dL (32.0-36.0); MEAN CORPUSCULAR VOLUME 79.3 fL (79-99); RED BLOOD CELL COUNT(AUTO) 4.2 MIL/uL (4.50-6.20); RED CELL DISTRIBUTION WIDTH 14.3 % (11.0-15.5); WHITE BLOOD COUNT (AUTO) 11.6 K/uL (4.8-10.8)
[2024-12-05 04:02] LABS: BILIRUBIN,TOTAL 0.3 mg/dL (0.2-1.0); CREATININE 3.1 mg/dL (0.5-1.3); PHOSPHORUS 5.6 mg/dL (2.5-4.9); POTASSIUM 4.2 mmol/L (3.5-5.1); TOTAL PROTEIN, SERUM 7.1 g/dL (6.0-8.3)
--- NOTE | 2024-12-05 13:17 | PN ---
NEPHROLOGY PROGRESS NOTE Date/Time Patient Seen: Dec 05, 2024 Reason for Consultation: 13:16 SUBJECTIVE: This 49-year-old male with diabetes mellitus, morbid obesity, hypertension, chronic renal disease, presented to the hospital with history of cough, shortness of breath. The patient also complained of bilateral leg swelling. Cough is dry and nonproductive. No pleuritic pain or hemoptysis. The patient claims he was recently admitted to the hospital in [place] with chest pain and shortness of breath. The patient underwent cardiac catheterization, which revealed critical multivessel coronary artery disease. The patient was deemed not bypassable by CV surgeon Patient has requesting 2nd opinion regarding cardiac surgery from physician in [facility], cardiology we will arrange referral in the outpatient setting Patient requested 2nd opinion from Dr. Manning, pending further recommendations He was noted to have elevated BUN/creatinine We has been consulted for renal failure. Renal function is stable Electrolytes are stable Renal ultrasound was noted He was seen in the medical floor, in no acute distress No family at the bedside. REVIEW OF SYSTEMS: GENERAL: Negative for any nausea, vomiting, fevers, chills, or weight loss. NEUROLOGIC: Negative for any blurry vision, blind spots, double vision, facial asymmetry, dysphagia, dysarthria, hemiparesis, hemisensory deficits, vertigo, ataxia. HEENT: Negative for any head trauma, neck trauma, neck stiffness, photophobia, phonophobia, sinusitis, rhinitis. CARDIAC: Negative for any chest pain, dyspnea on exertion, paroxysmal nocturnal dyspnea, peripheral edema. PULMONARY: Negative for any shortness of breath, wheezing, COPD, or TB exposure. GASTROINTESTINAL: Negative for any abdominal pain, nausea, vomiting, bright red blood per rectum, melena. GENITOURINARY: Negative for any dysuria, hematuria, incontinence. INTEGUMENTARY: Negative for any rashes, cuts, insect bites. RHEUMATOLOGIC: Negative for any joint pains, photosensitive rashes, history of vasculitis or kidney problems. HEMATOLOGIC: Negative for any abnormal bruising, frequent infections or bleeding. Vital Signs (last 8hr) Date Time Temp Pulse Resp B/P (MAP) Pulse Ox O2 Delivery O2 Flow Rate FiO2 11/25/24 12:23 98.6 90 18 137/80 94 Room Air 11/25/24 12:14 139/86 11/25/24 08:34 98.4 92 18 139/80 99 Room Air 11/25/24 07:15 97 Nasal Cannula* 2 28 PHYSICAL EXAM: GENERAL: Alert and oriented x 3. No acute distress. Well-nourished. EYES: EOMI. Anicteric. HENT: Moist mucous membranes. No scleral icterus. No cervical lymphadenopathy. LUNGS: Clear to auscultation bilaterally. No accessory muscle use. CARDIOVASCULAR: Regular rate and rhythm. No murmur. No JVD. ABDOMEN: Soft, non-tender and non-distended. No palpable masses. EXTREMITIES: No edema. Non-tender.?SKIN: No rashes or lesions. Warm. NEUROLOGIC: No focal neurological deficits. CN II-XII grossly intact, but not individually tested. PSYCHIATRIC: Cooperative. Appropriate mood and affect. Current Medications Medications (Trade) Dose Ordered Sig/Bibi Route PRN Reason Start Time Stop Time Status Last Admin Dose Admin Acetaminophen (TYLenol 325MG TAB) 650 mg Q4H PRN PO TEMPERATURE GREATER THAN 101.5 11/23/24 19:30 12/23/24 19:29 Aspirin (Aspirin 81mg Chew Tab) 81 mg DAILY PO 11/25/24 09:00 12/25/24 08:59 11/25/24 08:37 81 MG Aspirin (Aspirin 81mg Chew Tab) 324 mg ONCE STAT PO 11/23/24 17:30 11/23/24 17:58 DC 11/23/24 18:34 324 MG Atorvastatin Calcium (LIPItor 40MG) 40 mg HS PO 11/25/24 21:00 12/25/24 20:59 Carvedilol (Coreg 6.25MG) 6.25 mg BID PO 11/25/24 09:30 12/25/24 09:29 11/25/24 12:14 6.25 MG Carvedilol (Coreg 6.25MG) 6.25 mg BIDLUNCHDINNER PO 11/25/24 12:00 11/25/24 09:10 DC Ceftriaxone Sodium (ROCEphine 1G INJ) 1 gm ONCE STAT IVPB 11/23/24 17:32 11/23/24 17:58 DC 11/23/24 18:34 1 GM Furosemide (LASix 40MG VIAL) 40 mg DAILY IV 11/24/24 09:00 12/24/24 08:59 11/25/24 08:37 40 MG Furosemide (LASix 40MG VIAL) 40 mg ONCE STAT IV 11/23/24 17:30 11/23/24 17:58 DC 11/23/24 18:34 40 MG Guaifenesin (RobiTUSSin SUGAR-FREE 100 MG/ 5 ML UDCUP) 200 mg Q4H PRN PO COUGH 11/25/24 12:30 12/25/24 12:29 11/25/24 12:16 200 MG Heparin Sodium (Porcine) (HEParin 5,000 UNIT VIAL) 5,000 unit Q12H SQ 11/23/24 19:30 12/23/24 19:29 11/25/24 08:37 5,000 UNIT Hydralazine HCl ([id number] TAB) 25 mg BID PO 11/25/24 21:00 12/25/24 20:59 Insulin Human Regular (humuLIN R 100 UNIT/ML 3ML) 8 unit ONCE STAT SQ 11/23/24 17:32 11/23/24 17:59 DC 11/23/24 18:36 8 UNIT Insulin Human Regular (humuLIN R 100 UNIT/ML 3ML) INSULIN SLIDING SCAL... ACHS SQ 11/23/24 21:00 12/23/24 20:59 11/25/24 12:04 14 UNIT Isosorbide Mononitrate (Imdur 30mg Sr) 30 mg DAILY PO 11/25/24 09:00 12/25/24 08:59 11/25/24 08:37 30 MG Nitroglycerin (Nitrostat) 0.4 mg AD PRN SL CHEST PAIN 11/23/24 17:30 12/23/24 17:29 Ondansetron HCl (zoFRAN 4MG INJ) 4 mg Q6H PRN IVP NAUSEA/VOMITING 11/23/24 19:30 12/23/24 19:29 Vitamin B Complex/ Vit C/Folic Acid (Nephrovite Tablet) 1 cap DAILY PO 11/25/24 09:00 12/25/24 08:59 11/25/24 08:37 1 [facility] LABORATORY: [ ] Hematology Labs: Test 12/05/24 03:14 12/04/24 03:26 Range/Units White Blood Count 11.6 H 4.8-10.8 K/uL Red Blood Count 4.20 L 4.50-6.20 MIL/uL Hemoglobin 10.6 L 14.0-18.0 g/dL Hematocrit 33.3 L 42-54 % Mean Corpuscular Volume 79.3 79-99 fL Mean Corpuscular Hemoglobin 25.2 L 27.0-33.0 pg Mean Corpuscular Hemoglobin Concent 31.8 L 32.0-36.0 g/dL Red Cell Distribution Width 14.3 11.0-15.5 % Platelet Count 303 130-400 K/uL Mean Platelet Volume 11.7 H 7.5-10.5 fL Nucleated Red Blood Cells 0.0 0.0-0.19 % Immature Granulocyte % (Auto) 0.4 0-1 % Neutrophils (%) (Auto) 59.5 40.0-77.0 % Lymphocytes (%) (Auto) 26.8 21.0-51.0 % Monocytes (%) (Auto) 8.8 3.0-13.0 % Eosinophils (%) (Auto) 4.1 0.0-8.0 % Basophils (%) (Auto) 0.4 0.0-5.0 % Neutrophils # (Auto) 6.7 1.8-7.7 K/uL Lymphocytes # (Auto) 3.0 1.0-4.8 K/uL Monocytes # (Auto) 1.0 0.1-1.0 K/uL Eosinophils # (Auto) 0.46 0.00-0.70 K/uL Basophils # (Auto) 0.05 0.00-0.20 K/uL Absolute Immature Granulocyte (auto 0.05 0-1 K/uL Chemistry Labs: Test 12/05/24 11:13 12/05/24 03:14 12/04/24 05:23 Range/Units Whole Blood Glucose 193 H 70-110 MG/DL Sodium Level 139 136-145 mmol/L Potassium Level 4.2 3.5-5.1 mmol/L Chloride Level 101 101-111 mmol/L Carbon Dioxide Level 29 21-32 mmol/L Blood Urea Nitrogen 68 H 7-18 mg/dL Creatinine 3.1 H 0.5-1.3 mg/dL Glomerular Filtration Rate Calc 24 >90 mL/min Random Glucose 152 H 70-105 mg/dL Total Calcium 9.3 8.5-10.1 mg/dL Phosphorus Level 5.6 H 2.5-4.9 mg/dL Magnesium Level 2.00 1.80-2.40 mg/dL Total Bilirubin 0.3 0.2-1.0 mg/dL Aspartate Amino Transf (AST/SGOT) 16 10-37 U/L Alanine Aminotransferase (ALT/SGPT) 31 12-78 U/L Alkaline Phosphatase 83 50-136 U/L Total Protein 7.1 6.0-8.3 g/dL Albumin 3.0 L 3.5-5.0 g/dL Bedside Glucose Comment Notified Nurse DIAGNOSTICS / RADIOLOGY: REASON: chf ORDERING PHYSICIAN: GABRIELLE POPE MD PROCEDURE: CXR1VW - CHEST 1VW Exam Type: CHEST 1VW Clinical Information: chf Comparison: None Findings: The lungs are clear of infiltrates. The heart is normal in size. The bony and soft tissue structures of the chest are unremarkable. Impression: Clear lungs. DICTATED BY: JASS MIMS MD DATE: 12/01/24 0906 REASON: chf ORDERING PHYSICIAN: WALI TORO MD PROCEDURE: CXR1VW - CHEST 1VW CHEST 1VW REASON: chf COMPARISON: 11/23/2024 FINDINGS: There are diffuse bilateral infiltrates which appear increased somewhat since prior exam. Heart size is normal. There is no vascular congestion or pleural effusion. The Steinmann and bony thorax appear unremarkable. IMPRESSION: 1. Increasing perihilar infiltrates. DICTATED BY: LEA GUTIERREZ MD DATE: 11/27/24 1106 REASON: CAD ORDERING PHYSICIAN: MITZI JENKINS NP PROCEDURE: ECHO [facility] - ECHO 2-D COMPLETE APPROVED REPORT EXAM: Two-dimensional and M-mode echocardiogram with Doppler and color Doppler. INDICATION ICD: Coronary artery disease 2D Dimensions RVDd 4.6 cm LVEF(%) 36.3 (>50%) LVED Vol(simp.) 159.0 mL IVSd 1.3 (0.7-1.1cm) FS(%) 18 % LVES Vol(simp.) 72.2 mL LVDd 5.7 (3.8-5.6cm) LA (2D) 4.8 (1.6-4.0cm) LVEF(%, simp.) 55 % PWd 1.3 (0.7-1.1cm) Ao Root(2D) 3.2 (2.0-3.7cm) LA ESV INDEX (4CH) 25.10 mL/m2 IVSs 1.7 cm LVOT diam 2.1 (1.8-2.4cm) LA ESV INDEX (2CH) 27.80 mL/m2 LVDs 4.7 (2.5-4.0cm) LA ESV INDEX (BP) 27.10 mL/m2 PWs 1.3 cm Deformation Strain Apical 4 14.0 % Apical 2 13.0 % Apical 3 14.0 % Global Strain 14.0 % M-Mode Dimensions EPSS 1.6 cm LA (MM) 4.8 (1.6-4.0cm) Ao Root(MM) 3.7 (2.0-3.7cm) Aortic Valve AoV VTI 0.3 m Ao Mean GR 5.0 mmHg LVOT VTI 0.14 m KOLTON (VMAX) 2.0 cm2 KOLTON (VTI) 2.0 cm2 Mitral Valve MV E Vmax 131.9 cm/s DECEL Time 148 ms MR Max PG 84 mmHg P 1/2 T 61 ms MVA (PHT) 3.6 cm2 TDI E/E' Medial 25.9 E/E' Lateral 13.7 Medial E' Peak V 5.10 cm/s Lateral E' Peak V 9.60 cm/s Pulmonary Valve PV VTI 0.19 m PV Mean GR 3 mmHg Tricuspid Valve TR Vmax 3.4 m/s RAP (EST) 8 mmHg RVSP 53.5 mmHg TR Peak GR 45.5 mmHg Left Ventricle Left ventricular cavity is normal for BSA, 2.5 cm/m2. Mild concentric left ventricular hypertrophy. LVEF is 50-55%. E-a fusion. Right Ventricle The right ventricle is moderately dilated. The right ventricular systolic function is normal. Atria The left atrium size is normal. The right atrium is mildly dilated. Aortic Valve The aortic valve is trileaflet normal in structure and function. No aortic regurgitation is present. There is no aortic valvular stenosis. Mitral Valve Mitral valve leaflets open well. There is trace of mitral valve regurgitation noted. There is no mitral valve stenosis. Tricuspid Valve The tricuspid valve leaflets appear normal. There is trace tricuspid valve regurgitation noted. Pulmonic Valve The pulmonary valve is normal in structure and function. There is no pulmonic valvular regurgitation. Great Vessels The aortic root is normal in size. IVC is not well visualized. Pericardium No pericardial effusion. Other Information Quality : Adequate Conclusion Left ventricular cavity is normal for BSA, 2.5 cm/m2. Mild concentric left ventricular hypertrophy. LVEF is 50-55%. The right ventricle is moderately dilated. The right ventricular systolic function is normal. The left atrium size is normal. The right atrium is mildly dilated. No valvular pathology. DICTATED BY: GABRIELLE POPE MD DATE: 11/25/24 1026 REASON: CAD, needing CABG ORDERING PHYSICIAN: MITZI JENKINS NP PROCEDURE: CAROTID - US CAROTID DUPLEX US CAROTID DUPLEX REASON: CAD, needing CABG TECHNIQUE: Exam was performed using spectral analysis and color flow imaging. FINDINGS: Color flow Doppler ultrasound shows normal-appearing bifurcations. There is no anatomic evidence of significant focal narrowing. Flow velocities and velocity ratios appear normal throughout. There is antegrade flow in both vertebral arteries. Exam is somewhat limited by body habitus. RIGHT CAROTID: CCA: 110 cm/sec ICA: 151 cm/sec Ratio: ICA/CCA: 1.4 ECA: 134 cm/sec Vertebral artery: 73 cm/sec LEFT CAROTID: CCA: 200 cm/sec ICA: 73 cm/sec Ratio: ICA/CCA: 0.4 ECA: 105 cm/sec Vertebral artery: 85 cm/sec IMPRESSION: 1. No evidence of significant focal stenosis in either internal carotid artery. 2. There are some elevated flow velocities in the left common carotid artery but no corresponding anatomic evidence of stenosis. DICTATED BY: LEA GUTIERREZ MD DATE: 11/25/24 1126 REASON: RENAL FAILURE ORDERING PHYSICIAN: CAILIN BARRY MD PROCEDURE: RENAL - US RENAL SONOGRAM US RENAL SONOGRAM REASON: RENAL FAILURE COMPARISON: None TECHNIQUE: Renal and bladder sonogram was performed. FINDINGS: Right kidney is 10.5 x 5.2 x 5.3 cm, left 10.4 x 5.3 x 4.3 cm. There is no mass, stone or hydronephrosis. Cortical thickness appears preserved. Urinary bladder was not well distended and not well visualized. IMPRESSION: 1. Normal-appearing kidneys. 2. Urinary bladder not well visualized. DICTATED BY: LEA GUTIERREZ MD DATE: 11/25/24 1050 REASON: CHEST PAIN ORDERING PHYSICIAN: RENZO WALKER MD PROCEDURE: CXR1VW - CHEST 1VW INDICATION: CHEST PAIN TECHNIQUE: CHEST 1VW COMPARISON: 04/05/2022 FINDINGS/IMPRESSION: Mild bilateral airspace consolidation suggesting vascular congestion/edema versus pneumonia. Cardiac silhouette is within normal limits. Mild degenerative changes of the spine. The visualized upper abdomen appears unremarkable. DICTATED BY: DONG CHINO MD DATE: 11/23/241653 ASSESSMENT: Acute on chronic renal failure Proteinuria, concern for nephrotic syndrome Multivessel coronary artery disease HFrEF 35-40% due to ICM with most recent Echo on 11/24/2024 EF of 50-55% Hypoxic respiratory failure Diabetes mellitus type II Hyperlipemia Obesity Hypertension PLAN: Labs, diagnostic, radiologic exams reviewed and interpreted by myself and supervising physician. We have reviewed external records in detail Pending further Cardiology recommendations Diuretics to continue, but adjust according to his symptoms, weight, and overall condition. Fluid restriction is recommended Order CBC, CMP, and electrolytes in am Renal diabetic diet Monitor blood pressure adjust medication doses as needed Avoid hypotensive episodes May use Dilaudid 0.5 mg IV every 6 hours as needed for severe pain Monitor blood sugars Strict intake, output, and daily weight should be monitored Please renally adjust medications Avoid nephrotoxic and nonsteroidal drugs Avoid contrast if possible Will continue to monitor renal function, anemia, electrolytes Treatment plan discussed with patient Questions were answered We have discussed with the other team physicians in detail about the care plan We will continue to monitor the patient closely ATTESTATION BY PHYSICIAN I have seen and examined the patient. I reviewed the documentation, medical decision making, and treatment plan as noted by the mid-level provider above. I agree with the findings and plan of care. CAILIN BARRY MD, [facility] Dec 05, 2024 13:17
--- NOTE | 2024-12-05 21:31 | PN ---
PROBLEM LIST: * Maintained ejection fraction of 50-55%. * Diffuse end-stage ischemic cardiomyopathy with diffuse coronary artery disease, not amenable to CABG or PTCI. * CKD stage III. * Fluid overload, multifactorial in etiology. * Hypertension, hyperlipidemia and diabetes mellitus, likely poorly controlled. * Hypertension with hypertensive urgency at a prior facility. SUBJECTIVE: Clinically, the patient is actually doing well. Denies any complaint of chest pain or shortness of breath to me. He tells me he has been walking without any problems at this time. OBJECTIVE: VITAL SIGNS: Heart rate is 70s, blood pressure is 136/70. HEENT: Normocephalic, atraumatic. Pupils are equal and react to light. NECK: Supple, no thyromegaly, no carotid bruit, no masses. LUNGS: Clear to percussion and auscultation. CARDIOVASCULAR: S1, S2 is heard. Positive S4 is heard. There is no S3, no murmurs. ABDOMEN: Benign. FIELD EVIDENCE TECHNICIAN: Nonfocal exam. EXTREMITIES: No pitting edema. RECOMMENDATIONS: * The patient is not a good candidate for percutaneous intervention. I have advised him that if any attempt is made that he will end up on dialysis and plus looking at his coronary arteries, he is not a good candidate for percutaneous intervention or open CABG. I agree with his medical management thus far. If the patient develops uncontrollable angina/unstable angina, then he will be a candidate for cardiac and renal transplant. Further recommendations will be based on how he does and we will be available if need be. I agree with plan and if I can be of any additional assistance, please call us back. TID: [id number] RECEIPT: [id number]
--- NOTE | 2024-12-05 21:49 | PN ---
INFECTIOUS DISEASE PROGRESS NOTE Date of Service: Dec 05, 2024 SUBJECTIVE: This is a 49-year-old male patient who was seen and examined at bedside in room 220. Patient is awake, alert and oriented x 3. During rounding today patient is resting comfortably at bedside. No dyspnea or cough observed. Continue on fluconazole. We will continue to follow patient's care. PHYSICAL EXAM EYES: Anicteric. Pupils equal and reactive. HENT: No oral thrush seen, moist Oral mucosa. NECK: Supple, no JVD or thyromegaly. RESPIRATORY: Good air entry. No rales, no rhonchi. Lung sounds diminished. Coughing. Oxygen as needed via nasal cannula. CARDIOVASCULAR: S1, S2 regular. No murmur heard. ABDOMEN: Non tender, bowel sounds present. Obese but soft. CENTRAL NERVOUS SYSTEM: Awake, alert, oriented x 3. SKIN: No rashes, no swelling. LYMPHATICS: No peripheral lymphadenopathy. MUSCULOSKELETAL: No joint swelling, erythema or tenderness. EXTREMITIES: No cyanosis or clubbing. BACK: No deformity, no pressure ulcer. GENITOURINARY: No dysuria or hematuria. Vital Sign (Last 12 Hours) 12/05/24 12/05/24 12/05/24 12/05/24 11:26 16:21 19:30 20:42 Temp 98.6 98.6 98.2 Pulse 71 73 83 Resp 20 20 18 B/P (MAP) 123/78 121/76 134/88 Pulse Ox 98 99 99 99 O2 Delivery Room Air Room Air Room Air* Room Air O2 Flow Rate 0 FiO2 21 12/05/24 21:08 B/P (MAP) 121/70 Intake & Output (last 24hrs) 12/04/24 12/04/24 12/05/24 15:00 23:00 07:00 Intake Total 480 ml 1080 ml Output Total 450 ml 450 ml Balance 480 ml 630 ml -450 ml LABS: Laboratory: Test 12/05/24 20:41 12/05/24 03:14 12/04/24 05:23 12/04/24 03:26 Range/Units Whole Blood Glucose 151 H 70-110 MG/DL White Blood Count 11.6 H 4.8-10.8 K/uL Red Blood Count 4.20 L 4.50-6.20 MIL/uL Hemoglobin 10.6 L 14.0-18.0 g/dL Hematocrit 33.3 L 42-54 % Mean Corpuscular Volume 79.3 79-99 fL Mean Corpuscular Hemoglobin 25.2 L 27.0-33.0 pg Mean Corpuscular Hemoglobin Concent 31.8 L 32.0-36.0 g/dL Red Cell Distribution Width 14.3 11.0-15.5 % Platelet Count 303 130-400 K/uL Mean Platelet Volume 11.7 H 7.5-10.5 fL Nucleated Red Blood Cells 0.0 0.0-0.19 % Sodium Level 139 136-145 mmol/L Potassium Level 4.2 3.5-5.1 mmol/L Chloride Level 101 101-111 mmol/L Carbon Dioxide Level 29 21-32 mmol/L Blood Urea Nitrogen 68 H 7-18 mg/dL Creatinine 3.1 H 0.5-1.3 mg/dL Glomerular Filtration Rate Calc 24 >90 mL/min Random Glucose 152 H 70-105 mg/dL Total Calcium 9.3 8.5-10.1 mg/dL Phosphorus Level 5.6 H 2.5-4.9 mg/dL Magnesium Level 2.00 1.80-2.40 mg/dL Total Bilirubin 0.3 0.2-1.0 mg/dL Aspartate Amino Transf (AST/SGOT) 16 10-37 U/L Alanine Aminotransferase (ALT/SGPT) 31 12-78 U/L Alkaline Phosphatase 83 50-136 U/L Total Protein 7.1 6.0-8.3 g/dL Albumin 3.0 L 3.5-5.0 g/dL Bedside Glucose Comment Notified Nurse Immature Granulocyte % (Auto) 0.4 0-1 % Neutrophils (%) (Auto) 59.5 40.0-77.0 % Lymphocytes (%) (Auto) 26.8 21.0-51.0 % Monocytes (%) (Auto) 8.8 3.0-13.0 % Eosinophils (%) (Auto) 4.1 0.0-8.0 % Basophils (%) (Auto) 0.4 0.0-5.0 % Neutrophils # (Auto) 6.7 1.8-7.7 K/uL Lymphocytes # (Auto) 3.0 1.0-4.8 K/uL Monocytes # (Auto) 1.0 0.1-1.0 K/uL Eosinophils # (Auto) 0.46 0.00-0.70 K/uL Basophils # (Auto) 0.05 0.00-0.20 K/uL Absolute Immature Granulocyte (auto 0.05 0-1 K/uL ASSESSMENT: Hypoxic respiratory failure, requiring oxygen support. Congestive heart failure. Viral influenza infection type B. Acute on chronic renal failure. Leukocytosis. Coronary artery disease. Diabetes mellitus. Obesity. PLAN: Continue fluconazole po. Completed Tamiflu therapy. Nephrology has been consulted and following patient. Continue diuretics. Continue oxygen support as needed. Glucometer checks a.c./hs and cover with insulin per sliding scale protocol. Avoid nephrotoxic medications. CD/Disc images from recent hospitalization have been reviewed by cardiovascular surgeon, no invasive intervention was offered a this time. Dr. Manning has been consulted for a 2nd opinion. This case was reviewed and discussed with my supervising physician and the above assessment and plan was formulated and agreed upon. ATTESTATION BY PHYSICIAN I have seen and examined the patient. I reviewed the documentation, medical decision making, and treatment plan as noted by the mid-level provider above. I agree with the findings and plan of care. MARIE JOSHI MD, [facility] Dec 05, 2024 21:49
--- NOTE | 2024-12-05 23:19 | PN ---
[facility] PROGRESS NOTE Date Patient Seen: Dec 05, 2024 Time of Visit: 23:17 Supervising Physician: Dr. Evans Inpatient Consults: YAMILET PROBLEM LIST: -Influenza B positive -Acute on chronic heart failure preserved ejection fraction exacerbation EF 50- 55% per echocardiogram 11/25/2024 -Acute on chronic renal insufficiency with baseline CKD stage III, now Stage IV EGFR 29 -Multivessel CAD identified on [facility]/coronary angiogram done 10/2024 in [place], recommended CABG -HYPERTENSION -HYPERLIPIDEMIA -DIABETES MELLITUS TYPE 2 -OBESITY INTERVAL HISTORY: 11/27 patient was seen and examined at bedside with no family present. Patient remains on2 L nasal cannula appears to be tolerating well. Patient reports cough has subsided. Patient denies chest pain reports minimal shortness of breadth. Patient denies nausea vomiting or abdominal pain. Patient was positive for flu B, has been started on Tamiflu. We will continue while recommendations from cardiology and CV surgery, plan is for possible CABG . 11/28 Patient is seen and examined at the bedside, he is awake, alert, well oriented, not in distress on O2 via NC, still with some cough patient is positive for Influenza on Tamiflu and continues to be on diuresis with lasix as well, denies chest pain or SOB at this time, pending for CABG 11/29 patient was seen and examined by bedside no family present. Patient is awake alert able to answer simple questions appropriately. At time of visit patient denies any chest pain or shortness of breadth. Reports cough has subsided. Patient denies nausea vomiting or abdominal pain. Patient currently pending CABG. We will continue to follow recommendations from CV surgery. As per primary nurse no acute events to be reported. Patient with severe multivessel disease high risk for decompensation 11/30 patient was seen and examined at bedside with family present. At time of visit patient denies any chest pain or shortness of breadth. Patient tolerating p.o. diet. Patient has remained hemodynamically stable. Patient has been having bowel movements. Patient denies any nausea vomiting or abdominal pain. Patient is still currently pending CABG. We will continue to follow recommendations per CV surgery. We will continue to monitor patient closely 12/01 patient was seen and examined at bedside no family present. Patient remains on room air tolerating well. Patient remains hemodynamically stable. Patient is tolerating p.o. diet. Having bowel movements. Patient is still currently pending CABG, as per primary nurse is scheduled for sometime next week. We will continue to follow recommendations from CV surgery. As per primary nurse no acute events to be reported at this time 2/3 patient was seen and examined at bedside no family present. At time of visit patient denies any chest pain or shortness of breadth. Is tolerating p.o. diet. Has remained hemodynamically stable. As per primary nurse no acute events to be reported. Patient is still currently pending CABG we will continue to follow recommendations for CV surgery. 12/03/2024: At the time of my evaluation, the patient was lying in bed. The staff nurse reports no overnight events. The patient is breathing on room air. On the monitor, he is hemodynamically stable and currently denies any chest pain. The patient is feeding orally and there was no nausea, vomiting or diarrhea. Patient has a net balance of 2094. Laboratory data showed slightly elevated WBC count at 12.2. Remaining parameters were not of concern. On chemistry there was no major electrolyte derangement. Renal parameters did show elevated BUN and creatinine. No other complaint. 12/04/2024: At the time of my evaluation, the patient was lying in bed. Staff nurse present at the bedside. Family member was present. The patient was breathing on room air. No chest imaging for review today. No complaint of shortness of breath. On the monitor, he was hemodynamically stable. No complaint of chest pain. The patient is feeding orally. He has no complaint of abdominal pain or nausea. On labs, the WBC improved, H&H remain stable. Chemistry panel showed no major derangement. No other complaint. 12/05/2024: At the time of my evaluation, the patient was lying in bed. Per the staff nurse, no acute events overnight. He continues breathing on nasal cannula. No new chest x-ray for review today, patient denies shortness of breaths. On the monitor, the patient he is hemodynamically stable. He denies any chest pain and no arrhythmias were noted. The patient is feeding orally and there is no nausea vomiting or diarrhea. The patient is voiding spontaneously and denies any constipation. On labs today, WBC showed a interval increase not of significant concern.. Chemistry panel showed no major changes except for the elevated renal parameters. No other complaint. REVIEW OF SYSTEMS: 12 point ROS reviewed with patient. Pertinent positives mentioned above. Otherwise negative. PHYSICAL EXAM: GENERAL: alert, weak, awake oriented x 3 HEENT: EOMI, Sclera non icteric, moist mucosa NECK: Supple, no JVD, trachea midline LUNGS: Clear breath sounds bilaterally. No wheezes HEART: Regular rate and rhythm. Normal S1 and S2, without murmurs ABD: Abdomen soft, nontender. Bowel sounds present EXT: No clubbing cyanosis or edema NEURO: Alert and oriented to person, follows commands Vital Signs (last 8hr) Date Time Temp Pulse Resp B/P (MAP) Pulse Ox O2 Delivery O2 Flow Rate FiO2 12/05/24 21:08 121/70 12/05/24 20:42 98.2 83 18 134/88 99 Room Air 12/05/24 19:30 99 Room Air* 0 21 12/05/24 16:21 98.6 73 20 121/76 99 Room Air LABS: Hematology Labs: Test 12/05/24 03:14 12/04/24 03:26 Range/Units White Blood Count 11.6 H 4.8-10.8 K/uL Red Blood Count 4.20 L 4.50-6.20 MIL/uL Hemoglobin 10.6 L 14.0-18.0 g/dL Hematocrit 33.3 L 42-54 % Mean Corpuscular Volume 79.3 79-99 fL Mean Corpuscular Hemoglobin 25.2 L 27.0-33.0 pg Mean Corpuscular Hemoglobin Concent 31.8 L 32.0-36.0 g/dL Red Cell Distribution Width 14.3 11.0-15.5 % Platelet Count 303 130-400 K/uL Mean Platelet Volume 11.7 H 7.5-10.5 fL Nucleated Red Blood Cells 0.0 0.0-0.19 % Immature Granulocyte % (Auto) 0.4 0-1 % Neutrophils (%) (Auto) 59.5 40.0-77.0 % Lymphocytes (%) (Auto) 26.8 21.0-51.0 % Monocytes (%) (Auto) 8.8 3.0-13.0 % Eosinophils (%) (Auto) 4.1 0.0-8.0 % Basophils (%) (Auto) 0.4 0.0-5.0 % Neutrophils # (Auto) 6.7 1.8-7.7 K/uL Lymphocytes # (Auto) 3.0 1.0-4.8 K/uL Monocytes # (Auto) 1.0 0.1-1.0 K/uL Eosinophils # (Auto) 0.46 0.00-0.70 K/uL Basophils # (Auto) 0.05 0.00-0.20 K/uL Absolute Immature Granulocyte (auto 0.05 0-1 K/uL Chemistry Labs: Test 12/05/24 20:41 12/05/24 03:14 12/04/24 05:23 Range/Units Whole Blood Glucose 151 H 70-110 MG/DL Sodium Level 139 136-145 mmol/L Potassium Level 4.2 3.5-5.1 mmol/L Chloride Level 101 101-111 mmol/L Carbon Dioxide Level 29 21-32 mmol/L Blood Urea Nitrogen 68 H 7-18 mg/dL Creatinine 3.1 H 0.5-1.3 mg/dL Glomerular Filtration Rate Calc 24 >90 mL/min Random Glucose 152 H 70-105 mg/dL Total Calcium 9.3 8.5-10.1 mg/dL Phosphorus Level 5.6 H 2.5-4.9 mg/dL Magnesium Level 2.00 1.80-2.40 mg/dL Total Bilirubin 0.3 0.2-1.0 mg/dL Aspartate Amino Transf (AST/SGOT) 16 10-37 U/L Alanine Aminotransferase (ALT/SGPT) 31 12-78 U/L Alkaline Phosphatase 83 50-136 U/L Total Protein 7.1 6.0-8.3 g/dL Albumin 3.0 L 3.5-5.0 g/dL Bedside Glucose Comment Notified Nurse DIAGNOSTICS / RADIOLOGY RESULTS: [ ] PLAN Pending CABG follow up CV surgeon recommendations Flu B positive continue Tamiflu to complete a total of five days, should be renally adjusted Continue with diuresing Continue to follow recommendations from Cardiology Continue to monitor respiratory status and maintain adequate oxygenation Keep O2 sats greater or equal to 90% We will require 6 minute walk prior to discharge for home oxygen evaluation 12/03/2024: For now, we are going to continue current management for the patient. The patient will continue on room air, but we will supplement oxygen as necessary. We will continue to monitor for any chest pain or other arrhythmias.. The Cardiothoracic surgeon the patient has very diffuse CAD and not bypassable. Per the set decorator's, the plan is possibly to transfer the patient to a higher level of care possibly [place]. We will monitor the patient's nutrition and we will supplement as necessary. We will repeat surveillance labs in the morning. We will continue to provide general supportive care, GI and DVT prophylaxis. Further orders per attending MD and hospital course. 12/04/2024: For now, going to continue current management for the patient. He will continue room air and we will continue to monitor oxygenation needs. We will also continue to monitor the vital signs. He will continue on Imdur, carvedilol and Lasix as guided by the set decorator. P.r.n. nitro on board in case of chest pain. Per the set decorator, the patient is not bypassable and he is now requesting a 2nd opinion in [place]. Per the set decorator's this will be arranged as an outpatient. The patient continues feeding orally and we will monitor bowel activity. We will also monitor his I's and O's. We will continue to monitor the patient's progress and response to management. Further orders per attending and hospital course. 12/05/2024: For now, we are going to continue current management for the patient. Patient will continue breathing on room air and we will provide oxygen supplementation as necessary. We will follow the blood pressure trend and treat accordingly. We will monitor for any arrhythmias or other cardiac events. We will monitor the oral intake and supplement as necessary. We will monitor the urinary output and bowel activity. We will repeat surveillance labs in the morning. We will monitor the patient's progress and response to management. We will continue to provide general supportive care, GI and DVT prophylaxis. Further orders per attending MD and hospital course. NEURO: Minimize central acting medications as possible. Maintain fall precautions, adequate lighting during the day PULMONARY: Supplemental 02 as needed. Maintain aspiration precautions at all times CARDIOVASCULAR: Follow hemodynamics. Vital signs per facility protocol GI & NUTRITION: Continue with nutritional support. Continue stool softeners and laxatives as needed. KIDNEYS & ELECTROLYTES: Strict monitoring of intake, output and overall fluid balance. Avoid nephrotoxic medications to the extent possible. Medications to be dosed according to renal function. Monitor electrolytes and replace as needed ENDOCRINE: Maintain blood glucose between 100-180 at all times. Hypoglycemia protocol in place INFECTIOUS DISEASE: Trend temperature, WBC and procalcitonin level Follow cultures, deescalate antibiotics as soon as possible. Panculture if new onset fever ONCOLOGY/HEMATOLOGY/COAGULATION: Monitor for s/s of bleeding Monitor hemoglobin, coagulation studies as needed SKIN: Pressure ulcer prevention per facility protocol Specialty mattress ORTHO/REHAB: Continue PT/OT Prophylaxis: Continue GI and DVT prophylaxis Code Status: Full Resuscitation Disposition: TBD Case discussed with supervising physician plan of care agreed upon JULIANNE FOSTER NP Dec 05, 2024 23:19
[2024-12-06 00:25] VITALS: BP 146/92; PULSE 79; RESP 18; TEMP 98.4
[2024-12-06 04:00] VITALS: BP 145/89; PULSE 78; RESP 18; TEMP 97.9
[2024-12-06 07:24] VITALS: O2SAT 96
[2024-12-06 08:03] VITALS: BP 136/90; PULSE 81; RESP 16; TEMP 98
[2024-12-06 11:54] VITALS: BP 103/67; PULSE 74; RESP 16; TEMP 98.1
--- NOTE | 2024-12-06 14:59 | PN ---
NEPHROLOGY PROGRESS NOTE Date/Time Patient Seen: Dec 06, 2024 Reason for Consultation: 14:58 SUBJECTIVE: This 49-year-old male with diabetes mellitus, morbid obesity, hypertension, chronic renal disease, presented to the hospital with history of cough, shortness of breath. The patient also complained of bilateral leg swelling. Cough is dry and nonproductive. No pleuritic pain or hemoptysis. The patient claims he was recently admitted to the hospital in [place] with chest pain and shortness of breath. The patient underwent cardiac catheterization, which revealed critical multivessel coronary artery disease. The patient was deemed not bypassable by CV surgeon Patient has requesting 2nd opinion regarding cardiac surgery from physician in [facility], cardiology we will arrange referral in the outpatient setting Patient requested 2nd opinion from cardiology, pending further recommendations regarding transfer to higher level of care for CABG He was noted to have elevated BUN/creatinine We has been consulted for renal failure. Renal function is stable Electrolytes are stable Renal ultrasound was noted He was seen in the medical floor, in no acute distress No family at the bedside. REVIEW OF SYSTEMS: GENERAL: Negative for any nausea, vomiting, fevers, chills, or weight loss. NEUROLOGIC: Negative for any blurry vision, blind spots, double vision, facial asymmetry, dysphagia, dysarthria, hemiparesis, hemisensory deficits, vertigo, ataxia. HEENT: Negative for any head trauma, neck trauma, neck stiffness, photophobia, phonophobia, sinusitis, rhinitis. CARDIAC: Negative for any chest pain, dyspnea on exertion, paroxysmal nocturnal dyspnea, peripheral edema. PULMONARY: Negative for any shortness of breath, wheezing, COPD, or TB exposure. GASTROINTESTINAL: Negative for any abdominal pain, nausea, vomiting, bright red blood per rectum, melena. GENITOURINARY: Negative for any dysuria, hematuria, incontinence. INTEGUMENTARY: Negative for any rashes, cuts, insect bites. RHEUMATOLOGIC: Negative for any joint pains, photosensitive rashes, history of vasculitis or kidney problems. HEMATOLOGIC: Negative for any abnormal bruising, frequent infections or bleeding. Vital Signs (last 8hr) Date Time Temp Pulse Resp B/P (MAP) Pulse Ox O2 Delivery O2 Flow Rate FiO2 11/25/24 12:23 98.6 90 18 137/80 94 Room Air 11/25/24 12:14 139/86 11/25/24 08:34 98.4 92 18 139/80 99 Room Air 11/25/24 07:15 97 Nasal Cannula* 2 28 PHYSICAL EXAM: GENERAL: Alert and oriented x 3. No acute distress. Well-nourished. EYES: EOMI. Anicteric. HENT: Moist mucous membranes. No scleral icterus. No cervical lymphadenopathy. LUNGS: Clear to auscultation bilaterally. No accessory muscle use. CARDIOVASCULAR: Regular rate and rhythm. No murmur. No JVD. ABDOMEN: Soft, non-tender and non-distended. No palpable masses. EXTREMITIES: No edema. Non-tender.?SKIN: No rashes or lesions. Warm. NEUROLOGIC: No focal neurological deficits. CN II-XII grossly intact, but not individually tested. PSYCHIATRIC: Cooperative. Appropriate mood and affect. Current Medications Medications (Trade) Dose Ordered Sig/Bibi Route PRN Reason Start Time Stop Time Status Last Admin Dose Admin Acetaminophen (TYLenol 325MG TAB) 650 mg Q4H PRN PO TEMPERATURE GREATER THAN 101.5 11/23/24 19:30 12/23/24 19:29 Aspirin (Aspirin 81mg Chew Tab) 81 mg DAILY PO 11/25/24 09:00 12/25/24 08:59 11/25/24 08:37 81 MG Aspirin (Aspirin 81mg Chew Tab) 324 mg ONCE STAT PO 11/23/24 17:30 11/23/24 17:58 DC 11/23/24 18:34 324 MG Atorvastatin Calcium (LIPItor 40MG) 40 mg HS PO 11/25/24 21:00 12/25/24 20:59 Carvedilol (Coreg 6.25MG) 6.25 mg BID PO 11/25/24 09:30 12/25/24 09:29 11/25/24 12:14 6.25 MG Carvedilol (Coreg 6.25MG) 6.25 mg BIDLUNCHDINNER PO 11/25/24 12:00 11/25/24 09:10 DC Ceftriaxone Sodium (ROCEphine 1G INJ) 1 gm ONCE STAT IVPB 11/23/24 17:32 11/23/24 17:58 DC 11/23/24 18:34 1 GM Furosemide (LASix 40MG VIAL) 40 mg DAILY IV 11/24/24 09:00 12/24/24 08:59 11/25/24 08:37 40 MG Furosemide (LASix 40MG VIAL) 40 mg ONCE STAT IV 11/23/24 17:30 11/23/24 17:58 DC 11/23/24 18:34 40 MG Guaifenesin (RobiTUSSin SUGAR-FREE 100 MG/ 5 ML UDCUP) 200 mg Q4H PRN PO COUGH 11/25/24 12:30 12/25/24 12:29 11/25/24 12:16 200 MG Heparin Sodium (Porcine) (HEParin 5,000 UNIT VIAL) 5,000 unit Q12H SQ 11/23/24 19:30 12/23/24 19:29 11/25/24 08:37 5,000 UNIT Hydralazine HCl ([id number] TAB) 25 mg BID PO 11/25/24 21:00 12/25/24 20:59 Insulin Human Regular (humuLIN R 100 UNIT/ML 3ML) 8 unit ONCE STAT SQ 11/23/24 17:32 11/23/24 17:59 DC 11/23/24 18:36 8 UNIT Insulin Human Regular (humuLIN R 100 UNIT/ML 3ML) INSULIN SLIDING SCAL... ACHS SQ 11/23/24 21:00 12/23/24 20:59 11/25/24 12:04 14 UNIT Isosorbide Mononitrate (Imdur 30mg Sr) 30 mg DAILY PO 11/25/24 09:00 12/25/24 08:59 11/25/24 08:37 30 MG Nitroglycerin (Nitrostat) 0.4 mg AD PRN SL CHEST PAIN 11/23/24 17:30 12/23/24 17:29 Ondansetron HCl (zoFRAN 4MG INJ) 4 mg Q6H PRN IVP NAUSEA/VOMITING 11/23/24 19:30 12/23/24 19:29 Vitamin B Complex/ Vit C/Folic Acid (Nephrovite Tablet) 1 cap DAILY PO 11/25/24 09:00 12/25/24 08:59 11/25/24 08:37 1 [facility]: [ ] Hematology Labs: Test 12/05/24 03:14 Range/Units White Blood Count 11.6 H 4.8-10.8 K/uL Red Blood Count 4.20 L 4.50-6.20 MIL/uL Hemoglobin 10.6 L 14.0-18.0 g/dL Hematocrit 33.3 L 42-54 % Mean Corpuscular Volume 79.3 79-99 fL Mean Corpuscular Hemoglobin 25.2 L 27.0-33.0 pg Mean Corpuscular Hemoglobin Concent 31.8 L 32.0-36.0 g/dL Red Cell Distribution Width 14.3 11.0-15.5 % Platelet Count 303 130-400 K/uL Mean Platelet Volume 11.7 H 7.5-10.5 fL Nucleated Red Blood Cells 0.0 0.0-0.19 % Chemistry Labs: Test 12/06/24 11:14 12/05/24 03:14 Range/Units Whole Blood Glucose 232 #H 70-110 MG/DL Sodium Level 139 136-145 mmol/L Potassium Level 4.2 3.5-5.1 mmol/L Chloride Level 101 101-111 mmol/L Carbon Dioxide Level 29 21-32 mmol/L Blood Urea Nitrogen 68 H 7-18 mg/dL Creatinine 3.1 H 0.5-1.3 mg/dL Glomerular Filtration Rate Calc 24 >90 mL/min Random Glucose 152 H 70-105 mg/dL Total Calcium 9.3 8.5-10.1 mg/dL Phosphorus Level 5.6 H 2.5-4.9 mg/dL Magnesium Level 2.00 1.80-2.40 mg/dL Total Bilirubin 0.3 0.2-1.0 mg/dL Aspartate Amino Transf (AST/SGOT) 16 10-37 U/L Alanine Aminotransferase (ALT/SGPT) 31 12-78 U/L Alkaline Phosphatase 83 50-136 U/L Total Protein 7.1 6.0-8.3 g/dL Albumin 3.0 L 3.5-5.0 g/dL DIAGNOSTICS / RADIOLOGY: REASON: chf ORDERING PHYSICIAN: GABRIELLE POPE MD PROCEDURE: CXR1VW - CHEST 1VW Exam Type: CHEST 1VW Clinical Information: chf Comparison: None Findings: The lungs are clear of infiltrates. The heart is normal in size. The bony and soft tissue structures of the chest are unremarkable. Impression: Clear lungs. DICTATED BY: JASS MIMS MD DATE: 12/01/24 0906 REASON: chf ORDERING PHYSICIAN: WALI TORO MD PROCEDURE: CXR1VW - CHEST 1VW CHEST 1VW REASON: chf COMPARISON: 11/23/2024 FINDINGS: There are diffuse bilateral infiltrates which appear increased somewhat since prior exam. Heart size is normal. There is no vascular congestion or pleural effusion. The Steinmann and bony thorax appear unremarkable. IMPRESSION: 1. Increasing perihilar infiltrates. DICTATED BY: LEA GUTIERREZ MD DATE: 11/27/24 1106 REASON: CAD ORDERING PHYSICIAN: MITZI JENKINS NP PROCEDURE: ECHO [facility] - ECHO 2-D COMPLETE APPROVED REPORT EXAM: Two-dimensional and M-mode echocardiogram with Doppler and color Doppler. INDICATION ICD: Coronary artery disease 2D Dimensions RVDd 4.6 cm LVEF(%) 36.3 (>50%) LVED Vol(simp.) 159.0 mL IVSd 1.3 (0.7-1.1cm) FS(%) 18 % LVES Vol(simp.) 72.2 mL LVDd 5.7 (3.8-5.6cm) LA (2D) 4.8 (1.6-4.0cm) LVEF(%, simp.) 55 % PWd 1.3 (0.7-1.1cm) Ao Root(2D) 3.2 (2.0-3.7cm) LA ESV INDEX (4CH) 25.10 mL/m2 IVSs 1.7 cm LVOT diam 2.1 (1.8-2.4cm) LA ESV INDEX (2CH) 27.80 mL/m2 LVDs 4.7 (2.5-4.0cm) LA ESV INDEX (BP) 27.10 mL/m2 PWs 1.3 cm Deformation Strain Apical 4 14.0 % Apical 2 13.0 % Apical 3 14.0 % Global Strain 14.0 % M-Mode Dimensions EPSS 1.6 cm LA (MM) 4.8 (1.6-4.0cm) Ao Root(MM) 3.7 (2.0-3.7cm) Aortic Valve AoV VTI 0.3 m Ao Mean GR 5.0 mmHg LVOT VTI 0.14 m KOLTON (VMAX) 2.0 cm2 KOLTON (VTI) 2.0 cm2 Mitral Valve MV E Vmax 131.9 cm/s DECEL Time 148 ms MR Max PG 84 mmHg P 1/2 T 61 ms MVA (PHT) 3.6 cm2 TDI E/E' Medial 25.9 E/E' Lateral 13.7 Medial E' Peak V 5.10 cm/s Lateral E' Peak V 9.60 cm/s Pulmonary Valve PV VTI 0.19 m PV Mean GR 3 mmHg Tricuspid Valve TR Vmax 3.4 m/s RAP (EST) 8 mmHg RVSP 53.5 mmHg TR Peak GR 45.5 mmHg Left Ventricle Left ventricular cavity is normal for BSA, 2.5 cm/m2. Mild concentric left ventricular hypertrophy. LVEF is 50-55%. E-a fusion. Right Ventricle The right ventricle is moderately dilated. The right ventricular systolic function is normal. Atria The left atrium size is normal. The right atrium is mildly dilated. Aortic Valve The aortic valve is trileaflet normal in structure and function. No aortic regurgitation is present. There is no aortic valvular stenosis. Mitral Valve Mitral valve leaflets open well. There is trace of mitral valve regurgitation noted. There is no mitral valve stenosis. Tricuspid Valve The tricuspid valve leaflets appear normal. There is trace tricuspid valve regurgitation noted. Pulmonic Valve The pulmonary valve is normal in structure and function. There is no pulmonic valvular regurgitation. Great Vessels The aortic root is normal in size. IVC is not well visualized. Pericardium No pericardial effusion. Other Information Quality : Adequate Conclusion Left ventricular cavity is normal for BSA, 2.5 cm/m2. Mild concentric left ventricular hypertrophy. LVEF is 50-55%. The right ventricle is moderately dilated. The right ventricular systolic function is normal. The left atrium size is normal. The right atrium is mildly dilated. No valvular pathology. DICTATED BY: GABRIELLE POPE MD DATE: 11/25/24 1026 REASON: CAD, needing CABG ORDERING PHYSICIAN: MITZI JENKINS NP PROCEDURE: CAROTID - US CAROTID DUPLEX US CAROTID DUPLEX REASON: CAD, needing CABG TECHNIQUE: Exam was performed using spectral analysis and color flow imaging. FINDINGS: Color flow Doppler ultrasound shows normal-appearing bifurcations. There is no anatomic evidence of significant focal narrowing. Flow velocities and velocity ratios appear normal throughout. There is antegrade flow in both vertebral arteries. Exam is somewhat limited by body habitus. RIGHT CAROTID: CCA: 110 cm/sec ICA: 151 cm/sec Ratio: ICA/CCA: 1.4 ECA: 134 cm/sec Vertebral artery: 73 cm/sec LEFT CAROTID: CCA: 200 cm/sec ICA: 73 cm/sec Ratio: ICA/CCA: 0.4 ECA: 105 cm/sec Vertebral artery: 85 cm/sec IMPRESSION: 1. No evidence of significant focal stenosis in either internal carotid artery. 2. There are some elevated flow velocities in the left common carotid artery but no corresponding anatomic evidence of stenosis. DICTATED BY: LEA GUTIERREZ MD DATE: 11/25/24 1126 REASON: RENAL FAILURE ORDERING PHYSICIAN: CAILIN BARRY MD PROCEDURE: RENAL - US RENAL SONOGRAM US RENAL SONOGRAM REASON: RENAL FAILURE COMPARISON: None TECHNIQUE: Renal and bladder sonogram was performed. FINDINGS: Right kidney is 10.5 x 5.2 x 5.3 cm, left 10.4 x 5.3 x 4.3 cm. There is no mass, stone or hydronephrosis. Cortical thickness appears preserved. Urinary bladder was not well distended and not well visualized. IMPRESSION: 1. Normal-appearing kidneys. 2. Urinary bladder not well visualized. DICTATED BY: LEA GUTIERREZ MD DATE: 11/25/24 1050 REASON: CHEST PAIN ORDERING PHYSICIAN: RENZO WALKER MD PROCEDURE: CXR1VW - CHEST 1VW INDICATION: CHEST PAIN TECHNIQUE: CHEST 1VW COMPARISON: 04/05/2022 FINDINGS/IMPRESSION: Mild bilateral airspace consolidation suggesting vascular congestion/edema versus pneumonia. Cardiac silhouette is within normal limits. Mild degenerative changes of the spine. The visualized upper abdomen appears unremarkable. DICTATED BY: DONG CHINO MD DATE: 11/23/24 1652 ASSESSMENT: Acute on chronic renal failure Proteinuria, concern for nephrotic syndrome Multivessel coronary artery disease HFrEF 35-40% due to ICM with most recent Echo on 11/24/2024 EF of 50-55% Hypoxic respiratory failure Diabetes mellitus type II Hyperlipemia Obesity Hypertension PLAN: Labs, diagnostic, radiologic exams reviewed and interpreted by myself and supervising physician. We have reviewed external records in detail Pending further Cardiology recommendations Diuretics to continue, but adjust according to his symptoms, weight, and overall condition. Fluid restriction is recommended Order CBC, CMP, and electrolytes in am Renal diabetic diet Monitor blood pressure adjust medication doses as needed Avoid hypotensive episodes May use Dilaudid 0.5 mg IV every 6 hours as needed for severe pain Monitor blood sugars Strict intake, output, and daily weight should be monitored Please renally adjust medications Avoid nephrotoxic and nonsteroidal drugs Avoid contrast if possible Will continue to monitor renal function, anemia, electrolytes Treatment plan discussed with patient Questions were answered We have discussed with the other team physicians in detail about the care plan We will continue to monitor the patient closely ATTESTATION BY PHYSICIAN I have seen and examined the patient. I reviewed the documentation, medical dec ision making, and treatment plan as noted by the mid-level provider above. I agree with the findings and plan of care. CAILIN BARRY MD, [facility] Dec 06, 2024 14:59
[2024-12-06 16:00] VITALS: BP 149/63; PULSE 79; RESP 16; TEMP 97.9
--- NOTE | 2024-12-06 17:05 | NUR ---
Patient alert and oriented x4, with spouse at bedside , being discharged home. Patient educated to follow up with dr. Manning, Dr. Goyal and PCP dr. Farris as per scheduled ajay. Prescription given, medications explained, including side effects. Patient educated to resume home medications for diabetes. Patient educated to take prescription to pharmacy. IV removed without complications. All questions answered, patient and spouse verbalized complete understanding. Pateint gathered all belongings and took with him at discharge.
--- NOTE | 2024-12-06 20:36 | PN ---
[facility] PROGRESS NOTE Date Patient Seen: Dec 06, 2024 Time of Visit: 15:24 Supervising Physician: Dr. Evans Inpatient Consults: YAMILET PROBLEM LIST: -Influenza B positive -Acute on chronic heart failure preserved ejection fraction exacerbation EF 50- 55% per echocardiogram 11/25/2024 -Acute on chronic renal insufficiency with baseline CKD stage III, now Stage IV EGFR 29 -Multivessel CAD identified on [facility]/coronary angiogram done 10/2024 in [place], recommended CABG -HYPERTENSION -HYPERLIPIDEMIA -DIABETES MELLITUS TYPE 2 -OBESITY INTERVAL HISTORY: 11/27 patient was seen and examined at bedside with no family present. Patient remains on2 L nasal cannula appears to be tolerating well. Patient reports cough has subsided. Patient denies chest pain reports minimal shortness of breadth. Patient denies nausea vomiting or abdominal pain. Patient was positive for flu B, has been started on Tamiflu. We will continue while recommendations from cardiology and CV surgery, plan is for possible CABG . 11/28 Patient is seen and examined at the bedside, he is awake, alert, well oriented, not in distress on O2 via [place], still with some cough patient is positive for Influenza on Tamiflu and continues to be on diuresis with lasix as well, denies chest pain or SOB at this time, pending for CABG 11/29 patient was seen and examined by bedside no family present. Patient is awake alert able to answer simple questions appropriately. At time of visit patient denies any chest pain or shortness of breadth. Reports cough has subsided. Patient denies nausea vomiting or abdominal pain. Patient currently pending CABG. We will continue to follow recommendations from CV surgery. As per primary nurse no acute events to be reported. Patient with severe multivessel disease high risk for decompensation 11/30 patient was seen and examined at bedside with family present. At time of visit patient denies any chest pain or shortness of breadth. Patient tolerating p.o. diet. Patient has remained hemodynamically stable. Patient has been having bowel movements. Patient denies any nausea vomiting or abdominal pain. Patient is still currently pending CABG. We will continue to follow recommendations per CV surgery. We will continue to monitor patient closely 12/01 patient was seen and examined at bedside no family present. Patient remains on room air tolerating well. Patient remains hemodynamically stable. Patient is tolerating p.o. diet. Having bowel movements. Patient is still currently pending CABG, as per primary nurse is scheduled for sometime next week. We will continue to follow recommendations from CV surgery. As per primary nurse no acute events to be reported at this time 2/3 patient was seen and examined at bedside no family present. At time of visit patient denies any chest pain or shortness of breadth. Is tolerating p.o. diet. Has remained hemodynamically stable. As per primary nurse no acute events to be reported. Patient is still currently pending CABG we will continue to follow recommendations for CV surgery. 12/03/2024: At the time of my evaluation, the patient was lying in bed. The staff nurse reports no overnight events. The patient is breathing on room air. On the monitor, he is hemodynamically stable and currently denies any chest pain. The patient is feeding orally and there was no nausea, vomiting or diarrhea. Patient has a net balance of 5. Laboratory data showed slightly elevated WBC count at 12.2. Remaining parameters were not of concern. On chemistry there was no major electrolyte derangement. Renal parameters did show elevated BUN and creatinine. No other complaint. 12/04/2024: At the time of my evaluation, the patient was lying in bed. Staff nurse present at the bedside. Family member was present. The patient was breathing on room air. No chest imaging for review today. No complaint of shortness of breath. On the monitor, he was hemodynamically stable. No complaint of chest pain. The patient is feeding orally. He has no complaint of abdominal pain or nausea. On labs, the WBC improved, H&H remain stable. Chemistry panel showed no major derangement. No other complaint. 12/05/2024: At the time of my evaluation, the patient was lying in bed. Per the staff nurse, no acute events overnight. He continues breathing on nasal cannula. No new chest x-ray for review today, patient denies shortness of breaths. On the monitor, the patient he is hemodynamically stable. He denies any chest pain and no arrhythmias were noted. The patient is feeding orally and there is no nausea vomiting or diarrhea. The patient is voiding spontaneously and denies any constipation. On labs today, WBC showed a interval increase not of significant concern.. Chemistry panel showed no major changes except for the elevated renal parameters. No other complaint. Late entry note: 12/05/2024: At the time of my evaluation, the patient was lying in bed. Per the staff nurse, no acute events overnight. He continues currently breathing on room air. No new chest x-ray for review today. Patient denies shortness of breaths. On the monitor, the patient he is hemodynamically stable. He denies any chest pain and no arrhythmias were noted. The patient is feeding orally and there is no nausea vomiting or diarrhea. The patient is voiding spontaneously and denies any constipation. No labs for review today. No other complaint. REVIEW OF SYSTEMS: 12 point ROS reviewed with patient. Pertinent positives mentioned above. Otherwise negative. PHYSICAL EXAM: GENERAL: alert, weak, awake oriented x 3 HEENT: EOMI, Sclera non icteric, moist mucosa NECK: Supple, no JVD, trachea midline LUNGS: Clear breath sounds bilaterally. No wheezes HEART: Regular rate and rhythm. Normal S1 and S2, without murmurs ABD: Abdomen soft, nontender. Bowel sounds present EXT: No clubbing cyanosis or edema NEURO: Alert and oriented to person, follows commands Vital Signs (last 8hr) Date Time Temp Pulse Resp B/P (MAP) Pulse Ox O2 Delivery O2 Flow Rate FiO2 12/06/24 16:00 97.9 79 16 149/63 97 Room Air LABS: Hematology Labs: Test 12/05/24 03:14 Range/Units White Blood Count 11.6 H 4.8-10.8 K/uL Red Blood Count 4.20 L 4.50-6.20 MIL/uL Hemoglobin 10.6 L 14.0-18.0 g/dL Hematocrit 33.3 L 42-54 % Mean Corpuscular Volume 79.3 79-99 fL Mean Corpuscular Hemoglobin 25.2 L 27.0-33.0 pg Mean Corpuscular Hemoglobin Concent 31.8 L 32.0-36.0 g/dL Red Cell Distribution Width 14.3 11.0-15.5 % Platelet Count 303 130-400 K/uL Mean Platelet Volume 11.7 H 7.5-10.5 fL Nucleated Red Blood Cells 0.0 0.0-0.19 % Chemistry Labs: Test 12/06/24 16:52 12/05/24 03:14 Range/Units Whole Blood Glucose 183 H 70-110 MG/DL Sodium Level 139 136-145 mmol/L Potassium Level 4.2 3.5-5.1 mmol/L Chloride Level 101 101-111 mmol/L Carbon Dioxide Level 29 21-32 mmol/L Blood Urea Nitrogen 68 H 7-18 mg/dL Creatinine 3.1 H 0.5-1.3 mg/dL Glomerular Filtration Rate Calc 24 >90 mL/min Random Glucose 152 H 70-105 mg/dL Total Calcium 9.3 8.5-10.1 mg/dL Phosphorus Level 5.6 H 2.5-4.9 mg/dL Magnesium Level 2.00 1.80-2.40 mg/dL Total Bilirubin 0.3 0.2-1.0 mg/dL Aspartate Amino Transf (AST/SGOT) 16 10-37 U/L Alanine Aminotransferase (ALT/SGPT) 31 12-78 U/L Alkaline Phosphatase 83 50-136 U/L Total Protein 7.1 6.0-8.3 g/dL Albumin 3.0 L 3.5-5.0 g/dL DIAGNOSTICS / RADIOLOGY RESULTS: [ ] PLAN Pending CABG follow up CV surgeon recommendations Flu B positive continue Tamiflu to complete a total of five days, should be renally adjusted Continue with diuresing Continue to follow recommendations from Cardiology Continue to monitor respiratory status and maintain adequate oxygenation Keep O2 sats greater or equal to 90% We will require 6 minute walk prior to discharge for home oxygen evaluation 12/03/2024: For now, we are going to continue current management for the pat ient. The patient will continue on room air, but we will supplement oxygen as necessary. We will continue to monitor for any chest pain or other arrhythmias.. The Cardiothoracic surgeon the patient has very diffuse CAD and not bypassable. Per the counseling director's, the plan is possibly to transfer the patient to a higher level of care possibly [place]. We will monitor the patient 's nutrition and we will supplement as necessary. We will repeat surveillance labs in the morning. We will continue to provide general supportive care, GI and DVT prophylaxis. Further orders per attending MD and hospital course. 12/04/2024: For now, going to continue current management for the patient. He will continue room air and we will continue to monitor oxygenation needs. We will also continue to monitor the vital signs. He will continue on Imdur, carvedilol and Lasix as guided by the counseling director. P.r.n. nitro on board in case of chest pain. Per the counseling director, the patient is not bypassable and he is now requesting a 2nd opinion in [place]. Per the counseling director's this will be arranged as an outpatient. The patient continues feeding orally and we will monitor bowel activity. We will also monitor his I's and O's. We will continue to monitor the patient's progress and response to management. Further orders per attending and hospital course. 12/05/2024: For now, we are going to continue current management for the patient. Patient will continue breathing on room air and we will provide oxygen supplementation as necessary. We will follow the blood pressure trend and treat accordingly. We will monitor for any arrhythmias or other cardiac events. We will monitor the oral intake and supplement as necessary. We will monitor the urinary output and bowel activity. We will repeat surveillance labs in the morning. We will monitor the patient's progress and response to management. We will continue to provide general supportive care, GI and DVT prophylaxis. Further orders per attending MD and hospital course. 12/06/2024: For now, we are going to continue current management for the patient. Per the staff nurse, the patient will be discharging home later today. If so, patient can be discharged home when ready. Appreciate the opportunity provided to participate in patient care Further orders per attending MD and hospital course. NEURO: Minimize central acting medications as possible. Maintain fall precautions, adequate lighting during the day PULMONARY: Supplemental 02 as needed. Maintain aspiration precautions at all times CARDIOVASCULAR: Follow hemodynamics. Vital signs per facility protocol GI & NUTRITION: Continue with nutritional support. Continue stool softeners and laxatives as needed. KIDNEYS & ELECTROLYTES: Strict monitoring of intake, output and overall fluid balance. Avoid nephrotoxic medications to the extent possible. Medications to be dosed according to renal function. Monitor electrolytes and replace as needed ENDOCRINE: Maintain blood glucose between 100-180 at all times. Hypoglycemia protocol in place INFECTIOUS DISEASE: Trend temperature, WBC and procalcitonin level Follow cultures, deescalate antibiotics as soon as possible. Panculture if new onset fever ONCOLOGY/HEMATOLOGY/COAGULATION: Monitor for s/s of bleeding Monitor hemoglobin, coagulation studies as needed SKIN: Pressure ulcer prevention per facility protocol Specialty mattress ORTHO/REHAB: Continue PT/OT Prophylaxis: Continue GI and DVT prophylaxis Code Status: Full Resuscitation Disposition: TBD Case discussed with supervising physician plan of care agreed upon JULIANNE FOSTER NP Dec 06, 2024 20:36
--- NOTE | 2024-12-06 22:16 | DS ---
Discharge Summary Hospital Course This is a 49-year-old male patient with past medical history of diabetes mellitus, morbid obesity, hypertension, chronic renal disease, presented to the hospital with history of cough, shortness of breath and leg swelling. Cough is dry and nonproductive. No pleuritic pain or hemoptysis. Patient reported that he was recently admitted to a hospital in [place] with chest pain and shortness of breath and that he underwent cardiac catheterization procedure which revealed critical multivessel coronary artery disease. The patient was advised to go back home and be seen for CABG. The patient in the ER was found with troponin of 79. BNP was elevated at 920 and on renal failure with BUN of 53 and creatinine of 3.3. The patient was seen by Cardiology and Nephrology before. Chest x-ray shows pulmonary congestion. Denies dysuria or urinary frequency. Records were obtained from [facility] in [place]. Cardiothoracic surgeon was consulted who reviewed patient's angiogram report and was found not to be a good candidate for CABG due to diffuse coronary artery disease, not bypassable. A cardiology 2nd opinion was obtained per patient's request and the recommendations remain the same. Dr. Abe Manning will follow up with patient as outpatient for possible referring patient to a specialist in [place] or [place]. Patient will be discharged to home today. Provided with prescriptions for Coreg, aspirin, Plavix, Lipitor and Lasix. FINAL DISCHARGE DIAGNOSIS: Hypoxic respiratory failure, requiring oxygen support. Congestive heart failure. Diffuse end-stage ischemic cardiomyopathy with diffuse coronary artery disease, not amenable to CABG or PTCI. Viral influenza infection type B, s/p treated. Acute on chronic renal failure. Leukocytosis. Diabetes mellitus. Obesity. PLAN: Discharge patient to home today. Follow up with Dr. Raymond Manning in 1-2 weeks. Follow up with PCP in 3-5 days. New prescription for Coreg, aspirin, Plavix, Lipitor and Lasix. This case was reviewed and discussed with my supervising physician and the above assessment and plan was formulated and agreed upon. ATTESTATION BY PHYSICIAN I have seen and examined the patient. I reviewed the documentation, medical decision making, and treatment plan as noted by the mid-level provider above. I agree with the findings and plan of care. MARIE JOSHI MD, [facility] Dec 06, 2024 22:16
== END 2024-12-06 17:10 | disposition home or self-care (01) | DRG 291 ==
LOC: EDH 14:48 → EDHIP 18:50 → 2DH 11-25 00:21
PROVIDERS: ADMIT Internal Medicine Infectious Disease; ATTEND Internal Medicine Infectious Disease
DX: I13.0 Hypertensive heart and chronic kidney disease with heart failure and stage 1 through stage 4 chronic kidney disease, or unspecified chronic kidney disease (principal); I50.33 Acute on chronic diastolic (congestive) heart failure; J18.9 Pneumonia, unspecified organism; J96.91 Respiratory failure, unspecified with hypoxia; J10.00 Influenza due to other identified influenza virus with unspecified type of pneumonia; N17.9 Acute kidney failure, unspecified; Z20.822 Contact with and (suspected) exposure to COVID-19; E66.01 Morbid (severe) obesity due to excess calories; N18.30 Chronic kidney disease, stage 3 unspecified; E11.22 Type 2 diabetes mellitus with diabetic chronic kidney disease; M79.89 Other specified soft tissue disorders; I25.10 Atherosclerotic heart disease of native coronary artery without angina pectoris; E78.00 Pure hypercholesterolemia, unspecified; E11.51 Type 2 diabetes mellitus with diabetic peripheral angiopathy without gangrene; I25.5 Ischemic cardiomyopathy; I16.0 Hypertensive urgency; Z83.3 Family history of diabetes mellitus; Z95.1 Presence of aortocoronary bypass graft; I25.2 Old myocardial infarction; Z68.35 Body mass index [BMI] 35.0-35.9, adult
CPT/HCPCS: 36415; 71045; 76770; 80048; 80051; 80053; 80061; 80305; 81001; 82550; 82570; 82728; 82948; 83036; 83540; 83550; 83735; 83880; 83935; 84100; 84145; 84156; 84443; 84484; 84550; 85025; 85027; 87071; 87205; 87426; 87804; 93005; 93306; 93356; 93880; G0378; J0696; J1644; J1815; J1940; J3475